=== PATIENT | female | born 1970 | race Caucasian/White ===

== ENCOUNTER → 2017-10-04 17:03 | Outpatient (CLI) | payer OTHER, SELFPAY ==
--- NOTE | 2017-10-04 17:30 | MRI_ITS ---
STUDY: MRI BRAIN WITH AND WITHOUT CONTRAST REASON FOR EXAM: Female, 47 years old. Papilledema with headaches TECHNIQUE: Standardized multiplanar fat and water weighted pulse sequences were obtained. 10 ml of Gadavist contrast material was administered intravenously for the contrast portion of the examination. COMPARISON: None. FINDINGS: There is a very large heterogeneously enhancing mass lesion in the right frontal lobe demonstrating foci of subacute and acute hemorrhage producing extrinsic compression upon the frontal horn of the right lateral ventricle which is displaced posteriorly and across the midline.. There is also mass effect upon the frontal horn of the left lateral ventricle. Normal white matter tracts of the supratentorial brain. Normal bilateral basal ganglia. Normal thalami. There is no extra-axial fluid accumulation. Normal flow voids within the major intracranial circulation suggesting patency by spin echo criteria. Normal venous enhancement. There is no enhancing intra-axial or extra-axial abnormality. Partial empty sella deformity. Normal, infundibular stalk, optic chiasm and hypothalamus. Normal tectal plate and pineal gland. Normal midbrain, moise and medulla. Normal cerebellum. Normal basal cisterns. Normal bilateral temporal bones. Normal bilateral internal auditory canals. There is fluid distended optic nerve root sheaths which may be consistent with clinical history of palpable edema There is minor mucosal thickening of the maxillary and ethmoid sinuses. Normal calvarium and skull base. Normal visualized soft tissue structures. Normal visualized upper cervical spine. MRI/Brain W/WO Contrast IMPRESSION: Large heterogeneously enhancing mass in the right frontal lobe with foci of acute and subacute hemorrhage displacing the lateral ventricles and producing midline shift. This may represent a primary glioblastoma although large metastatic lesion is not excluded and clinical correlation is recommended Electronically Signed: Sudhir Corea MD at 19:03 EDT , Service support ,
== END ==
LOC: MRI 17:04
DX: H47.10 Unspecified papilledema (principal)
CPT/HCPCS: 70553; A9585

== ENCOUNTER 2017-10-04 19:32 | Emergency (ER) | payer BC, SELFPAY ==
[2017-10-04 19:34] VITALS: BP 163/105; PULSE 76; RESP 13; TEMP 37.2; O2SAT 100; BMI 34.7
--- NOTE | 2017-10-04 20:02 | EKG12_ITS ---
Test Reason : HEADACHE Blood Pressure : / mmHG Vent. Rate : 078 BPM Atrial Rate : 078 BPM P-R Int : 144 ms QRS Dur : 086 ms QT Int : 378 ms P-R-T Axes : 023 009 013 degrees QTc Int : 430 ms Normal sinus rhythm Normal ECG Confirmed by MELANY DUGGAN, ECTOR ([id number]), senior editor HELEN CANO ([id number]) on 10/06/2017 3:10:13 PM Referred By: MARTÍN CHAVEZ Confirmed By:ECTOR MOSLEY MD
[2017-10-04] MEDS: Ondansetron 4 MG/2 ML Vial IV (20:20)
[2017-10-04 20:31] LABS: Absolute Lymphocyte Count 2.78 X10^3/ul (0.83-4.51); Absolute Neutrophil Count 6.1 X10^3/uL (2.0-7.7); Basophil# 0.03 X10^3/uL; Basophil% 0.3 % (0-1); Eosinophil# 0.38 X10^3/uL; Eosinophils% 3.8 % (0-5); Hematocrit 40.4 % (37-47); Lymphocyte # 2.78 X10^3/ul (4.0); Lymphocyte % 27.8 % (19-41); Mean Corp Hgb Conc 32.2 g/gl (32-36); Mean Corpuscular Hgb 29.6 pg (27.0-32.0); Mean Platelet Vol. 9.7 fl (6.2-12.0); Monocyte# 0.68 X10^3/uL; Monocyte% 6.8 % (0-10); Neutrophil # 6.12 X10^3/uL (2.7-7.7); Neutrophil % 61.2 % (47-70); Platelet Count 276 K/mm3 (150-450); RBC Distribution Width CV 13.2 % (11.6-14.6); RBC Distribution Width SD 44.2 fl (35.1-43.9); Red Blood Count 4.39 M/mm3 (4.2-5.4)
[2017-10-04 20:36] LABS: POSITIVE COUNT NO; POSITIVE DIFFERENTIAL NO; POSITIVE MORPHOLOGY NO
[2017-10-04 20:44] VITALS: BP 126/91; PULSE 81; RESP 17; O2SAT 98
[2017-10-04] MEDS: levETIRAcetam IV 1,000 MG/100 ML BAG 400 MG IV (20:49)
[2017-10-04 20:51] LABS: ALB/GLOB Ratio 0.8 RATIO (0.9-2.4); AST(SGOT) 11 U/L (15-37); Alanine Aminotransfer ALT/SGPT 18 U/L (13-56); Albumin, Serum 3.7 g/dL (3.2-5.0); Alkaline Phosphatase 77 U/L (45-117); Anion Gap 7 (5-15); BUN 15 mg/dL (7-18); BUN/Creat Ratio 20.2 RATIO (10-20); Calcium,Total 9.3 mg/dL (8.5-10.1); Chloride 108 mmol/L (98-107); Creatinine, Serum 0.74 mg/dL (0.55-1.02); EST Glomerular Filtration Rate 90 mL/min (>60); Est Glom Filt Rate - Afr Amer 108 mL/min (>60); Estimated Creatinine Clearance 88.93 ml/min; Globulin 4.4 g/dL (2.2-4.2); Glucose 105 mg/dL (74-106); Potassium 3.5 mmol/L (3.5-5.1); Protein, Total 8.1 g/dL (6.4-8.2); Sodium Level 141 mmol/L (136-145)
--- NOTE | 2017-10-04 20:55 | NURSING ---
ACCEPTED AT [facility] G70 ROOM 14 REPORT
[2017-10-04 20:58] LABS: Prothrombin Time (Protime)PT. 13.4 SECONDS (11.7-14.9)
[2017-10-04 20:59] LABS: Partial Thromboplast Time 28.1 Seconds (24.1-36.2)
--- NOTE | 2017-10-04 21:00 | ED.VISSUMM ---
- ER Visit Summary Date of Service: 10/04/17 Chief Complaint: Headache, abnormal MRI History of Present Illness: The patient is a 47 F to the emergency department with an abnormal MRI. The patient has had a gradual progressive headache for the past 3 months. She states that it has begun to wake him from sleep. She has had nausea and vomiting. Over the past month, she said double vision and trouble focusing especially with the right eye. Over the past 2 weeks, she has begun to have clumsiness of her left hand. She went to her logistic specialist. She had a dilated exam which demonstrated papilledema. With this, she was ordered an outpatient MRI. MRI was done today. It did show a large mass with hemorrhagic transformation and midline shift. 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 She had negative lymph nodes. She has no other history of cancer. She does not take anticoagulants. Physical Examination: Vital signs reviewed General: Well-nourished, well-developed Head: Normocephalic, atraumatic Eyes: Pupils equal and reactive, extraocular muscles intact Neck, supple, no lymphadenopathy Heart: Regular rate and rhythm Respiratory: No distress, clear bilaterally Abdomen: Soft, nontender, nondistended, no peritoneal signs Back: Nontender Extremities: Nontender, no edema, no cords Skin: Normal color no rash Neuro: Alert and oriented, positive papilledema, mild clumsiness of the left arm, GCS of 15 Test Results: [] Emergency Department Course and Treatment: The patient has a GCS of 15. However, in reviewing her MRI this is a very large mass. There is both acute and subacute hemorrhage. She has about a centimeter midline shift. Although the patient looks well, I do feel that she is going to require emergent neurosurgery evaluation. The patient was given IV Decadron. She was started on IV Keppra. Patient was discussed with Dr. Malloy, neurosurgeon at [facility]. He did accept the patient in transfer. She will be transferred to [facility] for further evaluation and treatment of her brain mass. Treatment Plan: [] Disposition: Transfer Impression: 1. Brain mass with midline shift This note was generated with [employer] dictation software. It may contain incorrect words, spelling, and punctuation that were not noted in review of the chart prior to signing ED Disposition - Plan for ED Patient: Chief Complaint: Abn Labs Referrals: Shane Matthew [Primary Care Provider] -
--- NOTE | 2017-10-04 21:03 | ED.DCSUM_ITS ---
- ER Visit Summary Date of Service: 10/04/17 Chief Complaint: Headache, abnormal MRI History of Present Illness: The patient is a 47 F to the emergency department with an abnormal MRI. The patient has had a gradual progressive headache for the past 3 months. She states that it has begun to wake him from sleep. She has had nausea and vomiting. Over the past month, she said double vision and trouble focusing especially with the right eye. Over the past 2 weeks, she has begun to have clumsiness of her left hand. She went to her botany laboratory assistant. She had a dilated exam which demonstrated papilledema. With this, she was ordered an outpatient MRI. MRI was done today. It did show a large mass with hemorrhagic transformation and midline shift. 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 She had negative lymph nodes. She has no other history of cancer. She does not take anticoagulants. Physical Examination: Vital signs reviewed General: Well-nourished, well-developed Head: Normocephalic, atraumatic Eyes: Pupils equal and reactive, extraocular muscles intact Neck, supple, no lymphadenopathy Heart: Regular rate and rhythm Respiratory: No distress, clear bilaterally Abdomen: Soft, nontender, nondistended, no peritoneal signs Back: Nontender Extremities: Nontender, no edema, no cords Skin: Normal color no rash Neuro: Alert and oriented, positive papilledema, mild clumsiness of the left arm , GCS of 15 Test Results: [] Emergency Department Course and Treatment: The patient has a GCS of 15. However , in reviewing her MRI this is a very large mass. There is both acute and subacute hemorrhage. She has about a centimeter midline shift. Although the patient looks well, I do feel that she is going to require emergent neurosurgery evaluation. The patient was given IV Decadron. She was started on IV Keppra. Patient was discussed with Dr. Malloy, neurosurgeon at [facility]. He did accept the patient in transfer. She will be transferred to [facility] for further evaluation and treatment of her brain mass. Treatment Plan: [] Disposition: Transfer Impression: 1. Brain mass with midline shift This note was generated with [employer] dictation software. It may contain incorrect words, spelling, and punctuation that were not noted in review of the chart prior to signing ED Disposition - Plan for ED Patient: Chief Complaint: Abn Labs Referrals: Shane Matthew [Primary Care Provider] -
[2017-10-04 21:39] VITALS: BP 133/90; PULSE 76; RESP 16; O2SAT 98
--- NOTE | 2017-10-04 21:41 | NURSING ---
MULTIPLE CALL ATTEMPTS WERE MADE TO THE [facility]. CHARGE NURSE MADE 2 ATTEMPTS WELL. WAS ON HOLD WITH THE CLINIC FOR OVER 20 MINUTES. TOLD THE TRANSFER LINE TO CALL ME WHEN THEY ARE READY TO GET REPORT.
== END 2017-10-04 21:43 | disposition short-term general hospital (02) ==
LOC: ED 20:05
PROVIDERS: Emergency Provider Emergency Medicine
DX: G93.89 Other specified disorders of brain (principal); E11.9 Type 2 diabetes mellitus without complications; I10 Essential (primary) hypertension; J45.909 Unspecified asthma, uncomplicated; Z85.820 Personal history of malignant melanoma of skin
CPT/HCPCS: 80053; 85025; 85610; 85730; 93005; 99285; J7030; J7040; A4216; J2405

== ENCOUNTER → 2018-06-23 10:51 | Outpatient (CLI) | payer BC, SELFPAY ==
[2018-06-08 16:10] VITALS: BMI 34.7
[2018-06-23 12:45] LABS: Absolute Lymphocyte Count 1.93 X10^3/ul (0.83-4.51); Absolute Neutrophil Count 5.5 X10^3/uL (2.0-7.7); Basophil# 0.03 X10^3/uL; Basophil% 0.4 % (0-1); Eosinophil# 0.54 X10^3/uL; Eosinophils% 6.3 % (0-5); Hematocrit 41.5 % (37-47); Lymphocyte # 1.93 X10^3/ul (4.0); Lymphocyte % 22.5 % (19-41); Mean Corp Hgb Conc 31.3 g/gl (32-36); Mean Corpuscular Hgb 28.8 pg (27.0-32.0); Mean Platelet Vol. 10.4 fl (6.2-12.0); Monocyte# 0.55 X10^3/uL; Monocyte% 6.4 % (0-10); Neutrophil # 5.51 X10^3/uL (2.7-7.7); Neutrophil % 64.3 % (47-70); Platelet Count 301 K/mm3 (150-450); RBC Distribution Width CV 13.3 % (11.6-14.6); Red Blood Count 4.51 M/mm3 (4.2-5.4); White Blood Count 8.6 K/mm3 (4.4-11.0)
[2018-06-23 12:57] LABS: POSITIVE COUNT NO; POSITIVE DIFFERENTIAL NO; POSITIVE MORPHOLOGY NO
[2018-06-23 14:08] LABS: Hemoglobin A1c 6.5 % (4.2-6.3)
[2018-06-23 14:17] LABS: ALB/GLOB Ratio 0.8 RATIO (0.9-2.4); AST(SGOT) 17 U/L (15-37); Alanine Aminotransfer ALT/SGPT 20 U/L (13-56); Albumin, Serum 3.5 g/dL (3.2-5.0); Alkaline Phosphatase 107 U/L (45-117); Anion Gap 9 (5-15); BUN 14 mg/dL (7-18); BUN/Creat Ratio 17.9 RATIO (10-20); Calcium,Total 9.1 mg/dL (8.5-10.1); Chloride 109 mmol/L (98-107); Cholesterol 165 mg/dL (200); Creatinine, Serum 0.78 mg/dL (0.55-1.02); EST Glomerular Filtration Rate 84 mL/min (>60); Est Glom Filt Rate - Afr Amer 101 mL/min (>60); Globulin 4.2 g/dL (2.2-4.2); Glucose 102 mg/dL (74-106); High Density Lipoprotein 41 mg/dL; Potassium 3.9 mmol/L (3.5-5.1); Protein, Total 7.7 g/dL (6.4-8.2); Sodium Level 142 mmol/L (136-145); Triglycerides 88 mg/dL; Very Low Density Lipoprotein 18 mg/dL (5-40)
--- OUTSIDE RECORDS SUMMARY | 2018-08-09 01:57 | XMS RPT_ITS ---
:1970 Author Organization OHIP Care Team Providers Name Role Phone SARY XIONG (WOOD REPATCHER) Attending Unavailable NATASHA MILLER Admitting Unavailable KSHETTRY, ELIAZAR R Attending Unavailable DEN DELGADO (PA-C) Referring Unavailable KSHETTRY, ELIAZAR R Admitting Unavailable KSHETTRY, ELIAZAR R Attending Unavailable KSHETTRY, ELIAZAR R Attending Unavailable GERARD CAMP Attending Unavailable KSHETTRY, ELIAZAR R Referring Unavailable KSHETTRY, ELIAZAR R Attending Unavailable KSHETTRY, ELIAZAR R Referring Unavailable KSHETTRY, ELIAZAR R Referring Unavailable SARY XIONG (WOOD REPATCHER) Referring Unavailable KSHETTRY, ELIAZAR R Attending Unavailable JUSTIN MATTHEW Referring Unavailable KSHETTRY, ELIAZAR R Referring Unavailable KSHETTRY, ELIAZAR R Referring Unavailable KSHETTRY, ELIAZAR R Attending Unavailable KSHETTRY, ELIAZAR R Referring Unavailable YON WONG Attending Unavailable JUSTIN MATTHEW Primary Care Unavailable WALT RICHTER Attending Unavailable JUSTIN MATTHEW Primary Care Unavailable YON WONG Attending Unavailable JUSTIN MATTHEW Primary Care Unavailable Justin Matthew Attending Unavailable Justin Matthew Primary Care Unavailable Justin Matthew Referring Unavailable SARY KENNEDY Attending Unavailable SARY KENNEDY Referring Unavailable Justin Matthew Primary Care Unavailable SARY KENNEDY Consulting Unavailable Justin Matthew Primary Care Unavailable Raven Mari Attending Unavailable Ron Bell Attending Unavailable Justin Matthew Referring Unavailable PROBLEMS PROBLEMS DATE TYPE CONDITION / CODE ATTENDING STATUS SOURCE 06/08/2018 Unknown Z02.1 - Encounter Ron Bell Active [place] for pre-employment Community examination / Hospital Z02.1(ICD-10) Repository 02/17/2018 Active Encounter for Active [place] screening for other Clinic Main disorder / [place] Z13.89(ICD-10) Repository 02/17/2018 Active Other fatigue / NA Active [place] R53.83(ICD-10) Clinic Main [place] Repository 01/20/2018 Active Encounter for Active [place] screening mammogram Clinic Main for malignant [place] neoplasm of breast / Repository Z12.31(ICD-10) 10/31/2017 Active Other injury of [facility] unspecified body ELIAZAR [facility] Main region, initial [place] encounter / Repository T14.8XXA(ICD-10) 10/31/2017 Active Local infection of [facility] the skin and ELIAZAR [facility] Main subcutaneous tissue, [place] unspecified / Repository L08.9(ICD-10) 10/25/2017 Active Infection following KSHETTRY, Active [place] a procedure, initial ELIAZAR R Clinic Main encounter / [place] T81.4XXA(ICD-10) Repository 10/25/2017 Active Cutaneous abscess, KSHETTRY, Active [place] unspecified / ELIAZAR R Clinic Main L02.91(ICD-10) [place] Repository 10/06/2017 Active Benign neoplasm of KSHETTRY, Active [place] meninges, ELIAZAR R Clinic Main unspecified / [place] D32.9(ICD-10) Repository 10/04/2017 Active Disorder of brain, KSHETTRY, Active [place] unspecified / ELIAZAR R Clinic Main G93.9(ICD-10) [place] Repository 10/04/2017 Active Other acute KSHETTRY, Active [place] postprocedural pain ELIAZAR R Clinic Main / G89.18(ICD-10) [place] Repository 10/04/2017 Active Unspecified KSHETTRY, Active [place] papilledema / ELIAZAR R Clinic Main H47.10(ICD-10) [place] Repository 09/14/2017 Admitting Contusion of left YON WONG Active [facility] diagnosis middle finger HARIS Three without damage to Repository nail, initial encounter / S60.032A(ICD-10) 09/14/2017 Admitting Contusion of left YON WONG [facility] diagnosis ring finger without HARIS Three damage to nail, Repository initial encounter / S60.042A(ICD-10) PROCEDURES PROCEDURES No Procedure Records FoundRESULTS RESULTS CBC W/DIFF, AUTOMATED Collected: 06/23/2018 Status: F Source: [place] 10:54 AM [facility] REPOSITORY TYPE CODE TESTS RESULT OUT OF RANGE REFERENCE UNITS LAB L100.1000 4.4-11.0 K/mm3 Normal WBC 8.6 LAB L100.1200 4.2-5.4 M/mm3 Normal RBC 4.51 LAB L100.1300 12.0-15.0 g/dl Normal HGB 13.0 LAB L100.1400 37-47 % Normal HCT 41.5 LAB L100.1500 81-99 fL Normal MCV 92.0 LAB L100.1600 27.0-32.0 pg Normal MCH 28.8 LAB L100.1700 32-36 g/gl Low MCHC 31.3 LAB L100.1810 11.6-14.6 % Normal RDW CV 13.3 LAB L100.1820 35.1-43.9 fl High RDW SD 44.0 LAB L100.1900 150-450 K/mm3 Normal PLT 301 LAB L100.2000 6.2-12.0 fl Normal MPV 10.4 LAB L100.2100 47-70 % Normal NEUT% 64.3 LAB L100.2200 19-41 % Normal LY% 22.5 LAB L100.2300 0-10 % Normal MONO% 6.4 LAB L100.2400 0-5 % High EO% 6.3 LAB L100.2500 0-1 % Normal BASO% 0.4 LAB L100.2550 0.0-0.9 % Normal IM GRAN % 0.100 Result Comment: IG% - Immature Granulocytes (promyelocytes, myelocytes and metamyelocytes) > 1% indicates that a LEFT SHIFT is Present. LAB L100.2620 2.0-7.7 X10 3/uL Normal Absolute Neut 5.5 LAB L100.2720 0.83-4.51 X10 3/ul Normal Absolute Lymph 1.93 Performed By: #### L100.0100 #### [facility] [address] [place], [address] HEMOGLOBIN A1C Collected: 06/23/2018 Status: F Source: [place] 10:54 AM [facility] REPOSITORY TYPE CODE TESTS RESULT OUT OF RANGE REFERENCE UNITS LAB L501.9985 4.2-6.3 % High HGB A1C 6.5 Performed By: #### L501.9985 #### [facility] [address] [place], [address] COMPREHENSIVE METABOLIC Collected: 06/23/2018 Status: F Source: [facility] 10:54 AM [facility] REPOSITORY TYPE CODE TESTS RESULT OUT OF RANGE REFERENCE UNITS LAB L501.0100 74-106 mg/dL Normal GLU 102 Result Comment: Fasting Glucose result from 100 to 125 mg/dL suggests IMPAIRED HOMEOSTASIS per A.D.A. criteria. Please note revised GLUCOSE reference range effective 2017. LAB L501.1000 7-18 mg/dL Normal BUN 14 LAB L501.1100 0.55-1.02 mg/dL Normal CREAT,SERUM 0.78 Result Comment: The validity of the calculated GFR AND GFRAA in patients over 70 years has not been determined. Clinical correlation is essential. LAB L501.1110 >60 mL/min Normal EST GFR 84 Result Comment: Non- GFR Calc LAB L501.1115 >60 mL/min Normal EST GFR - AA 101 Result Comment: GFR Calc LAB L501.1300 10-20 RATIO Normal BUN/CRE 17.9 LAB L501.1500 6.4-8.2 g/dL T Normal PROT 7.7 LAB L501.1800 3.2-5.0 g/dL Normal ALB 3.5 LAB L501.1950 2.2-4.2 g/dL Normal GLOB 4.2 LAB L501.2000 0.9-2.4 RATIO Low A/G 0.8 LAB L501.2200 8.5-10.1 mg/dL CA Normal 9.1 LAB L501.4100 15-37 U/L Normal AST 17 LAB L501.4305 45-117 U/L Normal ALK P 107 LAB L501.4405 13-56 U/L Normal ALT 20 LAB L501.4600 0.20-1.00 mg/dL T Normal BILI 0.40 LAB L501.5300 136-145 mmol/L NA Normal 142 LAB L501.5600 3.5-5.1 mmol/L K Normal 3.9 LAB L501.5900 98-107 mmol/L High CL 109 LAB L501.6100 21.0-32.0 mmol/L Normal CO2 24.0 LAB L501.6200 5-15 Normal GAP 9 Performed By: #### L500.4050, L500.4100 #### [facility] [address] [place], [address] LIPID PROFILE Collected: 06/23/2018 Status: F Source: [place] 10:54 AM [facility] REPOSITORY TYPE CODE TESTS RESULT OUT OF RANGE REFERENCE UNITS LAB L501.4900 200 mg/dL Normal CHOL 165 Result Comment: <200 mg/dL Desirable 200-240 mg/dL Borderline >240 mg/dL High Risk LAB L501.5000 mg/dL Normal TRIG 88 Result Comment: The drugs N-Acetylcysteine and Metamizole may falsely depress this assay. Serum Triglycerides Reference Interval Normal <150 mg/dL Borderline high 150 - 199 mg/dL High 200 - 499 mg/dL Very High > or = 500 mg/dL LAB L501.6400 mg/dL Normal HDL 41 Result Comment: The drugs N-Acetylcysteine and Metamizole may falsely depress this assay. Reference Range HDL <40 mg/dL Low HDL Cholesterol HDL >or= 60 mg/dL High HDL Cholesterol LAB L501.6500 0-130 mg/dL Normal LDL 106 LAB L501.6600 5-40 mg/dL Normal VLDL 18 Performed By: #### L500.4050, L500.4100 #### [facility] [address] 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 [Ecotrin] 81 mg PO DAILY@0800 #30 tab 05/12/15 [Rx Confirmed 10/04/17] Metformin HCl [Glucophage] 1,000 mg PO DAILY 05/12/15 [History Confirmed 10/04/17] Albuterol Inhaler [Ventolin Hfa (SP)] 1 - 2 puff INHALATION Q4H PRN PRN 10/04/17 [History Confirmed 10/04/17] Atorvastatin Calcium 10 mg PO DAILY 10/04/17 [History Confirmed 10/04/17] Cyclobenzaprine HCl 10 mg PO TID 10/04/17 [History Confirmed 10/04/17] DiphenhydrAMINE [Benadryl] 25 mg PO DAILY 10/04/17 [History Confirmed 10/04/17] Ipratropium/Albuterol Sulfate [Duoneb] 3 ml INHALATION Q6H.RT 10/04/17 [History Confirmed 10/04/17] Lorazepam [Ativan] 0.5 mg PO PRN PRN 10/04/17 [History Confirmed 10/04/17] MedroxyPROGESTERone [Depo-Provera] 150 mg IM .[id number] 10/04/17 [History Confirmed 10/04/17] Metoprolol Tartrate [Lopressor (Beta Cyndi)] 25 mg PO BID 10/04/17 [History Confirmed 10/04/17] Sertraline HCl [Zoloft] 50 mg PO DAILY 10/04/17 [History Confirmed 10/04/17] Trazodone HCl 50 mg PO PRN PRN 10/04/17 [History Confirmed 10/04/17] PFSH Social History Smoking Status: Never smoker HPI HPI Details: ROSE ROLAND, is a 47 F who presents to the office today for Office Procedures Physical Exam Coding PE Coding Sports/School Physical: No DOT PE: No Pre-employment PE: Yes Assessment AND Plan Problems 1. Physical exam, pre-employment Z02.1 Plan See attached scanned preemployment physical examination forms Coding Level of Care Code No Charge Diagnoses Physical exam, pre-employment Z02.1 Additional Codes PE Coding - Pre-employment PE: Yes (PREPE) 06/08/18 1610 <Electronically signed by Ron CARRASQUILLO> Date Ron CARRASQUILLO Cosigner Signature: Date (if applicable) CC: MELISSAO Observed: 04/10/2018 Status: COMPLETED Source: [place] 12:00 AM [facility] REPOSITORY Letter Text Eliazar March M.D. Skull Base AND Cerebrovascular Surgery Director, Endoscopic AND Microsurgical Tower Cleaner Professor of Neurosurgery [facility] [place] [address] [place] [address] Office: [phone] Appointments: [phone] 04/10/2018 RE. Rose Roland : 1970 Date of : 1970 To whom it may concern, Ms Roland was seen at the outpatient clinic on 04/07/2018. She may return to work without limitations as of 04/10/2018. Please feel free to contact my office for any questions. Kindest regards, Eliazar March MD Letter Text Eliazar March M.D. Skull Base AND Cerebrovascular Surgery Director, Endoscopic AND Microsurgical Tower Cleaner Professor of Neurosurgery [facility] [place] [address] [place] [address] Office: [phone] Appointments: [phone] 04/10/2018 ? RE. Rose Roland : 1970 Date of : 1970 ? ? ? To whom it may concern, ? Ms Roland was seen at the outpatient clinic on 04/07/2018. She may return to work without limitations as of 04/10/2018. ? Please feel free to contact my office for any questions. ? Kindest regards, ? ? electronic signature Eliazar March MD ? ? 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 Infection has resolved. MRI today 6 months postop looks good. She does have a small left frontal convexity meningioma that is stable and that we will continue to monitor as well. I would like to see her back 1 year postoperatively (October 2018) with repeat MRI brain wwo contrast and telehealth visit. Hopefully she'll have durable benefit from resection of very large meningioma. ? ? Eliazar March MD Staff, Skull Base AND Cerebrovascular Surgery Department of Neurological Surgery [facility] ? Subjective: Patient is unaccompanied . Overall doing well. No PURCELL, vision problems. Still has some fatigue. Transitioning jobs. Neurologic Review of Systems: No TIA/stroke, headache, vision difficulty, weakness, numbness or tingling, speech difficulty. Current Outpatient Prescriptions: losartan (COZAAR) 50 mg tablet Take 50 mg by mouth once daily. albuterol sulfate (PROAIR HFA INHALATION) Inhale as instructed. LORazepam (ATIVAN) 1 mg tablet Take 1 mg by mouth every 6 hours as needed for Anxiety. Takes one half tablet as needed. cranberry fruit extract (CRANBERRY ORAL) Take 15,000 mcg by mouth once daily. ferrous sulfate (IRON) 325 mg (65 mg iron) tablet Take 325 mg by mouth daily with breakfast. cyanocobalamin (VITAMIN B-12) 1,000 mcg tab Take 1,000 mcg by mouth once daily. meloxicam (MOBIC) 15 mg tablet Take 15 mg by mouth once daily. docusate sodium (COLACE) 100 mg capsule Take 1 capsule by mouth twice daily as needed for Constipation. oxacillin (BACTOCILL) 2 gram/50 mL Inject 50 mL intravenously every 4 hours. (Patient not taking: Reported on 02/15/2018 ) topiramate (TOPAMAX) 25 mg tablet Take 1 tablet by mouth twice daily. (Patient not taking: Reported on 02/15/2018 ) ibuprofen (MOTRIN) 400 mg tablet Take 1-2 tablets by mouth every 4 hours as needed for Pain. acetaminophen (TYLENOL) 325 mg tablet Take 1 tablet by mouth every 4 hours as needed for Pain or Fever. ATORVASTATIN CALCIUM (LIPITOR ORAL) Take by mouth once daily. gabapentin (NEURONTIN) 100 mg capsule Take 100 mg by mouth three times daily. aspirin, enteric coated (ASPIRIN, ENTERIC COATED) 81 mg EC tablet Take 81 mg by mouth once daily. medroxyPROGESTERone (DEPO-PROVERA) 150 mg/mL syrg Inject 1 mL intramuscularly every 12 weeks. cyclobenzaprine (FLEXERIL) 10 mg tablet Take 10 mg by mouth as needed. sertraline 50 mg tablet Take 50 mg by mouth once daily. IPRATROPRIUM-ALBUTEROL 0.5 mg-3 mg(2.5 mg base)/3 mL INHALATION Nebu metFORMIN 1,000 mg ORAL 24 hr tablet Take one(1) tablet daily. No current facility-administered medications for this visit. Physical Examination: BP 133/88 Pulse 86 Temp (Src) 98.2 (Oral) Resp 16 Wt 213 lb (96.6kg) SpO2 100% Oriented to person, place, and time Speech: Normal fluency and comprehension 2nd cranial nerve: Full visual zuniga 3rd, 4th and 6th cranial nerves: Pupils equally round and reactive to light, extraocular movements intact without nystagmus or subjective diplopia 5th cranial nerve: V1-3 intact to light touch bilaterally 7th cranial nerve: Facial muscles full and symmetric bilaterally 8th cranial nerve: hearing intact to finger rub bilaterally 9th cranial nerve: gag reflex test deferred 10th cranial nerve: Palate elevates symmetrically and uvula in the midline 11th nerve: shoulder shrug 5/5 bilaterally 12th cranial nerve: tongue protrudes in the midline Motors: 5/5 strength throughout without pronator drift Sensation: intact to light touch in all extremities Coordination: no dysmetria on finger-nose testing bilaterally Gait: able to stand and ambulate independently with normal gait Inc c/d/i; small very soft pseudomeningocele Data Review: MRI Brain April 07, 2018 personally reviewed - no recurrent tumor in operative site; small left frontal convexity meningioma stable CNOV Observed: 04/07/2018 Status: COMPLETED Source: [place] 9:40 AM [facility] REPOSITORY Office Visit (NSCAMN) ROSE ROLAND ([id number]) 1970 F Date Time Provider Department 04/07/18 9:40 AM ELIAZAR MARCH NSCAMN During your visit today, we recorded the following information about you: Temperature Pulse Respiration Blood pressure 98.2 degrees 86/minute 16/minute 133/88 Weight 96.6 kg Eliazar March MD 04/11/2018 9:42 AM Signed SECTION OF SKULL BASE SURGERY MINIMALLY INVASIVE CRANIAL BASE AND PITUITARY SURGERY PROGRAM [facility] AND [facility] [place] CC: MD Gerard Law MD Assessment/Plan: Rose Roland is 47 year old female with hx of 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 Infection has resolved. MRI today 6 months postop looks good. She does have a small left frontal convexity meningioma that is stable and that we will continue to monitor as well. I would like to see her back 1 year postoperatively (October 2018) with repeat MRI brain wwo contrast and telehealth visit. Hopefully she'll have durable benefit from resection of very large meningioma. ? ? Eliazar March MD Staff, Skull Base AND Cerebrovascular Surgery Department of Neurological Surgery [facility] ? Subjective: Patient is unaccompanied . Overall doing well. No PURCELL, vision problems. Still has some fatigue. Transitioning jobs. Neurologic Review of Systems: No TIA/stroke, headache, vision difficulty, weakness, numbness or tingling, speech difficulty. Current Outpatient Prescriptions: losartan (COZAAR) 50 mg tablet Take 50 mg by mouth once daily. albuterol sulfate (PROAIR HFA INHALATION) Inhale as instructed. LORazepam (ATIVAN) 1 mg tablet Take 1 mg by mouth every 6 hours as needed for Anxiety. Takes one half tablet as needed. cranberry fruit extract (CRANBERRY ORAL) Take 15,000 mcg by mouth once daily. ferrous sulfate (IRON) 325 mg (65 mg iron) tablet Take 325 mg by mouth daily with breakfast. cyanocobalamin (VITAMIN B-12) 1,000 mcg tab Take 1,000 mcg by mouth once daily. meloxicam (MOBIC) 15 mg tablet Take 15 mg by mouth once daily. docusate sodium (COLACE) 100 mg capsule Take 1 capsule by mouth twice daily as needed for Constipation. oxacillin (BACTOCILL) 2 gram/50 mL Inject 50 mL intravenously every 4 hours. (Patient not taking: Reported on 02/15/2018 ) topiramate (TOPAMAX) 25 mg tablet Take 1 tablet by mouth twice daily. (Patient not taking: Reported on 02/15/2018 ) ibuprofen (MOTRIN) 400 mg tablet Take 1-2 tablets by mouth every 4 hours as needed for Pain. acetaminophen (TYLENOL) 325 mg tablet Take 1 tablet by mouth every 4 hours as needed for Pain or Fever. ATORVASTATIN CALCIUM (LIPITOR ORAL) Take by mouth once daily. gabapentin (NEURONTIN) 100 mg capsule Take 100 mg by mouth three times daily. aspirin, enteric coated (ASPIRIN, ENTERIC COATED) 81 mg EC tablet Take 81 mg by mouth once daily. medroxyPROGESTERone (DEPO-PROVERA) 150 mg/mL syrg Inject 1 mL intramuscularly every 12 weeks. cyclobenzaprine (FLEXERIL) 10 mg tablet Take 10 mg by mouth as needed. sertraline 50 mg tablet Take 50 mg by mouth once daily. IPRATROPRIUM-ALBUTEROL 0.5 mg-3 mg(2.5 mg base)/3 mL INHALATION Nebu metFORMIN 1,000 mg ORAL 24 hr tablet Take one(1) tablet daily. No current facility-administered medications for this visit. Physical Examination: BP 133/88 Pulse 86 Temp (Src) 98.2 (Oral) Resp 16 Wt 213 lb (96.6kg) SpO2 100% Oriented to person, place, and time Speech: Normal fluency and comprehension 2nd cranial nerve: Full visual zuniag 3rd, 4th and 6th cranial nerves: Pupils equally round and reactive to light, extraocular movements intact without nystagmus or subjective diplopia 5th cranial nerve: V1-3 intact to light touch bilaterally 7th cranial nerve: Facial muscles full and symmetric bilaterally 8th cranial nerve: hearing intact to finger rub bilaterally 9th cranial nerve: gag reflex test deferred 10th cranial nerve: Palate elevates symmetrically and uvula in the midline 11th nerve: shoulder shrug 5/5 bilaterally 12th cranial nerve: tongue protrudes in the midline Motors: 5/5 strength throughout without pronator drift Sensation: intact to light touch in all extremities Coordination: no dysmetria on finger-nose testing bilaterally Gait: able to stand and ambulate independently with normal gait Inc c/d/i; small very soft pseudomeningocele Data Review: MRI Brain April 07, 2018 personally reviewed - no recurrent tumor in operative site; small left frontal convexity meningioma stable Harriet Faye Ma 04/07/2018 10:46 AM Signed Additional intake questions: Has the patient had nausea, vomiting, diarrhea, constipation, fatigue for > 1 week? Fatigue, Yes, MD Notified Does the patient have a decreased appetite? No Does patient want to see a Math Instructor? No (yes to any of above refer patient to schedulers for dietitian appointment) ) Does patient have any new or increased numbness or tingling of extremities? No Is patient interested in fertility information? No Does patient need any prescription refills? No Electronically Signed By: Harriet March MD 04/07/2018 11:35 AM Signed I'm pleased to see you are doing well overall. MRI looks good. No recurrence at surgical area. Small left sided meningioma has not grown. I recommend f/u MRI brain wwo contrast in 6 months (October 2018) and telehealth visit. Thank you for allowing me to participate in your care. Please do not hesitate to call with questions. Eliazar March MD Staff, Skull Base AND Cerebrovascular Surgery Department of Neurological Surgery [facility] Referring Provider: ELIAZAR MARCH [[id number]] Allergies As of Date: 04/07/2018 (No Known Allergies) Date Reviewed: 04/07/2018 Reviewed by: Harriet Faye Ma - Fully Assessed Reason for Visit: Reason For Visit History Recorded Primary Visit Diagnosis:Meningioma (HCC) [D32.9] Prescriptions as of 04/07/2018 Sig: LOSARTAN 50 MG TABLET Take 50 mg by mouth once jen* PROAIR HFA INHALATION Inhale as instructed. LORAZEPAM 1 MG TABLET Take 1 mg by mouth every 6 ho* CRANBERRY ORAL Take 15,000 mcg by mouth once* FERROUS SULFATE 325 MG (65 MG* Take 325 mg by mouth daily wi* CYANOCOBALAMIN (VIT B-12) 1,0* Take 1,000 mcg by mouth once * MELOXICAM 15 MG TABLET Take 15 mg by mouth once jen* TOPIRAMATE 25 MG TABLET Take 1 tablet by mouth twice * IBUPROFEN 400 MG TABLET Take 1-2 tablets by mouth leesa* ACETAMINOPHEN 325 MG TABLET Take 1 tablet by mouth every * LIPITOR ORAL Take by mouth once daily. GABAPENTIN 100 MG CAPSULE Take 100 mg by mouth three ti* ASPIRIN 81 MG TABLET,DELAYED * Take 81 mg by mouth once jen* MEDROXYPROGESTERONE 150 MG/ML* Inject 1 mL intramuscularly e* CYCLOBENZAPRINE 10 MG TABLET Take 10 mg by mouth as needed. SERTRALINE 50 MG TABLET Take 50 mg by mouth once jen* * IPRATROPIUM-ALBUTEROL 0.5 MG-* * METFORMIN ER 1,000 MG TABLET,* Take one(1) tablet daily. Problem List As Of Date 04/07/2018 Noted Resolved ACUTE PANCREATITIS [K85.90] INVALID FOR* CHOLELITHIASIS NOS [K80.20] INVALID FOR* ABDOMINAL PAIN UNSPEC SITE [R10.9] INVALID FOR* ABDOMINAL PAIN GENERALIZED [R10.84] INVALID FOR* ASA CLASS II [1001] INVALID FOR* PORTAL VEIN THROMBOSIS [I81] INVALID FOR* Abdominal Pain, Epigastric [R10.13] INVALID FOR* Unspecified Esophagitis [K20.9] INVALID FOR* Acute Gastritis without Mention of Hemorrhage [*INVALID FOR* Incisional hernia [K43.2] INVALID FOR* Incisional hernia with obstruction [K43.0] INVALID FOR* Meningioma (HCC) [D32.9] INVALID FOR* More... Vasogenic cerebral edema (HCC) [G93.6] INVALID FOR*11/26/2017 More... At risk of seizures [Z91.89] INVALID FOR*11/26/2017 More... Wound infection [T14.8XXA, L08.9] INVALID FOR* More... Obesity, Class II, BMI 35-39.9 E66.9 [E66.9] INVALID FOR* Other instructions from your clinician: I'm pleased to see you are doing well overall. MRI looks good. No recurrence at surgical area. Small left sided meningioma has not grown. I recommend f/u MRI brain wwo contrast in 6 months (October 2018) and telehealth visit. Thank you for allowing me to participate in your care. Please do not hesitate to call with questions. Eliazar March MD Staff, Skull Base AND Cerebrovascular Surgery Department of Neurological Surgery [facility] Visit Notes: >> Harriet Faye Ma TueApr 07, 2018 10:44 AM Status: Signed Additional intake questions: Has the patient had nausea, vomiting, diarrhea, constipation, fatigue for > 1 week? Fatigue, Yes, MD Notified Does the patient have a decreased appetite? No Does patient want to see a Math Instructor? No (yes to any of above refer patient to schedulers for dietitian appointment) ) Does patient have any new or increased numbness or tingling of extremities? No Is patient interested in fertility information? No Does patient need any prescription refills? No Electronically Signed By: Harriet Faye Ma Medications Discontinued During This Encounter docusate sodium (COLACE) 100 mg caps* 60 c* 0 10/31/2017 04/07/2018 Class: Print RX Route: ORAL Sig: Take 1 capsule by mouth twice daily as needed for Constipation. Disc: Reason for discontinue is not on file. oxacillin (BACTOCILL) 2 gram/50 mL 10/31/2017 04/07/2018 Class: Med Update Route: INTRAVENOUS Sig: Inject 50 mL intravenously every 4 hours. Disc: Reason for discontinue is not on file. Follow-up and Disposition History Recorded Letter Text Encounter Status:Closed by ELIAZAR MARCH MD on 04/11/18 MRI BRAIN WO/W Observed: 04/07/2018 Status: F Source: [facility] 8:34 AM [facility] REPOS[facility] * * *Final Report* * * DATE OF EXAM: Apr 07 2018 8:34AM QBM [id number] - MRI BRAIN WO/W IVCON / PROCEDURE REASON: Benign neoplasm of meninges, unspecified * * * * Physician Interpretation * * * * EXAMINATION: MRI BRAIN WO/W IVCON CLINICAL HISTORY: History of right frontal craniotomy for meningioma resection on 10/07/2017 complicated by wound infection on 10/26/2017. Clinically wound has healed and CRP within normal limits. TECHNIQUE: Routine brain MRI protocol without and with contrast including diffusion images. MQ: [id number] Contrast: 20 mL Dotarem IV COMPARISON: MRI brain dated 12/28/2017 and 10/25/2017 RESULT: Postsurgical changes, Mass lesion/Mass effect: Post surgical changes related to right frontal craniotomy, mesh cranioplasty and right frontal will hole. Minimal increased prominence of a small extra- axial fluid underlying the craniotomy flap currently measuring approximately 5 mm in greatest thickness with stable mild mass effect upon the right frontal lobe. The fluid collection again largely follows the signal intensity characteristics of CSF on all pulse sequences but demonstrates mild residual susceptibility artifact along the pial surface suggesting the chronic subdural hematoma. No residual enhancing extra-axial mass underlying the craniotomy to suggest residual meningioma. No abnormal leptomeningeal enhancement to suggest cerebritis. Stable appearance of the 1 cm extra-axial enhancing mass compatible with a meningioma overlying the cephalad margin of the left central sulcus on image series 13 image 20. No associated mass effect or vasogenic edema seen within the underlying adjacent brain parenchyma. No abnormal parenchymal or leptomeningeal enhancement is appreciated elsewhere. Acute Change: There is no evidence of an acute intracranial process. Hemorrhage: Chronic blood products again noted along the pial surface of the right frontal pole Chronic Change: The white matter is within normal limits of signal intensity for age. Parenchyma: There is mild generalized parenchymal volume loss. Ventricles: Ventriculomegaly corresponds to the degree of parenchymal volume loss. Skull Base: Hypothalamic and pituitary region are grossly normal. Craniocervical junction is normal. No significant marrow replacement process. Vasculature: Major intracranial arterial structures, and dural venous sinuses show typical flow void, suggesting patency by spin echo criteria. Other: The visualized paranasal sinuses and mastoid air cells are clear. The orbits are unremarkable. There is minimal interval decrease in size of the multiloculated subgaleal fluid collection, predominantly posteriorly, overlying the craniotomy site with the greatest thickness measuring 13 mm previously measuring 18 mm as measured on series 13 image 34. IMPRESSION: Minimal increase prominence of the extra-axial fluid collection underlying the right frontoparietal craniotomy and slight interval decrease in size of the overlying multiloculated subgaleal fluid collection. Otherwise stable appearance of the brain since 12/28/2017. Marketing Research Coordinator: MACY Transcribe Date/Time: Apr 07 2018 8:56A Dictated by : RAVEN YOUNGBLOOD DO This examination was interpreted and the report reviewed and electronically signed by: DAVE MOLINA MD on Apr 07 2018 11:55AM EST [id number] PROGRESS Observed: 04/07/2018 Status: COMPLETED Source: [facility] 8:14 AM [facility] REPOSIT[facility] HNO ID: [id number] Author: Je Albert Service: (none) Author Type: (none) Type: Progress Notes Filed: 04/07/2018 8:15 AM Note Text: Radiology Service Progress Note PATIENT NAME: Rose Roland DATE OF SERVICE: April 07, 2018 TIME: 8:14 AM PATIENT IDENTITY VERIFICATION COMPLETED USING TWO (2) METHODS: Patient confirmed name verbally and ID band matches.. PATIENT GENDER DATA: Female. status: : No status: NO. PATIENT RELEVANT IMPLANT DATA REVIEWED: Yes RADIOLOGY DEPARTMENT: MR; Exam(s) Completed: Head: Routine Brain PERIPHERAL IV DATA: Site assessment: Clean,Dry and Intact, Site disposition Discontinued SIGNED BY: Je Albert April 07, 2018 8:14 AM PROGRESS Observed: 04/07/2018 Status: COMPLETED Source: [facility] 7:41 AM [facility] REPOSITORY HNO ID: [id number] Author: Crystal (Rn) ALMA Farr Service: Radiology Author Type: Registered Nurse Type: Progress Notes Filed: 04/07/2018 7:57 AM Note Text: Radiology Service Progress Note PATIENT NAME: Rose Roland DATE OF SERVICE: April 07, 2018 TIME: 7:42 AM PATIENT WEIGHT: 212 LBS PATIENT IDENTITY VERIFICATION COMPLETED USING TWO (2) METHODS: Patient confirmed name verbally and ID band matches.. PATIENT GENDER DATA: Female. status: : No status: NO. CONTRAST INDUCED NEPHROPATHY RISK FACTORS: Diabetic: Yes. Current medication(s): Metformin. Patient currently has insulin pump?: No. CREATININE: Creatinine Date Value Ref Range Status 02/17/2018 0.72 0.58 - 0.96 mg/dL Final 11/21/2017 0.67 0.57 - 1 MG/DL Final 11/14/2017 0.71 0.57 - 1 MG/DL Final eGFR-All Other Races Date Value Ref Range Status 02/17/2018 >60 . Final Comment: eGFR (Estimated GFR) Units of measure: mL/min/1.73 meters squared eGFR is derived from the reexpressed MDRD Study equation using the following parameters: serum creatinine, age, gender and race. The creatinine assay has been calibrated to be traceable to IDMS. An eGFR <60 mL/min/1.73m2 for >3 months is consistent with chronic kidney disease. Refer to KDOQI guidelines for clinical interpretation. In patients with unstable renal function, e.g. those with acute kidney injury, the eGFR may not accurately reflect actual GFR. eGFR- Date Value Ref Range Status 02/17/2018 >60 Final P.O.C.T. RESULTS: N/A April 07, 2018 TREATMENT: No Hydration needed. ALLERGIES: Reviewed and unchanged CONTRAST ALLERGY: NO. IV SITE: Ambulatory: A peripheral IV was started in the Right hand with a Angio cath: 24 gauge. and A Saline lock was inserted per protocol IV SITE APPEARANCE: Clean,Dry and Intact SIGNED BY: Crystal Farr RN April 07, 2018 7:42 AM CBC AND DIFFERENTIAL Collected: 02/17/2018 Status: F Source: [facility] 9:35 AM [facility] REPOSITORY TYPE CODE TESTS RESULT OUT OF REFERENCE UNITS RANGE LAB WBC 3.70-11.00 k/uL WBC 9.81 LAB RBC 3.90-5.20 m/uL RBC 4.46 LAB HGB 11.5-15.5 g/dL Hemoglobin 12.7 LAB HCT 36.0-46.0 % Hematocrit 41.5 LAB MCV 80.0-100.0 fL MCV 93.0 LAB MCH 26.0-34.0 pG MCH 28.5 LAB MCHC 30.5-36.0 g/dL MCHC 30.6 LAB RDWCV 11.5-15.0 % RDW-CV 13.4 LAB PLTCT 150-400 k/uL Platelet Count 308 LAB MPV 9.0-12.7 fL MPV 10.2 LAB ANEUT % Neut% 68.5 LAB AANEUT 1.45-7.50 k/uL Abs Neut 6.72 LAB ALYMP % Lymph% 19.3 LAB AALYMP 1.00-4.00 k/uL Abs Lymph 1.89 LAB AMONO % [place]% 6.4 LAB AAMONO <0.87 k/uL Abs [place] 0.63 LAB AEOS % Eosin% 5.3 LAB AAEOS <0.46 k/uL Abs High Eosin 0.52 LAB ABASO % Baso% 0.5 LAB AABASO <0.11 k/uL Abs Baso 0.05 LAB AUNRBC 0 /100 WBC NRBCs 0.0 LAB ABNRBC <0.01 k/uL Absolute nRBC <0.01 LAB DTYP DTYPE Auto Diff Performed By: #### CBCDIF, BMP, CRP, TSH, T4FTI #### [facility] [address] [place] [id number] BASIC METABOLIC PANL Collected: 02/17/2018 Status: F Source: [facility] 9:35 AM [facility] REPOSITORY TYPE CODE TESTS RESULT OUT OF REFERENCE UNITS RANGE LAB GLU 74-99 mg/dL High Glucose 129 Result Comment: The [place] Diabetes Association (ADA) provides guidance for cutoff values for fasting glucose and random glucose. The ADA defines fasting as no caloric intake for at least 8 hours. Fas ting plasma glucose results between 100 to 125 mg/dL indicate increased risk for diabetes (prediabetes). Fasting plasma glucose results greater than or equal to 126 mg/dL meet the criteria for diagnosis of diabetes. In the absence of unequivocal hyperglycemia, results should be confirmed by repeat testing. In a patient with classic symptoms of hyperglycemia or hyperglycemic crisis, random plasma glucose results greater than or equal to 200 mg/dL meet the criteria for diagnosis of diabetes. Reference: Standards of Medical Care in Diabetes 2016, [place] Diabetes Association. Diabetes Care. 2016.39(Suppl 1). LAB BUN 7-21 mg/dL BUN 14 LAB CRET 0.58-0.96 mg/dL Creatinine 0.72 LAB NA 136-144 mmol/L Sodium 139 LAB K 3.7-5.1 mmol/L Potassium 4.0 LAB CL 97-105 mmol/L Chloride 103 LAB CO2 22-30 mmol/L CO2 22 LAB AGAP 9-18 mmol/L Anion Gap 14 LAB CA 8.5-10.2 mg/dL Calcium, Total 10.1 LAB GFRAA eGFR- Amer. >60 LAB GFRNAA . eGFR-All Other Races >60 Result Comment: eGFR (Estimated GFR) Units of measure: mL/min/1.73 meters squared eGFR is derived from the reexpressed MDRD Study equation using the following parameters: serum creatinine, age, gender and race. The creatinine assay has been calibrated to be traceable to IDMS. An eGFR <60 mL/min/1.73m2 for >3 months is consistent with chronic kidney disease. Refer to KDOQI guidelines for clinical interpretation. In patients with unstable renal function, e.g. those with acute kidney injury, the eGFR may not accurately reflect actual GFR. Performed By: #### CBCDIF, BMP, CRP, TSH, T4FTI #### [facility] [employer] [address] [place], [place] [address] C-REACTIVE PROTEIN Collected: 02/17/2018 Status: F Source: [facility] 9:35 AM [facility] REPOSITORY TYPE CODE TESTS RESULT OUT OF REFERENCE UNITS RANGE LAB CRP <0.9 mg/dL C-Reactive 0.5 Protein Performed By: #### CBCDIF, BMP, CRP, TSH, T4FTI #### [facility] [address] [facility] [employer] [facility] [place], [place] [address] TSH Collected: 02/17/2018 Status: F Source: [facility] 9:35 AM [facility] REPOSITORY TYPE CODE TESTS RESULT OUT OF RANGE REFERENCE UNITS LAB TSH 0.400-5.500 uU/mL TSH 2.540 Result Comment: If the patient is , TSH reference range varies by gestational period: First Trimester 0.100-2.500 uU/mL Second Trimester 0.200-3.000 uU/mL Third Trimester 0.300-3.000 uU/mL References: 1. Joseph L, Analy M, Simon EK, et al. Management of Thyroid Dysfunction during and : An Endocrine Society Clinical Practice Guideline. J Clin Endocrinol Metab, 2012:97:6976-2115. 2. Eduin SUNSHINE. Overview of thyroid disease in . UpToDate. 2016. Accessed on December 26, 2015. Performed By: #### CBCDIF, BMP, CRP, TSH, T4FTI #### [facility] [employer] [address] [place] [address] T4/FTI Collected: 02/17/2018 Status: F Source: [facility] 9:35 AM [facility] REPOSITORY TYPE CODE TESTS RESULT OUT OF REFERENCE UNITS RANGE LAB T4 5.5-10.2 ug/dL T4 6.3 LAB T4U 0.91-1.19 T4 Uptake 1.16 LAB FTI 5.3-10.8 ug/dL FTI 5.4 Performed By: #### CBCDIF, BMP, CRP, TSH, T4FTI #### [facility] [employer] [facility] [address] [place], [place] [address] PROGRESS Observed: 02/15/2018 Status: COMPLETED Source: [facility] 11:50 AM [facility] REPOSITORY HNO ID: [id number] Author: Eliazar March Service: (none) Author Type: Physician Type: Progress Notes Filed: 02/15/2018 5:43 PM Note Text: SECTION OF SKULL BASE SURGERY MINIMALLY INVASIVE CRANIAL BASE AND PITUITARY SURGERY PROGRAM [facility] [place] CC: MD Gerard Law MD Assessment/Plan: Rose Roland is 47 year old female with hx of 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 Seen in follow up on 12/28/17 after completing abx and had a repeat Brain MRI at that time showing significant improvements. She is doing well, wound is well healed and recent CRP was normal. I would like to see her back 6 months (March 2018) with repeat MRI brain with and without contrast. She has tentative plans to return to work beginning of April. Hopefully she'll have durable benefit from resection of very large meningioma. Eliazar March MD Staff, Skull Base AND Cerebrovascular Surgery Department of Neurological Surgery [facility] Subjective: Patient is unaccompanied . Doing well, no significant headaches. Recently got vision checked and was told papilledema has resolved. Was fitted for glasses. No other neurological symptoms. No seizures. No fevers Neurologic Review of Systems: No TIA/stroke, headache, vision difficulty, weakness, numbness or tingling, speech difficulty. She is doing well. No neurological issues/complaints. Wound incision is well healed and approximated with no signs/symptoms of infection. Current Outpatient Prescriptions: losartan (COZAAR) 50 mg tablet Take 50 mg by mouth once daily. albuterol sulfate (PROAIR HFA INHALATION) Inhale as instructed. LORazepam (ATIVAN) 1 mg tablet Take 1 mg by mouth every 6 hours as needed for Anxiety. Takes one half tablet as needed. cranberry fruit extract (CRANBERRY ORAL) Take 15,000 mcg by mouth once daily. ferrous sulfate (IRON) 325 mg (65 mg iron) tablet Take 325 mg by mouth daily with breakfast. cyanocobalamin (VITAMIN B-12) 1,000 mcg tab Take 1,000 mcg by mouth once daily. meloxicam (MOBIC) 15 mg tablet Take 15 mg by mouth once daily. docusate sodium (COLACE) 100 mg capsule Take 1 capsule by mouth twice daily as needed for Constipation. ibuprofen (MOTRIN) 400 mg tablet Take 1-2 tablets by mouth every 4 hours as needed for Pain. acetaminophen (TYLENOL) 325 mg tablet Take 1 tablet by mouth every 4 hours as needed for Pain or Fever. ATORVASTATIN CALCIUM (LIPITOR ORAL) Take by mouth once daily. gabapentin (NEURONTIN) 100 mg capsule Take 100 mg by mouth three times daily. aspirin, enteric coated (ASPIRIN, ENTERIC COATED) 81 mg EC tablet Take 81 mg by mouth once daily. medroxyPROGESTERone (DEPO-PROVERA) 150 mg/mL syrg Inject 1 mL intramuscularly every 12 weeks. cyclobenzaprine (FLEXERIL) 10 mg tablet Take 10 mg by mouth as needed. sertraline 50 mg tablet Take 50 mg by mouth once daily. IPRATROPRIUM-ALBUTEROL 0.5 mg-3 mg(2.5 mg base)/3 mL INHALATION Nebu metFORMIN 1,000 mg ORAL 24 hr tablet Take one(1) tablet daily. oxacillin (BACTOCILL) 2 gram/50 mL Inject 50 mL intravenously every 4 hours. (Patient not taking: Reported on 02/15/2018 ) topiramate (TOPAMAX) 25 mg tablet Take 1 tablet by mouth twice daily. (Patient not taking: Reported on 02/15/2018 ) No current facility-administered medications for this visit. Physical Examination: BP 141/81 Pulse 86 Temp (Src) 98.3 (Oral) Resp 12 Wt 212 lb (96.2kg) SpO2 100[room air]% Oriented to person, place, and time Speech: Normal fluency and comprehension 2nd cranial nerve: Full visual zuniag 3rd, 4th and 6th cranial nerves: Pupils equally round and reactive to light, extraocular movements intact without nystagmus or subjective diplopia 5th cranial nerve: V1-3 intact to light touch bilaterally 7th cranial nerve: Facial muscles full and symmetric bilaterally 8th cranial nerve: hearing intact to finger rub bilaterally 9th cranial nerve: gag reflex test deferred 10th cranial nerve: Palate elevates symmetrically and uvula in the midline 11th nerve: shoulder shrug 5/5 bilaterally 12th cranial nerve: tongue protrudes in the midline Motors: 5/5 strength throughout without pronator drift Sensation: intact to light touch in all extremities Coordination: no dysmetria on finger-nose testing bilaterally Gait: able to stand and ambulate independently with normal gait Incision clean, dry, intact, small pseudomeningocele, soft CNOV Observed: 02/15/2018 Status: COMPLETED Source: [facility] 11:40 AM [facility] REPOSITORY Office Visit ([facility]) ROSE ROLAND ([id number]) 1970 F Date Time Provider Department 02/15/18 11:40 AM ELIAZAR MARCH [facility]SC[facility] During your visit today, we recorded the following information about you: Temperature Pulse Respiration Blood pressure 98.3 degrees 86/minute 12/minute 141/81 Weight 96.2 kg Eliazar March MD 02/15/2018 5:43 PM Signed SECTION OF SKULL BASE SURGERY MINIMALLY INVASIVE CRANIAL BASE AND PITUITARY SURGERY PROGRAM [facility] [place] CC: MD Gerard Law MD Assessment/Plan: Rose Roland is 47 year old female with hx of 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 Seen in follow up on 12/28/17 after completing abx and had a repeat Brain MRI at that time showing significant improvements. She is doing well, wound is well healed and recent CRP was normal. I would like to see her back 6 months (March 2018) with repeat MRI brain with and without contrast. She has tentative plans to return to work beginning of April. Hopefully she'll have durable benefit from resection of very large meningioma. Eliazar March MD Staff, Skull Base AND Cerebrovascular Surgery Department of Neurological Surgery [facility] Subjective: Patient is unaccompanied . Doing well, no significant headaches. Recently got vision checked and was told papilledema has resolved. Was fitted for glasses. No other neurological symptoms. No seizures. No fevers Neurologic Review of Systems: No TIA/stroke, headache, vision difficulty, weakness, numbness or tingling, speech difficulty. She is doing well. No neurological issues/complaints. Wound incision is well healed and approximated with no signs/symptoms of infection. Current Outpatient Prescriptions: losartan (COZAAR) 50 mg tablet Take 50 mg by mouth once daily. albuterol sulfate (PROAIR HFA INHALATION) Inhale as instructed. LORazepam (ATIVAN) 1 mg tablet Take 1 mg by mouth every 6 hours as needed for Anxiety. Takes one half tablet as needed. cranberry fruit extract (CRANBERRY ORAL) Take 15,000 mcg by mouth once daily. ferrous sulfate (IRON) 325 mg (65 mg iron) tablet Take 325 mg by mouth daily with breakfast. cyanocobalamin (VITAMIN B-12) 1,000 mcg tab Take 1,000 mcg by mouth once daily. meloxicam (MOBIC) 15 mg tablet Take 15 mg by mouth once daily. docusate sodium (COLACE) 100 mg capsule Take 1 capsule by mouth twice daily as needed for Constipation. ibuprofen (MOTRIN) 400 mg tablet Take 1-2 tablets by mouth every 4 hours as needed for Pain. acetaminophen (TYLENOL) 325 mg tablet Take 1 tablet by mouth every 4 hours as needed for Pain or Fever. ATORVASTATIN CALCIUM (LIPITOR ORAL) Take by mouth once daily. gabapentin (NEURONTIN) 100 mg capsule Take 100 mg by mouth three times daily. aspirin, enteric coated (ASPIRIN, ENTERIC COATED) 81 mg EC tablet Take 81 mg by mouth once daily. medroxyPROGESTERone (DEPO-PROVERA) 150 mg/mL syrg Inject 1 mL intramuscularly every 12 weeks. cyclobenzaprine (FLEXERIL) 10 mg tablet Take 10 mg by mouth as needed. sertraline 50 mg tablet Take 50 mg by mouth once daily. IPRATROPRIUM-ALBUTEROL 0.5 mg-3 mg(2.5 mg base)/3 mL INHALATION Nebu metFORMIN 1,000 mg ORAL 24 hr tablet Take one(1) tablet daily. oxacillin (BACTOCILL) 2 gram/50 mL Inject 50 mL intravenously every 4 hours. (Patient not taking: Reported on 02/15/2018 ) topiramate (TOPAMAX) 25 mg tablet Take 1 tablet by mouth twice daily. (Patient not taking: Reported on 02/15/2018 ) No current facility-administered medications for this visit. Physical Examination: BP 141/81 Pulse 86 Temp (Src) 98.3 (Oral) Resp 12 Wt 212 lb (96.2kg) SpO2 100[room air]% Oriented to person, place, and time Speech: Normal fluency and comprehension 2nd cranial nerve: Full visual zuniga 3rd, 4th and 6th cranial nerves: Pupils equally round and reactive to light, extraocular movements intact without nystagmus or subjective diplopia 5th cranial nerve: V1-3 intact to light touch bilaterally 7th cranial nerve: Facial muscles full and symmetric bilaterally 8th cranial nerve: hearing intact to finger rub bilaterally 9th cranial nerve: gag reflex test deferred 10th cranial nerve: Palate elevates symmetrically and uvula in the midline 11th nerve: shoulder shrug 5/5 bilaterally 12th cranial nerve: tongue protrudes in the midline Motors: 5/5 strength throughout without pronator drift Sensation: intact to light touch in all extremities Coordination: no dysmetria on finger-nose testing bilaterally Gait: able to stand and ambulate independently with normal gait Incision clean, dry, intact, small pseudomeningocele, soft Allie Valencia LPN, LPN 02/15/2018 12:10 PM Signed Additional intake questions: Has the patient had nausea, vomiting, diarrhea, constipation, fatigue for > 1 week? None of the above Does the patient have a decreased appetite? No Does patient want to see a Math Instructor? No (yes to any of above refer patient to schedulers for dietitian appointment) ) Does patient have any new or increased numbness or tingling of extremities? Yes, hands and feet. Is patient interested in fertility information? No Does patient need any prescription refills? No Electronically Signed By: PAIGE Pugh MD 02/15/2018 12:51 PM Signed I'm pleased to see you are doing better. Incision looks well- healed. We'll plan to see you back in mid to late March with new MRI brain to monitor the area of prior meningioma. If you develop any new neurological symptoms in the meantime, please do not hesitate to contact me. Thank you for allowing me to participate in your care. Please do not hesitate to call with questions. Eliazar March MD Staff, Skull Base AND Cerebrovascular Surgery Department of Neurological Surgery [facility] Referring Provider: JUSTIN MATTHEW [[id number]] Allergies As of Date: 02/15/2018 (No Known Allergies) Date Reviewed: 02/15/2018 Reviewed by: Eliazar March - Fully Assessed Reason for Visit: Established Patient [175] Primary Visit Diagnosis:Meningioma (HCC) [D32.9] Prescriptions as of 02/15/2018 Sig: LOSARTAN 50 MG TABLET Take 50 mg by mouth once jen* PROAIR HFA INHALATION Inhale as instructed. LORAZEPAM 1 MG TABLET Take 1 mg by mouth every 6 ho* CRANBERRY ORAL Take 15,000 mcg by mouth once* FERROUS SULFATE 325 MG (65 MG* Take 325 mg by mouth daily wi* CYANOCOBALAMIN (VIT B-12) 1,0* Take 1,000 mcg by mouth once * MELOXICAM 15 MG TABLET Take 15 mg by mouth once jen* DOCUSATE SODIUM 100 MG CAPSULE Take 1 capsule by mouth twice* IBUPROFEN 400 MG TABLET Take 1-2 tablets by mouth leesa* ACETAMINOPHEN 325 MG TABLET Take 1 tablet by mouth every * LIPITOR ORAL Take by mouth once daily. GABAPENTIN 100 MG CAPSULE Take 100 mg by mouth three ti* ASPIRIN 81 MG TABLET,DELAYED * Take 81 mg by mouth once jen* MEDROXYPROGESTERONE 150 MG/ML* Inject 1 mL intramuscularly e* CYCLOBENZAPRINE 10 MG TABLET Take 10 mg by mouth as needed. SERTRALINE 50 MG TABLET Take 50 mg by mouth once jen* * IPRATROPIUM-ALBUTEROL 0.5 MG-* * METFORMIN ER 1,000 MG TABLET,* Take one(1) tablet daily. OXACILLIN 2 GRAM/50 ML IN DEX* Inject 50 mL intravenously ev* Patient not taking: Reported on 02/15/2018 TOPIRAMATE 25 MG TABLET Take 1 tablet by mouth twice * Patient not taking: Reported on 02/15/2018 Problem List As Of Date 02/15/2018 Noted Resolved ACUTE PANCREATITIS [K85.90] INVALID FOR* CHOLELITHIASIS NOS [K80.20] INVALID FOR* ABDOMINAL PAIN UNSPEC SITE [R10.9] INVALID FOR* ABDOMINAL PAIN GENERALIZED [R10.84] INVALID FOR* ASA CLASS II [1001] INVALID FOR* PORTAL VEIN THROMBOSIS [I81] INVALID FOR* Abdominal Pain, Epigastric [R10.13] INVALID FOR* Unspecified Esophagitis [K20.9] INVALID FOR* Acute Gastritis without Mention of Hemorrhage [*INVALID FOR* Incisional hernia [K43.2] INVALID FOR* Incisional hernia with obstruction [K43.0] INVALID FOR* Meningioma (HCC) [D32.9] INVALID FOR* More... Vasogenic cerebral edema (HCC) [G93.6] INVALID FOR*11/26/2017 More... At risk of seizures [Z91.89] INVALID FOR*11/26/2017 More... Wound infection [T14.8XXA, L08.9] INVALID FOR* More... Obesity, Class II, BMI 35-39.9 E66.9 [E66.9] INVALID FOR* Other instructions from your clinician: I'm pleased to see you are doing better. Incision looks well-healed. We'll plan to see you back in mid to late March with new MRI brain to monitor the area of prior meningioma. If you develop any new neurological symptoms in the meantime, please do not hesitate to contact me. Thank you for allowing me to participate in your care. Please do not hesitate to call with questions. Eliazar March MD Staff, Skull Base AND Cerebrovascular Surgery Department of Neurological Surgery [facility] Visit Notes: >> Allie Valencia LPN TueFeb 15, 2018 12:09 PM Status: Signed Additional intake questions: Has the patient had nausea, vomiting, diarrhea, constipation, fatigue for > 1 week? None of the above Does the patient have a decreased appetite? No Does patient want to see a Math Instructor? No (yes to any of above refer patient to schedulers for dietitian appointment) ) Does patient have any new or increased numbness or tingling of extremities? Yes, hands and feet. Is patient interested in fertility information? No Does patient need any prescription refills? No Electronically Signed By: Allie Valencia LPN Medications Discontinued During This Encounter metoprolol tartrate, short acting, (* 02/15/2018 Class: Historical Med Route: ORAL Sig: Take 25 mg by mouth twice daily. Disc: Changing Therapy/Dosage Form ALBUTEROL 90 MCG/ACTUATION AEROSOL I* 0 03/18/2009 02/15/2018 Class: Med Update Route: INHALATION Sig: Use as directed four(4) times daily. as needed Disc: Changing Therapy/Dosage Form oxyCODONE-acetaminophen (PERCOCET) 5* 20 t* 0 10/31/2017 02/15/2018 Class: Print RX Route: ORAL Sig: Take 1 tablet by mouth every 6 hours as needed for up to 5 days. Disc: Discontinued by Patient Follow-up and Disposition History Recorded Letter Text Encounter Status:Closed by ELIAZAR MARCH MD on 02/15/18 CNCO Observed: 01/20/2018 Status: COMPLETED Source: [place] 4:11 PM [facility] RE[facility] HNO ID: [id number] Author: Mammography Coordinator Service: (none) Author Type: Physician Type: Letter Filed: 01/23/2018 11:33 PM Note Text: January 20, 2018 PID: [id number] Rose Roland [address] [place] [address] Dear Ms. Roland, We are pleased to inform you that the results of your recent breast imaging exam on 01/20/2018 are normal. Early detection of cancer is very important. We also understand recommendations regarding breast cancer screening are controversial. Please discuss with your primary care provider which strategy is best for you and whether a mammogram is right for you. Your imaging studies and report will be kept on file at [facility] as part of your permanent medical record and are available for your continuing care. Thank you for allowing us to help in meeting your health care needs. Sincerely, Dr. Booth Interpreting Radiologist [facility] (Normal over 40) [facility] SCREENING Observed: 01/20/2018 Status: F Source: [place] 1:14 PM [facility] [place] REPOSITORY * * *Final Report* * * DATE OF EXAM: Jan 20 2018 1:14PM [facility] 0581 - [facility] SCREENING / PROCEDURE REASON: Encounter for screening mammogram for malignant neoplasm of breast * * * * Physician Interpretation * * * * RESULT: #[id number] - [facility] SCREENING BILATERAL DIGITAL SCREENING MAMMOGRAM WITH CAD: 01/20/2018 HISTORY: Encounter For Screening Mammogram For Malignant Neoplasm Of Breast /priors available for comparison. RESULT: TECHNIQUE: The study was acquired using full field digital technology and interpreted from soft copy. Current study was also evaluated with a Computer Aided Detection (CAD). Comparison is made to exams dated: 01/19/2017 mammogram, 07/15/2016 mammogram, 01/13/2016 mammogram - [facility], 01/07/2016 mammogram, 10/03/2014 mammogram, and 10/02/2013 mammogram - [facility]. There are scattered fibroglandular elements in both breasts. There are benign calcifications in both breasts. No significant masses, calcifications, or other findings are seen in either breast. There has been no significant interval change. IMPRESSION: BENIGN FINDING There is no mammographic evidence of malignancy.A 1 year screening mammogram is recommended. Jennifer Booth M.D., ch/shon:01/20/2018 16:11:00 Gyroscopic Instrument Mechanic: Rosario RAWLS(Dereck)(Jeannette), [facility] letter sent: Normal over 40 Mammogram BI-RADS: 2 Benign finding Marketing Research Coordinator: Shon Transcribe Date/Time: Jan 20 2018 1:00P Dictated by: JENNIFER BOOTH MD This examination was interpreted and the report reviewed and electronically signed by: JENNIFER BOOTH MD on Jan 20 2018 4:11PM EST [id number] PROCEDURE Observed: 01/20/2018 Status: COMPLETED Source: [place] 1:00 PM [facility] REPOSIT[facility] O ID: [id number] Author: Nadia Mi (Rt) Service: (none) Author Type: Improvement Leader Type: Procedures Filed: 01/20/2018 1:14 PM Note Text: Radiology Service Progress Note PATIENT NAME: Rose Roland DATE OF SERVICE: January 20, 2018 TIME: 1:00 PM PATIENT IDENTITY VERIFICATION COMPLETED USING TWO (2) METHODS: Patient confirmed name verbally and Date of . PATIENT GENDER DATA: Female. status: : No status: NO. PATIENT RELEVANT IMPLANT DATA REVIEWED: Not Applicable RADIOLOGY DEPARTMENT: [facility] IV DATA: Not applicable SIGNED BY: RT Hiwot January 20, 2018 1:00 PM C-REACTIVE PROTEIN Collected: 01/17/2018 Status: F Source: [place] 10:32 AM [facility] REPOSIT[facility] TYPE CODE TESTS RESULT OUT OF REFERENCE UNITS RANGE LAB CRP <0.9 mg/dL C-Reactive 0.4 Protein Performed By: #### CRP #### [facility] [address] [place], [place] [address] JEB Observed: 01/06/2018 Status: COMPLETED Source: [place] 12:00 AM [facility] REPOSITORY Telephone (NSCAMN) ROSE ROLAND ([id number]) 1970 F Date Time Provider Department 01/06/18 CHARISSE MARC) NSCAMN During your visit today, we recorded the following information about you: Charisse Marc 01/06/2018 1:46 PM Signed Patient phoned our office and requested Zaidi Visual Field test order to be faxed to [facility] at [phone]. Order faxed with confirmation of fax transmission. Charisse Marc RN, BSN pgr [phone] Charisse Marc 01/06/2018 4:54 PM Signed Faxed order revised for dilated eye exam to r/o papilledema only (no Zaidi visual field) needed for patient. Fax sent with confirmation of fax transmission. Charisse Marc RN, BSN pgr [phone] Allergies As of Date: 01/06/2018 (No Known Allergies) Date Reviewed: 01/02/2018 Reviewed by: Eliazar March - Fully Assessed Reason for Visit: Clinical Update [1735] Cmt: Follow up Prescriptions as of 01/06/2018 Sig: DOCUSATE SODIUM 100 MG CAPSULE Take 1 capsule by mouth twice* OXYCODONE-ACETAMINOPHEN 5 MG-* Take 1 tablet by mouth every * OXACILLIN 2 GRAM/50 ML IN DEX* Inject 50 mL intravenously ev* TOPIRAMATE 25 MG TABLET Take 1 tablet by mouth twice * IBUPROFEN 400 MG TABLET Take 1-2 tablets by mouth leesa* ACETAMINOPHEN 325 MG TABLET Take 1 tablet by mouth every * LIPITOR ORAL Take by mouth once daily. GABAPENTIN 100 MG CAPSULE Take 100 mg by mouth three ti* ASPIRIN 81 MG TABLET,DELAYED * Take 81 mg by mouth once jen* MEDROXYPROGESTERONE 150 MG/ML* Inject 1 mL intramuscularly e* CYCLOBENZAPRINE 10 MG TABLET Take 10 mg by mouth as needed. METOPROLOL TARTRATE 25 MG TAB* Take 25 mg by mouth twice libby* SERTRALINE 50 MG TABLET Take 50 mg by mouth once jen* * IPRATROPIUM-ALBUTEROL 0.5 MG-* * METFORMIN ER 1,000 MG TABLET,* Take one(1) tablet daily. * ALBUTEROL 90 MCG/ACTUATION AE* Use as directed four(4) times* Problem List As Of Date 01/06/2018 Noted Resolved ACUTE PANCREATITIS [K85.90] INVALID FOR* CHOLELITHIASIS NOS [K80.20] INVALID FOR* ABDOMINAL PAIN UNSPEC SITE [R10.9] INVALID FOR* ABDOMINAL PAIN GENERALIZED [R10.84] INVALID FOR* ASA CLASS II [1001] INVALID FOR* PORTAL VEIN THROMBOSIS [I81] INVALID FOR* Abdominal Pain, Epigastric [R10.13] INVALID FOR* Unspecified Esophagitis [K20.9] INVALID FOR* Acute Gastritis without Mention of Hemorrhage [*INVALID FOR* Incisional hernia [K43.2] INVALID FOR* Incisional hernia with obstruction [K43.0] INVALID FOR* Meningioma (HCC) [D32.9] INVALID FOR* More... Vasogenic cerebral edema (HCC) [G93.6] INVALID FOR*11/26/2017 More... At risk of seizures [Z91.89] INVALID FOR*11/26/2017 More... Wound infection [T14.8XXA, L08.9] INVALID FOR* More... Obesity, Class II, BMI 35-39.9 E66.9 [E66.9] INVALID FOR* Encounter Status:Closed by CHARISSE MARC on 01/06/18 PROGRESS Observed: 12/28/2017 Status: COMPLETED Source: [place] 2:35 PM [facility] RE[facility] HNO ID: [id number] Author: Eliazar March Service: (none) Author Type: Physician Type: Progress Notes Filed: 01/02/2018 9:39 AM Note Text: SECTION OF SKULL BASE SURGERY MINIMALLY INVASIVE CRANIAL BASE AND PITUITARY SURGERY PROGRAM [facility] [place] CC: MD Gerard Law MD ASSESSMENT/PLAN: Rose Roland is s/p right frontal craniotomy for Powell Grade I resection of 7cm right frontal convexity meningioma (WHO I, microcystic, Ki67 index 13%) on 10/07/17 complicated by wound infection s/p washout 10/26/17. She completed abx 2 weeks ago and presents for wound check and MRI. Wound healing well. MRI shows significant improvements, no signs of infection. I recommend she get CRP in next 1-2 weeks and then I'll see her back in 6 weeks for clinical wound check. In regards to meningioma, plan will be MRI brain wwo 6 months postop. Hopefully she'll have a durable benefit from resection of convexity meningioma. ? I reviewed the history obtained and documented by the student who scribed on my behalf. I examined the patient and evaluated all available films and pertinent documents. This note accurately reflects work and decisions made by me. ? Eliazar March MD Staff, Skull Base AND Cerebrovascular Surgery Department of Neurological Surgery [facility] Subjective: Patient is unaccompanied. Finished abx 2 weeks ago. Having mild headaches. Still having fatigue. Has tremors bilaterally since diagnosis, stable. Neurologic Review of Systems: No TIA/stroke Intermittent sharp to dull headaches Intermittent blurred vision Intermittent fatigue Right leg numbness/tingling, sharp pains that shoot from ankle to thigh, resolves with walking Bilateral tremors of hands with L>R No difficulty with speech Short term memory loss Imbalance/dizziness Right eye tearing Current Outpatient Prescriptions: docusate sodium (COLACE) 100 mg capsule Take 1 capsule by mouth twice daily as needed for Constipation. oxyCODONE-acetaminophen (PERCOCET) 5-325 mg tablet Take 1 tablet by mouth every 6 hours as needed for up to 5 days. oxacillin (BACTOCILL) 2 gram/50 mL Inject 50 mL intravenously every 4 hours. topiramate (TOPAMAX) 25 mg tablet Take 1 tablet by mouth twice daily. ibuprofen (MOTRIN) 400 mg tablet Take 1-2 tablets by mouth every 4 hours as needed for Pain. acetaminophen (TYLENOL) 325 mg tablet Take 1 tablet by mouth every 4 hours as needed for Pain or Fever. ATORVASTATIN CALCIUM (LIPITOR ORAL) Take by mouth once daily. gabapentin (NEURONTIN) 100 mg capsule Take 100 mg by mouth three times daily. aspirin, enteric coated (ASPIRIN, ENTERIC COATED) 81 mg EC tablet Take 81 mg by mouth once daily. medroxyPROGESTERone (DEPO-PROVERA) 150 mg/mL syrg Inject 1 mL intramuscularly every 12 weeks. cyclobenzaprine (FLEXERIL) 10 mg tablet Take 10 mg by mouth as needed. metoprolol tartrate, short acting, (LOPRESSOR) 25 mg tablet Take 25 mg by mouth twice daily. sertraline 50 mg tablet Take 50 mg by mouth once daily. IPRATROPRIUM-ALBUTEROL 0.5 mg-3 mg(2.5 mg base)/3 mL INHALATION Nebu metFORMIN 1,000 mg ORAL 24 hr tablet Take one(1) tablet daily. ALBUTEROL 90 MCG/ACTUATION AEROSOL INHALER Use as directed four(4) times daily. as needed No current facility-administered medications for this visit. Physical Examination: BP 187/95 Pulse 87 Temp 36.9 ?C (98.5 ?F) (Oral) Resp 16 Wt 94 kg (207 lb 4.8 oz) SpO2 100% BMI 35.58 kg/m? Oriented to person, place, and time Speech: Normal fluency and comprehension 2nd cranial nerve: Full visual zuniga 3rd, 4th and 6th cranial nerves: Pupils equally round and reactive to light, extraocular movements intact without nystagmus or subjective diplopia 5th cranial nerve: V1-3 intact to light touch bilaterally 7th cranial nerve: Facial muscles full and symmetric bilaterally 8th cranial nerve: hearing intact to finger rub bilaterally 9th cranial nerve: gag reflex test deferred 10th cranial nerve: Palate elevates symmetrically and uvula in the midline 11th nerve: shoulder shrug 5/5 bilaterally 12th cranial nerve: tongue protrudes in the midline Motors: 5/5 strength throughout without pronator drift Sensation: intact to light touch in all extremities Coordination: no dysmetria on finger-nose testing bilaterally Gait: able to stand and ambulate independently with normal gait Inc c/d/I, small soft, ballotable pseudomeningocele Data Review: Imaging: MRI 12/28/2017 personally reviewed, no residual signs of infection MRI BRAIN WO/W Observed: 12/28/2017 Status: F Source: [place] IVCON 2:18 PM [facility] [place] REPOSITORY * * *Final Report* * * DATE OF EXAM: Dec 28 2017 2:18PM [facility]BM 0295 - MRI BRAIN WO/W IVCON / PROCEDURE REASON: Benign neoplasm of meninges, unspecified * * * * Physician Interpretation * * * * EXAMINATION: MRI BRAIN WO/W IVCON CLINICAL HISTORY: History of right frontal craniotomy for meningioma resection on 10/07/2017. Patient returned on 10/26 with a wound infection demonstrated on MR 10/25/2017 for which she underwent washout on 10/26. She was found to be have an MSSA Infection and was started on oxacillin. Follow-up evaluation. TECHNIQUE: Routine brain MRI protocol without and with contrast including diffusion images. MQ: [id number] Contrast: 19 mL Dotarem IV COMPARISON: MR brain 10/25/2017. RESULT: Acute Change: There is no evidence of restricted diffusion to suggest an acute infarct. Hemorrhage: Chronic blood byproducts are again noted along the pial surface of the right frontal pole on T2 and SWI. Postoperative changes/Mass Lesion/ Mass Effect: Postoperative changes right frontal craniotomy and mesh cranioplasty in the right frontotemporal region are again noted. Moderate interval decrease in extra-axial fluid collection underlying the craniotomy site which now measures 5 mm in greatest transverse dimension, previously measuring 1.2 mm. There is near complete resolution of the previously seen mass effect on the right frontal horn with only minimal residual compression of the underlying parenchyma. There is no evidence of confluent extra-axial mass in this region to suggest recurrent/residual meningioma. Small amount of residual parenchymal edema in the inferior right frontal pole has resolved in the interim. Mild leptomeningeal enhancement overlying the right frontal convexity has also resolved in the interim. No distinct abnormal parenchymal or leptomeningeal enhancement is appreciated otherwise. Stable small extra-axial mass is again noted overlying the cephalad margin of the left central sulcus which is isointense to parenchyma on all pulse sequences and prominently enhances with gadolinium suggesting small meningioma, measuring 1 cm maximum AP diameter. No significant mass effect on the underlying parenchyma. No significant interval change. No additional foci of abnormal intracranial enhancement. Chronic Change: Scattered patchy areas of increased T2 and FLAIR signal are present in the supratentorial white matter which is a nonspecific finding but likely represents mild chronic microvascular ischemia. Parenchyma: There is mild generalized parenchymal volume loss. The brain parenchyma is otherwise within normal limits of signal intensity and morphology. Ventricles: Ventriculomegaly corresponds to the degree of parenchymal volume loss. Skull Base: Hypothalamic and pituitary region are grossly normal. Craniocervical junction is normal. No significant marrow replacement process. Vasculature: Major intracranial arterial structures, and dural venous sinuses show typical flow void, suggesting patency by spin echo criteria. Other: Moderate interval decrease in size of subgaleal multiloculated fluid collection (now measures 1.2 cm in greatest transverse dimension, previously measuring 2.0 cm) which surrounds the right frontal will hole. The overlying subcutaneous edema has also markedly improved with decreased but still some residual enhancement within the right temporalis muscle. Mild bilateral mucosal thickening of the posterior ethmoid cells. The remaining visualized paranasal sinuses and mastoid air cells are clear. The orbits are unremarkable. IMPRESSION: Further interval improvement of subdural and subgaleal fluid collections and subcutaneous edema since 10/25/2017. Interval improvement of parenchymal edema and mild leptomeningeal enhancement in the right frontal region suggesting resolving cerebritis and meningitis. Marketing Research Coordinator: MACY Transcribe Date/Time: Dec 28 2017 2:27P Dictated by : ANABELLA AVILA, This examination was interpreted and the report reviewed and electronically signed by: DAVE MOLINA MD on Dec 28 2017 4:05PM EST [id number] CNOV Observed: 12/28/2017 Status: COMPLETED Source: [place] 2:10 PM [facility] REPOSITORY Office Visit (NSCAMN) ROSE ROLAND ([id number]) 1970 F Date Time Provider Department 12/28/17 2:10 PM ELIAZAR MARCH NSCAMN During your visit today, we recorded the following information about you: Temperature Pulse Respiration Blood pressure 98.5 degrees 87/minute 16/minute 187/95 Weight 94 kg Eliazar March MD 01/02/2018 9:39 AM Signed SECTION OF SKULL BASE SURGERY MINIMALLY INVASIVE CRANIAL BASE AND PITUITARY SURGERY PROGRAM [facility] [place] CC: MD Gerard Law MD ASSESSMENT/PLAN: Rose Roland is s/p right frontal craniotomy for Powell Grade I resection of 7cm right frontal convexity meningioma (WHO I, microcystic, Ki67 index 13%) on 10/07/17 complicated by wound infection s/p washout 10/26/17. She completed abx 2 weeks ago and presents for wound check and MRI. Wound healing well. MRI shows significant improvements, no signs of infection. I recommend she get CRP in next 1-2 weeks and then I'll see her back in 6 weeks for clinical wound check. In regards to meningioma, plan will be MRI brain wwo 6 months postop. Hopefully she'll have a durable benefit from resection of convexity meningioma. ? I reviewed the history obtained and documented by the student who scribed on my behalf. I examined the patient and evaluated all available films and pertinent documents. This note accurately reflects work and decisions made by me. ? Eliazar March MD Staff, Skull Base AND Cerebrovascular Surgery Department of Neurological Surgery [facility] Subjective: Patient is unaccompanied. Finished abx 2 weeks ago. Having mild headaches. Still having fatigue. Has tremors bilaterally since diagnosis, stable. Neurologic Review of Systems: No TIA/stroke Intermittent sharp to dull headaches Intermittent blurred vision Intermittent fatigue Right leg numbness/tingling, sharp pains that shoot from ankle to thigh, resolves with walking Bilateral tremors of hands with L>R No difficulty with speech Short term memory loss Imbalance/dizziness Right eye tearing Current Outpatient Prescriptions: docusate sodium (COLACE) 100 mg capsule Take 1 capsule by mouth twice daily as needed for Constipation. oxyCODONE-acetaminophen (PERCOCET) 5-325 mg tablet Take 1 tablet by mouth every 6 hours as needed for up to 5 days. oxacillin (BACTOCILL) 2 gram/50 mL Inject 50 mL intravenously every 4 hours. topiramate (TOPAMAX) 25 mg tablet Take 1 tablet by mouth twice daily. ibuprofen (MOTRIN) 400 mg tablet Take 1-2 tablets by mouth every 4 hours as needed for Pain. acetaminophen (TYLENOL) 325 mg tablet Take 1 tablet by mouth every 4 hours as needed for Pain or Fever. ATORVASTATIN CALCIUM (LIPITOR ORAL) Take by mouth once daily. gabapentin (NEURONTIN) 100 mg capsule Take 100 mg by mouth three times daily. aspirin, enteric coated (ASPIRIN, ENTERIC COATED) 81 mg EC tablet Take 81 mg by mouth once daily. medroxyPROGESTERone (DEPO-PROVERA) 150 mg/mL syrg Inject 1 mL intramuscularly every 12 weeks. cyclobenzaprine (FLEXERIL) 10 mg tablet Take 10 mg by mouth as needed. metoprolol tartrate, short acting, (LOPRESSOR) 25 mg tablet Take 25 mg by mouth twice daily. sertraline 50 mg tablet Take 50 mg by mouth once daily. IPRATROPRIUM-ALBUTEROL 0.5 mg-3 mg(2.5 mg base)/3 mL INHALATION Nebu metFORMIN 1,000 mg ORAL 24 hr tablet Take one(1) tablet daily. ALBUTEROL 90 MCG/ACTUATION AEROSOL INHALER Use as directed four(4) times daily. as needed No current facility-administered medications for this visit. Physical Examination: BP 187/95 Pulse 87 Temp 36.9 ?C (98.5 ?F) (Oral) Resp 16 Wt 94 kg (207 lb 4.8 oz) SpO2 100% BMI 35.58 kg/m? Oriented to person, place, and time Speech: Normal fluency and comprehension 2nd cranial nerve: Full visual zuniga 3rd, 4th and 6th cranial nerves: Pupils equally round and reactive to light, extraocular movements intact without nystagmus or subjective diplopia 5th cranial nerve: V1-3 intact to light touch bilaterally 7th cranial nerve: Facial muscles full and symmetric bilaterally 8th cranial nerve: hearing intact to finger rub bilaterally 9th cranial nerve: gag reflex test deferred 10th cranial nerve: Palate elevates symmetrically and uvula in the midline 11th nerve: shoulder shrug 5/5 bilaterally 12th cranial nerve: tongue protrudes in the midline Motors: 5/5 strength throughout without pronator drift Sensation: intact to light touch in all extremities Coordination: no dysmetria on finger-nose testing bilaterally Gait: able to stand and ambulate independently with normal gait Inc c/d/I, small soft, ballotable pseudomeningocele Data Review: Imaging: MRI 12/28/2017 personally reviewed, no residual signs of infection Justin Lara LPN, LPN 12/28/2017 3:20 PM Signed Additional intake questions: Has the patient had nausea, vomiting, diarrhea, constipation, fatigue for > 1 week? None of the above Does the patient have a decreased appetite? No Does patient want to see a Math Instructor? No (yes to any of above refer patient to schedulers for dietitian appointment) ) Does patient have any new or increased numbness or tingling of extremities? No Is patient interested in fertility information? No Does patient need any prescription refills? No Electronically Signed By: PAIGE Nieves MD 12/28/2017 5:19 PM Signed I'm pleased to see you are doing well. MRI does not show any signs of infection. I recommend f/u ophthalmology examination to see if eye swelling (papilledema) resolved. I also would like you to get blood work sample for CRP in next 1-2 weeks. I will see you back in 6 weeks for clinic follow-up. Thank you for allowing me to participate in your care. Please do not hesitate to call with questions. Eliazar March MD Staff, Skull Base AND Cerebrovascular Surgery Department of Neurological Surgery [facility] Referring Provider: ELIAZAR MARCH [[id number]] Allergies As of Date: 12/28/2017 (No Known Allergies) Date Reviewed: 12/28/2017 Reviewed by: Justin (Paige) PAIGE Lara - Fully Assessed Reason for Visit: Established Patient [175] Primary Visit Diagnosis:Wound infection [T14.8XXA, L08.9] Other Visit Diagnosis:Meningioma (HCC) [D32.9] Prescriptions as of 12/28/2017 Sig: DOCUSATE SODIUM 100 MG CAPSULE Take 1 capsule by mouth twice* OXYCODONE-ACETAMINOPHEN 5 MG-* Take 1 tablet by mouth every * OXACILLIN 2 GRAM/50 ML IN DEX* Inject 50 mL intravenously ev* TOPIRAMATE 25 MG TABLET Take 1 tablet by mouth twice * IBUPROFEN 400 MG TABLET Take 1-2 tablets by mouth leesa* ACETAMINOPHEN 325 MG TABLET Take 1 tablet by mouth every * LIPITOR ORAL Take by mouth once daily. GABAPENTIN 100 MG CAPSULE Take 100 mg by mouth three ti* ASPIRIN 81 MG TABLET,DELAYED * Take 81 mg by mouth once jen* MEDROXYPROGESTERONE 150 MG/ML* Inject 1 mL intramuscularly e* CYCLOBENZAPRINE 10 MG TABLET Take 10 mg by mouth as needed. METOPROLOL TARTRATE 25 MG TAB* Take 25 mg by mouth twice libby* SERTRALINE 50 MG TABLET Take 50 mg by mouth once jen* * IPRATROPIUM-ALBUTEROL 0.5 MG-* * METFORMIN ER 1,000 MG TABLET,* Take one(1) tablet daily. * ALBUTEROL 90 MCG/ACTUATION AE* Use as directed four(4) times* Problem List As Of Date 12/28/2017 Noted Resolved ACUTE PANCREATITIS [K85.90] INVALID FOR* CHOLELITHIASIS NOS [K80.20] INVALID FOR* ABDOMINAL PAIN UNSPEC SITE [R10.9] INVALID FOR* ABDOMINAL PAIN GENERALIZED [R10.84] INVALID FOR* ASA CLASS II [1001] INVALID FOR* PORTAL VEIN THROMBOSIS [I81] INVALID FOR* Abdominal Pain, Epigastric [R10.13] INVALID FOR* Unspecified Esophagitis [K20.9] INVALID FOR* Acute Gastritis without Mention of Hemorrhage [*INVALID FOR* Incisional hernia [K43.2] INVALID FOR* Incisional hernia with obstruction [K43.0] INVALID FOR* Meningioma (HCC) [D32.9] INVALID FOR* More... Vasogenic cerebral edema (HCC) [G93.6] INVALID FOR*11/26/2017 More... At risk of seizures [Z91.89] INVALID FOR*11/26/2017 More... Wound infection [T14.8XXA, L08.9] INVALID FOR* More... Obesity, Class II, BMI 35-39.9 E66.9 [E66.9] INVALID FOR* Other instructions from your clinician: I'm pleased to see you are doing well. MRI does not show any signs of infection. I recommend f/u ophthalmology examination to see if eye swelling (papilledema) resolved. I also would like you to get blood work sample for CRP in next 1-2 weeks. I will see you back in 6 weeks for clinic follow-up. Thank you for allowing me to participate in your care. Please do not hesitate to call with questions. Eliazar March MD Staff, Skull Base AND Cerebrovascular Surgery Department of Neurological Surgery [facility] Visit Notes: >> Justin Lara LPN TueDec 28, 2017 3:20 PM Status: Signed Additional intake questions: Has the patient had nausea, vomiting, diarrhea, constipation, fatigue for > 1 week? None of the above Does the patient have a decreased appetite? No Does patient want to see a Math Instructor? No (yes to any of above refer patient to schedulers for dietitian appointment) ) Does patient have any new or increased numbness or tingling of extremities? No Is patient interested in fertility information? No Does patient need any prescription refills? No Electronically Signed By: Justin Lara LPN Follow-up and Disposition History Recorded Letter Text Encounter Status:Closed by ELIAZAR MARCH MD on 01/02/18 PROGRESS Observed: 12/28/2017 Status: COMPLETED Source: [place] 1:36 PM [facility] REPOSITORY HNO ID: [id number] Author: Mary GongoraRn) ALMA Jordan Service: Nursing Author Type: Registered Nurse Type: Progress Notes Filed: 12/28/2017 1:48 PM Note Text: Radiology Service Progress Note PATIENT NAME: Rose Roland DATE OF SERVICE: December 28, 2017 TIME: 1:36 PM PATIENT WEIGHT: 209 LBS PATIENT IDENTITY VERIFICATION COMPLETED USING TWO (2) METHODS: Patient confirmed name verbally and ID band matches.. PATIENT GENDER DATA: Female. status: : No status: NO. CONTRAST INDUCED NEPHROPATHY RISK FACTORS: Diabetic: Yes. Current medication(s): Metformin. Patient currently has insulin pump?: No. CREATININE: Creatinine Date Value Ref Range Status 11/21/2017 0.67 0.57 - 1 MG/DL Final 11/14/2017 0.71 0.57 - 1 MG/DL Final 10/25/2017 0.82 0.58 - 0.96 mg/dL Final eGFR-All Other Races Date Value Ref Range Status 10/25/2017 >60 . Final Comment: eGFR (Estimated GFR) Units of measure: mL/min/1.73 meters squared eGFR is derived from the reexpressed MDRD Study equation using the following parameters: serum creatinine, age, gender and race. The creatinine assay has been calibrated to be traceable to IDMS. An eGFR <60 mL/min/1.73m2 for >3 months is consistent with chronic kidney disease. Refer to KDOQI guidelines for clinical interpretation. In patients with unstable renal function, e.g. those with acute kidney injury, the eGFR may not accurately reflect actual GFR. eGFR- Date Value Ref Range Status 10/25/2017 >60 Final P.O.C.T. RESULTS: N/A December 28, 2017 TREATMENT: No Hydration needed. ALLERGIES: Reviewed and unchanged CONTRAST ALLERGY: NO. IV SITE: Ambulatory: A peripheral IV was started in the Right hand with a Angio cath: 22 gauge. IV SITE APPEARANCE: Clean,Dry and Intact SIGNED BY: Mary Jordan RN December 28, 2017 1:36 PM HOSP Observed: 11/30/2017 Status: COMPLETED Source: [place] 12:00 AM [facility] REPOSITORY Patient Update (INFDMN) ROSE ROLAND ([id number]) 1970 F Date Time Provider Department 11/30/[address] [facility] During your visit today, we recorded the following information about you: Edwige Watt 11/30/2017 3:52 PM Signed Per orders of continue IV oxacillin through 12/06 as planned. Then stop. Will have home care remove PICC 12/07. Notified [facility]. at [phone]. Spoke with Marium. Edwige Watt Allergies As of Date: 11/30/2017 (No Known Allergies) Date Reviewed: 11/26/2017 Reviewed by: Eliazar March - Fully Assessed Reason for Visit: CoPat Stop [3314] Cmt: 12/06 Prescriptions as of 11/30/2017 Sig: DOCUSATE SODIUM 100 MG CAPSULE Take 1 capsule by mouth twice* OXYCODONE-ACETAMINOPHEN 5 MG-* Take 1 tablet by mouth every * OXACILLIN 2 GRAM/50 ML IN DEX* Inject 50 mL intravenously ev* TOPIRAMATE 25 MG TABLET Take 1 tablet by mouth twice * IBUPROFEN 400 MG TABLET Take 1-2 tablets by mouth leesa* ACETAMINOPHEN 325 MG TABLET Take 1 tablet by mouth every * LIPITOR ORAL Take by mouth once daily. GABAPENTIN 100 MG CAPSULE Take 100 mg by mouth three ti* ASPIRIN 81 MG TABLET,DELAYED * Take 81 mg by mouth once jen* MEDROXYPROGESTERONE 150 MG/ML* Inject 1 mL intramuscularly e* CYCLOBENZAPRINE 10 MG TABLET Take 10 mg by mouth as needed. METOPROLOL TARTRATE 25 MG TAB* Take 25 mg by mouth twice libby* SERTRALINE 50 MG TABLET Take 50 mg by mouth once jen* * IPRATROPIUM-ALBUTEROL 0.5 MG-* * METFORMIN ER 1,000 MG TABLET,* Take one(1) tablet daily. * ALBUTEROL 90 MCG/ACTUATION AE* Use as directed four(4) times* Problem List As Of Date 11/30/2017 Noted Resolved ACUTE PANCREATITIS [K85.90] INVALID FOR* CHOLELITHIASIS NOS [K80.20] INVALID FOR* ABDOMINAL PAIN UNSPEC SITE [R10.9] INVALID FOR* ABDOMINAL PAIN GENERALIZED [R10.84] INVALID FOR* ASA CLASS II [1001] INVALID FOR* PORTAL VEIN THROMBOSIS [I81] INVALID FOR* Abdominal Pain, Epigastric [R10.13] INVALID FOR* Unspecified Esophagitis [K20.9] INVALID FOR* Acute Gastritis without Mention of Hemorrhage [*INVALID FOR* Incisional hernia [K43.2] INVALID FOR* Incisional hernia with obstruction [K43.0] INVALID FOR* Meningioma (HCC) [D32.9] INVALID FOR* More... Vasogenic cerebral edema (HCC) [G93.6] INVALID FOR*11/26/2017 More... At risk of seizures [Z91.89] INVALID FOR*11/26/2017 More... Wound infection [T14.8XXA, L08.9] INVALID FOR* More... Obesity, Class II, BMI 35-39.9 E66.9 [E66.9] INVALID FOR* Visit Notes: >> Edwige Palencia Sec TueNovember 30, 2017 3:49 PM Status: Signed Per orders of continue IV oxacillin through 12/06 as planned. Then stop. Will have home care remove PICC 12/07. Notified [employer]. at [phone]. Spoke with Marium. Edwige Watt Encounter Status:Closed by TULIO EDWIGE WATT on 11/30/17 PROGRESS Observed: 11/25/2017 Status: COMPLETED Source: [place] 1:31 PM [facility] [place] REPOSITORY HNO ID: [id number] Author: Gerard Camp Service: (none) Author Type: Physician Type: Progress Notes Filed: 11/26/2017 8:07 AM Note Text: INFECTIOUS DISEASE OUTPATIENT VISIT Date: November 25, 2017 Patient Name: Rose Roland [facility] F/U visit Diagnosis: craniotomy wound infection, pseudomeningocele. with subgaleal, subq, and epidural abscesses Organism: MSSA Antibiotic: oxacillin Anticipated stop date: 12/06/17 Access: PICC line Interval Events: Patient has been doing fairly well at home overall since her hospital D/C 10/31. She continues on the IV oxacillin through the home infusion and we have been monitoring her labs and nursing reports. Sutures were removed in neurosurgery clinic 11/11/17. Her PURCELL has improved over the past few weeks. Has some occasional sharp pain on the right side over her incision but lasts only a few seconds and then resolves. Denies any drainage.but periodically gets some subcutaneous soft tissue swelling over the R side of the incision, not painful, which goes up and down on its own. She has had nausea intermittently at home, which she attributes to the antibiotics. No vomiting and has been able to eat some although her appetite is below baseline. Has not lost weight though. No diarrhea problems Developed problems with some local rash and small blisters around the PICC line dressing and it sounds like some around the exit site also. The home nurse thought it could be related to a delayed allergy to the Biopatch, which was removed and not replaced, and had a change in the occlusive dressing. She had improvement in the skin after this (no Biopatch being used currently) Her energy level is poor. After her first craniotomy surgery she says she bounced right back but after this last surgery for the abscesses she has felt worn out and fatigued all the time. She is trying to push through things, but just does not feel like she has bounced back like the last time We discussed issues regarding return to work. 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 She took short term disability which says is 3 months, with the end of the term approaching soon. She is not sure if her short term disability is 3 or 6 months and will be checking into this. Her original return to work was 12/19 but she is not sure she feels well enough to return that soon, and Dr March recommended today that she take off another 4 weeks from work. 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 She saw Dr March earlier today. There were a few remaining prolene sutures in place which were removed. PAST HISTORY PAST MEDICAL HISTORY Diagnosis Date - Abdominal pain - Abdominal pain, epigastric - Acute gastritis without mention of hemorrhage - Asthma - DM (diabetes mellitus) (HCC) - Esophagitis, unspecified - Hypertension - Melanoma (HCC) NO BP LEFT ARM - Menorrhagia - Neuropathy (HCC) PAST SURGICAL HISTORY Procedure Laterality Date - DANDC, DIAG AND/OR THERAPEUTIC Dilation AND curettage - EGD W/O BRSH SPECIMEN W/BX 05/15/09 - L'SCOPE DX W/WO BRUSHINGS/WASHINGS Laparoscopy - LIGATE FALLOPIAN TUBE 09/24/14 - PAST SURGICAL HISTORY OF 02/02/2011 excision of melanoma Lt arm with nodes - PICC LINE INSERT/CONSULT 10/28/2017 - REMOVAL GALLBLADDER Cholecystectomy - complex A. our procedure with biliary enteric anastomosis. Prolonged postoperative course - REPAIR INCISIONAL HERNIA,DARI 02/26/11 RUQ IMMUNIZATION HISTORY Immunization History Administered Date(s) Administered Influenza Vaccine, Split-Non Spec 06/06/2006 MEDICATIONS Current Outpatient Prescriptions: docusate sodium (COLACE) 100 mg capsule Take 1 capsule by mouth twice daily as needed for Constipation. oxyCODONE-acetaminophen (PERCOCET) 5-325 mg tablet Take 1 tablet by mouth every 6 hours as needed for up to 5 days. oxacillin (BACTOCILL) 2 gram/50 mL Inject 50 mL intravenously every 4 hours. topiramate (TOPAMAX) 25 mg tablet Take 1 tablet by mouth twice daily. ibuprofen (MOTRIN) 400 mg tablet Take 1-2 tablets by mouth every 4 hours as needed for Pain. acetaminophen (TYLENOL) 325 mg tablet Take 1 tablet by mouth every 4 hours as needed for Pain or Fever. ATORVASTATIN CALCIUM (LIPITOR ORAL) Take by mouth once daily. gabapentin (NEURONTIN) 100 mg capsule Take 100 mg by mouth three times daily. aspirin, enteric coated (ASPIRIN, ENTERIC COATED) 81 mg EC tablet Take 81 mg by mouth once daily. medroxyPROGESTERone (DEPO-PROVERA) 150 mg/mL syrg Inject 1 mL intramuscularly every 12 weeks. cyclobenzaprine (FLEXERIL) 10 mg tablet Take 10 mg by mouth as needed. metoprolol tartrate, short acting, (LOPRESSOR) 25 mg tablet Take 25 mg by mouth twice daily. sertraline 50 mg tablet Take 50 mg by mouth once daily. IPRATROPRIUM-ALBUTEROL 0.5 mg-3 mg(2.5 mg base)/3 mL INHALATION Nebu metFORMIN 1,000 mg ORAL 24 hr tablet Take one(1) tablet daily. ALBUTEROL 90 MCG/ACTUATION AEROSOL INHALER Use as directed four(4) times daily. as needed ALLERGIES No Known Allergies REVIEW OF SYSTEMS: Gen: no fevers, chills Skin: + some rash and itching associated with the PICC dressing and Biopatch. Improved with D/C of Biopatch and change in the dressing H: mild PURCELL, not severe E: has some trouble reading and concentrating on fine print ENT: no mouth sores, thrush neck: no pain or stiffness pulm: no cough, SOB CV: no CP GI + nausea, no vomiting. No diarrhea : no dysuria rheum: no arm pain or swelling neuro: as per HPI. In addition, no LOC, siezures Psychiatry: stable mood ROS otherwise as outlined in HPI. All other relevant systems reviewed and negative. EXAMINATION: Vital signs: BP 169/90 Pulse 86 Temp 36.7 ?C (98 ?F) (Temporal Artery) Resp 20 Wt 96.2 kg (212 lb) SpO2 100% BMI 36.39 kg/m? Constitutional: Looks well. Oriented to time, place and person. Wearing a bandana around her head Skin: small area of rash at the edge of her PICC line dressing. Minimal Vague erythema by the PICC line exit site safety manager: craniotomy incision clean and healed over (a few prolene sutures just removed today, with tiny scabs still present). One larger skin ulcer R spiritism region, site of prior scab over drain site (scab has come off). No drainage expressible. Slightly area of subq fluid bulging R side of craniotomy, nontender ane reproducbile Craniotomy defect palpable R spiritism area Eyes: No pallor. No icterus. PERRL EOMI Ear, Nose, Mouth and Throat: External ears and nose appear normal. No gross hearing impairment. No oral thrush. Neck: No meningismus Respiratory: Breath sounds normal. Cardiac: RRR, S1 S2, no murmurs, gallops, or rubs Abdomen: No distension. Soft. No tenderness. No palpable hepatosplenomegaly or other masses. Normal bowel sounds. Back: no point vertebral tenderness Extremities: No edema. No joint swelling, warmth, or tenderness. Neurologic: Alert and oriented x 3 Speech: normal, apprpriate CN 3-12 intact Motor: 5/5 in UE and LE, No drift Sensory: some localized areas of decreased LT along the craniotomy incision Psychiatric: Normal affect. Others: PICC site nontender and no purulence. Mild erythema at exit site LABORATORY DATA: Component Latest Ref Rng AND Units 11/14/2017 11/21/2017 WBC 3.4 - 10.8 K/uL 5.9 5.3 Hemoglobin 11.1 - 15.9 g/dL 10.0 (A) 11.5 Hematocrit 34 - 46.6 % 30.2 (A) 34.8 Platelet Count 150 - 379 K/uL 480 (A) 338 Neut% 60.0 56.0 Eosin% 7.0 10.0 Abs Neut (ANC) 1.4 - 7 K/uL 3.6 2.9 Creatinine 0.57 - 1 MG/DL 0.71 0.67 ? Component Latest Ref Rng AND Units 10/25/2017 Color, CSF Colorless Slightly bloody (A) Clarity, CSF Clear Turbid (A) Supernatant Color, CSF Colorless Xanthochromic (A) Supernatant Clarity, CSF Clear Clear RBC, CSF 0 - 1 /uL 22082 (H) Total Nucleated Cells, CSF 0 - 5 /uL 82516 (H) Comment, CSF ? Test Not Indicated Review, CSF ? Test Not Indicated Slide Number CSF ? [id number] Neut%, CSF 0 - 3 % 83 (H) [place]%, CSF 10 - 50 % 11 Macro%, CSF % 6 Protein, CSF 15 - 45 mg/dL 618 (H) Glucose, CSF 40 - 70 mg/dL <2 (L) ? MICROBIOLOGY DATA: OR cultures 10/26/17: Tissue dura matrix: MSSA Miscellaneous epidural: MSSA Tissue Rt cranial subgaleal: MSSA ? Blood cx 10/25: no growth to date ? CSF (tap of left forehead collection) 10/25: MSSA ? Urine 10/25: > 100K Klebsiella pneumoniae, susceptibility pending ? Imaging data: Films personally reviewed. -- see my note 10/26/17 for selected images ? ? ASSESSMENT: ? 47 yo WF from [employer] ? - ?Type II DM with diabetic neuropathy - ?asthma, not steroid-dependent - ?melanoma?L arm s/p local excision and lymph node removal in 2010 - ?R frontal convexity meningioma s/p gross total resection 10/07/[address] March - ?post op low grade fever, swelling and tenderness over the incision line, left side,x 1 week - ?erythema and swelling mainly on the right side of forehead and face, with tenderness, periorbital edema x 1-2 days - ?MRI 10/25 with extra-axial fluid underlying the right frontal parietal ?craniotomy. ?Interval progression and enlargement of extracranial ?subcutaneous fluid collections with soft tissue swelling ??concerning for infection - ?S/P bedside aspiration of fluctuant soft tissue area left frontal, with purulence, c/w CSF with 20629 RBCs, 96073 WBCs (83% neut); pro 618, glu <?2. ?GPCs on smear, culture with MSSA - ?CRP 22 - urine 10/25 with Klebsiella pneumoniae, UA with 0-5 WBCs, asymptomatic. Received meropenem x 3 days as treatment for meningitis - S/P surgery 10/26/17 with right cranial wound washout, irrigation and debridement, placement of lumbar drain, Findings:?two pockets of pus in subgaleal space. Minimal epidural purulence vs. tisseal. Bone flap removed and appeared healthy; Brain appeared healthy. Area covered with a duragen onlay (graft duragen plus bovine collagen tissue patch); . Multiple OR cultures positive for MSSA including epidural and dura She had infection with MSSA involving mainly the subgaleal space, with several large pockets of purulence. This extended down to the epidural space with OR cultures from the epidural space also positive for MSSA (although there was no significant epidural collection visualized). The bone flap appeared intact and healthy, and has been preserved. THere is a duragen onlay in the defect, with what appears to be a small titanium plate in the area (per OR note and postop CT). We have been treating her with a full 6 week course of IV antibiotics given depth of infection and virulence of the organism (Staph aureus) The wound is healed over, with one small area of skin ulceration at the site of a prior drain. She is neurologically intact with no deficits. She is having fatigue and some nausea which could be related to oxacillin. Her labs have been stable. Discussed with her the various management options including changing IV antibiotics. She prefers to complete the COPAT course with the same oxacillin. She also has had some local cutaneous reaction to the PICC dressing and Biopatch. This is likely an allergic contact dermatitis. This has improved with D/C of the Biopatch. There is no evidence of PICC exit site infection. RECOMMENDATIONS: - continue IV oxacillin through 12/06 as planned - will have home care remove PICC 12/07 - continue home care nurse monitoring and weekly laboratory monitoring - pt advised to watch the PICC site daily Discussed signs and symptoms of infection, and she will contact me directly if problems. Otherwise F/U with me in ID clinic as needed Signature: Gerard Camp MD Date of Service: November 25, 2017 CNOV Observed: 11/25/2017 Status: COMPLETED Source: [place] 12:45 PM [facility] REPOSITORY Office Visit (INFDMN) ROSE ROLAND ([id number]) 1970 F Date Time Provider Department 11/25/17 12:45 PM GERARD CAMP During your visit today, we recorded the following information about you: Temperature Pulse Respiration Blood pressure 98 degrees 86/minute 20/minute 169/90 Weight 96.2 kg Gerard Camp MD 11/26/2017 8:07 AM Signed INFECTIOUS DISEASE OUTPATIENT VISIT Date: November 25, 2017 Patient Name: Rose Roland [facility] F/U visit Diagnosis: craniotomy wound infection, pseudomeningocele. with subgaleal, subq, and epidural abscesses Organism: MSSA Antibiotic: oxacillin Anticipated stop date: 12/06/17 Access: PICC line Interval Events: Patient has been doing fairly well at home overall since her hospital D/C 10/31. She continues on the IV oxacillin through the home infusion and we have been monitoring her labs and nursing reports. Sutures were removed in neurosurgery clinic 11/11/17. Her PURCELL has improved over the past few weeks. Has some occasional sharp pain on the right side over her incision but lasts only a few seconds and then resolves. Denies any drainage.but periodically gets some subcutaneous soft tissue swelling over the R side of the incision, not painful, which goes up and down on its own. She has had nausea intermittently at home, which she attributes to the antibiotics. No vomiting and has been able to eat some although her appetite is below baseline. Has not lost weight though. No diarrhea problems Developed problems with some local rash and small blisters around the PICC line dressing and it sounds like some around the exit site also. The home nurse thought it could be related to a delayed allergy to the Biopatch, which was removed and not replaced, and had a change in the occlusive dressing. She had improvement in the skin after this (no Biopatch being used currently) Her energy level is poor. After her first craniotomy surgery she says she bounced right back but after this last surgery for the abscesses she has felt worn out and fatigued all the time. She is trying to push through things, but just does not feel like she has bounced back like the last time We discussed issues regarding return to work. 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 She took short term disability which says is 3 months, with the end of the term approaching soon. She is not sure if her short term disability is 3 or 6 months and will be checking into this. Her original return to work was 12/19 but she is not sure she feels well enough to return that soon, and Dr March recommended today that she take off another 4 weeks from work. 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 She saw Dr March earlier today. There were a few remaining prolene sutures in place which were removed. PAST HISTORY PAST MEDICAL HISTORY Diagnosis Date - Abdominal pain - Abdominal pain, epigastric - Acute gastritis without mention of hemorrhage - Asthma - DM (diabetes mellitus) (HCC) - Esophagitis, unspecified - Hypertension - Melanoma (HCC) NO BP LEFT ARM - Menorrhagia - Neuropathy (HCC) PAST SURGICAL HISTORY Procedure Laterality Date - DANDC, DIAG AND/OR THERAPEUTIC Dilation AND curettage - EGD W/O BRSH SPECIMEN W/BX 05/15/09 - L'SCOPE DX W/WO BRUSHINGS/WASHINGS Laparoscopy - LIGATE FALLOPIAN TUBE 09/24/14 - PAST SURGICAL HISTORY OF 02/02/2011 excision of melanoma Lt arm with nodes - PICC LINE INSERT/CONSULT 10/28/2017 - REMOVAL GALLBLADDER Cholecystectomy - complex A. our procedure with biliary enteric anastomosis. Prolonged postoperative course - REPAIR INCISIONAL HERNIA,DARI 02/26/11 RUQ IMMUNIZATION HISTORY Immunization History Administered Date(s) Administered Influenza Vaccine, Split-Non Spec 06/06/2006 MEDICATIONS Current Outpatient Prescriptions: docusate sodium (COLACE) 100 mg capsule Take 1 capsule by mouth twice daily as needed for Constipation. oxyCODONE-acetaminophen (PERCOCET) 5-325 mg tablet Take 1 tablet by mouth every 6 hours as needed for up to 5 days. oxacillin (BACTOCILL) 2 gram/50 mL Inject 50 mL intravenously every 4 hours. topiramate (TOPAMAX) 25 mg tablet Take 1 tablet by mouth twice daily. ibuprofen (MOTRIN) 400 mg tablet Take 1-2 tablets by mouth every 4 hours as needed for Pain. acetaminophen (TYLENOL) 325 mg tablet Take 1 tablet by mouth every 4 hours as needed for Pain or Fever. ATORVASTATIN CALCIUM (LIPITOR ORAL) Take by mouth once daily. gabapentin (NEURONTIN) 100 mg capsule Take 100 mg by mouth three times daily. aspirin, enteric coated (ASPIRIN, ENTERIC COATED) 81 mg EC tablet Take 81 mg by mouth once daily. medroxyPROGESTERone (DEPO-PROVERA) 150 mg/mL syrg Inject 1 mL intramuscularly every 12 weeks. cyclobenzaprine (FLEXERIL) 10 mg tablet Take 10 mg by mouth as needed. metoprolol tartrate, short acting, (LOPRESSOR) 25 mg tablet Take 25 mg by mouth twice daily. sertraline 50 mg tablet Take 50 mg by mouth once daily. IPRATROPRIUM-ALBUTEROL 0.5 mg-3 mg(2.5 mg base)/3 mL INHALATION Nebu metFORMIN 1,000 mg ORAL 24 hr tablet Take one(1) tablet daily. ALBUTEROL 90 MCG/ACTUATION AEROSOL INHALER Use as directed four(4) times daily. as needed ALLERGIES No Known Allergies REVIEW OF SYSTEMS: Gen: no fevers, chills Skin: + some rash and itching associated with the PICC dressing and Biopatch. Improved with D/C of Biopatch and change in the dressing H: mild PURCELL, not severe E: has some trouble reading and concentrating on fine print ENT: no mouth sores, thrush neck: no pain or stiffness pulm: no cough, SOB CV: no CP GI + nausea, no vomiting. No diarrhea : no dysuria rheum: no arm pain or swelling neuro: as per HPI. In addition, no LOC, siezures Psychiatry: stable mood ROS otherwise as outlined in HPI. All other relevant systems reviewed and negative. EXAMINATION: Vital signs: BP 169/90 Pulse 86 Temp 36.7 ?C (98 ?F) (Temporal Artery) Resp 20 Wt 96.2 kg (212 lb) SpO2 100% BMI 36.39 kg/m? Constitutional: Looks well. Oriented to time, place and person. Wearing a bandana around her head Skin: small area of rash at the edge of her PICC line dressing. Minimal Vague erythema by the PICC line exit site safety manager: craniotomy incision clean and healed over (a few prolene sutures just removed today, with tiny scabs still present). One larger skin ulcer R spiritism region, site of prior scab over drain site (scab has come off). No drainage expressible. Slightly area of subq fluid bulging R side of craniotomy, nontender ane reproducbile Craniotomy defect palpable R spiritism area Eyes: No pallor. No icterus. PERRL EOMI Ear, Nose, Mouth and Throat: External ears and nose appear normal. No gross hearing impairment. No oral thrush. Neck: No meningismus Respiratory: Breath sounds normal. Cardiac: RRR, S1 S2, no murmurs, gallops, or rubs Abdomen: No distension. Soft. No tenderness. No palpable hepatosplenomegaly or other masses. Normal bowel sounds. Back: no point vertebral tenderness Extremities: No edema. No joint swelling, warmth, or tenderness. Neurologic: Alert and oriented x 3 Speech: normal, apprpriate CN 3-12 intact Motor: 5/5 in UE and LE, No drift Sensory: some localized areas of decreased LT along the craniotomy incision Psychiatric: Normal affect. Others: PICC site nontender and no purulence. Mild erythema at exit site LABORATORY DATA: Component Latest Ref Rng AND Units 11/14/2017 11/21/2017 WBC 3.4 - 10.8 K/uL 5.9 5.3 Hemoglobin 11.1 - 15.9 g/dL 10.0 (A) 11.5 Hematocrit 34 - 46.6 % 30.2 (A) 34.8 Platelet Count 150 - 379 K/uL 480 (A) 338 Neut% 60.0 56.0 Eosin% 7.0 10.0 Abs Neut (ANC) 1.4 - 7 K/uL 3.6 2.9 Creatinine 0.57 - 1 MG/DL 0.71 0.67 ? Component Latest Ref Rng AND Units 10/25/2017 Color, CSF Colorless Slightly bloody (A) Clarity, CSF Clear Turbid (A) Supernatant Color, CSF Colorless Xanthochromic (A) Supernatant Clarity, CSF Clear Clear RBC, CSF 0 - 1 /uL 01066 (H) Total Nucleated Cells, CSF 0 - 5 /uL 87379 (H) Comment, CSF ? Test Not Indicated Review, CSF ? Test Not Indicated Slide Number CSF ? [id number] Neut%, CSF 0 - 3 % 83 (H) [place]%, CSF 10 - 50 % 11 Macro%, CSF % 6 Protein, CSF 15 - 45 mg/dL 618 (H) Glucose, CSF 40 - 70 mg/dL <2 (L) ? MICROBIOLOGY DATA: OR cultures 10/26/17: Tissue dura matrix: MSSA Miscellaneous epidural: MSSA Tissue Rt cranial subgaleal: MSSA ? Blood cx 10/25: no growth to date ? CSF (tap of left forehead collection) 4/17: MSSA ? Urine 10/25: > 100K Klebsiella pneumoniae, susceptibility pending ? Imaging data: Films personally reviewed. -- see my note 10/26/17 for selected images ? ? ASSESSMENT: ? 47 yo WF from [employer] ? - ?Type II DM with diabetic neuropathy - ?asthma, not steroid-dependent - ?melanoma?L arm s/p local excision and lymph node removal in 2010 - ?R frontal convexity meningioma s/p gross total resection 10/07/[address] March - ?post op low grade fever, swelling and tenderness over the incision line, left side,x 1 week - ?erythema and swelling mainly on the right side of forehead and face, with tenderness, periorbital edema x 1-2 days - ?MRI 10/25 with extra-axial fluid underlying the right frontal parietal ?craniotomy. ?Interval progression and enlargement of extracranial ?subcutaneous fluid collections with soft tissue swelling ??concerning for infection - ?S/P bedside aspiration of fluctuant soft tissue area left frontal, with purulence, c/w CSF with 41630 RBCs, 76742 WBCs (83% neut); pro 618, glu <?2. ?GPCs on smear, culture with MSSA - ?CRP 22 - urine 10/25 with Klebsiella pneumoniae, UA with 0-5 WBCs, asymptomatic. Received meropenem x 3 days as treatment for meningitis - S/P surgery 10/26/17 with right cranial wound washout, irrigation and debridement, placement of lumbar drain, Findings:?two pockets of pus in subgaleal space. Minimal epidural purulence vs. tisseal. Bone flap removed and appeared healthy; Brain appeared healthy. Area covered with a duragen onlay (graft duragen plus bovine collagen tissue patch); . Multiple OR cultures positive for MSSA including epidural and dura She had infection with MSSA involving mainly the subgaleal space, with several large pockets of purulence. This extended down to the epidural space with OR cultures from the epidural space also positive for MSSA (although there was no significant epidural collection visualized). The bone flap appeared intact and healthy, and has been preserved. THere is a duragen onlay in the defect, with what appears to be a small titanium plate in the area (per OR note and postop CT). We have been treating her with a full 6 week course of IV antibiotics given depth of infection and virulence of the organism (Staph aureus) The wound is healed over, with one small area of skin ulceration at the site of a prior drain. She is neurologically intact with no deficits. She is having fatigue and some nausea which could be related to oxacillin. Her labs have been stable. Discussed with her the various management options including changing IV antibiotics. She prefers to complete the COPAT course with the same oxacillin. She also has had some local cutaneous reaction to the PICC dressing and Biopatch. This is likely an allergic contact dermatitis. This has improved with D/C of the Biopatch. There is no evidence of PICC exit site infection. RECOMMENDATIONS: - continue IV oxacillin through 12/06 as planned - will have home care remove PICC 12/07 - continue home care nurse monitoring and weekly laboratory monitoring - pt advised to watch the PICC site daily Discussed signs and symptoms of infection, and she will contact me directly if problems. 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 GABAPENTIN 100 MG CAPSULE Take 100 mg by mouth three ti* ASPIRIN 81 MG TABLET,DELAYED * Take 81 mg by mouth once jen* MEDROXYPROGESTERONE 150 MG/ML* Inject 1 mL intramuscularly e* CYCLOBENZAPRINE 10 MG TABLET Take 10 mg by mouth as needed. METOPROLOL TARTRATE 25 MG TAB* Take 25 mg by mouth twice libby* SERTRALINE 50 MG TABLET Take 50 mg by mouth once jen* * IPRATROPIUM-ALBUTEROL 0.5 MG-* * METFORMIN ER 1,000 MG TABLET,* Take one(1) tablet daily. * ALBUTEROL 90 MCG/ACTUATION AE* Use as directed four(4) times* Problem List As Of Date 11/25/2017 Noted Resolved ACUTE PANCREATITIS [K85.90] INVALID FOR* CHOLELITHIASIS NOS [K80.20] INVALID FOR* ABDOMINAL PAIN UNSPEC SITE [R10.9] INVALID FOR* ABDOMINAL PAIN GENERALIZED [R10.84] INVALID FOR* ASA CLASS II [1001] INVALID FOR* PORTAL VEIN THROMBOSIS [I81] INVALID FOR* Abdominal Pain, Epigastric [R10.13] INVALID FOR* Unspecified Esophagitis [K20.9] INVALID FOR* Acute Gastritis without Mention of Hemorrhage [*INVALID FOR* Incisional hernia [K43.2] INVALID FOR* Incisional hernia with obstruction [K43.0] INVALID FOR* Melanoma (HCC) [C43.9] INVALID FOR* Brain mass [G93.9] INVALID FOR* Meningioma (HCC) [D32.9] INVALID FOR* More... Vasogenic cerebral edema (HCC) [G93.6] INVALID FOR* More... At risk of seizures [Z91.89] INVALID FOR* More... Wound infection [T14.8XXA, L08.9] INVALID FOR* More... Obesity, Class II, BMI 35-39.9 E66.9 [E66.9] INVALID FOR* Follow-up and Disposition History Recorded Encounter Status:Closed by GERARD CAMP MD on 11/26/17 PROGRESS Observed: 11/25/2017 Status: COMPLETED Source: [place] 11:45 AM [facility] REPOSITORY HNO ID: [id number] Author: Eliazar March Service: (none) Author Type: Physician Type: Progress Notes Filed: 11/26/2017 8:19 AM Note Text: SECTION OF SKULL BASE SURGERY MINIMALLY INVASIVE CRANIAL BASE AND PITUITARY SURGERY PROGRAM [facility] AND [facility] [place], [facility]: MD Gerard Law MD SUBJECTIVE: Patient is unaccompanied. She is a 47 year old female s/p right frontal craniotomy for meningioma resection on 10/07/2017. She returned on 10/26 with a wound infection for which she underwent washout on 10/26. She was found to be have an MSSA Infection and was started on oxacillin. She denies any fever or chills but reports she has been feeling run down. She feels worse overall than she did after her first surgery. They have been drawing her blood weekly at her home with antibiotics. She also feels slightly nauseated since being on antibiotics and therefore is not as hungry as usual. Review of Symptoms: Infectious symptoms: none Neurological Changes : none Current Outpatient Prescriptions: docusate sodium (COLACE) 100 mg capsule Take 1 capsule by mouth twice daily as needed for Constipation. oxyCODONE-acetaminophen (PERCOCET) 5-325 mg tablet Take 1 tablet by mouth every 6 hours as needed for up to 5 days. oxacillin (BACTOCILL) 2 gram/50 mL Inject 50 mL intravenously every 4 hours. topiramate (TOPAMAX) 25 mg tablet Take 1 tablet by mouth twice daily. ibuprofen (MOTRIN) 400 mg tablet Take 1-2 tablets by mouth every 4 hours as needed for Pain. acetaminophen (TYLENOL) 325 mg tablet Take 1 tablet by mouth every 4 hours as needed for Pain or Fever. ATORVASTATIN CALCIUM (LIPITOR ORAL) Take by mouth once daily. gabapentin (NEURONTIN) 100 mg capsule Take 100 mg by mouth three times daily. aspirin, enteric coated (ASPIRIN, ENTERIC COATED) 81 mg EC tablet Take 81 mg by mouth once daily. medroxyPROGESTERone (DEPO-PROVERA) 150 mg/mL syrg Inject 1 mL intramuscularly every 12 weeks. cyclobenzaprine (FLEXERIL) 10 mg tablet Take 10 mg by mouth as needed. metoprolol tartrate, short acting, (LOPRESSOR) 25 mg tablet Take 25 mg by mouth twice daily. sertraline 50 mg tablet Take 50 mg by mouth once daily. IPRATROPRIUM-ALBUTEROL 0.5 mg-3 mg(2.5 mg base)/3 mL INHALATION Nebu metFORMIN 1,000 mg ORAL 24 hr tablet Take one(1) tablet daily. ALBUTEROL 90 MCG/ACTUATION AEROSOL INHALER Use as directed four(4) times daily. as needed No current facility-administered medications for this visit. PHYSICAL EXAMINATION: BP 183/76 Pulse 92 Temp 36.9 ?C (98.5 ?F) (Temporal Artery) Resp 16 Wt 96.3 kg (212 lb 6.4 oz) SpO2 100% BMI 36.46 kg/m? Incision healing well, some prolenes still in place, these were removed, drain site with some scabbing. Non erythematous Oriented to person, place, and time Speech: Normal fluency and comprehension 2nd cranial nerve: Full visual zuniga 3rd, 4th and 6th cranial nerves: Pupils equally round and reactive to light, extraocular movements intact without nystagmus or subjective diplopia 5th cranial nerve: V1-3 intact to light touch bilaterally 7th cranial nerve: Facial muscles full and symmetric bilaterally 8th cranial nerve: hearing intact to finger rub bilaterally 9th cranial nerve: gag reflex test deferred 10th cranial nerve: Palate elevates symmetrically and uvula in the midline 11th nerve: shoulder shrug 5/5 bilaterally 12th cranial nerve: tongue protrudes in the midline Motors: 5/5 strength throughout without pronator drift Sensation: intact to light touch in all extremities Coordination: no dysmetria on finger-nose testing bilaterally Gait: able to stand and ambulate independently with normal gait Inc c/d/I, incision well healed; has small amount of fluctuance DATA REVIEW: None ASSESSMENT/PLAN: Rose Roland is s/p right frontal craniotomy for Powell Grade I resection of 7cm right frontal convexity meningioma (WHO I, microcystic, Ki67 index 13%) on 10/07/17 complicated by wound infection s/p washout 10/26/17. Overall she is doing well. Will need to follow closely since we preserved bone flap. I would like to see her back couple weeks after completion of antibiotics. Will likely get `repeat MRI brain wwo at that time. Will check CRP with next CBC. In regards to meningioma, plan will be MRI brain wwo 6 months postop. Hopefully she'll have a durable benefit from resection of convexity meningioma. I reviewed the history obtained and documented by the fellow who scribed on my behalf. I examined the patient and evaluated all available films and pertinent documents. This note accurately reflects work and decisions made by me. Eliazar March MD Staff, Skull Base AND Cerebrovascular Surgery Department of Neurological Surgery [facility] CNOV Observed: 11/25/2017 Status: COMPLETED Source: [place] 11:40 AM [facility] RE[facility] Office Visit ([facility]) KALYANIROSE TIDWELL ([id number]) 1970 F Date Time Provider Department 11/25/17 11:40 AM ELIAZAR MARCH [facility] During your visit today, we recorded the following information about you: Temperature Pulse Respiration Blood pressure 98.5 degrees 92/minute 16/minute 183/76 Weight 96.3 kg Eliazar March MD 11/26/2017 8:19 AM Signed SECTION OF SKULL BASE SURGERY MINIMALLY INVASIVE CRANIAL BASE AND PITUITARY SURGERY PROGRAM [facility] AND Head [facility] Ne[facility] [place], [facility] CC: MD Gerard Law MD SUBJECTIVE: Patient is unaccompanied. She is a 47 year old female s/p right frontal craniotomy for meningioma resection on 10/07/2017. She returned on 10/26 with a wound infection for which she underwent washout on 10/26. She was found to be have an MSSA Infection and was started on oxacillin. She denies any fever or chills but reports she has been feeling run down. She feels worse overall than she did after her first surgery. They have been drawing her blood weekly at her home with antibiotics. She also feels slightly nauseated since being on antibiotics and therefore is not as hungry as usual. Review of Symptoms: Infectious symptoms: none Neurological Changes : none Current Outpatient Prescriptions: docusate sodium (COLACE) 100 mg capsule Take 1 capsule by mouth twice daily as needed for Constipation. oxyCODONE-acetaminophen (PERCOCET) 5-325 mg tablet Take 1 tablet by mouth every 6 hours as needed for up to 5 days. oxacillin (BACTOCILL) 2 gram/50 mL Inject 50 mL intravenously every 4 hours. topiramate (TOPAMAX) 25 mg tablet Take 1 tablet by mouth twice daily. ibuprofen (MOTRIN) 400 mg tablet Take 1-2 tablets by mouth every 4 hours as needed for Pain. acetaminophen (TYLENOL) 325 mg tablet Take 1 tablet by mouth every 4 hours as needed for Pain or Fever. ATORVASTATIN CALCIUM (LIPITOR ORAL) Take by mouth once daily. gabapentin (NEURONTIN) 100 mg capsule Take 100 mg by mouth three times daily. aspirin, enteric coated (ASPIRIN, ENTERIC COATED) 81 mg EC tablet Take 81 mg by mouth once daily. medroxyPROGESTERone (DEPO-PROVERA) 150 mg/mL syrg Inject 1 mL intramuscularly every 12 weeks. cyclobenzaprine (FLEXERIL) 10 mg tablet Take 10 mg by mouth as needed. metoprolol tartrate, short acting, (LOPRESSOR) 25 mg tablet Take 25 mg by mouth twice daily. sertraline 50 mg tablet Take 50 mg by mouth once daily. IPRATROPRIUM-ALBUTEROL 0.5 mg-3 mg(2.5 mg base)/3 mL INHALATION Nebu metFORMIN 1,000 mg ORAL 24 hr tablet Take one(1) tablet daily. ALBUTEROL 90 MCG/ACTUATION AEROSOL INHALER Use as directed four(4) times daily. as needed No current facility-administered medications for this visit. PHYSICAL EXAMINATION: BP 183/76 Pulse 92 Temp 36.9 ?C (98.5 ?F) (Temporal Artery) Resp 16 Wt 96.3 kg (212 lb 6.4 oz) SpO2 100% BMI 36.46 kg/m? Incision healing well, some prolenes still in place, these were removed, drain site with some scabbing. Non erythematous Oriented to person, place, and time Speech: Normal fluency and comprehension 2nd cranial nerve: Full visual zuniga 3rd, 4th and 6th cranial nerves: Pupils equally round and reactive to light, extraocular movements intact without nystagmus or subjective diplopia 5th cranial nerve: V1-3 intact to light touch bilaterally 7th cranial nerve: Facial muscles full and symmetric bilaterally 8th cranial nerve: hearing intact to finger rub bilaterally 9th cranial nerve: gag reflex test deferred 10th cranial nerve: Palate elevates symmetrically and uvula in the midline 11th nerve: shoulder shrug 5/5 bilaterally 12th cranial nerve: tongue protrudes in the midline Motors: 5/5 strength throughout without pronator drift Sensation: intact to light touch in all extremities Coordination: no dysmetria on finger-nose testing bilaterally Gait: able to stand and ambulate independently with normal gait Inc c/d/I, incision well healed; has small amount of fluctuance DATA REVIEW: None ASSESSMENT/PLAN: Rose Roland is s/p right frontal craniotomy for Powell Grade I resection of 7cm right frontal convexity meningioma (WHO I, microcystic, Ki67 index 13%) on 10/07/17 complicated by wound infection s/p washout 10/26/17. Overall she is doing well. Will need to follow closely since we preserved bone flap. I would like to see her back couple weeks after completion of antibiotics. Will likely get `repeat MRI brain wwo at that time. Will check CRP with next CBC. In regards to meningioma, plan will be MRI brain wwo 6 months postop. Hopefully she'll have a durable benefit from resection of convexity meningioma. I reviewed the history obtained and documented by the fellow who scribed on my behalf. I examined the patient and evaluated all available films and pertinent documents. This note accurately reflects work and decisions made by me. Eliazar March MD Staff, Skull Base AND Cerebrovascular Surgery Department of Neurological Surgery [facility] Justin Lara LPN, PAIGE 11/25/2017 12:11 PM Signed Additional intake questions: Has the patient had nausea, vomiting, diarrhea, constipation, fatigue for > 1 week? None of the above Does the patient have a decreased appetite? No Does patient want to see a Math Instructor? No (yes to any of above refer patient to schedulers for dietitian appointment) ) Does patient have any new or increased numbness or tingling of extremities? No Is patient interested in fertility information? No Does patient need any prescription refills? No Electronically Signed By: Justin Lara LPN Referring Provider: SELF [200] Allergies As of Date: 11/25/2017 (No Known Allergies) Date Reviewed: 11/25/2017 Reviewed by: Tiffany Lorenz Ma - Fully Assessed Reason for Visit: Established Patient [175] Primary Visit Diagnosis:Meningioma (HCC) [D32.9] Other Visit Diagnosis:Wound infection [T14.8XXA, L08.9] Prescriptions as of 11/25/2017 Sig: DOCUSATE SODIUM 100 MG CAPSULE Take 1 capsule by mouth twice* OXYCODONE-ACETAMINOPHEN 5 MG-* Take 1 tablet by mouth every * OXACILLIN 2 GRAM/50 ML IN DEX* Inject 50 mL intravenously ev* TOPIRAMATE 25 MG TABLET Take 1 tablet by mouth twice * IBUPROFEN 400 MG TABLET Take 1-2 tablets by mouth leesa* ACETAMINOPHEN 325 MG TABLET Take 1 tablet by mouth every * LIPITOR ORAL Take by mouth once daily. GABAPENTIN 100 MG CAPSULE Take 100 mg by mouth three ti* ASPIRIN 81 MG TABLET,DELAYED * Take 81 mg by mouth once jen* MEDROXYPROGESTERONE 150 MG/ML* Inject 1 mL intramuscularly e* CYCLOBENZAPRINE 10 MG TABLET Take 10 mg by mouth as needed. METOPROLOL TARTRATE 25 MG TAB* Take 25 mg by mouth twice libby* SERTRALINE 50 MG TABLET Take 50 mg by mouth once jen* * IPRATROPIUM-ALBUTEROL 0.5 MG-* * METFORMIN ER 1,000 MG TABLET,* Take one(1) tablet daily. * ALBUTEROL 90 MCG/ACTUATION AE* Use as directed four(4) times* Problem List As Of Date 11/25/2017 Noted Resolved ACUTE PANCREATITIS [K85.90] INVALID FOR* CHOLELITHIASIS NOS [K80.20] INVALID FOR* ABDOMINAL PAIN UNSPEC SITE [R10.9] INVALID FOR* ABDOMINAL PAIN GENERALIZED [R10.84] INVALID FOR* ASA CLASS II [1001] INVALID FOR* PORTAL VEIN THROMBOSIS [I81] INVALID FOR* Abdominal Pain, Epigastric [R10.13] INVALID FOR* Unspecified Esophagitis [K20.9] INVALID FOR* Acute Gastritis without Mention of Hemorrhage [*INVALID FOR* Incisional hernia [K43.2] INVALID FOR* Incisional hernia with obstruction [K43.0] INVALID FOR* Melanoma (HCC) [C43.9] INVALID FOR* Brain mass [G93.9] INVALID FOR* Meningioma (HCC) [D32.9] INVALID FOR* More... Vasogenic cerebral edema (HCC) [G93.6] INVALID FOR* More... At risk of seizures [Z91.89] INVALID FOR* More... Wound infection [T14.8XXA, L08.9] INVALID FOR* More... Obesity, Class II, BMI 35-39.9 E66.9 [E66.9] INVALID FOR* Visit Notes: >> Justin (Tablet Machine Operator) PAIGE Lara TueNovember 25, 2017 12:11 PM Status: Signed Additional intake questions: Has the patient had nausea, vomiting, diarrhea, constipation, fatigue for > 1 week? None of the above Does the patient have a decreased appetite? No Does patient want to see a Math Instructor? No (yes to any of above refer patient to schedulers for dietitian appointment) ) Does patient have any new or increased numbness or tingling of extremities? No Is patient interested in fertility information? No Does patient need any prescription refills? No Electronically Signed By: Justin Lara LPN Follow-up and Disposition History Recorded Letter Text Encounter Status:Closed by ELIAZAR MARCH MD on 11/26/17 HOSP Observed: 11/21/2017 Status: COMPLETED Source: [place] 12:00 AM [facility] ROSE ROLAND ([id number]) 1970 F Date Time Provider Department [facility]21[facility] your visit today, we recorded the following information about you: Allergies As of Date: 11/21/2017 (No Known Allergies) Date Reviewed: 11/11/2017 Reviewed by: Ron Lynn LPN - Fully Assessed Reason for Visit: Outside Labs Results [437] Cmt: copat Order(s):CBC + DIFF [SQCBCDIF] Order #: [id number] COMP METABOLIC PANEL [SQCMP] Order #: [id number] Prescriptions as of 11/21/2017 Sig: DOCUSATE SODIUM 100 MG CAPSULE Take 1 capsule by mouth twice* OXACILLIN 2 GRAM/50 ML IN DEX* Inject 50 mL intravenously ev* TOPIRAMATE 25 MG TABLET Take 1 tablet by mouth twice * IBUPROFEN 400 MG TABLET Take 1-2 tablets by mouth leesa* ACETAMINOPHEN 325 MG TABLET Take 1 tablet by mouth every * LIPITOR ORAL Take by mouth once daily. GABAPENTIN 100 MG CAPSULE Take 100 mg by mouth three ti* ASPIRIN 81 MG TABLET,DELAYED * Take 81 mg by mouth once jen* MEDROXYPROGESTERONE 150 MG/ML* Inject 1 mL intramuscularly e* CYCLOBENZAPRINE 10 MG TABLET Take 10 mg by mouth as needed. METOPROLOL TARTRATE 25 MG TAB* Take 25 mg by mouth twice libby* SERTRALINE 50 MG TABLET Take 50 mg by mouth once ejn* * IPRATROPIUM-ALBUTEROL 0.5 MG-* * METFORMIN ER 1,000 MG TABLET,* Take one(1) tablet daily. * ALBUTEROL 90 MCG/ACTUATION AE* Use as directed four(4) times* Problem List As Of Date 11/21/2017 Noted Resolved ACUTE PANCREATITIS [K85.90] INVALID FOR* CHOLELITHIASIS NOS [K80.20] INVALID FOR* ABDOMINAL PAIN UNSPEC SITE [R10.9] INVALID FOR* ABDOMINAL PAIN GENERALIZED [R10.84] INVALID FOR* ASA CLASS II [1001] INVALID FOR* PORTAL VEIN THROMBOSIS [I81] INVALID FOR* Abdominal Pain, Epigastric [R10.13] INVALID FOR* Unspecified Esophagitis [K20.9] INVALID FOR* Acute Gastritis without Mention of Hemorrhage [*INVALID FOR* Incisional hernia [K43.2] INVALID FOR* Incisional hernia with obstruction [K43.0] INVALID FOR* Melanoma (HCC) [C43.9] INVALID FOR* Brain mass [G93.9] INVALID FOR* Meningioma (HCC) [D32.9] INVALID FOR* More... Vasogenic cerebral edema (HCC) [G93.6] INVALID FOR* More... At risk of seizures [Z91.89] INVALID FOR* More... Wound infection [T14.8XXA, L08.9] INVALID FOR* More... Obesity, Class II, BMI 35-39.9 E66.9 [E66.9] INVALID FOR* Follow-up and Disposition History Recorded Encounter Status:Closed by EDWIGE MUNGUIA on 11/22/17 HOSP Observed: 11/14/2017 Status: COMPLETED Source: [facility] 12[facility] AM [facility] REPOS[facility] Patient Update ([facility]) KALYANIROSE TIDWELL ([id number]) 1970 F Date Time Provider Department 11/14/17 GERARD CAMP During your visit today, we recorded the following information about you: Allergies As of Date: 11/14/2017 (No Known Allergies) Date Reviewed: 11/11/2017 Reviewed by: Ron Lynn LPN - Fully Assessed Reason for Visit: Outside Labs Results [437] Cmt: copat Order(s):CBC + DIFF [SQCBCDIF] Order #: [id number] COMP METABOLIC PANEL [SQCMP] Order #: [id number] Prescriptions as of 11/14/2017 Sig: DOCUSATE SODIUM 100 MG CAPSULE Take 1 capsule by mouth twice* OXACILLIN 2 GRAM/50 ML IN DEX* Inject 50 mL intravenously ev* TOPIRAMATE 25 MG TABLET Take 1 tablet by mouth twice * IBUPROFEN 400 MG TABLET Take 1-2 tablets by mouth leesa* ACETAMINOPHEN 325 MG TABLET Take 1 tablet by mouth every * LIPITOR ORAL Take by mouth once daily. GABAPENTIN 100 MG CAPSULE Take 100 mg by mouth three ti* ASPIRIN 81 MG TABLET,DELAYED * Take 81 mg by mouth once jen* MEDROXYPROGESTERONE 150 MG/ML* Inject 1 mL intramuscularly e* CYCLOBENZAPRINE 10 MG TABLET Take 10 mg by mouth as needed. METOPROLOL TARTRATE 25 MG TAB* Take 25 mg by mouth twice libby* SERTRALINE 50 MG TABLET Take 50 mg by mouth once jen* * IPRATROPIUM-ALBUTEROL 0.5 MG-* * METFORMIN ER 1,000 MG TABLET,* Take one(1) tablet daily. * ALBUTEROL 90 MCG/ACTUATION AE* Use as directed four(4) times* Problem List As Of Date 11/14/2017 Noted Resolved ACUTE PANCREATITIS [K85.90] INVALID FOR* CHOLELITHIASIS NOS [K80.20] INVALID FOR* ABDOMINAL PAIN UNSPEC SITE [R10.9] INVALID FOR* ABDOMINAL PAIN GENERALIZED [R10.84] INVALID FOR* ASA CLASS II [1001] INVALID FOR* PORTAL VEIN THROMBOSIS [I81] INVALID FOR* Abdominal Pain, Epigastric [R10.13] INVALID FOR* Unspecified Esophagitis [K20.9] INVALID FOR* Acute Gastritis without Mention of Hemorrhage [*INVALID FOR* Incisional hernia [K43.2] INVALID FOR* Incisional hernia with obstruction [K43.0] INVALID FOR* Melanoma (HCC) [C43.9] INVALID FOR* Brain mass [G93.9] INVALID FOR* Meningioma (HCC) [D32.9] INVALID FOR* More... Vasogenic cerebral edema (HCC) [G93.6] INVALID FOR* More... At risk of seizures [Z91.89] INVALID FOR* More... Wound infection [T14.8XXA, L08.9] INVALID FOR* More... Obesity, Class II, BMI 35-39.9 E66.9 [E66.9] INVALID FOR* Follow-up and Disposition History Recorded Encounter Status:Closed by EDWIGE MUNGUIA on 11/15/17 PROGRESS Observed: 11/11/2017 Status: COMPLETED Source: [facility] 2:33 PM [facility] REPOSIT[facility] HNO ID: [id number] Author: Charisse Marc Service: (none) Author Type: (none) Type: Progress Notes Filed: 11/11/2017 3:11 PM Note Text: Patient is here today unaccompanied for 2 week nursing post- op visit. Surgery on 10/07/2017 Right frontotemporal craniotomy for resection of brain tumor, possible blood product transfusion 10/26/2017 Right sided wound washout and drainage Patient is recovering well postoperatively. No neurological symptoms or complaints compared to preoperative baseline. Re-discussed postoperative activity and associated restrictions. Craniotomy incision is well-approximated and healed with very minimal scabbing. There are no signs or symptoms of infection. Removal of sutures: patient allergies reviewed and no allergy to iodine. Sutures were removed with no difficulty and patient tolerated well. After suture removal, patient was noted to have scant clear drainage from a few of the suture entry and exit sites. Area was patted dried with gauze and patient was observed for 10 minutes while sitting with no drainage and 10 minutes with head lowered with no drainage. Dr. Davis notified and recommended the following instructions for patient: 1. Patient should remain elevated for remainder of day and elevated while sleeping, maintain strict post-operative restrictions, no bending, straining, etc. 2. If patient notices any drainage, fever or any other s/sx of infection, patient should go to ED 3. Will touch base with patient on Tuesday Reviewed wound care and instructions with patient with good understanding and confirmed postoperative follow up appointment with Dr. March. Patient is aware to call our office with any questions or concerns. Charisse Marc RN, BSN pgr [phone] CNNURSE Observed: 11/11/2017 Status: COMPLETED Source: [facility] 1:[facility] PM [facility] RE[facility] Nurse Visit ([facility]) ROSE ROLAND ([id number]) 1970 F Date Time Provider Department 11/11/17 1:00 PM CHARISSE MARC (ALMA) NSCAMN During your visit today, we recorded the following information about you: Pulse Respiration Blood pressure Weight 86/minute 18/minute 153/89 96.6 kg Ron Lynn LPN 11/11/2017 12:57 PM Signed Additional intake questions: Has the patient had nausea, vomiting, diarrhea, constipation, fatigue for > 1 week? Nausea, Yes, MD Notified Fatigue, Yes, MD Notified Diarrhea, Yes, MD Notified Does the patient have a decreased appetite? No Does patient want to see a Math Instructor? No (yes to any of above refer patient to schedulers for dietitian appointment) ) Does patient have any new or increased numbness or tingling of extremities? No Is patient interested in fertility information? No Does patient need any prescription refills? No Electronically Signed By: Charisse Williamson LPN 11/11/2017 3:11 PM Signed Patient is here today unaccompanied for 2 week nursing post- op visit. Surgery on 10/07/2017 Right frontotemporal craniotomy for resection of brain tumor, possible blood product transfusion 10/26/2017 Right sided wound washout and drainage Patient is recovering well postoperatively. No neurological symptoms or complaints compared to preoperative baseline. Re-discussed postoperative activity and associated restrictions. Craniotomy incision is well-approximated and healed with very minimal scabbing. There are no signs or symptoms of infection. Removal of sutures: patient allergies reviewed and no allergy to iodine. Sutures were removed with no difficulty and patient tolerated well. After suture removal, patient was noted to have scant clear drainage from a few of the suture entry and exit sites. Area was patted dried with gauze and patient was observed for 10 minutes while sitting with no drainage and 10 minutes with head lowered with no drainage. Dr. Davis notified and recommended the following instructions for patient: 1. Patient should remain elevated for remainder of day and elevated while sleeping, maintain strict post-operative restrictions, no bending, straining, etc. 2. If patient notices any drainage, fever or any other s/sx of infection, patient should go to ED 3. Will touch base with patient on Tuesday Reviewed wound care and instructions with patient with good understanding and confirmed postoperative follow up appointment with Dr. March. Patient is aware to call our office with any questions or concerns. Charisse Marc, RN, BSN pgr [phone] Referring Provider: SELF [200] Allergies As of Date: 11/11/2017 (No Known Allergies) Date Reviewed: 11/11/2017 Reviewed by: Ron Lynn LPN - Fully Assessed Reason for Visit: Allied Health Visit [5] Cmt: Nursing 2 week post op visit Reason For Visit History Recorded Primary Visit Diagnosis:Meningioma (HCC) [D32.9] Prescriptions as of 11/11/2017 Sig: DOCUSATE SODIUM 100 MG CAPSULE Take 1 capsule by mouth twice* OXACILLIN 2 GRAM/50 ML IN DEX* Inject 50 mL intravenously ev* TOPIRAMATE 25 MG TABLET Take 1 tablet by mouth twice * IBUPROFEN 400 MG TABLET Take 1-2 tablets by mouth leesa* ACETAMINOPHEN 325 MG TABLET Take 1 tablet by mouth every * LIPITOR ORAL Take by mouth once daily. GABAPENTIN 100 MG CAPSULE Take 100 mg by mouth three ti* ASPIRIN 81 MG TABLET,DELAYED * Take 81 mg by mouth once jen* MEDROXYPROGESTERONE 150 MG/ML* Inject 1 mL intramuscularly e* CYCLOBENZAPRINE 10 MG TABLET Take 10 mg by mouth as needed. METOPROLOL TARTRATE 25 MG TAB* Take 25 mg by mouth twice libby* SERTRALINE 50 MG TABLET Take 50 mg by mouth once jen* * IPRATROPIUM-ALBUTEROL 0.5 MG-* * METFORMIN ER 1,000 MG TABLET,* Take one(1) tablet daily. * ALBUTEROL 90 MCG/ACTUATION AE* Use as directed four(4) times* OXYCODONE-ACETAMINOPHEN 5 MG-* Take 1 tablet by mouth every * Problem List As Of Date 11/11/2017 Noted Resolved ACUTE PANCREATITIS [K85.90] INVALID FOR* CHOLELITHIASIS NOS [K80.20] INVALID FOR* ABDOMINAL PAIN UNSPEC SITE [R10.9] INVALID FOR* ABDOMINAL PAIN GENERALIZED [R10.84] INVALID FOR* ASA CLASS II [1001] INVALID FOR* PORTAL VEIN THROMBOSIS [I81] INVALID FOR* Abdominal Pain, Epigastric [R10.13] INVALID FOR* Unspecified Esophagitis [K20.9] INVALID FOR* Acute Gastritis without Mention of Hemorrhage [*INVALID FOR* Incisional hernia [K43.2] INVALID FOR* Incisional hernia with obstruction [K43.0] INVALID FOR* Melanoma (HCC) [C43.9] INVALID FOR* Brain mass [G93.9] INVALID FOR* Meningioma (HCC) [D32.9] INVALID FOR* More... Vasogenic cerebral edema (HCC) [G93.6] INVALID FOR* More... At risk of seizures [Z91.89] INVALID FOR* More... Wound infection [T14.8XXA, L08.9] INVALID FOR* More... Obesity, Class II, BMI 35-39.9 E66.9 [E66.9] INVALID FOR* Visit Notes: >> Ron Lynn LPN Fri November 11, 2017 12:54 PM Status: Signed Additional intake questions: Has the patient had nausea, vomiting, diarrhea, constipation, fatigue for > 1 week? Nausea, Yes, MD Notified Fatigue, Yes, MD Notified Diarrhea, Yes, MD Notified Does the patient have a decreased appetite? No Does patient want to see a Math Instructor? No (yes to any of above refer patient to schedulers for dietitian appointment) ) Does patient have any new or increased numbness or tingling of extremities? No Is patient interested in fertility information? No Does patient need any prescription refills? No Electronically Signed By: Ron Lynn LPN Encounter Status:Closed by CHARISSE MARC on 11/11/17 HOSP Observed: 11/01/2017 Status: COMPLETED Source: [place] 12:00 AM [facility] REPOS[facility] Patient Update ([facility]) ROSE ROLAND ([id number]) 1970 F Date Time Provider Department 11/01/17 GER[facility] CAMP [facility] During your visit today, we recorded the following information about you: Allergies As of Date: 11/01/2017 (No Known Allergies) Date Reviewed: 10/31/2017 Reviewed by: Sher (Alma) ALMA Wright - Fully Assessed Reason for Visit: CoPat Agency [1680] Prescriptions as of 11/01/2017 Sig: DOCUSATE SODIUM 100 MG CAPSULE Take 1 capsule by mouth twice* OXYCODONE-ACETAMINOPHEN 5 MG-* Take 1 tablet by mouth every * OXACILLIN 2 GRAM/50 ML IN DEX* Inject 50 mL intravenously ev* TOPIRAMATE 25 MG TABLET Take 1 tablet by mouth twice * IBUPROFEN 400 MG TABLET Take 1-2 tablets by mouth leesa* ACETAMINOPHEN 325 MG TABLET Take 1 tablet by mouth every * LIPITOR ORAL Take by mouth once daily. GABAPENTIN 100 MG CAPSULE Take 100 mg by mouth three ti* ASPIRIN 81 MG TABLET,DELAYED * Take 81 mg by mouth once jen* MEDROXYPROGESTERONE 150 MG/ML* Inject 1 mL intramuscularly e* CYCLOBENZAPRINE 10 MG TABLET Take 10 mg by mouth as needed. METOPROLOL TARTRATE 25 MG TAB* Take 25 mg by mouth twice libby* SERTRALINE 50 MG TABLET Take 50 mg by mouth once jen* * IPRATROPIUM-ALBUTEROL 0.5 MG-* * METFORMIN ER 1,000 MG TABLET,* Take one(1) tablet daily. * ALBUTEROL 90 MCG/ACTUATION AE* Use as directed four(4) times* Problem List As Of Date 11/01/2017 Noted Resolved ACUTE PANCREATITIS [K85.90] INVALID FOR* CHOLELITHIASIS NOS [K80.20] INVALID FOR* ABDOMINAL PAIN UNSPEC SITE [R10.9] INVALID FOR* ABDOMINAL PAIN GENERALIZED [R10.84] INVALID FOR* ASA CLASS II [1001] INVALID FOR* PORTAL VEIN THROMBOSIS [I81] INVALID FOR* Abdominal Pain, Epigastric [R10.13] INVALID FOR* Unspecified Esophagitis [K20.9] INVALID FOR* Acute Gastritis without Mention of Hemorrhage [*INVALID FOR* Incisional hernia [K43.2] INVALID FOR* Incisional hernia with obstruction [K43.0] INVALID FOR* Melanoma (HCC) [C43.9] INVALID FOR* Brain mass [G93.9] INVALID FOR* Meningioma (HCC) [D32.9] INVALID FOR* More... Vasogenic cerebral edema (HCC) [G93.6] INVALID FOR* More... At risk of seizures [Z91.89] INVALID FOR* More... Wound infection [T14.8XXA, L08.9] INVALID FOR* More... Obesity, Class II, BMI 35-39.9 E66.9 [E66.9] INVALID FOR* Questionnaire: COPAT [facility] Agen name -> [employer]. - [facility] Age Ph # -> [phone] Vascular Access: -> picc Encounter Status:Closed by EDWIGE MUNGUIA on 11/01/17 CASE MANAGEM Observed: 10/31/2017 Status: COMPLETED Source: [facility] 2:53 PM [facility] REPOSITORY [facility] ID: [id number] Author: Liliana (Rn) ALMA Madrid Service: Care Management Author Type: Registered Nurse Type: Care Mgt Progress Note Filed: 10/31/2017 3:04 PM Note Text: CARE MANAGEMENT DISCHARGE NOTE SERVICE DATE: 10/31/2017 SERVICE TIME: 1457 LOS: 6 days Admission Date: 10/25/2017 DISCHARGE ARRANGEMENT (list agency and phone number) Home care and Home care pharmacy Provider: [facility] CAREGIVER ASSESSMENT: Caregiver is ready, willing and able to meet the patient's needs as recommended by the inter-professional team? No Caregiver Needed Patient's transition needs and plan for meeting these needs: Plan for HHC/HIP Does the patient have an acute stroke diagnosis, or has the patient had a stroke during this admission? No HANDOFF COMMUNICATION: Summary of care sent to [facility] ( [facility]) and PCP. D/C instructions reviewed with pt. by bedside Nurse. TRANSPORTATION ARRANGEMENTS: Car - parents ADDITIONAL CONTACT RESOURCES: N/A D/C to home today. [facility] ( [facility]) has accepted for Infusion with a SOC for today at 5 PM. [facility] has also accepted for Nursing as multiple [facility] agencies were contacted via ECIN or phone and none able to accept. . Plan for a SOC for Nursing tonight no later than 8 PM. [facility] aware that 5 PM dose of Nafcillin may be administered late. D/C instructions and snapshot sent to [facility] via ECIN. COPAT and PICC line note were sent with referral. Pt. and parents aware and agreeable to D/C plan and freedom of choice. SIGNATURE: Liliana Madrid RN PATIENT NAME: Rose Roland DATE: October 31, 2017 TIME: 2:57 PM PAGER/CONTACT #: [phone] CASE MANAGEM Observed: 10/31/2017 Status: COMPLETED Source: [place] 10:25 AM [facility] REPOSITORY [facility] ID: [id number] Author: Liliana (Rn) ALMA Madrid Service: Care Management Author Type: Registered Nurse Type: Care Mgt Progress Note Filed: 10/31/2017 10:28 AM Note Text: CARE MANAGEMENT PROGRESS NOTE SERVICE DATE: 10/31/2017 SERVICE TIME: 1025 LOS: 6 days FREEDOM OF CHOICE GIVEN: Yes Pt. Financial Disclosure Provided The patient and/or family has been given the Provider List: Yes Provider List: Home Care Preference: No preference- multiple referrals sent as requested Needs Prior to Discharge: Other: See Comment (COPAT; Accepting HHC/HIP agency) Procedure Needed: OR Plan for D/C today after 1 PM dose of Oxacillin. COPAT pending. PICC line placed. SA drain has been removed. CM met with pt to follow up on [facility]/HIP agency selections. List was provided on Tuesday. Referrals sent to multiple [facility] agencies as requested with no particular HHC agency preference. Await responses. Referral sent to [facility] as requested. Await response. Will follow for D/C planning needs. SIGNATURE: Liliana Madrid RN PATIENT NAME: Rose Roland DATE: October 31, 2017 TIME: 10:25 AM PAGER/CONTACT #: [phone] PROGRESS Observed: 10/31/2017 Status: COMPLETED Source: [facility] 10:11 AM [facility] REPOSITORY O ID: [id number] Author: Eliazar March Service: Neurosurgery Author Type: Physician Type: Progress Notes Filed: 10/31/2017 10:11 AM Note Text: Neurosurgery DC SA drain. DC with topamax 25 bid x 4 weeks. Encourage HOB elevated for 1 week. Suture removal in clinic. DC today with oxacillin/PICC. Eliazar March MD Staff, Skull Base AND Cerebrovascular Surgery Department of Neurological Surgery [facility] Observed: 10/31/2017 Status: COMPLETED Source: [place] 12:00 AM [facility] REPOS[facility] Patient Update ([facility]) ROSE ROLAND ([id number]) 1970 F Date Time Provider Department 10/31/17 GERARD CAMP [facility] During your visit today, we recorded the following information about you: Allergies As of Date: 10/31/2017 (No Known Allergies) Date Reviewed: 10/31/2017 Reviewed by: Sher Javier) ALMA Wright - Fully Assessed Reason for Visit: CoPat Start [1679] Prescriptions as of 10/31/2017 Sig: DOCUSATE SODIUM 100 MG CAPSULE Take 1 capsule by mouth twice* OXYCODONE-ACETAMINOPHEN 5 MG-* Take 1 tablet by mouth every * OXACILLIN 2 GRAM/50 ML IN DEX* Inject 50 mL intravenously ev* TOPIRAMATE 25 MG TABLET Take 1 tablet by mouth twice * IBUPROFEN 400 MG TABLET Take 1-2 tablets by mouth leesa* ACETAMINOPHEN 325 MG TABLET Take 1 tablet by mouth every * LIPITOR ORAL Take by mouth once daily. GABAPENTIN 100 MG CAPSULE Take 100 mg by mouth three ti* ASPIRIN 81 MG TABLET,DELAYED * Take 81 mg by mouth once jen* MEDROXYPROGESTERONE 150 MG/ML* Inject 1 mL intramuscularly e* CYCLOBENZAPRINE 10 MG TABLET Take 10 mg by mouth as needed. METOPROLOL TARTRATE 25 MG TAB* Take 25 mg by mouth twice libby* SERTRALINE 50 MG TABLET Take 50 mg by mouth once jen* * IPRATROPIUM-ALBUTEROL 0.5 MG-* * METFORMIN ER 1,000 MG TABLET,* Take one(1) tablet daily. * ALBUTEROL 90 MCG/ACTUATION AE* Use as directed four(4) times* Problem List As Of Date 10/31/2017 Noted Resolved ACUTE PANCREATITIS [K85.90] INVALID FOR* CHOLELITHIASIS NOS [K80.20] INVALID FOR* ABDOMINAL PAIN UNSPEC SITE [R10.9] INVALID FOR* ABDOMINAL PAIN GENERALIZED [R10.84] INVALID FOR* ASA CLASS II [1001] INVALID FOR* PORTAL VEIN THROMBOSIS [I81] INVALID FOR* Abdominal Pain, Epigastric [R10.13] INVALID FOR* Unspecified Esophagitis [K20.9] INVALID FOR* Acute Gastritis without Mention of Hemorrhage [*INVALID FOR* Incisional hernia [K43.2] INVALID FOR* Incisional hernia with obstruction [K43.0] INVALID FOR* Melanoma (HCC) [C43.9] INVALID FOR* Brain mass [G93.9] INVALID FOR* Meningioma (HCC) [D32.9] INVALID FOR* More... Vasogenic cerebral edema (HCC) [G93.6] INVALID FOR* More... At risk of seizures [Z91.89] INVALID FOR* More... Wound infection [T14.8XXA, L08.9] INVALID FOR* More... Obesity, Class II, BMI 35-39.9 E66.9 [E66.9] INVALID FOR* Classic SmartForms filed during this visit: CoPAT Start Encounter Status:Closed by GERARD CAMP MD on 10/31/17 PROGRESS Observed: 10/30/2017 Status: COMPLETED Source: [place] 9:32 AM [facility] REPOSITORY HNO ID: [id number] Author: Dre Cunningham) Mikhail Service: Neurosurgery Author Type: Physician Type: Progress Notes Filed: 10/30/2017 11:12 AM Note Text: Neurosurgery Progress Note Interval HPI: No acute events overnight Objective: 10/29/17 1717 10/29/177 10/30/17 0148 10/30/17 0541 BP: 116/75 112/76 111/59 144/71 Pulse: 83 99 71 87 Resp: 16 17 16 16 Temp: 37.6 ?C (99.7 ?F) 36.9 ?C (98.5 ?F) 36.7 ?C (98 ?F) 36.9 ?C (98.5 ?F) TempSrc: Oral Oral Oral Oral SpO2: 98% 97% 97% 97% Weight: Height: EXAM: AOx3, NAD PERRL, EOMI FS, TM No drift BUE 5/5 BLE 5/5 Incision c/d/i SA drain in place A/P: 47 year old y/o female s/p 10/27: lumbar drain, right cranial wound washout, irrigation and debridement - neuro stable - SA drain to be clamped today - pain control - ID recs: oxacillin, COPAT pending, OR cx MSSA - IPC; [facility] Jese Irwin MD PGY-3, Neurological Surgery Pager # [phone] October 30, 2017 Please page [phone] after 6 PM and on weekends Attending Note: Villalba findings confirmed. Patient examined. Discussed with the resident. Plan as outlined. Clamping drain Incision is flat Still having mild PURCELL Dre Elizondo MD CBC AND DIFFERENTIAL Collected: 10/30/2017 Status: F Source: [place] 4:46 AM [facility] REPOSITORY TYPE CODE TESTS RESULT OUT OF REFERENCE UNITS RANGE LAB WBC 3.70-11.00 k/uL WBC 6.88 LAB RBC 3.90-5.20 m/uL Low RBC 3.01 LAB HGB 11.5-15.5 g/dL Low Hemoglobin 8.8 LAB HCT 36.0-46.0 % Low Hematocrit 28.0 LAB MCV 80.0-100.0 fL MCV 93.0 LAB MCH 26.0-34.0 pG MCH 29.2 LAB MCHC 30.5-36.0 g/dL MCHC 31.4 LAB RDWCV 11.5-15.0 % RDW-CV 13.2 LAB PLTCT 150-400 k/uL Platelet Count 265 LAB MPV 9.0-12.7 fL MPV 9.4 LAB ANEUT % Neut% 45.9 LAB AANEUT 1.45-7.50 k/uL Abs Neut 3.16 LAB ALYMP % Lymph% 38.8 LAB AALYMP 1.00-4.00 k/uL Abs Lymph 2.67 LAB AMONO % [place]% 6.3 LAB AAMONO <0.87 k/uL Abs [place] 0.43 LAB AEOS % Eosin% 8.4 LAB AAEOS <0.46 k/uL Abs High Eosin 0.58 LAB ABASO % Baso% 0.6 LAB AABASO <0.11 k/uL Abs Baso 0.04 LAB AUNRBC 0 /100 WBC NRBCs 0.0 LAB ABNRBC <0.01 k/uL Absolute nRBC <0.01 LAB DTYP DTYPE Auto Diff Performed By: #### CBCDIF #### [facility] [address] [id number] NURSING PROG Observed: 10/29/2017 Status: COMPLETED Source: [place] 4:44 PM [facility] REPOSITORY HNO ID: [id number] Author: Александр (Rn) ALMA Hahn Service: Nursing Author Type: Registered Nurse Type: Nursing Progress Note Filed: 10/29/2017 4:46 PM Note Text: Nursing Progress Note Patient Name: Rose Roland Patient Location: [id number]/[id number] PA Cam notified that patient has been refusing IPCs today, saying that she needs a break. I educated the patient and she continues to want a break from them. Will continue to encourage patient to wear IPC stockings. This note was completed by: Александр Hahn RN PROGRESS Observed: 10/29/2017 Status: COMPLETED Source: [place] 9:05 AM [facility] REPOSITORY HNO ID: [id number] Author: Dre Elizondo Service: Neurosurgery Author Type: Physician Type: Progress Notes Filed: 10/29/2017 12:02 PM Note Text: Neurosurgery Progress Note Interval HPI: No acute events overnight Objective: 10/28/17 0121 10/28/17 0556 10/28/17 1000 10/28/17 1500 BP: 102/62 119/67 111/59 105/53 Pulse: 78 79 76 74 Resp: 16 Temp: 37.2 ?C (99 ?F) 36.9 ?C (98.4 ?F) 37 ?C (98.6 ?F) 36.6 ?C (97.9 ?F) TempSrc: Oral Oral Oral Oral SpO2: 97% 98% 99% 98% Weight: Height: EXAM: AOx3, NAD PERRL, EOMI FS, TM No drift BUE / BLE 5/ Incision c/d/i SA drain in place A/P: 47 year old y/o female s/p 10/27: lumbar drain, right cranial wound washout, irrigation and debridement - neuro stable - VINCENZO drain removed - SA drain 5 cc/hr, clamp 10/30 - pain control - CBC every other day - ID recs: oxacillin, COPAT pending, OR cx MSSA - IPC; [facility] Jese Irwin MD PGY-3, Neurological Surgery Pager # [phone] October 29, 2017 Please page [phone] after 6 PM and on weekends Attending Note: Villalba findings confirmed. Patient examined. Discussed with the resident and the patient. Plan as outlined. Dre Elizondo MD CONSULT PROG Observed: 10/29/2017 Status: COMPLETED Source: [place] 5:20 AM [facility] REPOSITORY HNO ID: [id number] Author: Lashanda Houston (Pharmacist) Service: Pharmacy Author Type: Pharmacist Type: Consult Progress Note Filed: 10/29/2017 5:21 AM Note Text: PHARMACY VANCOMYCIN DOSING NOTE Patient Name: Rose Roland Admission Date: 10/25/2017 Date of Consult: 10/29/2017 Time of Consult: 5:20 AM Indication: CONCRETE MASON infection Goal Range: 10-20 mcg/mL RECOMMENDATIONS/PLAN: Pharmacy consulted for Vancomycin dosing for Rose Roland, a 47 year old, female who is being treated with Vancomycin for CONCRETE MASON infection. 1. The primary service has discontinued Vancomycin therapy. Pharmacy Vancomycin dosing service will sign off. Thank you for allowing us to participate in this patient's care. Please contact pharmacy if questions. Lashanda Houston, Pharmacist CBC AND DIFFERENTIAL Collected: 10/29/2017 Status: F Source: [place] 3:30 AM [facility] REPOSITORY TYPE CODE TESTS RESULT OUT OF REFERENCE UNITS RANGE LAB WBC 3.70-11.00 k/uL WBC 8.22 LAB RBC 3.90-5.20 m/uL Low RBC 2.79 LAB HGB 11.5-15.5 g/dL Low Hemoglobin 7.9 LAB HCT 36.0-46.0 % Low Hematocrit 25.6 LAB MCV 80.0-100.0 fL MCV 91.8 LAB MCH 26.0-34.0 pG MCH 28.3 LAB MCHC 30.5-36.0 g/dL MCHC 30.9 LAB RDWCV 11.5-15.0 % RDW-CV 13.3 LAB PLTCT 150-400 k/uL Platelet Count 306 LAB MPV 9.0-12.7 fL MPV 9.6 LAB ANEUT % Neut% 52.6 LAB AANEUT 1.45-7.50 k/uL Abs Neut 4.32 LAB ALYMP % Lymph% 34.4 LAB AALYMP 1.00-4.00 k/uL Abs Lymph 2.83 LAB AMONO % Clear[place]% 6.9 LAB AAMONO <0.87 k/uL Abs Clear[place] 0.57 LAB AEOS % Eosin% 5.7 LAB AAEOS <0.46 k/uL Abs High Eosin 0.47 LAB ABASO % Baso% 0.4 LAB AABASO <0.11 k/uL Abs Baso 0.03 LAB AUNRBC 0 /100 WBC NRBCs 0.0 LAB ABNRBC <0.01 k/uL Absolute nRBC <0.01 LAB DTYP DTYPE Auto Diff Performed By: #### CBCDIF #### [facility] [address] [place] [id number] CASE MANAGEM Observed: 10/28/2017 Status: COMPLETED Source: [place] 5:08 PM [facility] REPOSITORY HNO ID: [id number] Author: Liliana (Rn) ALMA Madrid Service: Care Management Author Type: Registered Nurse Type: Care Mgt Progress Note Filed: 10/28/2017 5:12 PM Note Text: CARE MANAGEMENT PROGRESS NOTE SERVICE DATE: 10/28/2017 SERVICE TIME: 1707 LOS: 3 days FREEDOM OF CHOICE GIVEN: Yes Pt. Financial Disclosure Provided The patient and/or family has been given the Provider List: Yes Provider List: Home Care and Home Care Pharmacy Preference: Await choices Needs Prior to Discharge: To Be Determined Procedure Needed: OR D/C likely Tuesday pending medical clearance and arrangement of HHC/HIP. PICC line placed. Final ID recommendations pending. CM spoke with pt. about D/C plan and recommendation for HHC ( Nursing) and HIP. Pt. in agreement. List of HHC agencies provided. Pt. aware that CM to follow up on Tuesday for choices. Pt. lives alone and will be administering her own antibiotics. Pt.'s Mother does live next door, but will not be willing/able to participate in the administering of the antibiotics. Will follow for D/C planning needs. SIGNATURE: Liliana Madrid RN PATIENT NAME: Rose Roland DATE: October 28, 2017 TIME: 5:08 PM PAGER/CONTACT #: [phone] CONSULT PROG Observed: 10/28/2017 Status: COMPLETED Source: [place] 5:00 PM [facility] REPOSITORY HNO ID: [id number] Author: Gerard Camp Service: Infectious Disease Author Type: Physician Type: Consult Progress Note Filed: 10/29/2017 12:20 AM Note Text: INFECTIOUS DISEASE CONSULT SERVICE PROGRESS NOTE Date: October 28, 2017 Patient Name: Rose Roland Interval Events: Continues to improve. On RNF today. PURCELL continues to improve. SA drain not painful-- hardly knows it is there Culture from the pseudomeningocele tap 10/25 (labeled CSF) is growing Staph aureus (MSSA) OR cultures 10/26/17 with MSSA She is tolerating Vanco; off the meropenem MEDICATIONS Medications reviewed. Current hospital medications: heparin 5,000 Units injection 5,000 Units SUBCUTANEOUS q 12 H vancomycin 1.75 g in D5W 500 mL (VANCOCIN) 1.75 g INTRAVENOUS q 12 HR 0.9% NaCl 10 mL 10 mL INTRAVENOUS q 12 H 0.9% NaCl 20 mL 20 mL INTRAVENOUS PRN ketorolac 10 mg tab(s) (TORADOL) 10 mg ORAL q 6 H PRN 0.9% NaCl 2-10 mL 2-10 mL INTRAVENOUS q 12 H gabapentin 100 mg cap(s) (NEURONTIN) 100 mg ORAL TID atorvastatin 20 mg tab(s) (LIPITOR) 20 mg ORAL AT BEDTIME ipratropium-albuterol 3 mL nebulizer solution (DUONEB) 3 mL INHALATION q 4 H PRN metoprolol tartrate (short acting) 25 mg tab(s) (LOPRESSOR) 25 mg ORAL BID docusate sodium 100 mg cap(s) (COLACE) 100 mg ORAL BID sertraline 50 mg tab(s) (ZOLOFT) 50 mg ORAL DAILY cyclobenzaprine 10 mg tab(s) (FLEXERIL) 10 mg ORAL BID PRN acetaminophen 650 mg tab(s) (TYLENOL) 650 mg ORAL q 4 H PRN hydrALAZINE 5 mg in NaCl 0.9% 5 mL (APRESOLINE) 5 mg INTRAVENOUS q 10 MIN PRN hydrALAZINE 10 mg in NaCl 0.9% 10 mL (APRESOLINE) 10 mg INTRAVENOUS q 10 MIN PRN ondansetron (PF) 4 mg injection (ZOFRAN) 4 mg INTRAVENOUS q 6 H PRN trimethobenzamide 200 mg injection (TIGAN) 200 mg INTRAMUSCULAR q 6 H PRN oxyCODONE-acetaminophen 5-325 mg 1-2 tablet (PERCOCET) 1-2 tablet ORAL q 4 H PRN vancomycin dosing and monitoring per pharmacy OTHER As Directed Current Antibiotics: vanco 10/26/17--> current meropenem 10/26/17--> 10/28 Current immunosuppressive medications: none Examination: Vital signs: BP 118/74 Pulse 75 Temp 37.1 ?C (98.8 ?F) (Oral) Resp 17 Ht 162.6 cm (5' 4) Wt 98.9 kg (218 lb 0.6 oz) SpO2 97% BMI 37.43 kg/m2 Constitutional: Looks well. Oriented to time, place and person. Obese build. H: cranial incision clean, no drainage or cellulitis. Eyes: No pallor. No icterus. PERRL EOMI Ear, Nose, Mouth and Throat: No oral thrush. Respiratory: Breath sounds normal. Cardiovascular: Heart sounds normal. Abdomen: No distension. Soft. No tenderness. Back: SA drain site clean Genitourinary: No renal angle tenderness. No suprapubic tenderness. Musculoskeletal No inflamed joints. Extremities: No edema. Skin: No rashes. Others: PICC site clean Lab data: Component Latest Ref Rng AND Units 10/25/2017 10/26/2017 WBC 3.70 - 11.00 k/uL 18.60 (H) 16.72 (H) RBC 3.90 - 5.20 m/uL 3.53 (L) 3.03 (L) Hemoglobin 11.5 - 15.5 g/dL 10.2 (L) 8.9 (L) Hematocrit 36.0 - 46.0 % 32.1 (L) 27.9 (L) MCV 80.0 - 100.0 fL 90.9 92.1 MCH 26.0 - 34.0 pG 28.9 29.4 MCHC 30.5 - 36.0 g/dL 31.8 31.9 RDW-CV 11.5 - 15.0 % 13.2 13.3 Platelet Count 150 - 400 k/uL 325 282 MPV 9.0 - 12.7 fL 9.5 9.9 Neut% % 88.9 Abs Neut (ANC) 1.45 - 7.50 k/uL 16.52 (H) Lymph% % 4.8 Abs Lymph 1.00 - 4.00 k/uL 0.90 (L) Clearwater% % 5.6 Abs [place] <0.87 k/uL 1.04 (H) Eosin% % 0.5 Abs Eosin <0.46 k/uL 0.10 Baso% % 0.2 Abs Baso <0.11 k/uL 0.04 Nucleated Reds 0 /100 WBC 0.0 Absolute nRBC <0.01 k/uL <0.01 <0.01 Diff Type Auto Diff CRP <0.9 mg/dL 22.0 (H) Component Latest Ref Rng AND Units 10/25/2017 Color, CSF Colorless Slightly bloody (A) Clarity, CSF Clear Turbid (A) Supernatant Color, CSF Colorless Xanthochromic (A) Supernatant Clarity, CSF Clear Clear RBC, CSF 0 - 1 /uL 06621 (H) Total Nucleated Cells, CSF 0 - 5 /uL 96700 (H) Comment, CSF Test Not Indicated Review, CSF Test Not Indicated Slide Number CSF [id number] Neut%, CSF 0 - 3 % 83 (H) Clearwater%, CSF 10 - 50 % 11 Macro%, CSF % 6 Protein, CSF 15 - 45 mg/dL 618 (H) Glucose, CSF 40 - 70 mg/dL <2 (L) Microbiology data: OR cultures 10/26/17: Tissue dura matrix: MSSA Miscellaneous epidural: MSSA Tissue Rt cranial subgaleal: MSSA Blood cx 10/25: no growth to date CSF (tap of left forehead collection) 10/25: MSSA Urine 10/25: > 100K Klebsiella pneumoniae, susceptibility pending Imaging data: Films personally reviewed. -- see my note 10/26/17 for selected images ASSESSMENT: 47 yo WF from [employer] ? - Type II DM with diabetic neuropathy - asthma, not steroid-dependent - melanoma L arm s/p local excision and lymph node removal in 2010 - R frontal convexity meningioma s/p gross total resection 10/07/[address] March - post op low grade fever, swelling and tenderness over the incision line, left side,x 1 week - erythema and swelling mainly on the right side of forehead and face, with tenderness, periorbital edema x 1-2 days - MRI 10/25 with extra-axial fluid underlying the right frontal parietal craniotomy. ?Interval progression and enlargement of extracranial subcutaneous fluid collections with soft tissue swelling concerning for infection - S/P bedside aspiration of fluctuant soft tissue area left frontal, with purulence, c/[place] 43780 RBCs, 57266 WBCs (83% neut); pro 618, glu < 2. GPCs on smear, culture with MSSA - CRP 22 - urine 10/25 with Klebsiella pneumoniae, UA with 0-5 WBCs, asymptomatic. Received meropenem x 3 days as treatment for meningitis - S/P surgery 10/26/17 with umbar drain, right cranial wound washout, irrigation and debridement Findings: purulence below and above craniotomy. OR cultures with MSSA Continues to improve. OR cultures with MSSA. Would change vanco to oxacillin. She has no PCN allergy. Discussed R/B of COPAT and she is willing to proceed. Armored Car Messenger at bedside and we reviewed some of the COPAT process with pt. She will need an infusion pump for the oxacillin. ? RECOMMENDATIONS: - D/C vancomycin - oxacillin 2 grams IV q 4 hours - COPAT x 6 weeks - noted plans to wean off EVD in the next 1-2 days Signature: Gerard Camp MD Date and time: October 28, 2017 / pt seen 5PM PROGRESS Observed: 10/28/2017 Status: COMPLETED Source: [place] 1:47 PM [facility] REPOSITORY HNO ID: [id number] Author: Eliazar March Service: Neurosurgery Author Type: Physician Type: Progress Notes Filed: 10/28/2017 5:06 PM Note Text: After 4 PM (1600) please page Tatiana Mcwilliams. After 1900, and weekends please page [phone]. Cerebrovascular Team A Inpatient Progress Note Attending: Dr. Eliazar March Location: H[facility] [place]/H[facility]-08 INTERVAL HPI (Subjective): is a 47 year old female who reports improved head pain. MEDICATIONS: Current hospital medications: heparin 5,000 Units injection 5,000 Units SUBCUTANEOUS q 12 H vancomycin 1.75 g in D5W 500 mL (VANCOCIN) 1.75 g INTRAVENOUS q 12 HR 0.9% NaCl 10 mL 10 mL INTRAVENOUS q 12 H 0.9% NaCl 20 mL 20 mL INTRAVENOUS PRN ketorolac 10 mg tab(s) (TORADOL) 10 mg ORAL q 6 H PRN 0.9% NaCl 2-10 mL 2-10 mL INTRAVENOUS q 12 H fentaNYL 50 mcg/mL 25 mcg injection (SUBLIMAZE) 25 mcg INTRAVENOUS q 2 H PRN gabapentin 100 mg cap(s) (NEURONTIN) 100 mg ORAL TID atorvastatin 20 mg tab(s) (LIPITOR) 20 mg ORAL AT BEDTIME ipratropium-albuterol 3 mL nebulizer solution (DUONEB) 3 mL INHALATION q 4 H PRN metoprolol tartrate (short acting) 25 mg tab(s) (LOPRESSOR) 25 mg ORAL BID docusate sodium 100 mg cap(s) (COLACE) 100 mg ORAL BID sertraline 50 mg tab(s) (ZOLOFT) 50 mg ORAL DAILY cyclobenzaprine 10 mg tab(s) (FLEXERIL) 10 mg ORAL BID PRN acetaminophen 650 mg tab(s) (TYLENOL) 650 mg ORAL q 4 H PRN hydrALAZINE 5 mg in NaCl 0.9% 5 mL (APRESOLINE) 5 mg INTRAVENOUS q 10 MIN PRN hydrALAZINE 10 mg in NaCl 0.9% 10 mL (APRESOLINE) 10 mg INTRAVENOUS q 10 MIN PRN ondansetron (PF) 4 mg injection (ZOFRAN) 4 mg INTRAVENOUS q 6 H PRN trimethobenzamide 200 mg injection (TIGAN) 200 mg INTRAMUSCULAR q 6 H PRN oxyCODONE-acetaminophen 5-325 mg 1-2 tablet (PERCOCET) 1-2 tablet ORAL q 4 H PRN vancomycin dosing and monitoring per pharmacy OTHER As Directed OBJECTIVE: LABS: CBC: Recent Labs 10/26/17 0610 10/25/17 1625 WBC 16.72* 18.60* HB 8.9* 10.2* HCT 27.9* 32.1* PLT 282 325 MCV 92.1 90.9 RDWCV 13.3 13.2 NEUTP -- 88.9 ABSNEUT -- 16.52* LYMPHP -- 4.8 MONOP -- 5.6 EODINP -- 0.5 COAG: Recent Labs 10/25/17 1625 APTT 30.2 INR 1.2 BMP: Recent Labs 10/25/17 1625 GLUC 131* NA 137 K 3.5* CHLOR 100 CO2 21* ANION 16 BUN 7 CREAT 0.82 CHEM: Recent Labs 10/25/17 1625 CA 9.2 MG 1.7 HEPATIC: No results for input(s): ALKPHOS, ALT, AST, TBILI, LIPASE in the last 168 hours. URINALYSIS: Recent Labs 10/25/17 1609 SPGR 1.018 UGLUC Negative UBILI Negative UKET Negative UHB 2+* UPROT 100* UWBC 0-5 LEUKEST Trace* CARDIAC: No results for input(s): CKTEST, CKMB, CKMBP, TROPT, PBNP in the last 168 hours. Estimated Creatinine Clearance: 98 mL/min (based on Cr of 0.82). VITAL SIGNS 24 HOUR REVIEW: 10/27/17 2204 10/28/17 0121 10/28/17 0556 10/28/17 1000 BP: 120/68 102/62 119/67 111/59 Pulse: 82 78 79 76 Resp: 16 16 16 16 Temp: 37 ?C (98.6 ?F) 37.2 ?C (99 ?F) 36.9 ?C (98.4 ?F) 37 ?C (98.6 ?F) TempSrc: Oral Oral Oral Oral SpO2: 97% 97% 98% 99% Weight: Height: Intake/Output Summary (Last 24 hours) at 10/28/17 1347 Last data filed at 10/28/17 1300 Gross per 24 hour Intake 1100 ml Output 169 ml Net 931 ml ALLERGIES: ALLERGIES No Known Allergies PATIENT CHECK LIST: 1. Out of bed and ambulating: Yes Needs PT or OT Evaluation: No 2. Vascular access necessary: PIV No Central line present? PICC for difficult IV access 10/28 3. Sotomayor/drains: No Continued need for urinary catheter? Not Applicable 4. Nutrition: PO- Yes. 5. Pain - Is the patient currently reporting any pain? Yes. What is the patient's current pain level on a 0 to 10 rating scale? Pain Score: 4/10 - What is the plan for pain management today 10/28/2017? Tylenol, Toradol, and Percocet PRN 6. Current DVT prophylaxis: Continous sequential compression devices and SQH. 7. Seizure prophylaxis:NA 8. Restraints No. 9. Gait difficulty: No 10. Bowel / Bladder dysfunction: No 11. Urinating:yes 12. 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 DEEP VEIN THROMBOSIS RISK FACTOR ASSESSMENT ? VTE RISK CATEGORY: MODERATE RISK SURGERY CONT (I), Older patients (age 40-60) expected LOS Greater than 48 hours, and/or patients with known risk factors for VTE such as heart failure, active infection, severe respiratory disease, obesity, central venous access. ? ? General: A AND O x 3. Appears stated age, well built, in no apparent distress Psychiatric: Mood and affect: Appropriate. Skin: Incision: clean/dry/intact SA drain: C/D/I CV: Normal heart sounds, rate, rhythm Respiratory: lungs CTA bilat ? Musculoskeletal: Sensory: Normal sensory exam Gait: Normal Muscle strength: UE BICEPS TRICEPS DELTS Program Manager Environmental Planning R 5/5 5/5 5/5 5/5 L 5/5 5/5 5/5 5/5 ? LE Hip Flex Knee Flex Knee Extend Plantarflex Dorsiflex EHL R 5/5 5/5 5/5 5/5 5/5 5/5 L 5/5 5/5 5/5 5/5 5/5 5/5 ? ? CRANIAL NERVES: Pupils: OD Right: 2 mm Reactive OS Left: 2 mm Reactive ? II Visual zuniga: are full to confrontation III, IV, EOM full V Facial sensation normal VII Normal strength VIII Normal bilaterally IX, X Normal, midline palatal rise XI Symmetric shrug XII Tongue midline, mobile Drift: negative Speech: fluent Hemineglect: negative ? Hospital Day: 4 10/26/2017 2 Days Post-Op lumbar drain, right cranial wound washout, irrigation and debridement ? ASSESSMENT: The patient reports tolerable head pain. She reports that she is feeling better today. She reports that she did not sleep well last night. ? SA drain 5cc/hr ? CT brain: IMPRESSION: INTERVAL EVOLUTION OF THE POSTOPERATIVE CHANGES OF RIGHT FRONTAL CRANIOTOMY. NO ACUTE INTRACRANIAL ABNORMALITIES. ? wound culture: staph CSF culture: staph ? PLAN: Patient seen, examined, and plan discussed with staff during rounds. ID recs appreciated (vanco) Continue SA drain at 5cc, clamp drain Tuesday, and remove Tuesday (steri strips) Monitor CBC every other day. Planned Date of Discharge: Approximately 3 - 5 days Discharge Disposition: Home Active Hospital Problems Diagnosis - Obesity, Class II, BMI 35-39.9 E66.9 - Wound infection POA lumbar drain, right cranial wound washout, irrigation and debridement Assessment: Wound culture: GPC CSF culture: sWtaph Plan:ID recs appreciated (vanco and Meropenem) SIGNATURE: America Malloy PA-C PATIENT NAME: Rose Roland DATE: 10/28/2017 TIME: 1:47 PM PAGER: [phone] After 4 PM (1600) please page Tatiana Mcwilliams. After 1900, and weekends please page [phone]. [facility] STAFF: TEACHING PHYSICIAN NOTE OF PERSONAL INVOLVEMENT IN CARE I have reviewed the progress note obtained and documented by the Resident and I personally participated in the villalba components. I have discussed the case and management of the patient's care with the DEVON. The following comments revise or confirm relevant villalba components of the DEVON's note. Looks and feels well. Inc c/d/i, flat. VINCENZO removed. SA@5cc/hr, clamp Tuesday, DC drain and patient home Tuesday. Received PICC line. Told by CM that will be until Tuesday to arrange home abx. COPAT per ID. SC hep. Eliazar March MD Staff, Skull Base AND Cerebrovascular Surgery Department of Neurological Surgery [facility] PROCEDURE Observed: 10/28/2017 Status: COMPLETED Source: [place] 12:52 PM [facility] REPOSITORY HNO ID: [id number] Author: Deb Trejo LPN Service: PICC Team Author Type: LICENSED NURSE Type: Procedures Filed: 10/28/2017 12:55 PM Note Text: PICC NURSE INSERTION NOTE DATE OF PROCEDURE: October 28, 2017 TIME OF PROCEDURE: 1250 ORDERING PHYSICIAN: Devon Bynum INFORMED CONSENT: Obtained per hospital policy. INDICATION FOR LINE PLACEMENT: IV therapy over six days CONDITION OF LINE PLACEMENT: Sterile PRIMARY PROCEDURALIST: ALMA Waldron WEDGER: PAIGE foley PRE-PROCEDURE REVIEW ALLERGIES No Known Allergies Known History of Venous Thrombosis: No Known History of Permanent Pacemaker or Automated Implanted Cardiac Device: No Previous Breast Surgery of Lymph Node Dissection: Left lymph node removal d/t melanoma History of Renal Disease with Arterio-Venous Fistula in Place or Planned: No Ultrasound Assessment Complete: Yes PROCEDURE NARRATIVE SAFE PRACTICE Hand Hygiene per Hospital Policy: Yes Skin Preparation Unit Dose Applicator Used: Chloraprep (CHG + alcohol), allowed to dry. Procedure Surface Cleansed with Antimicrobial Wipes: Yes Barriers Used by Proceduralist and all Assisting Personnel: Yes UNIVERSAL PROTOCOL / SAFETY CHECKLIST Procedure to be performed: SL PICC Sign in Communication: Completed Time Out: Team Confirms the Correct Patient, Correct Procedure, Correct Site and Site Marking, Correct Position (if applicable), Prep and Dry Time (if applicable). Time: 1245 Affirmation of Time Out: YES Sign Out Discussion: Completed Deb Trejo LPN CATHETER PLACEMENT Brand: Conjure Lot: [id number] Number of Lumens: 1 Type of PICC: Power Injectable PICC Lumen Size: 4 Setswana PLACEMENT TECHNIQUE Lidocaine: Yes. Strength: 1% Volume 1 ml Modified Seldinger Technique Used to Place Line via the Right Basilic Ultrasound Guidance: Yes Number of Attempts at Insertion: 1 Internal Length: 44 cm External Length: 0 cm Trim Length: 44 cm Mid-Arm Circumference Above Insertion Site: 39 centimeters Post Insertion Pain Level Related to Procedure: 0 Action Taken to Address Pain: None needed Verified Placement: Blood return and Tip location system or device indicates the tip is located in the SVC/CAJ. Line was Flushed with 20 cc normal saline Line Secured with: Securement device Sterile Dressing Applied and Dated: Yes Sterile Caps on all Ports Prior to Leaving Procedure Area: Yes SPECIMENS: None COMPLICATIONS: None Patient Education Materials: Given to patient The [facility] Central Line Insertion checklist, attached to the Central Line-Associated Bloodstream Infection Prevention Policy, was utilized during this procedure. QUESTIONS or PROBLEMS: Page [phone] SIGNATURE: Deb Trejo LPN PATIENT NAME: Rose Roland DATE: October 28, 2017 TIME: 12:53 PM PAGER/CONTACT PHONE: PT ED Observed: 10/28/2017 Status: COMPLETED Source: [place] 12:33 PM [facility] [place] REPOSITORY HNO ID: [id number] Author: Celi (Alma) ALMA Diaz Service: PICC Team Author Type: Registered Nurse Type: Patient Education Filed: 10/28/2017 12:33 PM Note Text: PATIENT EDUCATION TOPIC: PROCEDURE / SURGERY: Procedure/Surgery: PICC PATIENT NAME: Rose Roland PATIENT LOCATION: [place] [address] READINESS TO LEARN COGNITIVE ABILITY: Alert and oriented MOTIVATION TO LEARN: Interested FAMILY SUPPORT: Unable to assess - Family not present INSTRUCTION PROVIDED TO: Patient PATIENT LEARNS BEST BY: Verbal Instruction FACTORS AFFECTING LEARNING: None PHYSICAL LIMITATIONS AFFECTING LEARNING: None LEARNING RESPONSE DIAGNOSIS: ADULT: PICC PATIENT/FAMILY RESPONSE: Verbalizes understanding of: POST-PROCEDURE INSTRUCTIONS-Correct actions to take to reduce post procedure complications METHOD OF INSTRUCTION: Verbal instruction FOLLOW-UP PLAN: Complete - No need for follow-up INSTRUCTIONAL AIDS USED: Picc Line Book SUPPLEMENTAL MATERIAL PROVIDED TO PATIENT: None REFERRAL (RECOMMENDATION): None Electronically Signed By: Celi Diaz RN CT BRAIN WO IVCON Observed: 10/28/2017 Status: F Source: [place] 8:34 AM [facility] REPOSITORY * * *Final Report* * * DATE OF EXAM: Oct 28 2017 8:34AM [facility] [place], [place] 0504 - CT BRAIN WO IVCON / PROCEDURE REASON: Postop check * * * * Physician Interpretation * * * * EXAMINATION: CT BRAIN WO IVCON HISTORY: Postop. TECHNIQUE: Serial axial images without IV contrast were obtained from the vertex to the foramen magnum. MQ: [id number] CT Dose-Length Product (DLP): 706 mGy*cm CT Dose Reduction Employed: No COMPARISON: MRI brain from 10/25/2017 RESULT: Post-operative change: Again noted are postoperative changes of right frontal craniotomy. There is a right-sided subdural drain. There is mild interval decrease in size of the right-sided subdural collection. There is a small amount of gas and deep to the craniotomy. Acute change: No evidence of an acute infarct or other acute parenchymal process. Hemorrhage: No evidence of acute intracranial hemorrhage. Mass Lesion / Mass Effect: No significant mass effect. No midline shift or herniation. Chronic change: None apparent. Parenchyma: There is no significant volume loss. The brain parenchyma is otherwise within normal limits for age. Ventricles: The ventricles are within normal limits of size and configuration for age. Paranasal sinuses and skull base: The visualized paranasal sinuses are grossly clear. The skull base and imaged soft tissues are unremarkable. IMPRESSION: INTERVAL EVOLUTION OF THE POSTOPERATIVE CHANGES OF RIGHT FRONTAL CRANIOTOMY. NO ACUTE INTRACRANIAL ABNORMALITIES. Marketing Research Coordinator: PSCB Transcribe Date/Time: Oct 28 2017 7:41A Dictated by : BENSON HORTON MD This examination was interpreted and the report reviewed and electronically signed by: BENSON HORTON MD on Oct 28 2017 9:05AM EST [id number] Observed: 10/28/2017 Status: COMPLETED Source: [place] 7:38 AM [facility] REPOSITORY HNO ID: [id number] Author: Nadia Nash (Ct) Service: Radiology Author Type: Clinical Improvement Leader Type: Progress Notes Filed: 10/28/2017 7:39 AM Note Text: Radiology Service Progress Note PATIENT NAME: Rose Roland DATE OF SERVICE: October 28, 2017 TIME: 7:38 AM PATIENT IDENTITY VERIFICATION COMPLETED USING TWO (2) METHODS: Patient confirmed name verbally and ID band matches.. PATIENT GENDER DATA: Female. status: : No status: NO. PATIENT RELEVANT IMPLANT DATA REVIEWED: Yes RADIOLOGY DEPARTMENT: CT; Exam(s) Completed: Brain PERIPHERAL IV DATA: Not applicable SIGNED BY: TEJ Nash October 28, 2017 7:38 AM CONSULT PROG Observed: 10/28/2017 Status: COMPLETED Source: [place] 7:14 AM [facility] REPOSITORY [facility] ID: [id number] Author: Justin Grimes (Pharmacist) Service: Pharmacy Author Type: Pharmacist Type: Consult Progress Note Filed: 10/28/2017 8:17 AM Note Text: PHARMACY VANCOMYCIN DOSING NOTE Patient Name: Rose Roland Admission Date: 10/25/2017 Date of Consult: 10/28/2017 Time of Consult: 7:15 AM Indication: CONCRETE MASON infection Goal Range: 10-20 mcg/mL RECOMMENDATIONS/PLAN: Pharmacy consulted for vancomycin dosing for Rose Roland, a 47 year old, female who is being treated with vancomycin for CONCRETE MASON infection following meningioma resection (10/07). 1. Patient is currently ordered Vancomycin 1.5 g IV q12h. Today is day 4 of therapy. 2. The most recent vancomycin level was 11.8 mcg/mL drawn at 2112 on 10/27. This is a 12 hour level on the 3 day of therapy. 3. Will increase vancomycin to 1.75 g with a dosing interval of q12h due to CONCRETE MASON infection, ideally goal trough around 15 or higher, SCr stable. 4. The next vancomycin level will be ordered for 10/30 (prior the 5th dose following dose increase) unless clinically indicated sooner. (Pharmacy will order) We will follow patient renal function, vancomycin levels and doses with you during the course of therapy. Additional recommendations will appear in follow up notes. If you have any questions, please contact Justin Grimes (Pharmacist) at [phone]. Age: [age] year old Allergies: ALLERGIES No Known Allergies Last 3 Encounter Wt Readings: Date: Wt: 10/25/2017 98.9 kg (218 lb 0.6 oz) 10/25/2017 96.7 kg (213 lb 3.2 oz) 10/04/2017 104.7 kg (230 lb 13.2 oz) Last 1 Encounter Ht Readings: Date: Ht: 10/25/2017 162.6 cm (5' 4) CrCl: 98 mL/min Temp (24hrs), Av.9 ?C (98.5 ?F), Min:36.7 ?C (98.1 ?F), Max:37.2 ?C (99 ?F) - Current Temp: 36.9 ?C (98.4 ?F) Labs BUN (mg/dL) Date Value 10/25/2017 7 10/08/2017 10 10/07/2017 8 Creatinine (mg/dL) Date Value 10/25/2017 0.82 10/08/2017 0.71 10/07/2017 0.69 WBC (k/uL) Date Value 10/26/2017 16.72 (H) 10/25/2017 18.60 (H) 10/07/2017 15.23 (H) Vancomycin Levels: Vancomycin, result (ug/mL) Date/Time Value 10/27/2017 2112 11.8 Connie Cueva, PharmD Candidate 2018 Pager [phone] CONSULT PROG Observed: 10/27/2017 Status: COMPLETED Source: [place] 11:13 PM [facility] REPOSITORY [facility] ID: [id number] Author: Gerard Camp Service: Infectious Disease Author Type: Physician Type: Consult Progress Note Filed: 10/27/2017 11:34 PM Note Text: INFECTIOUS DISEASE CONSULT SERVICE PROGRESS NOTE Date: October 27, 2017 Patient Name: Rose Roland Interval Events: POD 1 lumbar drain, right cranial wound washout, irrigation and debridement Findings: purulence below and above craniotomy She feels much better today. Some fluctuating PURCELL but tolerable. Face feels much less swollen and forehead feels less painful. Swelling in cheeks and around eyes is essentially gone. Culture from the pseudomeningocele tap 10/25 (labeled CSF) is growing Staph aureus (MSSA) OR cultures 10/26/17 no growth so far She is tolerating antibiotics Urine cx 10/25 with > 100K Klebsiella pneumoniae, susceptibility pending No Sotomayor, no lower UTI symptoms MEDICATIONS Medications reviewed. Current hospital medications: 0.9% NaCl 2-10 mL 2-10 mL INTRAVENOUS q 12 H fentaNYL 50 mcg/mL 25 mcg injection (SUBLIMAZE) 25 mcg INTRAVENOUS q 2 H PRN gabapentin 100 mg cap(s) (NEURONTIN) 100 mg ORAL TID atorvastatin 20 mg tab(s) (LIPITOR) 20 mg ORAL AT BEDTIME ipratropium-albuterol 3 mL nebulizer solution (DUONEB) 3 mL INHALATION q 4 H PRN metoprolol tartrate (short acting) 25 mg tab(s) (LOPRESSOR) 25 mg ORAL BID docusate sodium 100 mg cap(s) (COLACE) 100 mg ORAL BID sertraline 50 mg tab(s) (ZOLOFT) 50 mg ORAL DAILY cyclobenzaprine 10 mg tab(s) (FLEXERIL) 10 mg ORAL BID PRN acetaminophen 650 mg tab(s) (TYLENOL) 650 mg ORAL q 4 H PRN hydrALAZINE 5 mg in NaCl 0.9% 5 mL (APRESOLINE) 5 mg INTRAVENOUS q 10 MIN PRN hydrALAZINE 10 mg in NaCl 0.9% 10 mL (APRESOLINE) 10 mg INTRAVENOUS q 10 MIN PRN ondansetron (PF) 4 mg injection (ZOFRAN) 4 mg INTRAVENOUS q 6 H PRN trimethobenzamide 200 mg injection (TIGAN) 200 mg INTRAMUSCULAR q 6 H PRN oxyCODONE-acetaminophen 5-325 mg 1-2 tablet (PERCOCET) 1-2 tablet ORAL q 4 H PRN vancomycin dosing and monitoring per pharmacy OTHER As Directed vancomycin 1.5 g in D5W 250 mL (VANCOCIN) 1.5 g INTRAVENOUS q 12 HR meropenem 2 g in NaCl 0.9% 100 mL (MERREM) 2 g INTRAVENOUS q 8 H Current Antibiotics: vanco 10/26/17--> current meropenem 10/26/17--> current Current immunosuppressive medications: none Examination: Vital signs: BP 120/68 Pulse 82 Temp 37 ?C (98.6 ?F) (Oral) Resp 16 Ht 162.6 cm (5' 4) Wt 98.9 kg (218 lb 0.6 oz) SpO2 97% BMI 37.43 kg/m2 Constitutional: Looks well. Oriented to time, place and person. Obese build. Good spirits, family at bedisde H: Gauze wrap over skull. One VINCENZO drain in place Eyes: No pallor. No icterus. PERRL EOMI Ear, Nose, Mouth and Throat: No oral thrush. Respiratory: Breath sounds normal. Cardiovascular: Heart sounds normal. Abdomen: No distension. Soft. No tenderness. Back: SA drain site clean Genitourinary: No renal angle tenderness. No suprapubic tenderness. Musculoskeletal No inflamed joints. Extremities: No edema. Skin: No rashes. Others: Vascular access sites appear fine. Lab data: Component Latest Ref Rng AND Units 10/25/2017 10/26/2017 WBC 3.70 - 11.00 k/uL 18.60 (H) 16.72 (H) RBC 3.90 - 5.20 m/uL 3.53 (L) 3.03 (L) Hemoglobin 11.5 - 15.5 g/dL 10.2 (L) 8.9 (L) Hematocrit 36.0 - 46.0 % 32.1 (L) 27.9 (L) MCV 80.0 - 100.0 fL 90.9 92.1 MCH 26.0 - 34.0 pG 28.9 29.4 MCHC 30.5 - 36.0 g/dL 31.8 31.9 RDW-CV 11.5 - 15.0 % 13.2 13.3 Platelet Count 150 - 400 k/uL 325 282 MPV 9.0 - 12.7 fL 9.5 9.9 Neut% % 88.9 Abs Neut (ANC) 1.45 - 7.50 k/uL 16.52 (H) Lymph% % 4.8 Abs Lymph 1.00 - 4.00 k/uL 0.90 (L) [place]% % 5.6 Abs [place] <0.87 k/uL 1.04 (H) Eosin% % 0.5 Abs Eosin <0.46 k/uL 0.10 Baso% % 0.2 Abs Baso <0.11 k/uL 0.04 Nucleated Reds 0 /100 WBC 0.0 Absolute nRBC <0.01 k/uL <0.01 <0.01 Diff Type Auto Diff CRP <0.9 mg/dL 22.0 (H) Component Latest Ref Rng AND Units 10/25/2017 Color, CSF Colorless Slightly bloody (A) Clarity, CSF Clear Turbid (A) Supernatant Color, CSF Colorless Xanthochromic (A) Supernatant Clarity, CSF Clear Clear RBC, CSF 0 - 1 /uL 59742 (H) Total Nucleated Cells, CSF 0 - 5 /uL 88076 (H) Comment, CSF Test Not Indicated Review, CSF Test Not Indicated Slide Number CSF [id number] Neut%, CSF 0 - 3 % 83 (H) [place]%, CSF 10 - 50 % 11 Macro%, CSF % 6 Protein, CSF 15 - 45 mg/dL 618 (H) Glucose, CSF 40 - 70 mg/dL <2 (L) Microbiology data: OR cultures 10/26/17: Tissue dura matrix: in process Miscellaneous epidural: in process Tissue Rt cranial subgaleal: in process Blood cx 10/25: no growth to date CSF (tap of left forehead collection) 10/25: MSSA Urine 10/25: > 100K Klebsiella pneumoniae, susceptibility pending Imaging data: Films personally reviewed. -- see my note 10/26/17 for selected images ASSESSMENT: 47 yo WF from [employer] ? - Type II DM with diabetic neuropathy - asthma, not steroid-dependent - melanoma L arm s/p local excision and lymph node removal in 2010 - R frontal convexity meningioma s/p gross total resection 10/07/[address] March - post op low grade fever, swelling and tenderness over the incision line, left side,x 1 week - erythema and swelling mainly on the right side of forehead and face, with tenderness, periorbital edema x 1-2 days - MRI 10/25 with extra-axial fluid underlying the right frontal parietal craniotomy. ?Interval progression and enlargement of extracranial subcutaneous fluid collections with soft tissue swelling concerning for infection - S/P bedside aspiration of fluctuant soft tissue area left frontal, with purulence, c/[place] with 73512 RBCs, 93934 WBCs (83% neut); pro 618, glu < 2. GPCs on smear, culture with MSSA - CRP 22 - S/P surgery 10/26/17 with umbar drain, right cranial wound washout, irrigation and debridement Findings: purulence below and above craniotomy She is doing much better today with resolution of the cellulitis on the forehead and face. Treating for multiple subgaleal abscesses as well as epidural abscess on the right (? subdural also). This is likely to be Staph aureus. The aspiration from the left sided subq abscess grew MSSA and suspect the same will grow from the OR specimens. Continue vanco for now. ? RECOMMENDATIONS: - continue vancomycin for now, pending more Micro data - anticipate COPAT, length of therapy to be determined Signature: Gerard Camp MD Date and time: October 27, 2017 / pt seen 5PM VANCOMYCIN Collected: 10/27/2017 Status: F Source: [facility] 9:12 PM [facility] REPOSITORY TYPE CODE TESTS RESULT OUT OF REFERENCE UNITS RANGE LAB VANCRA 5.0-20.0 ug/mL Vancomycin 11.8 Result Comment: Reference ranges and high/low indicator flags are provided as general guidelines only. The treating physician must determine appropriate target levels/dosing based on the specific clinical situation. Performed By: #### VANCRA #### [facility] [address] [place], [place] [address] NURSING PROG Observed: 10/27/2017 Status: COMPLETED Source: [facility] 7:41 PM [facility] REPOSITORY [facility] ID: [id number] Author: Ramya Javier) ALMA Baugh Service: (none) Author Type: Registered Nurse Type: Nursing Progress Note Filed: 10/28/2017 4:09 AM Note Text: Nursing Progress Note Patient Name: Rose Roland Patient Location: [place] [address] Transfer Note: Patient Transferred by amublation into room/unit H60-08 in stable condition. Actions taken: Patient orientated to call light system and quiet at night. Patient denies any other needs at this time. No futher actions taken at this time. Will continue to monitor and check with patient. This note was completed by: Ramya Baugh RN CNDS Observed: 10/27/2017 Status: COMPLETED Source: [facility] 4:43 PM [facility] REPOSITORY [facility] ID: [id number] Author: America Malloy Service: Neurosurgery Author Type: Physician Review Analyst Type: Discharge Summaries Filed: 10/31/2017 2:39 PM Note Text: The [address] [address] or ([phone] CC-CARE C O N F I D E N T I A L I N F O R M A T I O N [facility] DISCHARGE SUMMARY Patient Name: Rose Roland Account #: Data Unavailable Admission Date: 10/25/2017 Date of Evaluation: 10/31/2017 Time of Evaluation: 2:04 PM Location: [place] [address] Admission Date: 10/25/2017 Discharge Date: 10/31/2017 Discharged Against Medical Advice? No Attending Physician: PCP: Justin Matthew, Reason for Hospitalization: wound infection Final Diagnoses: Patient Active Hospital Problem List: Wound infection (10/25/2017) Obesity, Class II, BMI 35-39.9 E66.9 (10/26/2017) Operations During Hospitalization: lumbar drain, right cranial wound washout, irrigation and debridement?10/26 Procedures During Hospitalization: No procedures performed Hospital Course: The patient was electively admitted to the [facility]. The patient underwent a lumbar drain, right cranial wound washout, irrigation and debridement? on lumbar drain, right cranial wound washout, irrigation and debridement on 10/26. The patient tolerated the procedure and was taken to PACU, and then to the hospital surgical floor when PACU criteria was made. The patient was then transferred up to [place] [id number]- hospital room for postoperative management. Patient was fitted with sequential compression devices for DVT prophylaxis. The patient was discharged on 10/31 in stable condition. Complete and comprehensive discharge instructions were provided to the patient as well as necessary prescriptions. The patient had no further questions and was advised to call with any questions, concerns, or problems. Patient's pain was well controlled with Oral Pain Medications. Patient progressed satisfactorily through physical therapy until discharge. Based upon the appropriate milestones the patient met during the hospital course, Physical Therapy recommended patient be discharged to [facility]- discharged home. Patient was hemodynamically stable postoperatively. Relevant labs included: CBC: Recent Labs 10/30/17 0446 10/29/17 0330 10/26/17 0610 10/25/17 1625 WBC 6.88 8.22 16.72* 18.60* HB 8.8* 7.9* 8.9* 10.2* HCT 28.0* 25.6* 27.9* 32.1* PLT 265 306 282 325 MCV 93.0 91.8 92.1 90.9 RDWCV 13.2 13.3 13.3 13.2 NEUTP 45.9 52.6 -- 88.9 ABSNEUT 3.16 4.32 -- 16.52* LYMPHP 38.8 34.4 -- 4.8 MONOP 6.3 6.9 -- 5.6 EODINP 8.4 5.7 -- 0.5 COAG: Recent Labs 10/25/17 1625 APTT 30.2 INR 1.2 BMP: Recent Labs 10/25/17 1625 GLUC 131* NA 137 K 3.5* CHLOR 100 CO2 21* ANION 16 BUN 7 CREAT 0.82 CHEM: Recent Labs 10/25/17 1625 CA 9.2 MG 1.7 HEPATIC: No results for input(s): ALKPHOS, ALT, AST, TBILI, LIPASE in the last 168 hours. URINALYSIS: Recent Labs 10/25/17 1609 SPGR 1.018 UGLUC Negative UBILI Negative UKET Negative UHB 2+* UPROT 100* UWBC 0-5 CARDIAC: No results for input(s): CKTEST, CKMB, CKMBP, TROPT, PBNP in the last 168 hours. Estimated Creatinine Clearance: 98.7 mL/min (based on Cr of 0.82). Pending results: No pending results. Patient had no signs/symptoms of DVT, so no ultrasound was done during hospital course. Advanced Directive Status While in the Hospital: <no information> Emergency Contact While in the Hospital: Extended Emergency Contact Information Primary Emergency Contact: Caryn Alvarez Address: [address] [place] [address] Relation: Mother Secondary Emergency Contact: Marta Roland Mobile Relation: Daughter ALLERGIES: ALLERGIES No Known Allergies PAST MEDICAL HISTORY: PAST MEDICAL HISTORY Diagnosis Date - Abdominal pain - Abdominal pain, epigastric - Acute gastritis without mention of hemorrhage - Asthma - DM (diabetes mellitus) (HCC) - Esophagitis, unspecified - Hypertension - Melanoma (HCC) NO BP LEFT ARM - Menorrhagia - Neuropathy (HCC) PAST SURGICAL HISTORY: PAST SURGICAL HISTORY Procedure Laterality Date - DANDC, DIAG AND/OR THERAPEUTIC Dilation AND curettage - EGD W/O BRSH SPECIMEN W/BX 05/15/09 - L'SCOPE DX W/WO BRUSHINGS/WASHINGS Laparoscopy - LIGATE FALLOPIAN TUBE 09/24/14 - PAST SURGICAL HISTORY OF 02/02/2011 excision of melanoma Lt arm with nodes - PICC LINE INSERT/CONSULT 10/28/2017 - REMOVAL GALLBLADDER Cholecystectomy - complex A. our procedure with biliary enteric anastomosis. 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 oxyCODONE-acetaminophen (PERCOCET) 5-325 mg tablet Take 1 tablet by mouth every 6 hours as needed for up to 5 days. oxacillin (BACTOCILL) 2 gram/50 mL Inject 50 mL intravenously every 4 hours. topiramate (TOPAMAX) 25 mg tablet Take 1 tablet by mouth twice daily. ibuprofen (MOTRIN) 400 mg tablet Take 1-2 tablets by mouth every 4 hours as needed for Pain. acetaminophen (TYLENOL) 325 mg tablet Take 1 tablet by mouth every 4 hours as needed for Pain or Fever. ATORVASTATIN CALCIUM (LIPITOR ORAL) Take by mouth once daily. gabapentin (NEURONTIN) 100 mg capsule Take 100 mg by mouth three times daily. aspirin, enteric coated (ASPIRIN, ENTERIC COATED) 81 mg EC tablet Take 81 mg by mouth once daily. medroxyPROGESTERone (DEPO-PROVERA) 150 mg/mL syrg Inject 1 mL intramuscularly every 12 weeks. cyclobenzaprine (FLEXERIL) 10 mg tablet Take 10 mg by mouth as needed. metoprolol tartrate, short acting, (LOPRESSOR) 25 mg tablet Take 25 mg by mouth twice daily. sertraline 50 mg tablet Take 50 mg by mouth once daily. IPRATROPRIUM-ALBUTEROL 0.5 mg-3 mg(2.5 mg base)/3 mL INHALATION Nebu metFORMIN 1,000 mg ORAL 24 hr tablet Take one(1) tablet daily. ALBUTEROL 90 MCG/ACTUATION AEROSOL INHALER Use as directed four(4) times daily. as needed Discharge Medications: Your medical reconciliation is as noted below. Take tylenol or physician ordered pain medications for pain. GENERAL INFORMATION ABOUT TAKING MEDICATIONS: Take all medications as directed. Do not skip a dose of medication. If you forget to take your medication, do so as soon as you remember, but do not take a double dose. Do not take any [id number] medications or herbal therapies without consulting your health care provider, or pharmacist. Have a routine for taking your medication: take at the same time each day. Use a pill box to help you remember to take your medication. Keep an updated copy of your medication list with you at all times. Current Discharge Medication List START taking these medications oxacillin (BACTOCILL) 2 g Inject 2 g intravenously every 4 hours. topiramate (TOPAMAX) 25 mg Take 25 mg by mouth twice daily. Qty: 60 tablet Refills: 0 ibuprofen (MOTRIN) 400-800 mg Take 400-800 mg by mouth every 4 hours as needed for Pain. Qty: 60 tablet Refills: 0 CONTINUE these medications which have CHANGED docusate sodium (COLACE) 100 mg Take 100 mg by mouth twice daily as needed for Constipation. Qty: 60 capsule Refills: 0 oxyCODONE-acetaminophen (PERCOCET) 1 tablet Take 1 tablet by mouth every 6 hours as needed. Earliest Fill Date: 10/31/17 Qty: 20 tablet Refills: 0 Associated Diagnoses:Wound infection; Post-op pain CONTINUE these medications which have NOT CHANGED acetaminophen (TYLENOL) 325 mg Take 325 mg by mouth every 4 hours as needed for Pain or Fever. ATORVASTATIN CALCIUM (LIPITOR ORAL) Take by mouth once daily. gabapentin (NEURONTIN) 100 mg Take 100 mg by mouth three times daily. aspirin, enteric coated (ASPIRIN, ENTERIC COATED) 81 mg Take 81 mg by mouth once daily. medroxyPROGESTERone (DEPO-PROVERA) 150 mg Inject 150 mg intramuscularly every 12 weeks. Qty: 1 Syringe Refills: 4 cyclobenzaprine (FLEXERIL) 10 mg Take 10 mg by mouth as needed. metoprolol tartrate (short acting) (LOPRESSOR) 25 mg Take 25 mg by mouth twice daily. sertraline (ZOLOFT) 50 mg Take 50 mg by mouth once daily. IPRATROPRIUM-ALBUTEROL 0.5 mg-3 mg(2.5 mg base)/3 mL INHALATION Nebu metFORMIN 1,000 mg ORAL 24 hr tablet Take one(1) tablet daily. Refills: 0 ALBUTEROL 90 MCG/ACTUATION AEROSOL INHALER Use as directed four(4) times daily. as needed Refills: 0 STOP taking these medications pantoprazole DR (PROTONIX) 40 mg Comments: Reason for Stopping: sulindac (CLINORIL) 200 mg Comments: Reason for Stopping: Please remember to discard old medication lists and to update your records with all of your healthcare providers and retail pharmacies. Pain medications are helpful around the time of surgery, but they can cause problems if taken for too long. Your are encouraged to increase the time between taking the pain medication and to take them only when necessary. The long-term use of such substances as opioids (narcotic analgesics), benzodiazepine tranquilizers, and barbiturate sedatives is controversial. There is also the risk of an addictive disorder developing or of relapse occurring in a person with a prior addiction. Drowsiness and impaired concentration may be associated with these medications and may put you in danger. Constipation is the most common side effect, thus stool softeners are necessary while taking narcotic medications. If these drugs are taken during the latter months of , the child will probably be born physically dependent on them. Selling or giving away this medication is against the law and may cause harm or to the person who receives it. Thus you must never give controlled substances to anyone else, even if he or she has the same symptoms as you. Because diverted / stolen opioids are causing an epidemic of deaths in the , lost or stolen medications will not be replaced. It is your responsibility to safeguard them. Discharge Objective Exam: 10/31/17 0135 10/31/17 0605 10/31/17 0915 10/31/17 1312 BP: 146/80 117/58 153/70 136/61 Pulse: 71 75 78 82 Resp: Temp: 37.3 ?C (99.2 ?F) 37 ?C (98.6 ?F) 37.4 ?C (99.4 ?F) 37.4 ?C (99.3 ?F) TempSrc: Oral Oral Oral Oral SpO2: 98% 97% 98% 97% Weight: 100.3 kg (221 lb 1.9 oz) Height: Physical Exam: General:?A AND?O x 3. Appears stated age, well built, in no apparent distress Psychiatric:?Mood and affect: Appropriate. Skin:? Incision: clean/dry/intact SA drain: C/D/I CV:?Normal heart sounds, rate, rhythm Respiratory:?lungs CTA bilat ?? Musculoskeletal: Sensory: ?Normal sensory exam? Gait:??Normal Muscle strength: UE BICEPS TRICEPS DELTS Program Manager Environmental Planning R / 5/5 5/5 5/5 L 5/5 5/5 5/5 5/5 ?? LE Hip Flex Knee Flex Knee Extend Plantarflex Dorsiflex EHL R / 5/5 5/5 5/5 5/5 5/5 L /5 5/5 5/5 5/ 5/ 5/5 ? CRANIAL NERVES: Pupils:???OD Right: 2?mm Reactive?OS Left: 2?mm Reactive ?? II ?Visual zuniga:?are full to confrontation III, IV, ??EOM full V Facial sensation normal VII?Normal strength VIII?Normal bilaterally IX, X?Normal, midline palatal rise XI?Symmetric shrug XII?Tongue midline, mobile Drift: negative Speech: fluent Hemineglect: negative Patient Condition at Discharge: Improved Discharge Disposition: Home/Self Care Information Provided to the Patient: Patient given copy of Discharge Instructions DIET: No restrictions Activity: -Do not lift more than 10 pounds for 5 weeks after leaving the hospital. Lifting restrictions include: lifting with your legs or your own body weight -No bending forward. No straining. -No vigorous activity. Complete activities to tolerance. -Do not try to do too much too early. Use your common sense. Walking is the best activity, and we encourage you to walk every hour while awake. -No driving or operating heavy machinery while taking narcotic (pain) medications. This is for your own safety, and the safety of others. If you drive while taking pain medicine, you can be charged with driving under the influence or DUI. If you are charged with DUI while taking pain medicine, the [facility], and its providers are not to blame. -You may climb steps. Be careful when you are coming down the stairs because you may be off-balance. You may need to rest part of the way if you become tired. Try to arrange your activities so that you do not have to climb up and down stairs several times during the day, especially when you first arrive home. Wound Care: Keep the incision clean and dry. It is okay to shower starting 11/01. You must wash your hair at least every other day. Do not scrub wound(s) let the soap run down the incision, then pat dry. Do not submerge the wound(s) in standing water (no tub bathing, swimming, or hot tubs). Please use baby shampoo to wash your hair, if the wound(s) is/are on your head or in your hair. Do not use a executive chairman of the board until the sutures are removed. Keep the incision open to air. When you are out in public you may cover the incision with a clean hat or scarf. Please minimize the time it is covered to less than 3 hours per day. When you are at home or in the car, do not cover the incision as it increases the risk of infection. Please visually inspect your wound(s) at least once daily. If the wound(s) are in a difficult to see location, please use a mirror or have someone else assist with visual inspection. Your sutures may be removed at your follow up visit. Do not remove the diane/sutures on your own. Do NOT apply ointment or lotion to the incision, such as Neosporin, Bacitracin, or any other healing ointments. Symptoms or health problems to watch for after I leave the hospital: Please call your surgeon's office for: - Any drainage and / or odor from your wound. - Increased redness/swelling at the incision site - Fever greater than 101 degrees Fahrenheit, or 38 degrees Centigrade. - New or increased swelling of the legs and feet. Please go to your nearest emergency department for: - Shortness of breath or dizziness at rest - Signs of activity intolerance that last longer than 20 minutes or that return on a regular basis, including chest discomfort, excessive shortness of breath, dizziness or irregular heartbeats. -If you have any of the above symptoms please call the office immediately. Returning to Work Most people are able to return to work within 4 to 6 weeks after an interventional procedure. Additional Instructions: - Continue to use the incentive spirometer 10 breaths an hours during the day/evening for the next 7 days. -Walk every hour while awake. When can I resume driving? Your doctor will tell you when you can resume driving, when your wound has healed and you are no longer taking narcotic pain medications. Please start with short distances first. You may be a passenger in a car, but we recommend that you keep it to a minimum until you are healed. If you take long drives (more than 1 hour) during the first 4 weeks, stop every hour and walk around for 5 to 10 minutes. Follow up with Dr. Eliazar March as scheduled below: Future Appointments Date Time Provider Department [place] 11/25/2017 11:40 AM [id number] MELGAR [place] 11/25/2017 11:40 AM [id number] MICHAELS [place] 11/25/2017 12:45 PM [id number]-SBSXAGERARD CAMP INFD (MAIN - 11/25/2017 12:45 PM [id number], GERARD INFDMN INFD (MAIN - Electronically SIGNED/ DICTATED by Licensed Practitioner: America Malloy PA-C October 31, 2017 2:04 PM America Malloy PA-C, (pager) in the service of Dr. Eliazar March. This note is not finalized until authenticated by the staff physician. CC: Justin Matthew, DO [address] [place] [address] Whether you are referring from near or far, our new e-[facility] service, , can streamline your communication with our specialists. This new online tool offers you secure access to your patient?s [facility] medical record. You can track your patient?s care in real time, without additional software or hardware other than an internet connection. To establish a account, please call [phone] or e-mail [email or web address]. [facility] is ranked one of the top [facility] in [place] by [employer] World Report (2012). Visit us online at [email or web address] for a complete listing of our services, staff and locations. Confidentiality Note: This message is intended for use only by the individual or entity to which it is addressed and may contain information that is privileged, confidential, and exempt from disclosure under applicable law. If the reader of this message is not the intended recipient or the employee or agent responsible for delivering the message to the intended recipient, you are hereby notified that any dissemination, distribution or copying of this communication is strictly prohibited. If you have received this communication in error, please contact the sender immediately and destroy the material in its entirety, whether electronic or hard copy. CASE MANAGEM Observed: 10/27/2017 Status: COMPLETED Source: [place] 3:53 PM [facility] REPOSITORY HNO ID: [id number] Author: Liliana Javier) ALMA [place] Service: Care Management Author Type: Registered Nurse Type: Care Mgt Progress Note Filed: 10/27/2017 3:54 PM Note Text: CARE MANAGEMENT PROGRESS NOTE SERVICE DATE: 10/27/2017 SERVICE TIME: 1553 LOS: 2 days Needs Prior to Discharge: To Be Determined Procedure Needed: OR D/C date and needs unknown. SA drain in place. ID on consult. Will continue to follow for D/C planning needs. SIGNATURE: Liliana Madrid RN PATIENT NAME: Rose Roland DATE: October 27, 2017 TIME: 3:53 PM PAGER/CONTACT #: [phone] PROGRESS Observed: 10/27/2017 Status: COMPLETED Source: [place] 11:58 AM [facility] HNO ID: [id number] Author: Eliazar March Service: Neurosurgery Author Type: Physician Type: Progress Notes Filed: 10/27/2017 2:54 PM Note Text: After 4 PM (1600) please page Tatiana Mcwilliams. After 1900, and weekends please page [phone]. Cerebrovascular Team A Inpatient Progress Note Attending: Dr. Eliazar March Location: H063 [id number]/[id number] INTERVAL HPI (Subjective): is a 47 year old female who reports tolerable head pain. MEDICATIONS: Current hospital medications: 0.9% NaCl 2-10 mL 2-10 mL INTRAVENOUS q 12 H fentaNYL 50 mcg/mL 25 mcg injection (SUBLIMAZE) 25 mcg INTRAVENOUS q 2 H PRN gabapentin 100 mg cap(s) (NEURONTIN) 100 mg ORAL TID atorvastatin 20 mg tab(s) (LIPITOR) 20 mg ORAL AT BEDTIME ipratropium-albuterol 3 mL nebulizer solution (DUONEB) 3 mL INHALATION q 4 H PRN metoprolol tartrate (short acting) 25 mg tab(s) (LOPRESSOR) 25 mg ORAL BID docusate sodium 100 mg cap(s) (COLACE) 100 mg ORAL BID sertraline 50 mg tab(s) (ZOLOFT) 50 mg ORAL DAILY cyclobenzaprine 10 mg tab(s) (FLEXERIL) 10 mg ORAL BID PRN acetaminophen 650 mg tab(s) (TYLENOL) 650 mg ORAL q 4 H PRN hydrALAZINE 5 mg in NaCl 0.9% 5 mL (APRESOLINE) 5 mg INTRAVENOUS q 10 MIN PRN hydrALAZINE 10 mg in NaCl 0.9% 10 mL (APRESOLINE) 10 mg INTRAVENOUS q 10 MIN PRN ondansetron (PF) 4 mg injection (ZOFRAN) 4 mg INTRAVENOUS q 6 H PRN trimethobenzamide 200 mg injection (TIGAN) 200 mg INTRAMUSCULAR q 6 H PRN oxyCODONE-acetaminophen 5-325 mg 1-2 tablet (PERCOCET) 1-2 tablet ORAL q 4 H PRN vancomycin dosing and monitoring per pharmacy OTHER As Directed vancomycin 1.5 g in D5W 250 mL (VANCOCIN) 1.5 g INTRAVENOUS q 12 HR meropenem 2 g in NaCl 0.9% 100 mL (MERREM) 2 g INTRAVENOUS q 8 H OBJECTIVE: LABS: CBC: Recent Labs 10/26/17 0610 10/25/17 1625 WBC 16.72* 18.60* HB 8.9* 10.2* HCT 27.9* 32.1* PLT 282 325 MCV 92.1 90.9 RDWCV 13.3 13.2 NEUTP -- 88.9 ABSNEUT -- 16.52* LYMPHP -- 4.8 MONOP -- 5.6 EODINP -- 0.5 COAG: Recent Labs 10/25/17 1625 APTT 30.2 INR 1.2 BMP: Recent Labs 10/25/17 1625 GLUC 131* NA 137 K 3.5* CHLOR 100 CO2 21* ANION 16 BUN 7 CREAT 0.82 CHEM: Recent Labs 10/25/17 1625 CA 9.2 MG 1.7 HEPATIC: No results for input(s): ALKPHOS, ALT, AST, TBILI, LIPASE in the last 168 hours. URINALYSIS: Recent Labs 10/25/17 1609 SPGR 1.018 UGLUC Negative UBILI Negative UKET Negative UHB 2+* UPROT 100* UWBC 0-5 LEUKEST Trace* CARDIAC: No results for input(s): CKTEST, CKMB, CKMBP, TROPT, PBNP in the last 168 hours. Estimated Creatinine Clearance: 98 mL/min (based on Cr of 0.82). VITAL SIGNS 24 HOUR REVIEW: 10/27/17 0500 10/27/17 0600 10/27/17 0800 10/27/17 1000 BP: 117/56 124/62 110/64 112/70 Pulse: 77 76 79 94 Resp: 10 14 12 23 Temp: 36.8 ?C (98.2 ?F) TempSrc: SpO2: 97% 99% 95% 96% Weight: 98.9 kg (218 lb 0.6 oz) Height: Intake/Output Summary (Last 24 hours) at 10/27/17 1158 Last data filed at 10/27/17 1000 Gross per 24 hour Intake 2274 ml Output 219 ml Net 2055 ml ALLERGIES: ALLERGIES No Known Allergies PATIENT CHECK LIST: 1. Out of bed and ambulating: Yes Needs PT or OT Evaluation: No 2. Vascular access necessary: PIV Yes Central line present? No 3. Sotomayor/drains: No Continued need for urinary catheter? Not Applicable 4. Nutrition: PO- Yes. 5. Pain - Is the patient currently reporting any pain? Yes. What is the patient's current pain level on a 0 to 10 rating scale? Pain Score: 5/10 - What is the plan for pain management today 10/27/2017? Tylenol and Percocet PRN 6. Current DVT prophylaxis: Continous sequential compression devices . 7. Seizure prophylaxis:NA 8. Restraints No. 9. Gait difficulty: No 10. Bowel / Bladder dysfunction: No 11. Urinating:yes 12. 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 General: A AND O x 3. Appears stated age, well built, in no apparent distress Psychiatric: Mood and affect: Appropriate. Skin: covered with gauze Incision: clean/dry/intact SA drain: C/D/I CV: Normal heart sounds, rate, rhythm Respiratory: lungs CTA bilat Musculoskeletal: Sensory: Normal sensory exam Gait: Normal Muscle strength: UE BICEPS TRICEPS DELTS Program Manager Environmental Planning R 5/5 5/5 5/5 5/5 L 5/5 5/5 5/5 5/5 LE Hip Flex Knee Flex Knee Extend Plantarflex Dorsiflex EHL R 5/5 5/5 5/5 5/5 5/5 5/5 L 5/5 5/5 5/5 5/5 5/5 5/5 CRANIAL NERVES: Pupils: OD Right: 2 mm Reactive OS Left: 2 mm Reactive II Visual zuniga: are full to confrontation III, IV, EOM full V Facial sensation normal VII Normal strength VIII Normal bilaterally IX, X Normal, midline palatal rise XI Symmetric shrug XII Tongue midline, mobile Drift: negative Speech: fluent Hemineglect: negative Hospital Day: 3 10/26/2017 1 Day Post-Op S/P: lumbar drain, right cranial wound washout, irrigation and debridement ASSESSMENT: The patient reports tolerable head pain. SA drain 5cc/hr Davol drain: 50 overnight ound culture: GPC CSF culture: sWtaph PLAN: Patient seen, examined, and plan discussed with staff during rounds. ID recs appreciated (vanco and Meropenem) PICC placement Continue SA drain at 5cc Planned Date of Discharge: Approximately 3 - 5 days Discharge Disposition: Home Active Hospital Problems Diagnosis - Obesity, Class II, BMI 35-39.9 E66.9 - Wound infection POA lumbar drain, right cranial wound washout, irrigation and debridement Assessment: Wound culture: GPC CSF culture: sWtaph Plan:ID recs appreciated (vanco and Meropenem) SIGNATURE: America Malloy PA-C PATIENT NAME: Rose Roland DATE: 10/27/2017 TIME: 11:58 AM PAGER: [phone] After 4 PM (1600) please page Tatiana Mcwilliams. After 1900, and weekends please page [phone]. [facility] STAFF: TEACHING PHYSICIAN NOTE OF PERSONAL INVOLVEMENT IN CARE I have reviewed the progress note obtained and documented by the Resident and I personally participated in the villalba components. I have discussed the case and management of the patient's care with the DEVON. The following comments revise or confirm relevant villalba components of the DEVON's note. Looks well neurologically. Leave VINCENZO drain. SAD@5cc/hr. CT brain wo tomorrow AM. Await cultures. Await BCx. OK for SC hep tonight. OK for toradol if needed tomorrow. TSF H60. Eliazar March MD Staff, Skull Base AND Cerebrovascular Surgery Department of Neurological Surgery [facility] JEB Observed: 10/27/2017 Status: COMPLETED Source: [place] 12:00 AM [facility] RE[facility] Telephone ([facility] [place] KALYANIROSE Robert ([id number]) 1970 F Date Time Provider Department 10/27/17 CHARISSE MARC (RN) NSCAMN During your visit today, we recorded the following information about you: Charisse Marc 10/27/2017 4:33 PM Signed Received fax request from patient and patient's employer for FMLA forms to be completed, signed and faxed to Liliana Cano at [phone]. PH: [phone]. Forms faxed with confirmation of fax transmission. Charisse Marc RN, BSN pgr [phone] Charisse Marc 11/03/2017 12:12 PM Signed Per patient request faxed [employer] forms to with confirmation of fax transmission. Charisse Marc RN, BSN pgr [phone] Allergies As of Date: 10/27/2017 (No Known Allergies) Date Reviewed: 10/27/2017 Reviewed by: Ron (Paige) PAIGE Cabrera - Fully Assessed Reason for Visit: Clinical Update [1735] Cmt: Follow up/forms Prescriptions as of 10/27/2017 Sig: ACETAMINOPHEN 325 MG TABLET Take 1 tablet by mouth every * X DOCUSATE SODIUM 100 MG CAPSULE Take 1 capsule by mouth twice* X OXYCODONE-ACETAMINOPHEN 5 MG-* Take 1-2 tablets by mouth leesa* X PANTOPRAZOLE 40 MG TABLET,DEL* Take 1 tablet by mouth DAILY * LIPITOR ORAL Take by mouth once daily. GABAPENTIN 100 MG CAPSULE Take 100 mg by mouth three ti* ASPIRIN 81 MG TABLET,DELAYED * Take 81 mg by mouth once jen* MEDROXYPROGESTERONE 150 MG/ML* Inject 1 mL intramuscularly e* CYCLOBENZAPRINE 10 MG TABLET Take 10 mg by mouth as needed. X SULINDAC 200 MG TABLET Take 200 mg by mouth as neede* METOPROLOL TARTRATE 25 MG TAB* Take 25 mg by mouth twice libby* SERTRALINE 50 MG TABLET Take 50 mg by mouth once jen* * IPRATROPIUM-ALBUTEROL 0.5 MG-* * METFORMIN ER 1,000 MG TABLET,* Take one(1) tablet daily. * ALBUTEROL 90 MCG/ACTUATION AE* Use as directed four(4) times* Problem List As Of Date 10/27/2017 Noted Resolved ACUTE PANCREATITIS [K85.90] INVALID FOR* CHOLELITHIASIS NOS [K80.20] INVALID FOR* ABDOMINAL PAIN UNSPEC SITE [R10.9] INVALID FOR* ABDOMINAL PAIN GENERALIZED [R10.84] INVALID FOR* ASA CLASS II [1001] INVALID FOR* PORTAL VEIN THROMBOSIS [I81] INVALID FOR* Abdominal Pain, Epigastric [R10.13] INVALID FOR* Unspecified Esophagitis [K20.9] INVALID FOR* Acute Gastritis without Mention of Hemorrhage [*INVALID FOR* Incisional hernia [K43.2] INVALID FOR* Incisional hernia with obstruction [K43.0] INVALID FOR* Melanoma (HCC) [C43.9] INVALID FOR* Brain mass [G93.9] INVALID FOR* Meningioma (HCC) [D32.9] INVALID FOR* More... Vasogenic cerebral edema (HCC) [G93.6] INVALID FOR* More... At risk of seizures [Z91.89] INVALID FOR* More... Wound infection [T14.8XXA, L08.9] INVALID FOR* More... Obesity, Class II, BMI 35-39.9 E66.9 [E66.9] INVALID FOR* Encounter Status:Closed by CHARISSE MARC on 10/27/17 ANES POST Observed: 10/26/2017 Status: COMPLETED Source: [place] 7:38 PM [facility] REPOSITORY O ID: [id number] Author: Marco A Aly Service: (none) Author Type: Anesthesiologist Type: Anesthesia PostOp Filed: 10/26/2017 7:39 PM Note Text: POST ANESTHESIA EVALUATION NOTE SERVICE DATE: 10/26/2017 SERVICE TIME: 19:38 : 1970 Vitals: 10/26/17 0400 10/26/17 0800 10/26/17 1200 10/26/171912 Temp: 37 ?C (98.6 ?F) 37.6 ?C (99.6 ?F) 37.2 ?C (99 ?F) 36.4 ?C (97.5 ?F) 10/26/17 1200 10/26/17 1400 04/191210/26/171929 BP: 128/62 119/57 180/74 133/96 10/26/17 1200 10/26/17 1400 10/26/17191210/26/171929 Pulse: 89 91 92 104 10/26/17 1200 10/26/17 1400 10/26/17191210/26/171929 Resp: 16 15 24 18 10/26/17 1200 10/26/17 1400 10/26/17191210/26/171929 SpO2: 98% 98% 95% 95% Validated Vital Signs: Yes POST ANES STATUS: No apparent anesthetic complications. The patient is appropriately hydrated with stable respiratory and cardiovascular status. Patient has safe and adequate airway control. The patient has appropriate pain relief and no significant post operative nausea or vomiting. The patient has achieved baseline mental status. Further assessment by Anesthesia Service: None Other Remarks: SIGNATURE: Marco A Aly MD PATIENT NAME: Rose Roland DATE: October 26, 2017 TIME: 7:38 PM PAGER/CONTACT #: [phone] PROGRESS Observed: 10/26/2017 Status: COMPLETED Source: [place] 7:18 PM [facility] REPOSIT[facility] HNO ID: [id number] Author: Jese Trinidad) Alida Service: Neurosurgery Author Type: Resident Type: Progress Notes Filed: 10/26/2017 7:19 PM Note Text: Neurosurgery POC Note Interval HPI: S/p lumbar drain, right cranial wound washout, irrigation and debridement Objective: 10/26/17 0800 10/26/17 1000 10/26/17 1200 10/26/17 1400 BP: 112/58 96/52 128/62 119/57 Pulse: 105 93 89 91 Resp: 23 14 16 15 Temp: 37.6 ?C (99.6 ?F) 37.2 ?C (99 ?F) TempSrc: Oral Oral SpO2: 98% 96% 98% 98% Weight: Height: EXAM: AOx3, NAD PERRL, EOMI FS, TM No drift BUE 5/5 BLE 5/5 Dressing c/d/i Drain bloody SA drain in place A/P: 47 year old y/o female POD #0 s/p lumbar drain, right cranial wound washout, irrigation and debridement - neuro stable - drain to thumbprint suction - SA drain 5 cc/hr - continue abx - pain control - ID recs - IPC; [facility] POD #2 Jese Irwin MD PGY-3, Neurological Surgery Pager [phone] October 26, 2017 Please page [phone] after 6 PM and on weekends OPERATIVE NO Observed: 10/26/2017 Status: COMPLETED Source: [place] 7:00 PM [facility] REPOSIT[facility] HNO ID: [id number] Author: Eliazar March Service: Neurosurgery Author Type: Physician Type: Operative Report Filed: 11/02/2017 8:48 AM Note Text: OPERATIVE/PROCEDURE REPORT NEUROSURGERY LOG ID: [id number] Surgery/Procedure Date: 10/26/2017 Incision/Procedure Start Time: 5:04 PM Incision Close/Procedure End Time: 6:44 PM Surgeon(s)/Proceduralist(s) and Review Analyst(s): Surgeon(s) and Role: * Eliazar March - Primary * Jese (Carlie) Alida - Resident - Assisting Procedure(s): 1. Lumbar drain placement 2. Right sided cranial wound washout, irrigation, and debridement Preoperative Diagnosis: wound infection, pseudomeningocele Postoperative Diagnosis: wound infection, pseudomeningocele Operative Indications: Patient is a 47 y/o F s/p R frontal craniotomy for meningioma resection on 10/07/2017. She presented to clinic with fever, facial swelling, and a pseudomeningocele, concerning for wound infection. MRI did not show any deep infection, but was consistent with superficial wound infection. She underwent an aspiration of the subgaleal fluid, which was also concerning for infection. After discussion of the options and potential risks/benefits, the patient elected to proceed with surgical intervention for wound washout and lumbar drain placement. Patient was given options for bone flap removal without replacement, bone flap removal with titanium mesh cranioplasty, and potential for bone flap preservation depending on extent of infection found intraoperatively. Anesthesia: General Procedure Details: The patient was brought to the operating area, and an operative huddle (including the patient and team members from neurosurgery, anesthesiology, and nursing) was performed to confirm the patient's identity and procedure to be performed. The patient was then induced with general anesthesia and intubated. The appropriate lines were placed by the anesthesiology team. The patient was initially positioned lateral with the hips flexed. The lumbar region was prepped and draped in usual sterile fashion. A 14 g touy needle used to access intrathecal space at approx L3-4. Brisk CSF flow noted, clear. The catheter advanced to 30cm at the skin and secured to patient's skin using 3-0 Nylon. This was sterilely dressed, and the patient was returned to the supine position, with the head placed on a horseshoe headholder. The area was shaved, prepped and draped in the usual fashion, an audible timout was performed, and the patient had previously received antibiotics. The previous cranial incision was opened bluntly using metzenbaum scissors to the level of the skull. There were two subgaleal pockets of purulent material. Swabs were sent for culture and gram stain. The retractors were placed and the subgaleal space was irrigated with antibiotic irrigation. The skin appeared to be healthy and not necrotic. The bone flap was exposed and the will hole plates were removed. The bone flap did not appear to be significantly necrotic or infected. It was then placed to soak in betadine solution. The prior dural graft was intact, with minimal epidural purulence vs tisseal. The space was irrigated extensively with antibiotic solution. We then proceeded to remove the dural substitute, using care to dissect the pial surface free. Of note, there were some areas of significant adhesion to more frontal pial artery and draining veins, so small portion of the graft was remoed. A sample of the dural substitute was sent for microbiologic analysis as was an epidural swab. The brain appeared healthy with no evidence of infeciton. We then irrigated copiously, and adequate hemostasis was achieved. A duragen onlay was placed and the bone flap was again re-examined and deemed to be health, and thus covered in vancomycin powder and replaced as well using new titanium will hole covers. A subgaleal drain was then tunneled posteriorly. We again achieved adequate hemostasis and proceeded to close the myocutaneous flap, using vertical mattress suture. The skin was well approximated without tension. The incision was dressed, and a headwrap was placed. The patient was extubated and transferred to PACU in stable condition. Final counts were correct. Findings: 1. Subgaleal purulence 2. No significant epidural collection 3. Healthy appearing bone flap 4. Bone flap preserved and replaced Estimated Blood Loss: 50 mLs Specimens: Specimen ID Type Site Comments Sent To micro1 Fluid subgalial fluid Microbiology micro2 Fluid epidural Microbiology micro3 Tissue dura matrix Microbiology Path1 Explant hardware for accession Accession Only Implantable Devices: Implant Name Type Inv. Item Serial No. Furniture Fabricator Lot No. LRB No. Used GRAFT DURAGEN PLUS BOVINE COLLAGEN MATRIX 5X4IN SOFT TISSUE PATCH - [id number] Framework - Tissue GRAFT DURAGEN PLUS BOVINE COLLAGEN MATRIX 5X4IN SOFT TISSUE PATCH [employer] NEURO [id number] Right 1 PLATE LOW PROFILE TITANIUM 12MM BONE 2 HOLE BAR 1.5MM SCREW NONSTERILE - [id number] Plate PLATE LOW PROFILE TITANIUM 12MM BONE 2 HOLE BAR 1.5MM SCREW NONSTERILE STRY/HOWM CRANIOMAXILLOFACIAL Right 1 COVER 20MM TITANIUM WILL HOLE LOW PROFILE TAB CRANIOMAXILLOFACIAL - [id number] Plate COVER 20MM TITANIUM WILL HOLE LOW PROFILE TAB CRANIOMAXILLOFACIAL STRY/HOWM CRANIOMAXILLOFACIAL Right 1 COVER 14MM LOW PROFILE WILL HOLE 3MM SCREW CRANIUM - [id number] Implant COVER 14MM LOW PROFILE WILL HOLE 3MM SCREW CRANIUM STRY/HOWM CRANIOMAXILLOFACIAL Right 1 COVER 14MM LOW PROFILE WILL HOLE 3MM SCREW CRANIUM - [id number] Implant COVER 14MM LOW PROFILE WILL HOLE 3MM SCREW CRANIUM STRY/HOWM CRANIOMAXILLOFACIAL Right 1 SCREW 1.5MM 4MM BONE SELF DRILL CROSS PIN CRANIOMAXILLOFACIAL - [id number] Screw SCREW 1.5MM 4MM BONE SELF DRILL CROSS PIN CRANIOMAXILLOFACIAL STRY/HOWM CRANIOMAXILLOFACIAL Right 11 Drains: 1. lumbar subarachnoid drain; 2. subgaleal VINCENZO drain Complications: None Dr. March performed the entire procedure with Dr. Irwin's assistance. SIGNATURE: Jese Irwin PATIENT NAME: Rose Roland DATE: November 01, 2017 TIME: 7:31 PM PAGER/CONTACT #: [phone] BRIEF OP NOT Observed: 10/26/2017 Status: COMPLETED Source: [place] 6:49 PM [facility] RE[facility]IT[facility] HNO ID: [id number] Author: Jese Irwin Service: Neurosurgery Author Type: Resident Type: Brief Op Note Filed: 10/26/2017 6:50 PM Note Text: BRIEF OP NOTE LOG ID: [id number] Surgery/Procedure Date: 10/26/2017 Incision/Procedure Start Time: 5:04 PM Incision Close/Procedure End Time: 6:44 PM Surgeon(s)/Proceduralist(s) and Review Analyst(s): Surgeon(s) and Role: * Eliazar March - Primary * Jese Irwin - Resident - Assisting Procedure(s): lumbar drain, right cranial wound washout, irrigation and debridement Anesthesia: General Findings: purulence below and above craniotomy Estimated Blood Loss: 50 mls Specimens: Specimen ID Type Site Comments Sent To micro1 Fluid subgalial fluid Microbiology micro2 Fluid epidural Microbiology micro3 Tissue dura matrix Microbiology Path1 Explant hardware for accession Accession Only Complications: None Pre-Op/Pre-Procedure Diagnosis: wound infection Post-Op/Post-Procedure Diagnosis: wound infection SIGNATURE: Jese Irwin PATIENT NAME: Rose Roland DATE: October 26, 2017 TIME: 6:49 PM PAGER/CONTACT #: [phone] Observed: 10/26/2017 Status: F Source: [place] TISSUE CULT / STAIN 5:40 PM [facility] REPOSITORY Smear Result - No organisms seen No Polymorphonuclear leukocytes Few RBC Culture Result - Few Staphylococcus aureus --> ABNORMAL ALERT Refer to specimen collected on --> ABNORMAL ALERT 10/26/2017 1707 ([id number]) --> ABNORMAL ALERT (NOTE) Positive result called to an d read back by: Radha H63 10/27/17 1625 Nikia Performed By: #### TISCUL #### [facility] [address] [employer] [address], [place] [address] Observed: 10/26/2017 Status: F Source: [place] ANAEROBE CULTURE 5:40 PM [facility] REPOSITORY Culture Result - Negative for anaerobes. Performed By: #### ANACUL #### [facility] [address] [employer] [address] [place], [place] [address] Observed: 10/26/2017 Status: F Source: [place] FUNGAL CULT / SMEAR 5:40 PM [facility] REPOSIT[facility] Smear Result - No fungus seen. Culture Result - No Fungus isolated after 34 days Performed By: #### FCULSM #### [facility] [address] [employer] [address] [place], [place] [address] Observed: 10/26/2017 Status: F Source: [place] [employer] CULT AND STAIN 5:40 PM [facility] REPOSITORY Sp. Request/Comment: - Specimen collected in surgery. Specimen received in sterile container. Smear Result - No acid fast bacilli seen by fluorochrome stain Culture Result - No Acid Fast Bacilli isolated after 48 days Performed By: #### AFC #### [place] [id number] [place] [place] [address] WOUND Observed: 10/26/2017 Status: F Source: [place] CULTURE/STAIN 5:24 PM [facility] REPOSITORY Sp. Request/Comment: - Specimen collected in surgery. Swab Swabs are unacceptable for anaerobe culture. Specimen will be processed for aerobes only. Test rejected. Swabs are not acceptable for AFB Culture. Smear Result - Moderate Gram positive cocci in clusters --> ABNORMAL ALERT Many Polymorphonuclear leukocytes Few Mononuclear cells Many RBC Culture Result - Moderate Staphylococcus aureus --> ABNORMAL ALERT ORGANISM: Staphylococcus aureus METHOD: Minimum inhibitory concentration(Vitek) Antibiotic Interp ALAYNA Status Erythromycin SUSCEPTIBLE <=0.25 F Clindamycin SUSCEPTIBLE 0.25 F Tetracycline SUSCEPTIBLE <=1 F Vancomycin SUSCEPTIBLE <=0.5 F Oxacillin SUSCEPTIBLE <=0.25 F Oxacillin susceptible staphylococci are susceptible to other penicillinase stable penicillins, beta lactam/beta lactamase inhibitor combinations, anti staphyloccal cephems, and carbapenems. Trimeth sulfameth SUSCEPTIBLE <=10 F Gentamicin SUSCEPTIBLE <=0.5 F Rifampin SUSCEPTIBLE <=0.5 F Rifampin should not be used alone for antimicrobial therapy. Doxycycline SUSCEPTIBLE <=0.5 F Performed By: #### WCUL #### [facility] [address] [employer] [address] [place] [address] Observed: 10/26/2017 Status: F Source: [place] FUNGAL CULT / SMEAR 5:24 PM [facility] REPOSITORY Sp. Request/Comment: - Specimen collected in surgery. Swab Swabs are unacceptable for anaerobe culture. Specimen will be processed for aerobes only. Test rejected. Swabs are not acceptable for AFB Culture. Smear Result - No fungus seen. Culture Result - No Fungus isolated after 34 days Performed By: #### FCULSM #### [place] [id number] [place] [address] Observed: 10/26/2017 Status: F Source: [place] ANAEROBE CULTURE 5:07 PM [facility] REPOSITORY Culture Result - Negative for anaerobes. Performed By: #### ANACUL #### [facility] [address] [place] [address] Observed: 10/26/2017 Status: F Source: [place] TISSUE CULT / STAIN 5:07 PM [facility] REPOSITORY Sp. Request/Comment: - Specimen collected in surgery. Specimen received in sterile container. Smear Result - No organisms seen Moderate Polymorphonuclear leukocytes Few Red Blood Cells Culture Result - Few Staphylococcus aureus --> ABNORMAL ALERT (NOTE) Positive result called to and read back by: Radha H63 10/27/17 1625 [place] ORGANISM: Staphylococcus aureus METHOD: Minimum inhibitory concentration(Vitek) Antibiotic Interp ALAYNA Status Erythromycin SUSCEPTIBLE <=0.25 F Clindamycin SUSCEPTIBLE 0.25 F Tetracycline SUSCEPTIBLE <=1 F Vancomycin SUSCEPTIBLE <=0.5 F Oxacillin SUSCEPTIBLE <=0.25 F Oxacillin susceptible staphylococci are susceptible to other penicillinase stable penicillins, beta lactam/beta lactamase inhibitor combinations, anti staphyloccal cephems, and carbapenems. Trimeth sulfameth SUSCEPTIBLE <=10 F Gentamicin SUSCEPTIBLE <=0.5 F Rifampin SUSCEPTIBLE <=0.5 F Rifampin should not be used alone for antimicrobial therapy. Doxycycline SUSCEPTIBLE <=0.5 F Performed By: #### TISCUL #### [facility] [address] [place] [address] Observed: 10/26/2017 Status: F Source: [place] FUNGAL CULT / SMEAR 5:07 PM [facility] REPOSITORY Smear Result - No fungus seen. Culture Result - No Fungus isolated after 34 days Performed By: #### FCULSM #### [facility] [address] [place] [address] Observed: 10/26/2017 Status: F Source: [place] AFB CULT AND STAIN 5:07 PM [facility] REPOSITORY Smear Result - No acid fast bacilli seen by fluorochrome stain Culture Result - No Acid Fast Bacilli isolated after 48 days Performed By: #### AFC #### [facility] [address] [place], [place] [address] CASE MGT INIT Observed: 10/26/2017 Status: COMPLETED Source: [facility] [place] 11:34 AM [facility] REPOSITORY HNO ID: [id number] Author: Rica Arnold (Sw) Service: Case Management Author Type: Physician Compensation Analyst Type: Care Mgt Initial Assessment Filed: 10/26/2017 2:35 PM Note Text: CARE MANAGEMENT: ASSESSMENT AND DISCHARGE PLAN SERVICE DATE: 10/26/2017 SERVICE TIME: 2:34 PM PRIMARY CARE PHYSICIAN: Justin Matthew DO ADMISSION STATUS: Inpatient Needs Prior to Discharge: Procedure;To Be Determined (Medical Clearance) Procedure Needed: OR 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 No Advance Directive: N/A. Health Literacy: 1. How often do you need to have someone help you when you read instructions, pamphlets, or other written material from your doctor or pharmacy? Never - 1 2. How confident are you filling out medical forms by yourself? Not at all - 5 If Patient scores > 3 on either question, the following interventions were put into place: Patient did not score > 3 FUNCTIONAL AND COGNITIVE/BEHAVIORAL PRIOR TO ADMISSION: Baseline Mental Status: Alert AND Oriented, Person, Place , Time and Situation Functional Status: Independent Does Patient Currently Receive Any Community Services or Home Care? None Equipment Prior to Admission: None Has the Patient Been in a Custodial Facility in the Past 30 days? 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 Pt's needs still being determined. Patient's transition needs and plan for meeting these needs: Pt's needs still being determined. No PT/OT ordered to-date. Does the patient have an acute stroke diagnosis, or has the patient had a stroke during this admission? No Medication Adherence: I am convinced of the importance of my prescription medication: Agree mostly - 0 I worry that my prescription medication will do more harm than good to me Disagree completely - 0 I feel financially burdened by my [id number] expenses for my prescription medication: Disagree completely - 0 Patient is categorized as low risk < 2 Are you interested in bedside delivery of your medications? No Food Concerns: In the Last Month, Have You had Trouble Getting Food? No trouble getting food During the Last Month, Have You Worried Whether Your Food Would Run Out Before You Had Enough Money to Buy More? No Is the Patient Psychosocially Complex? No ASSESSMENT AND PLAN: Medical Needs: Obesity Psychosocial Needs: None FREEDOM OF CHOICE EXPLAINED: N/A POTENTIAL TRANSITION PLANS To Be Determined Per HANDP, pt is a 47 year old R-handed female with PMH significant for HTN, HLD, DM with diabetic neuropathy, asthma, melanoma of L arm s/p local excision and lymph node removal in 2010, and R frontal convexity meningioma s/p gross total resection 10/07/[address] March, admitted from clinic where she presented with low grade fever, R facial redness/swelling and tenderness, concerning for infection. Per tamir, pt to go to OR today (10/26/17). No PT/OT ordered to-date. Pt's d/c dispo tbd. RNCC/SW will continue to follow pt for needs. Please page SW should needs arise. SIGNATURE: BELA Shaw PATIENT NAME: Rose Roland DATE: October 26, 2017 TIME: 11:35 AM PAGER/CONTACT #: [phone] CONSULT Observed: 10/26/2017 Status: COMPLETED Source: [place] 9:24 AM [facility] [place] REPOSITORY O ID: [id number] Author: Gerard Camp Service: Infectious Disease Author Type: Physician Type: Consults Filed: 10/26/2017 7:53 PM Note Text: INITIAL CONSULT INFECTIOUS DISEASE SERVICE DATE: October 26, 2017 SERVICE TIME: 9:24 AM We were consulted asked to evaluate Ms. Roland by Dr. march for wound infcetion. Our findings and recommendations will be communicated through the shared medical record. SUBJECTIVE: HPI: This is a 47 y/o F with h/o HTN, DM, asthma, melanoma of L arm s/p local excision and lymph node removal in 2010, and R frontal convexity meningioma s/p gross total resection 10/07/2017, admitted on 10/25 from clinic with low grade fever, R facial redness/swelling and tenderness. Her post-op course was uneventful and she was discharged home on 10/09. She developed swelling on the incision line a week ago. Then noticed redness and tenderness over the incision that extended to her forehead. She was seen in the clinic yesterday and admitted from there. On the floor, 12 cc's of turbid fluid with some blood was removed from previous incision by a needle that sent for cx. Smear: Rare Gram positive cocci Many Polymorphonuclear leukocytes Many Red Blood Cells and started on meropenem and vancomycin. Since aspiration of the surgical site, she has some oozing from it. No fever, chills and wound issues at home. Developed high fever (39.4 C) last night. No N/V, no changes in her vision, no neurologic symptoms. CURRENT ANTIBIOTICS: Vancomycin (SD 10/25) Meropenem (SD 10/25) Current other medications reviewed. Current hospital medications: gabapentin 100 mg cap(s) (NEURONTIN) 100 mg ORAL TID atorvastatin 20 mg tab(s) (LIPITOR) 20 mg ORAL AT BEDTIME ipratropium-albuterol 3 mL nebulizer solution (DUONEB) 3 mL INHALATION q 4 H PRN metoprolol tartrate (short acting) 25 mg tab(s) (LOPRESSOR) 25 mg ORAL BID docusate sodium 100 mg cap(s) (COLACE) 100 mg ORAL BID sertraline 50 mg tab(s) (ZOLOFT) 50 mg ORAL DAILY cyclobenzaprine 10 mg tab(s) (FLEXERIL) 10 mg ORAL BID PRN iv contrast (radiology procedure) INTRAVENOUS DIRECTED PRN NaCl 0.9% iv infusion 75 mL/hr INTRAVENOUS CONTINUOUS acetaminophen 650 mg tab(s) (TYLENOL) 650 mg ORAL q 4 H PRN hydrALAZINE 5 mg in NaCl 0.9% 5 mL (APRESOLINE) 5 mg INTRAVENOUS q 10 MIN PRN hydrALAZINE 10 mg in NaCl 0.9% 10 mL (APRESOLINE) 10 mg INTRAVENOUS q 10 MIN PRN ondansetron (PF) 4 mg injection (ZOFRAN) 4 mg INTRAVENOUS q 6 H PRN trimethobenzamide 200 mg injection (TIGAN) 200 mg INTRAMUSCULAR q 6 H PRN oxyCODONE-acetaminophen 5-325 mg 1-2 tablet (PERCOCET) 1-2 tablet ORAL q 4 H PRN vancomycin dosing and monitoring per pharmacy OTHER As Directed vancomycin 1.5 g in D5W 250 mL (VANCOCIN) 1.5 g INTRAVENOUS q 12 HR meropenem 2 g in NaCl 0.9% 100 mL (MERREM) 2 g INTRAVENOUS q 8 H PAST MEDICAL HISTORY Diagnosis Date - Abdominal pain - Abdominal pain, epigastric - Acute gastritis without mention of hemorrhage - Asthma - DM (diabetes mellitus) (HCC) - Esophagitis, unspecified - Hypertension - Melanoma (HCC) NO BP LEFT ARM - Menorrhagia - Neuropathy (HCC) PAST SURGICAL HISTORY Procedure Laterality Date - DANDC, DIAG AND/OR THERAPEUTIC Dilation AND curettage - EGD W/O BRSH SPECIMEN W/BX 05/15/09 - L'SCOPE DX W/WO BRUSHINGS/WASHINGS Laparoscopy - LIGATE FALLOPIAN TUBE 09/24/14 - PAST SURGICAL HISTORY OF 02/02/2011 excision of melanoma Lt arm with nodes - REMOVAL GALLBLADDER Cholecystectomy - complex A. our procedure with biliary enteric anastomosis. Prolonged postoperative course - REPAIR INCISIONAL HERNIA,DARI 02/26/11 RUQ Social History Marital status: Spouse name: Years of education: 12 Number of children: 1 Occupational History Occupation Employer [employer] Social History Main Topics Smoking status: Never Smoker Smokeless status: Never Used Alcohol use: No Drug use: No Sexual activity: Yes Partners with: Male control/protection: Tubal Ligation Family History Problem Relation Age of Onset - Hypertension Mother breast cancer - Breast Cancer Mother - Cancer Sister - Hypertension Maternal Grandmother - Coronary Artery Disease Maternal Grandfather - Diabetes Maternal Uncle - Diabetes Maternal Uncle - Diabetes Maternal Uncle - Diabetes Maternal Uncle - Cancer Maternal Uncle lung ALLERGIES No Known Allergies OBJECTIVE: REVIEW OF SYSTEMS: GENERAL: No weight loss, malaise, + fevers HEENT: + headaches, No changes in hearing or vision NECK: Negative for lumps and significant neck swelling RESPIRATORY: Negative for cough or SOB CARDIOVASCULAR: Negative for chest pain or leg swelling GI: No nausea, vomiting, diarrhea or abdominal pain : No history of dysuria, frequency or incontinence MUSCULOSKELETAL: Negative for joint pain or swelling, back pain or muscle pain SKIN: + erythema on her head, face with swelling NEURO: No numbness, tingling, weakness All other reviewed and negative other than HPI. PHYSICAL EXAM: BP 113/56 Pulse 115 Temp 37.6 ?C (99.6 ?F) (Oral) Resp 15 Ht 162.6 cm (5' 4) Wt 103.2 kg (227 lb 8.2 oz) SpO2 95% BMI 39.05 kg/m2 General appearance: upright in bed, family present, alert, no distress Skin: erythema over her forehead and R face (R>L) Head:surgigal scar is clean on R side, L side has purulent drainage Eyes: anicteric, PERRLA, EOMI in L eye, slowish in R eye, b/l lid swelling Oropharynx: neg, Oropharynx normal Neck: ij Lungs: Lungs clear to auscultation Heart: Normal S1 and S2; no murmurs Abdomen:Abdomen soft, non-tender Extremities: No edema Musculoskeletal: Negative Neuro: AAOx3, no focal neurologic finding ? LABS: CBC, Coags, BMP, Mg, Phos Recent Labs 10/26/17 0610 10/25/17 1625 WBC 16.72* 18.60* HB 8.9* 10.2* HCT 27.9* 32.1* PLT 282 325 INR -- 1.2 APTT -- 30.2 NA -- 137 K -- 3.5* CHLOR -- 100 CO2 -- 21* BUN -- 7 CREAT -- 0.82 GLUC -- 131* CA -- 9.2 MG -- 1.7 P -- 2.3* Liver Function, Amylase, AND Lipase Ref. Range 10/25/2017 19:40 Color, CSF Latest Ref Range: Colorless Slightly bloody (A) Supernatant Color, CSF Latest Ref Range: Colorless Xanthochromic (A) Clarity, CSF Latest Ref Range: Clear Turbid (A) Supernatant Clarity, CSF Latest Ref Range: Clear Clear RBC, CSF Latest Ref Range: 0 - 1 /uL 08847 (H) Total Nucleated Cells, CSF Latest Ref Range: 0 - 5 /uL 25161 (H) Neut%, CSF Latest Ref Range: 0 - 3 % 83 (H) [place]%, CSF Latest Ref Range: 10 - 50 % 11 Macro%, CSF Latest Units: % 6 Protein, CSF Latest Ref Range: 15 - 45 mg/dL 618 (H) Glucose, CSF Latest Ref Range: 40 - 70 mg/dL <2 (L) Comment, CSF Unknown Test Not Indicated Review, CSF Unknown Test Not Indicated Slide Number CSF Unknown [id number] MICROBIOLOGY: 10/25 blood cx NGTD CSF fluid smear: Rare Gram positive cocci Many Polymorphonuclear leukocytes Many Red Blood Cells DATA: Diagnostic Tests Reviewed for Today's Visit: Most recent labs and imaging results. Most recent labs Most recent imaging ASSESSMENT: This is a 47 y/o F with: -surgical site infection: Presented with low grade fever, R facial redness/swelling and tenderness. MRI: Interval progression/enlargement of extracranial subcutaneous fluid collections with soft tissue swelling 12 cc's of turbid fluid with some blood was removed from previous incision by a needle and smear showing rare GPC and many PMN. - R frontal convexity meningioma s/p gross total resection 10/07/2017, -HTN -DM -Asthma -Melanoma of L arm s/p local excision and lymph node removal in 2010. RECOMMENDATIONS: -c/w vancomcyin and meropenem -F/u OR cx Thank you very much for inviting us to participate in the care of this patient. Case seen and discussed with Dr. Jacob Contreras MD Infectious Disease Fellow Pager #: [phone]++++++++++++++++++++++++++++++++++++++++++++++++++++++++++++++++++++++++++ +++++++++++++++++++++++++++++++++++++++++++++++++++++++++++++++++++++++++++ ++++++++++++ INFECTIOUS DISEASES STAFF October 26, 2017 The patient was seen, chart reviewed and multiple MRI scans and CT scans seen. I concur with the above evaluation and plan per Dr Contreras above. We saw the patient together and her note has been edited to reflect my direct input. 47 yo WF from [employer] - Type II DM with diabetic neuropathy - asthma, not steroid-dependent - melanoma L arm s/p local excision and lymph node removal in 2010 - R frontal convexity meningioma s/p gross total resection 10/07/[address] March - post op low grade fever, swelling and tenderness over the incision line, left side,x 1 week - erythema and swelling mainly on the right side of forehead and face, with tenderness, periorbital edema x 1-2 days - MRI 10/25 with extra-axial fluid underlying the right frontal parietal craniotomy. ?Interval progression and enlargement of extracranial subcutaneous fluid collections with soft tissue swelling concerning for infection - S/P bedside aspiration of fluctuant soft tissue area left frontal, with purulence, c/w CSF with 24818 RBCs, 43080 WBCs (83% neut); pro 618, glu < 2. GPCs on smear. - CRP 22, She has a surgical site infection with infected pockets of CSF in subcutaneous tissue on both the right and left. The largest is multiloculated 8.5 x 2.9 cm, which enhance with contrast. The R temporalis muscle is enlarged and enhances also, and is tender to palpation on exam. There is purulent fluid coming from the left sided collection, which was aspirated last PM, and showed pus and GPCs on smear. There is cellulitis involving the forehead, R > L, with swelling in periorbital area down to the cheeks. She has multiple subgaleal abscesses (extra-cranial). There is some extra-axial fluid that looks epidural. None of the collections are restricting on DWI, but clinically these are infected. Unclear if the epidural fluid on the right is infected or not. AX T2, series 14, 21 series 14, 33 Coronal T1, series 13, 29 Sagittal series 12, 10 Agree fully with planned IANDD, washout, and possible removal of the bone flap. This is probably staphylococcal infection but agree with vancomycin and meropenem for now Would send additional specimens from OR for gram stain, culture, AFB and fungal Mother at bedside and questions answered in detail Gerard Camp MD October 26, 2017/ pt seen 2 PM CBC Collected: 10/26/2017 Status: F Source: [place] 6:10 AM [facility] REPOSITORY TYPE CODE TESTS RESULT OUT OF REFERENCE UNITS RANGE LAB WBC 3.70-11.00 k/uL WBC High 16.72 LAB RBC 3.90-5.20 m/uL Low RBC 3.03 LAB HGB 11.5-15.5 g/dL Low Hemoglobin 8.9 LAB HCT 36.0-46.0 % Low Hematocrit 27.9 LAB MCV 80.0-100.0 fL MCV 92.1 LAB MCH 26.0-34.0 pG MCH 29.4 LAB MCHC 30.5-36.0 g/dL MCHC 31.9 LAB RDWCV 11.5-15.0 % RDW-CV 13.3 LAB PLTCT 150-400 k/uL Platelet Count 282 LAB MPV 9.0-12.7 fL MPV 9.9 LAB ABSNUC <0.01 k/uL Absolute nRBC <0.01 Performed By: #### CBC #### [facility] [address] [place] [address] SURGICAL PATHOLOGY Observed: 10/26/2017 Status: F Source: [place] 12:00 AM [facility] REPOSITORY Specimen originated from [facility] Specimen #: [id number] Submitting Physician: ELIAZAR MARCH MD FINAL DIAGNOSIS Site not specified, hardware, removal - Plates and screws (gross diagnosis only). [place]AWNEE/OKSANA/stacy 10/27/2017 Derick Collazo M.D. (Electronic Signature) SPECIMEN SUBMITTED A: NEURO PLATES + SCREWS CLINICAL DATA WOUND INFECTION GROSS DESCRIPTION A. Received in formalin is a specimen labeled neuro plates and screws. The specimen consists of 15 metal screws each measuring 0.3 cm in length. A single metal bracket measuring 1.1 cm in length and three star-shaped metal brackets measuring 2.6 cm in maximum dimension. No soft tissue is received. Gross diagnosis only. This case is seen by Dr. Collazo. OKSANA/stacy 10/27/2017 Gross examination performed at [facility], [address] [place] [address] Date of Report: 10/28/2017 Date of Procedure: 10/26/2017 Date of Receipt: 10/26/2017 Submitted by: ELIAZAR MARCH MD Location: [facility] Diagnostic interpretation performed at [facility], [address] [place] [address]. MRI BRAIN WO/W Observed: 10/25/2017 Status: F Source: [place] IVCON 10:52 PM [facility] REPOSITORY * * *Final Report* * * DATE OF EXAM: Oct 25 2017 10:52PM QBM [id number] - MRI BRAIN WO/W IVCON / PROCEDURE REASON: Wound infection * * * * Physician Interpretation * * * * EXAMINATION: MRI BRAIN WO/W IVCON HISTORY: Wound infection TECHNIQUE: Routine brain MRI protocol without and with contrast including diffusion images. MQ: [id number] Contrast: 19 mL Dotarem IV COMPARISON: 10/08/2017. RESULT: There is no restricted diffusion to suggest the presence of an acute infarct. Postoperative changes are present consisting of a right frontal parietal craniotomy. There is extra-axial fluid underlying the craniotomy site with minimal peripheral enhancement which is overall decreased in size since the previous MRI. Interval resolution of the previous identified intracranial air. Decreased mass effect on the right frontal horn. Resolution of previous identified midline shift. Minimal peel enhancement of the left frontal lobe is nonspecific and could be postoperative or could reflect infection. There is a single focal area of diffusion restriction underlying the anterior will hole which could reflect the presence of high proteinaceous fluid/pus. Stable small meningioma measuring 1 cm maximum AP diameter left frontal parietal meningioma. No additional foci of abnormal intracranial enhancement. Since prior examination there has been marked interval progression in enhancement of the right temporalis muscle and enlargement of a multiloculated fluid collection overlying the frontal region which measures approximately 8.5 transverse by 2.9 AP centimeters with additional smaller collection measuring in total approximately 6.4 AP by 1.9 transverse appears. These collections demonstrate peripheral enhancement with overlying soft tissue prominence and could reflect infection given clinical history. Collection laterally and inferiorly appears contiguous with a will hole. Axial cranial soft tissues otherwise unremarkable. Cerebellar tonsils are normally positioned. Flow voids of the major intracranial blood vessels are identified and are patent by spin echo criteria. Minimal mucosal thickening present within the imaged paranasal sinuses. IMPRESSION: Resolving intracranial postoperative changes as above. Residual extra-axial fluid underlying the right frontal parietal craniotomy as above. Interval progression/enlargement of extracranial subcutaneous fluid collections with soft tissue swelling as above concerning for infection given the clinical history. Marketing Research Coordinator: PSCB Transcribe Date/Time: Oct 25 2017 10:56P Dictated by : ONEAL FIERRO MD This examination was interpreted and the report reviewed and electronically signed by: ONEAL FIERRO MD on Oct 25 2017 11:13PM EST [id number] ALLIED HEALTH Observed: 10/25/2017 Status: COMPLETED Source: [place] 10:38 PM [facility] REPOSITORY HNO ID: [id number] Author: Nadia Hampton (Tech) Service: Radiology Author Type: Improvement Leader Type: Allied Health Filed: 10/25/2017 10:38 PM Note Text: Radiology Service Progress Note PATIENT NAME: Rose Roland DATE OF SERVICE: October 25, 2017 TIME: 10:38 PM PATIENT IDENTITY VERIFICATION COMPLETED USING TWO (2) METHODS: Patient confirmed name verbally, ID Band and Date of . PATIENT GENDER DATA: Female. status: : No status: NO. PATIENT RELEVANT IMPLANT DATA REVIEWED: Yes RADIOLOGY DEPARTMENT: MR; Exam(s) Completed: Head: Routine Brain PERIPHERAL IV DATA: Inpatient: see LDA documentation SIGNED BY: Nadia Hampton October 25, 2017 10:38 PM NURSING PROG Observed: 10/25/2017 Status: COMPLETED Source: [place] 10:16 PM [facility] REPOSITORY HNO ID: [id number] Author: Socorro Javier) ALMA Adams Service: (none) Author Type: Registered Nurse Type: Nursing Progress Note Filed: 10/25/2017 10:18 PM Note Text: Radiology Service Progress Note PATIENT NAME: Rose Roland DATE OF SERVICE: October 25, 2017 TIME: 10:17 PM PATIENT WEIGHT: 213 LBS PATIENT IDENTITY VERIFICATION COMPLETED USING TWO (2) METHODS: Patient confirmed name verbally and ID band matches.. PATIENT GENDER DATA: Female. status: : No status: NO. CONTRAST INDUCED NEPHROPATHY RISK FACTORS: Not applicable CREATININE: Creatinine Date Value Ref Range Status 10/25/2017 0.82 0.58 - 0.96 mg/dL Final 10/08/2017 0.71 0.58 - 0.96 mg/dL Final 10/07/2017 0.69 0.58 - 0.96 mg/dL Final eGFR-All Other Races Date Value Ref Range Status 10/25/2017 >60 . Final Comment: eGFR (Estimated GFR) Units of measure: mL/min/1.73 meters squared eGFR is derived from the reexpressed MDRD Study equation using the following parameters: serum creatinine, age, gender and race. The creatinine assay has been calibrated to be traceable to IDMS. An eGFR <60 mL/min/1.73m2 for >3 months is consistent with chronic kidney disease. Refer to KDOQI guidelines for clinical interpretation. In patients with unstable renal function, e.g. those with acute kidney injury, the eGFR may not accurately reflect actual GFR. eGFR- Date Value Ref Range Status 10/25/2017 >60 Final P.O.C.T. RESULTS: POC done: Yes, See Lab Tab October 25, 2017 TREATMENT: No Hydration needed. ALLERGIES: Reviewed and unchanged CONTRAST ALLERGY: NO. IV SITE: Inpatient - refer to LDA documentation- Right AC IV flushed well with good blood return pre and post injection of contrast. IV SITE APPEARANCE: Clean,Dry and Intact SIGNED BY: Socorro Adams RN October 25, 2017 10:17 PM Observed: 10/25/2017 Status: F Source: [facility] BLOOD CULTURE 10:14 PM [facility] [place] REPOSITORY Sp. Request/Comment: - The blood culture bottles are underfilled. Adding volume lower or higher than the 8 to 10 mL per bottle, which is the manufacturers recommended volume, may adversely affect the re covery and/or detection of organisms. 11.8 CC Culture Result - No growth 5 days Performed By: #### BLCUL #### [facility] [address] [place], [place] [address] CONSULT PROG Observed: 10/25/2017 Status: COMPLETED Source: [facility] 9:33 PM [facility] REPOSITORY HNO ID: [id number] Author: Lashanda Houston (Pharmacist) Service: Pharmacy Author Type: Pharmacist Type: Consult Progress Note Filed: 10/25/2017 9:36 PM Note Text: PHARMACY VANCOMYCIN DOSING NOTE Patient Name: Rose Roland Admission Date: 10/25/2017 Date of Consult: 10/25/2017 Time of Consult: 9:33 PM Indication: CONCRETE MASON infection Goal Range: 10-20 mcg/mL RECOMMENDATIONS/PLAN: Pharmacy consulted for Vancomycin dosing for Rose Roland, a 47 year old, female who is being treated with Vancomycin for CONCRETE MASON infection. 1. Patient is currently ordered Vancomycin 1 g IV q12h. Today is day 1 of therapy. 2. No Vancomycin level has been drawn for this dosing regimen. 3. Will increase Vancomycin to 1.5 g with a dosing interval of q12h Will administer Vancomycin 2 g IV initial dose. 4. The next Vancomycin level will be ordered for 10/27/2017 prior to the 5th dose unless clinically indicated sooner. (Pharmacy will order) We will follow patient renal function, Vancomycin levels and doses with you during the course of therapy. Additional recommendations will appear in follow up notes. If you have any questions, [place] [phone]. Age: [age] year old Allergies: ALLERGIES No Known Allergies Last 3 Encounter Wt Readings: Date: Wt: 10/25/2017 96.7 kg (213 lb 3.2 oz) 10/04/2017 104.7 kg (230 lb 13.2 oz) 08/24/2017 96.5 kg (212 lb 12.8 oz) Last 1 Encounter Ht Readings: Date: Ht: 10/04/2017 164 cm (5' 4.57) CrCl: 100 mL/min Temp (24hrs), Av.7 ?C (101.6 ?F), Min:37.9 ?C (100.2 ?F), Max:39.4 ?C (102.9 ?F) - Current Temp: 37.9 ?C (100.2 ?F) Labs BUN (mg/dL) Date Value 10/25/2017 7 10/08/2017 10 10/07/2017 8 Creatinine (mg/dL) Date Value 10/25/2017 0.82 10/08/2017 0.71 10/07/2017 0.69 WBC (k/uL) Date Value 10/25/2017 18.60 (H) 10/07/2017 15.23 (H) 10/05/2017 10.52 Vancomycin Levels: No results found for: VANCORA Thank you, Lashanda Houston, Pharmacist Observed: 10/25/2017 Status: F Source: [facility] BLOOD CULTURE 8:30 PM [facility] REPOSITORY Culture Result - No growth 5 days Performed By: #### BLCUL #### [facility] [address] [place] [id number] ROUTINE ANALYSIS Collected: 10/25/2017 Status: F Source: [place] (CSF) 7:40 PM [facility] REPOSITORY TYPE CODE TESTS RESULT OUT OF RANGE REFERENCE UNITS LAB CCOLR Colorless Slightly Abnormal Color bloody Alert LAB CCLAR Clear Turbid Abnormal Clarity Alert LAB SCCOLR Colorless Abnormal Suprntnt Color Xanthochromic Alert LAB SCCLAR Clear Clear Suprntnt Clarity LAB CRBC 0-1 /uL High 49271 RBC LAB CWBC 0-5 /uL High 82911 Nucleated Cells, CSF Result Comment: Some reference ranges and other method performance specifications have not been established for this body fluid. This test was developed and its performance characteristics determined by [facility] [place] ([facility] It has not been cleared or approved by the FDA. [facility] is regulated under CLIA as qualified to perform high-complexity testing. This test is used for clinical purposes. It should not be regarded as investigational or for research. LAB CSFCOM CSF Test Not Comment Indicated LAB CSFREV CSF Test Not Review Indicated LAB CSLDNM Slide [id number] Number CSF LAB CNEUT 0-3 % High Neut% 83 LAB CMONO 10-50 % [place]% 11 LAB CMACRO % 6 Macro% LAB CPROT 15-45 mg/dL High 618 Protein, CSF Result Comment: RBCS present. Total protein of questionable significance LAB CGLUC 40-70 mg/dL Low Glucose, CSF <2 Result Comment: Result rechecked. Performed By: #### RTCSF #### [facility] [employer] [facility] [address] [place], [place] [address] Observed: 10/25/2017 Status: F Source: [facility] CSF CULT AND STAIN 7:40 PM [facility] REPOSITORY Sp. Request/Comment: - Specimen received in sterile container. 6.0 CC Smear Result - Gram stain performed on cytospun specimen. Rare --> ABNORMAL ALERT Gram positive cocci --> ABNORMAL ALERT Many Polymorphonuclear leukocytes Many Red Blood Cells (NOTE) POSITIVE CSF CALLED TO AND READ BACK BY: Thiago FRANK H63 10/25/17 2330 Betty MERINO Culture Result - Few Staphylococcus aureus --> ABNORMAL ALERT ORGANISM: Staphylococcus aureus METHOD: Minimum inhibitory concentration(Vitek) Antibiotic Interp ALAYNA Status Vancomycin SUSCEPTIBLE <=0.5 F Oxacillin SUSCEPTIBLE <=0.25 F Oxacillin susceptible staphylococci are susceptible to other penicillinase stable penicillins, beta lactam/beta lactamase inhibitor combinations, anti staphyloccal cephems, and carbapenems. Trimeth sulfameth SUSCEPTIBLE <=10 F Gentamicin SUSCEPTIBLE <=0.5 F Rifampin SUSCEPTIBLE <=0.5 F Rifampin should not be used alone for antimicrobial therapy. Performed By: #### CSFCUL #### [facility] [employer] [facility] [address] [place], [place] [address] PROCEDURE Observed: 10/25/2017 Status: COMPLETED Source: [facility] 7:36 PM [facility] REPOSITORY HNO ID: [id number] Author: Teofilo Pierce Service: Neurosurgery Author Type: Resident Type: Procedures Filed: 10/26/2017 5:04 AM Note Text: Fluid collection tap Patient consented for procedure. I prepped and draped patient in sterile fashion. I inserted small needle into fluid collection near previous incision. I was able to drain 12 cc's of turbid fluid with some blood. I deposited fluid in sterile cup. Patient did not experience any pain. Sample was taken to lab immediately for analysis. Teofilo Pierce MD Resident Neurosurgery PGY4 #[id number] XR CHEST 2V FRONTAL/LAT Observed: 10/25/2017 Status: F Source: [facility] 5:26 PM [facility] REPOSITORY * * *Final Report* * * DATE OF EXAM: Oct 25 2017 5:26PM LLOYD 5291 - XR CHEST 2V FRONTAL/LAT / PROCEDURE REASON: Wound infection * * * * Physician Interpretation * * * * EXAMINATION: CHEST RADIOGRAPH (2 VIEW FRONTAL and LATERAL) Clinical History: Wound infection MQ: XC2_5 Comparison: 10 07 17 RESULT: Lines, tubes, and devices: None. Lungs and pleura: Atelectatic changes at the bases have mildly improved. Superimposed infiltrates/infection or edema cannot be entirely excluded. No pleural effusion or pneumothorax. Cardiomediastinal silhouette: Heart is within normal. Other: . IMPRESSION: As above Marketing Research Coordinator: PSCOsiel Transcribe Date/Time: Oct 25 2017 6:24P Dictated by : PAOLA MCCLELLAN MD This examination was interpreted and the report reviewed and electronically signed by: PAOLA MCCLELLAN MD on Oct 25 2017 6:25PM EST [id number] TYPE AND SCREEN Collected: 10/25/2017 Status: F Source: [facility] 4:26 PM [facility] REPOSITORY TYPE CODE TESTS RESULT OUT OF REFERENCE UNITS RANGE LAB %ABR O ABO/RH(D) POSITIVE LAB % Antibody NEG Screen Performed By: #### TSCR #### [facility] [address] [place], [place] [address] CBC AND DIFFERENTIAL Collected: 10/25/2017 Status: F Source: [facility] 4:25 PM [facility] REPOSITORY TYPE CODE TESTS RESULT OUT OF REFERENCE UNITS RANGE LAB WBC 3.70-11.00 k/uL WBC High 18.60 LAB RBC 3.90-5.20 m/uL Low RBC 3.53 LAB HGB 11.5-15.5 g/dL Low Hemoglobin 10.2 LAB HCT 36.0-46.0 % Low Hematocrit 32.1 LAB MCV 80.0-100.0 fL MCV 90.9 LAB MCH 26.0-34.0 pG MCH 28.9 LAB MCHC 30.5-36.0 g/dL MCHC 31.8 LAB RDWCV 11.5-15.0 % RDW-CV 13.2 LAB PLTCT 150-400 k/uL Platelet Count 325 LAB MPV 9.0-12.7 fL MPV 9.5 LAB ANEUT % Neut% 88.9 LAB AANEUT 1.45-7.50 k/uL Abs Neut High 16.52 LAB ALYMP % Lymph% 4.8 LAB AALYMP 1.00-4.00 k/uL Low Abs Lymph 0.90 LAB AMONO % [place]% 5.6 LAB AAMONO <0.87 k/uL Abs [place] High 1.04 LAB AEOS % Eosin% 0.5 LAB AAEOS <0.46 k/uL Abs Eosin 0.10 LAB ABASO % Baso% 0.2 LAB AABASO <0.11 k/uL Abs Baso 0.04 LAB AUNRBC 0 /100 WBC NRBCs 0.0 LAB ABNRBC <0.01 k/uL Absolute nRBC <0.01 LAB DTYP DTYPE Auto Diff Performed By: #### CBCDIF, PT, PTT, BMP, CRP, MG1, PHOS #### [facility] [address] [place], [place] [address] PROTIME Collected: 10/25/2017 Status: F Source: [facility] 4:25 PM [facility] REPOSITORY TYPE CODE TESTS RESULT OUT OF RANGE REFERENCE UNITS LAB PSEC 9.7-13.0 sec PT Sec 12.1 LAB INR 0.9-1.3 PT INR 1.2 Result Comment: Vitamin K Antagonist (VKA) Therapeutic Range: INR 2 to 3 (Target INR of 2.5) Note: For patients treated with VKA drugs, such as warfarin, the [place] [employer] 2012 Guideline recommends a therapeutic INR range of 2 to 3 (target INR of 2.5). This recommendation includes high-risk patients with antiphospholipid syndrome with previous arterial or venous thromboembolism, current-generation mechanical or bioprosthetic aortic heart valve replacement. Note: Patients with mechanical aortic valve replacement and additional risk factors for thromboembolic events (atrial fibrillation, previous thromboembolism, LV dysfunction, hypercoagulable conditions) or an older generation mechanical AVR (i.e., ball in-Cage) or any mechanical MVR should have a INR therapeutic range of 2.5 to 3.5 (target INR of 3). Malorie GH, et al. Chest 2012, 141:7S-47S Jocelyn COLEMAN et al. [facility] 2017, 70: 252-289 Performed By: #### CBCDIF, PT, PTT, BMP, CRP, MG1, PHOS #### [facility] [address] [place], [place] [address] APTT Collected: 10/25/2017 Status: F Source: [facility] 4:25 [facility] REPOSITORY TYPE CODE TESTS RESULT OUT OF RANGE REFERENCE UNITS LAB APTT 23.0-32.4 sec APTT 30.2 Result Comment: Unfractionated Heparin Therapeutic Ranges: Standard Heparin Nomogram: 53 to 78 seconds (anti-Xa level of 0.3 to 0.7 U/ml) Low Dose/ACS Nomogram: 49 to 67 seconds (anti-Xa level of 0.2 to 0.5 U/ml) Stroke Treatment Nomogram: 49 to 67 seconds (anti-Xa level of 0.2 to 0.5 U/ml) Note: The APTT therapeutic range has been determined for the current lot of laboratory APTT reagent in use throughout the [facility]. Performed By: #### CBCDIF, PT, PTT, BMP, CRP, MG1, PHOS #### [facility] [address] [place], [place] [address] BASIC METABOLIC PANL Collected: 10/25/2017 Status: F Source: [place] 4:[address] [place] [address] REPOSITORY TYPE CODE TESTS RESULT OUT OF REFERENCE UNITS RANGE LAB GLU 74-99 mg/dL High Glucose 131 Result Comment: The [place] Diabetes Association (ADA) provides guidance for cutoff values for fasting glucose and random glucose. The ADA defines fasting as no caloric intake for at least 8 hours. Fas ting plasma glucose results between 100 to 125 mg/dL indicate increased risk for diabetes (prediabetes). Fasting plasma glucose results greater than or equal to 126 mg/dL meet the criteria for diagnosis of diabetes. In the absence of unequivocal hyperglycemia, results should be confirmed by repeat testing. In a patient with classic symptoms of hyperglycemia or hyperglycemic crisis, random plasma glucose results greater than or equal to 200 mg/dL meet the criteria for diagnosis of diabetes. Reference: Standards of Medical Care in Diabetes 2016, [place] [employer] Association. Diabetes Care. 2016.39(Suppl 1). LAB BUN 7-21 mg/dL BUN 7 LAB CRET 0.58-0.96 mg/dL Creatinine 0.82 LAB NA 136-144 mmol/L Sodium 137 LAB K 3.7-5.1 mmol/L Potassium Low 3.5 LAB CL 97-105 mmol/L Chloride 100 LAB CO2 22-30 mmol/L CO2 Low 21 LAB AGAP 9-18 mmol/L Anion Gap 16 LAB CA 8.5-10.2 mg/dL Calcium, Total 9.2 LAB GFRAA eGFR- Amer. >60 LAB GFRNAA . eGFR-All Other Races >60 Result Comment: eGFR (Estimated GFR) Units of measure: mL/min/1.73 meters squared eGFR is derived from the reexpressed MDRD Study equation using the following parameters: serum creatinine, age, gender and race. The creatinine assay has been calibrated to be traceable to IDMS. An eGFR <60 mL/min/1.73m2 for >3 months is consistent with chronic kidney disease. Refer to KDOQI guidelines for clinical interpretation. In patients with unstable renal function, e.g. those with acute kidney injury, the eGFR may not accurately reflect actual GFR. Performed By: #### CBCDIF, PT, PTT, BMP, CRP, MG1, PHOS #### [facility] [address] [place] [address] C-REACTIVE PROTEIN Collected: 10/25/2017 Status: F Source: [place] 4:25 PM [facility] REPOSITORY TYPE CODE TESTS RESULT OUT OF REFERENCE UNITS RANGE LAB CRP <0.9 mg/dL High C-Reactive 22.0 Protein Performed By: #### CBCDIF, PT, PTT, BMP, CRP, MG1, PHOS #### [facility] [address] [place], [place] [address] MAGNESIUM Collected: 10/25/2017 Status: F Source: [place] 4:25 PM [facility] REPOSITORY TYPE CODE TESTS RESULT OUT OF REFERENCE UNITS RANGE LAB MG 1.7-2.3 mg/dL Magnesium 1.7 Performed By: #### CBCDIF, PT, PTT, BMP, CRP, MG1, PHOS #### [facility] [address] [place], [place] [address] PHOSPHORUS Collected: 10/25/2017 Status: F Source: [place] 4:25 PM [facility] REPOSITORY TYPE CODE TESTS RESULT OUT OF REFERENCE UNITS RANGE LAB PHOS 2.7-4.8 mg/dL Low Phosphorus 2.3 Performed By: #### CBCDIF, PT, PTT, BMP, CRP, MG1, PHOS #### [facility] [address] [place], [place] [address] UA W/CULT IF INDICATED Collected: 10/25/2017 Status: F Source: [place] 4:09 PM [facility] REPOSITORY TYPE CODE TESTS RESULT OUT OF RANGE REFERENCE UNITS LAB UCOL Yellow Color Yellow LAB [facility] Clear Clarity Abnormal Cloudy Alert LAB UGLUC Negative mg/dL Glucose, Urine Negative LAB UBIL Negative Bilirubin, Urine Negative LAB UKET Negative Ketones, Urine Negative LAB USPG 1.005-1.030 Specific Drew, Ur 1.018 LAB UHGB Negative Abnormal Hemoglobin/Blood, 2+ Alert Ur LAB UPH 4.5-8.0 pH 5.0 LAB UPROT Negative mg/dL Protein, Abnormal Urine 100 Alert LAB UUROB Normal Urobilinogen Normal LAB UNITR Negative Nitrites Negative LAB ULKEST Negative Leukest Abnormal Trace Alert Result Comment: Culture to follow. Indicated and ordered. LAB UCOM Comments SEE COMMENT Result Comment: Microscopic Examination Performed LAB UMCOM Urine SEE Alayna Comment COMMENT Result Comment: Result rechecked. LAB UWBC 0-5 /HPF WBC 0-5 LAB URBC 0-3 /HPF RBC 0-3 LAB UEPI /HPF Epithelial SEE Cells COMMENT Result Comment: Few Squamous Epithelial Cells Few Non-Squamous Epithelial Cells Performed By: #### UACII, UMCII #### [facility] [address] [place], [place] [address] REFLEX CULT IF Collected: 10/25/2017 Status: F Source: [place] INDIC 4:09 PM [facility] REPOSITORY TYPE CODE TESTS RESULT OUT OF REFERENCE UNITS RANGE LAB UMCII Reflex Culture to Cult if follow. Indic Indicated and ordered. Performed By: #### UACII, UMCII #### [facility] [address] [place], [place] [address] HCG QUAL, URINE Collected: 10/25/2017 Status: F Source: [place] 4:09 PM [facility] REPOSITORY TYPE CODE TESTS RESULT OUT OF REFERENCE UNITS RANGE LAB [facility] Negative HCG Qual, Negative Urine Result Comment: This test is intended to aid in the early detection of . Very dilute urine samples, as indicated by a low specific gravity, may not contain pest control service representative levels of hCG. This te st detects intact hCG only. This test does not reliably detect hCG degradation products, including free-beta subunit and beta-core fragment. Therefore, this test may show reduced reactivity in urine after 8 weeks gestation. A number of conditions other than , including trophoblastic disease and certain non-trophoblastic neoplasms ca use elevated levels of hCG. As with any assay employing mouse antibodies, the possibility exists for interference by human anti-mouse antibodies (HAMA) in the specimen. The test provides a presumptive diagnosis for . Performed By: #### UHCG #### [facility] [address] [place] [id number] STAPH AUREUS PCR Collected: 10/25/2017 Status: F Source: [place] 4:09 PM [facility] REPOSITORY TYPE CODE TESTS RESULT OUT OF REFERENCE UNITS RANGE LAB [facility] Nasal S aureus Spec Source LAB MRSRES Negative for MRSA MRSA by PCR. PCR LAB SARES Negative for Staph Staphylococcus aureus PCR aureus by PCR. Performed By: #### SAPCR #### [place] [address] [place] [address] Observed: 10/25/2017 Status: F Source: [place] URINE CULTURE 4:09 PM [facility] REPOSITORY Sp. Request/Comment: - Specimen received in preservative Culture Result - >=100,000 CFU/ml Klebsiella pneumoniae --> ABNORMAL ALERT ORGANISM: Klebsiella pneumoniae METHOD: Minimum inhibitory concentration(Vitek) Antibiotic Interp ALAYNA Status Ampicillin RESISTANT >=32 F Gentamicin SUSCEPTIBLE <=1 F Trimeth sulfameth SUSCEPTIBLE <=20 F Cefazolin SUSCEPTIBLE <=4 F CLSI breakpoints for therapy of uncomplicated UTI's due to E.coli, K.pneumoniae, and P.mirabilis were applied and may be used to predict the activity of oral agents(cefaclor, cefdinir, cefpodoxime, cefp rozil, cefuroxime, cephalexin, loracarbef). Ciprofloxacin SUSCEPTIBLE <=0.25 F Nitrofurantoin SUSCEPTIBLE <=16 F Cefepime SUSCEPTIBLE <=1 F Piperacillin/Tazobac SUSCEPTIBLE <=4 F Ampicillin Sulbact SUSCEPTIBLE 4 F Ceftriaxone SUSCEPTIBLE <=1 F Meropenem SUSCEPTIBLE <=0.25 F Ertapenem SUSCEPTIBLE <=0.5 F Performed By: #### URDELMAL #### [facility] [address] [place], [place] [address] HISTORY PHYSICAL Observed: 10/25/2017 Status: COMPLETED Source: [place] 3:53 PM [facility] REPOSITORY HNO ID: [id number] Author: Eliazar March Service: Neurosurgery Author Type: Physician Type: HANDP Filed: 10/26/2017 9:18 AM Note Text: NEUROSURGERY ADMISSION HISTORY AND PHYSICAL EXAMINATION PLEASE DO NOT REMOVE FROM THE CHART OR MODIFY PRINTED COPY Patient Name: Rose Roland CHIEF COMPLAINT: HPI: 47 year old R-handed female with PMH significant for HTN, HLD, DM with diabetic neuropathy, asthma, melanoma of L arm s/p local excision and lymph node removal in 2010, and R frontal convexity meningioma s/p gross total resection 10/07/[address] March, admitted from clinic where she presented with low grade fever, R facial redness/swelling and tenderness, concerning for infection. In clinic, patient had area of swelling on incision line on left approximately 2 inches in diameter. Patient reports that this swelling began about a week ago. Patient has been applying ice and keeping it elevated with sleep. CRP 22.0 WBC 18.60. Negative UTI PAST MEDICAL HISTORY: PAST MEDICAL HISTORY Diagnosis Date - Abdominal pain - Abdominal pain, epigastric - Acute gastritis without mention of hemorrhage - Asthma - DM (diabetes mellitus) (HCC) - Esophagitis, unspecified - Hypertension - Melanoma (HCC) NO BP LEFT ARM - Menorrhagia - Neuropathy (HCC) PAST SURGICAL HISTORY: PAST SURGICAL HISTORY Procedure Laterality Date - DANDC, DIAG AND/OR THERAPEUTIC Dilation AND curettage - EGD W/O BRSH SPECIMEN W/BX 05/15/09 - L'SCOPE DX W/WO BRUSHINGS/WASHINGS Laparoscopy - LIGATE FALLOPIAN TUBE 09/24/14 - PAST SURGICAL HISTORY OF 02/02/2011 excision of melanoma Lt arm with nodes - REMOVAL GALLBLADDER Cholecystectomy - complex A. our procedure with biliary enteric anastomosis. Prolonged postoperative course - REPAIR INCISIONAL HERNIA,DARI 02/26/11 RUQ FAMILY HISTORY: FAMILY HISTORY Problem Relation Age of Onset - Hypertension Mother breast cancer - Breast Cancer Mother - Cancer Sister - Hypertension Maternal Grandmother - Coronary Artery Disease Maternal Grandfather - Diabetes Maternal Uncle - Diabetes Maternal Uncle - Diabetes Maternal Uncle - Diabetes Maternal Uncle - Cancer Maternal Uncle lung SOCIAL HISTORY: Social History Marital status: Spouse name: Years of education: 12 Number of children: 1 Occupational History Occupation Employer [employer] Social History Main Topics Smoking status: Never Smoker Smokeless status: Never Used Alcohol use: No Drug use: No Sexual activity: Yes Partners with: Male control/protection: Tubal Ligation MEDICATIONS: acetaminophen (TYLENOL) 325 mg tablet Take 1 tablet by mouth every 4 hours as needed for Pain or Fever. docusate sodium (COLACE) 100 mg capsule Take 1 capsule by mouth twice daily as needed for Constipation. oxyCODONE-acetaminophen (PERCOCET) 5-325 mg tablet Take 1- 2 tablets by mouth every 4 hours as needed for Pain for up to 14 days.Earliest Fill Date: 10/09/[address] (PROTONIX) 40 mg tablet Take 1 tablet by mouth DAILY (6 AM) for 14 days. ATORVASTATIN CALCIUM (LIPITOR ORAL) Take by mouth once daily. gabapentin (NEURONTIN) 100 mg capsule Take 100 mg by mouth three times daily. aspirin, enteric coated (ASPIRIN, ENTERIC COATED) 81 mg EC tablet Take 81 mg by mouth once daily. medroxyPROGESTERone (DEPO-PROVERA) 150 mg/mL syrg Inject 1 mL intramuscularly every 12 weeks. cyclobenzaprine (FLEXERIL) 10 mg tablet Take 10 mg by mouth as needed. sulindac (CLINORIL) 200 mg tablet Take 200 mg by mouth as needed. metoprolol tartrate, short acting, (LOPRESSOR) 25 mg tablet Take 25 mg by mouth twice daily. sertraline 50 mg tablet Take 50 mg by mouth once daily. IPRATROPRIUM-ALBUTEROL 0.5 mg-3 mg(2.5 mg base)/3 mL INHALATION Nebu metFORMIN 1,000 mg ORAL 24 hr tablet Take one(1) tablet daily. ALBUTEROL 90 MCG/ACTUATION AEROSOL INHALER Use as directed four(4) times daily. as needed Current hospital medications: gabapentin 100 mg cap(s) (NEURONTIN) 100 mg ORAL TID [START ON 10/26/2017] atorvastatin 20 mg tab(s) (LIPITOR) 20 mg ORAL AT BEDTIME ipratropium-albuterol 3 mL nebulizer solution (DUONEB) 3 mL INHALATION q 4 H PRN metoprolol tartrate (short acting) 25 mg tab(s) (LOPRESSOR) 25 mg ORAL BID docusate sodium 100 mg cap(s) (COLACE) 100 mg ORAL BID [START ON 10/26/2017] sertraline 50 mg tab(s) (ZOLOFT) 50 mg ORAL DAILY cyclobenzaprine 10 mg tab(s) (FLEXERIL) 10 mg ORAL BID PRN iv contrast (radiology procedure) INTRAVENOUS DIRECTED PRN NaCl 0.9% iv infusion 75 mL/hr INTRAVENOUS CONTINUOUS acetaminophen 650 mg tab(s) (TYLENOL) 650 mg ORAL q 4 H PRN hydrALAZINE 5 mg in NaCl 0.9% 5 mL (APRESOLINE) 5 mg INTRAVENOUS q 10 MIN PRN hydrALAZINE 10 mg in NaCl 0.9% 10 mL (APRESOLINE) 10 mg INTRAVENOUS q 10 MIN PRN ondansetron (PF) 4 mg injection (ZOFRAN) 4 mg INTRAVENOUS q 6 H PRN trimethobenzamide 200 mg injection (TIGAN) 200 mg INTRAMUSCULAR q 6 H PRN ALLERGIES: ALLERGIES No Known Allergies COMPLETE REVIEW OF SYSTEMS: See HPI PHYSICAL EXAM: AAOx3, NAD Naming 3/3, repetition intact PERRL, EOMI VF intact FS, TM Facial sensation intact No drift Motor strength 5/5 x 4 SILT Facial swelling evident, predominantly on right side Incision shows area of fluctuance on left side , some redness as well CV: RRR, no r/m/g Chest: CTAB Abdomen: Soft, NT/ND DATA: Radiology: See HPI Laboratory: CRP 22.0 WBC 18.60. Negative UTI ASSESSMENT AND PLAN: 47 year old R-handed female with PMH significant for HTN, HLD, DM with diabetic neuropathy, asthma, melanoma of L arm s/p local excision and lymph node removal in 2010, and R frontal convexity meningioma s/p gross total resection 10/07/[address] Mrach, admitted from clinic where she presented with low grade fever, R facial redness/swelling and tenderness, concerning for infection. - transfer to SDU for monitoring - 1 L Normal Saline Bolus now - admission labs, including TANDS, nasal swab - will tap fluid collection, will send cultures - blood cultures x 2 - once cultures sent, will start IV vancomycin, meropenem - MRI Brain WWO - will bluecard for the OR for wound washout, possible removal of bone, possible mesh cranioplasty - admission DVT scan - q2h neuro checks Please page NSGY with any exam change Above plan discussed with chief and (Staff) Dr. March SIGNATURE: Teofilo Pierce MD Resident Neurosurgery PGY4 #[id number] [facility] STAFF: TEACHING PHYSICIAN NOTE OF PERSONAL INVOLVEMENT IN CARE I have reviewed the progress note obtained and documented by the Resident and I personally participated in the villalba components. I have discussed the case and management of the patient's care with the Resident. The following comments revise or confirm relevant villalba components of the Resident's note. History and exam as above. Wound red, tender, swollen. MRI done, no deep infection. Superficial fluid tapped, consistent with CSF and infection. Recommend OR today for exploration, washout, possible bone flap removal and titanium mesh cranioplasty, lumbar drain. Vanc/meropenem. BC pending. ID consult. Eliazar March MD Staff, Skull Base AND Cerebrovascular Surgery Department of Neurological Surgery [facility] NURSING PROG Observed: 10/25/2017 Status: COMPLETED Source: [place] 3:36 PM [facility] REPOSITORY HNO ID: [id number] Author: Shaunna (Rn) ALMA Fraser Service: (none) Author Type: Registered Nurse Type: Nursing Progress Note Filed: 10/25/2017 3:37 PM Note Text: Nursing Progress Note Patient Name: Rose Roland Patient Location: H060 001/H060-01 Daily Note: Direct admit to H60-1. Family at bedside. Oriented to the room and call light, bed in lowest position, wheels locked, side rails up x3. Awaiting orders. 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 Surgery on 10/07/2017 Right frontotemporal craniotomy for resection of brain tumor, possible blood product transfusion Patient is recovering fair postoperatively. Upon assessment, craniotomy incision is well-approximated and healing with some mild scabbing. Patient presents with low grade fever, right sided facial redness, swelling and tenderness to touch around the eye, cheek and forehead. There is an area of swelling on the incision line on the left that is approx 2 inches in diameter. Patient states that she had swelling (golf ball sized in same area) at d/c that resolved and this is a new swelling that began about a week ago. She has been applying ice and trying to stay elevated with sleep. Patient states that her appetite is decreased and she is not sleeping well. Dr. March and Dr. Davis notified. Dr. Davis evaluated patient. Patient was advised by Dr. Davis to report to J-1 admitting for direct admission and further evaluation. BP 157/95 Pulse 112 Temp 37.3 ?C (99.1 ?F) (Oral) Resp 16 Wt 96.7 kg (213 lb 3.2 oz) SpO2 99% BMI 35.96 kg/m2 Patient is agreeable to this plan and verbalized understanding. Charisse Marc RN, BSN pgr [phone] CNOV Observed: 10/25/2017 Status: COMPLETED Source: [place] 11:10 AM [facility] REPOSITORY Office Visit ([facility]) ROSE ROLAND ([id number]) 1970 F Date Time Provider Department 10/25/17 11:10 AM ASSESSMENT [id number] During your visit today, we recorded the following information about you: Temperature Pulse Respiration Blood pressure 99.1 degrees 112/minute 16/minute 157/95 Weight 96.7 kg Charisse Marc 10/25/2017 12:33 PM Signed Patient is here today unaccompanied (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 Surgery on 10/07/2017 Right frontotemporal craniotomy for resection of brain tumor, possible blood product transfusion Patient is recovering fair postoperatively. Upon assessment, craniotomy incision is well-approximated and healing with some mild scabbing. Patient presents with low grade fever, right sided facial redness, swelling and tenderness to touch around the eye, cheek and forehead. There is an area of swelling on the incision line on the left that is approx 2 inches in diameter. Patient states that she had swelling (golf ball sized in same area) at d/c that resolved and this is a new swelling that began about a week ago. She has been applying ice and trying to stay elevated with sleep. Patient states that her appetite is decreased and she is not sleeping well. Dr. March and Dr. Davis notified. Dr. Davis evaluated patient. Patient was advised by Dr. Davis to report to J-[facility] admitting for direct admission and further evaluation. BP 157/95 Pulse 112 Temp 37.3 ?C (99.1 ?F) (Oral) Resp 16 Wt 96.7 kg (213 lb 3.2 oz) SpO2 99% BMI 35.96 kg/m2 Patient is agreeable to this plan and verbalized understanding. Charisse Marc RN, BSN pgr [phone] Justin Lara LPN, PAIGE 10/25/2017 11:43 AM Signed Additional intake questions: Has the patient had nausea, vomiting, diarrhea, constipation, fatigue for ANDgt; 1 week? None of the above Does the patient have a decreased appetite? No Does patient want to see a Math Instructor? No (yes to any of above refer patient to schedulers for dietitian appointment) ) Does patient have any new or increased numbness or tingling of extremities? No Is patient interested in fertility information? No Does patient need any prescription refills? No Electronically Signed By: Justin Lara LPN Referring Provider: SELF [200] Allergies As of Date: 10/25/2017 (No Known Allergies) Date Reviewed: 10/25/2017 Reviewed by: Justin (Paige) PAIGE Lara - Fully Assessed Reason for Visit: Allied Health Visit [5] Cmt: Nursing 2 week post-op visit Established Patient [175] Reason For Visit History Recorded Primary Visit Diagnosis:Meningioma (HCC) [D32.9] Prescriptions as of 10/25/2017 Sig: ACETAMINOPHEN 325 MG TABLET Take 1 tablet by mouth every * DOCUSATE SODIUM 100 MG CAPSULE Take 1 capsule by mouth twice* OXYCODONE-ACETAMINOPHEN 5 MG-* Take 1-2 tablets by mouth leesa* PANTOPRAZOLE 40 MG TABLET,DEL* Take 1 tablet by mouth DAILY * DEXAMETHASONE 2 MG TABLET Take 1 tablet by mouth twice * LEVETIRACETAM 500 MG TABLET Take 1 tablet by mouth twice * LIPITOR ORAL Take by mouth once daily. GABAPENTIN 100 MG CAPSULE Take 100 mg by mouth three ti* ASPIRIN 81 MG TABLET,DELAYED * Take 81 mg by mouth once jen* MEDROXYPROGESTERONE 150 MG/ML* Inject 1 mL intramuscularly e* CYCLOBENZAPRINE 10 MG TABLET Take 10 mg by mouth as needed. SULINDAC 200 MG TABLET Take 200 mg by mouth as neede* METOPROLOL TARTRATE 25 MG TAB* Take 25 mg by mouth twice libby* SERTRALINE 50 MG TABLET Take 50 mg by mouth once jen* * IPRATROPIUM-ALBUTEROL 0.5 MG-* * METFORMIN ER 1,000 MG TABLET,* Take one(1) tablet daily. * ALBUTEROL 90 MCG/ACTUATION AE* Use as directed four(4) times* Problem List As Of Date 10/25/2017 Noted Resolved ACUTE PANCREATITIS [K85.90] INVALID FOR* CHOLELITHIASIS NOS [K80.20] INVALID FOR* ABDOMINAL PAIN UNSPEC SITE [R10.9] INVALID FOR* ABDOMINAL PAIN GENERALIZED [R10.84] INVALID FOR* ASA CLASS II [1001] INVALID FOR* PORTAL VEIN THROMBOSIS [I81] INVALID FOR* Abdominal Pain, Epigastric [R10.13] INVALID FOR* Unspecified Esophagitis [K20.9] INVALID FOR* Acute Gastritis without Mention of Hemorrhage [*INVALID FOR* Incisional hernia [K43.2] INVALID FOR* Incisional hernia with obstruction [K43.0] INVALID FOR* Melanoma (HCC) [C43.9] INVALID FOR* Brain mass [G93.9] INVALID FOR* Meningioma (HCC) [D32.9] INVALID FOR* More... Vasogenic cerebral edema (HCC) [G93.6] INVALID FOR* More... At risk of seizures [Z91.89] INVALID FOR* More... Visit Notes: >> PAIGE Nieves Lpn Oct 25, 2017 11:41 AM Status: Signed Additional intake questions: Has the patient had nausea, vomiting, diarrhea, constipation, fatigue for > 1 week? None of the above Does the patient have a decreased appetite? No Does patient want to see a Math Instructor? No (yes to any of above refer patient to schedulers for dietitian appointment) ) Does patient have any new or increased numbness or tingling of extremities? No Is patient interested in fertility information? No Does patient need any prescription refills? No Electronically Signed By: Justin Lara LPN Encounter Status:Closed by CHARISSE MARC on 10/25/17 HOSP Observed: 10/25/2017 Status: COMPLETED Source: [place] 12:00 AM [facility] [place] REPOSITORY Patient:Rose Roland MRN: <[id number]> Height:5' 4(1.626 m) Weight:227 lb 8.2 oz (103.2 kg) Outpatient Medications as of 10/26/17: acetaminophen (TYLENOL) 325 mg tablet docusate sodium (COLACE) 100 mg capsule oxyCODONE-acetaminophen (PERCOCET) 5-[address] (PROTONIX) 40 mg tablet ATORVASTATIN CALCIUM (LIPITOR ORAL) gabapentin (NEURONTIN) 100 mg capsule aspirin, enteric coated (ASPIRIN, ENTERIC COATED) 81 mg EC tablet medroxyPROGESTERone (DEPO-PROVERA) 150 mg/mL syrg cyclobenzaprine (FLEXERIL) 10 mg tablet sulindac (CLINORIL) 200 mg tablet metoprolol tartrate, short acting, (LOPRESSOR) 25 mg tablet sertraline 50 mg tablet IPRATROPRIUM-ALBUTEROL 0.5 mg-3 mg(2.5 mg base)/3 mL INHALATION Nebu metFORMIN 1,000 mg ORAL 24 hr tablet ALBUTEROL 90 MCG/ACTUATION AEROSOL INHALER Admission/Clinic Administered Medications as of 10/26/17: gabapentin 100 mg cap(s) (NEURONTIN) atorvastatin 20 mg tab(s) (LIPITOR) ipratropium-albuterol 3 mL nebulizer solution (DUONEB) metoprolol tartrate (short acting) 25 mg tab(s) (LOPRESSOR) docusate sodium 100 mg cap(s) (COLACE) sertraline 50 mg tab(s) (ZOLOFT) cyclobenzaprine 10 mg tab(s) (FLEXERIL) NaCl 0.9% iv infusion acetaminophen 650 mg tab(s) (TYLENOL) hydrALAZINE 5 mg in NaCl 0.9% 5 mL (APRESOLINE) hydrALAZINE 10 mg in NaCl 0.9% 10 mL (APRESOLINE) ondansetron (PF) 4 mg injection (ZOFRAN) trimethobenzamide 200 mg injection (TIGAN) oxyCODONE-acetaminophen 5-325 mg 1-2 tablet (PERCOCET) vancomycin dosing and monitoring per pharmacy vancomycin 1.5 g in D5W 250 mL (VANCOCIN) meropenem 2 g in NaCl 0.9% 100 mL (MERREM) Problem List: Acute pancreatitis [K85.90] Calculus of gallbladder without mention of cholecystitis or obstruction [K80.20] Abdominal pain, unspecified site [R10.9] Abdominal pain, generalized [R10.84] ASA CLASS II [1001] Portal vein thrombosis [I81] Abdominal pain, epigastric [R10.13] Esophagitis, unspecified [K20.9] Acute gastritis without mention of hemorrhage [K29.00] Incisional hernia [K43.2] Incisional hernia with obstruction [K43.0] Melanoma (HCC) [C43.9] Brain mass [G93.9] Meningioma (HCC) [D32.9] Vasogenic cerebral edema (HCC) [G93.6] At risk of seizures [Z91.89] Wound infection [T14.8XXA, L08.9] Obesity, Class II, BMI 35-39.9 E66.9 [E66.9] Allergies: No Known Allergies Date Verified:10/26/17 Lab Values Lab Value Units Date High Low POTA* 3.5 mmol/L 10/25/2017 5.1 3.7 CHAGO* 27.9 % 10/26/2017 46.0 36.0 Progress Notes ([facility] [place] [facility]): Charisse Monico 10/25/2017 12:33 PM Signed Patient is here today unaccompanied (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 Surgery on 10/07/2017 Right frontotemporal craniotomy for resection of brain tumor, possible blood product transfusion Patient is recovering fair postoperatively. Upon assessment, craniotomy incision is well-approximated and healing with some mild scabbing. Patient presents with low grade fever, right sided facial redness, swelling and tenderness to touch around the eye, cheek and forehead. There is an area of swelling on the incision line on the left that is approx 2 inches in diameter. Patient states that she had swelling (golf ball sized in same area) at d/c that resolved and this is a new swelling that began about a week ago. She has been applying ice and trying to stay elevated with sleep. Patient states that her appetite is decreased and she is not sleeping well. Dr. March and Dr. Davis notified. Dr. Davis evaluated patient. Patient was advised by Dr. Davis to report to J-[facility] admitting for direct admission and further evaluation. BP 157/95 Pulse 112 Temp 37.3 ?C (99.1 ?F) (Oral) Resp 16 Wt 96.7 kg (213 lb 3.2 oz) SpO2 99% BMI 35.96 kg/m2 Patient is agreeable to this plan and verbalized understanding. Charisse Marc RN, BSN pgr [phone] Justin Lara LPN, PAIGE 10/25/2017 11:43 AM Signed Additional intake questions: Has the patient had nausea, vomiting, diarrhea, constipation, fatigue for > 1 week? None of the above Does the patient have a decreased appetite? No Does patient want to see a Math Instructor? No (yes to any of above refer patient to schedulers for dietitian appointment) ) Does patient have any new or increased numbness or tingling of extremities? No Is patient interested in fertility information? No Does patient need any prescription refills? No Electronically Signed By: Justin Lara LPN Progress Notes ([facility] BRAIN [facility]IN [place] 3): Charisse Marc 10/14/2017 11:43 AM Signed Phoned and spoke to patient per Dr. March's request to advise that surgical pathology is Meningioma Who Grade 1, benign type. Reviewed patients upcoming post-op follow up appts. Patient is agreeable to this plan and verbalized understanding. Patient is aware to call with any change in condtion, questions or concerns. Charisse Marc RN, BSN pgr [phone] CNDS Observed: 10/09/2017 Status: COMPLETED Source: [place] 3:34 PM [facility] REPOSITORY HNO ID: [id number] Author: Sheryl Dimas Service: Neurosurgery Author Type: Resident Type: Discharge Summaries Filed: 10/16/2017 6:55 PM Note Text: [facility] [place] [phone] or [phone] [facility] C O N F I D E N T I A L I N F O R M A T I O N Neurological [place] Discharge Summary Patient Name: Rose Roland Account #: Data Unavailable Admission Date: 10/04/2017 Date of Evaluation: 10/09/2017 Time of Evaluation: 6:51 PM Admission Date: 10/04/2017 Discharge Date: October 09, 2017 Attending Physician: Dr. Miller/Dr. March PCP: Justin Matthew DO Reason for Hospitalization: Meningioma Final Diagnoses: Patient Active Hospital Problem List: Meningioma (HCC) (10/04/2017) Brain mass (10/04/2017) Vasogenic cerebral edema (HCC) (10/06/2017) At risk of seizures (10/06/2017) Operations During Hospitalization: Right sided craniotomy for resection of meningioma on 10/07 Procedures During Hospitalization: No procedures performed Hospital Course: 47 year old R handed female with history of HTN, HLD, DM c/b neuropathy (on gabapentin), asthma, melanoma of L arm s/p local excision and lymph node removal in 2010, with 4 months of headache and intermittent nausea and 1 month of blurry vision (R worse than L) and L hand paresthesias (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 She reported increased irritability and decreased appetite in past few months as well. She was evaluated by Neurosurgery here and underwent a right craniotomy for resection of meningioma on 10/07. Patient tolerated surgery well and was transferred to SDU postoperatively. She progressed appropriately, had good PO pain control, and was ambulating and voiding as per her baseline. She was discharged to home on 10/09. Discharge Medications: Discharge Medication List as of 10/09/2017 2:48 PM START taking these medications acetaminophen (TYLENOL) 325 mg tablet Take 1 tablet by mouth every 4 hours as needed for Pain or Fever.OTC docusate sodium (COLACE) 100 mg capsule Take 1 capsule by mouth twice daily as needed for Constipation.Print RX, Disp-60 capsule, R-0, Long-term oxyCODONE-acetaminophen (PERCOCET) 5-325 mg tablet Take 1-2 tablets by mouth every 4 hours as needed for Pain for up to 14 days. Earliest Fill Date: 10/09/17Print RX, Disp-35 tablet, R-0, Long- termDx: 1. Brain mass 2. Acute post-operative pain pantoprazole DR (PROTONIX) 40 mg tablet Take 1 tablet by mouth DAILY (6 AM) for 14 days.Print RX, Disp-14 tablet, R-0, Long-term dexamethasone (DECADRON) 2 mg tablet Take 1 tablet by mouth twice daily with meals.Print RX, Disp- 10 tablet, R-0, Long-termTake one tab each every 12 hrs x 2 days and then one tab ( 2mg) each once a day for 2 days then half a tab each once a day for two days then stop CONTINUE these medications which have CHANGED levETIRAcetam (KEPPRA) 500 mg tablet Take 1 tablet by mouth twice daily for 14 days.Print RX, Disp- 28 tablet, R-0, Long-term CONTINUE these medications which have NOT CHANGED ATORVASTATIN CALCIUM (LIPITOR ORAL) Take by mouth once daily.Historical Med, Long-term gabapentin (NEURONTIN) 100 mg capsule Take 100 mg by mouth three times daily.Historical Med, Long-term aspirin, enteric coated (ASPIRIN, ENTERIC COATED) 81 mg EC tablet Take 81 mg by mouth once daily.Historical Med, Long-term medroxyPROGESTERone (DEPO-PROVERA) 150 mg/mL syrg Inject 1 mL intramuscularly every 12 weeks.Normal, Disp-1 Syringe, R-4 cyclobenzaprine (FLEXERIL) 10 mg tablet Take 10 mg by mouth as needed.Historical Med sulindac (CLINORIL) 200 mg tablet Take 200 mg by mouth as needed.Historical Med metoprolol tartrate, short acting, (LOPRESSOR) 25 mg tablet Take 25 mg by mouth twice daily.Historical Med sertraline 50 mg tablet Take 50 mg by mouth once daily.Historical Med IPRATROPRIUM-ALBUTEROL 0.5 mg-3 mg(2.5 mg base)/3 mL INHALATION Nebu Med UpdateStarting 01/03/2011, Until Discontinued metFORMIN 1,000 mg ORAL 24 hr tablet Take one(1) tablet daily., R-0, ORAL, Historical Med Other Provider ALBUTEROL 90 MCG/ACTUATION AEROSOL INHALER Use as directed four(4) times daily. as needed, R-0, INHALATION, Historical Med Other Provider STOP taking these medications TRAMADOL HCL (TRAMADOL ORAL) Comments: Reason for Stopping: LORAZEPAM 1 mg ORAL tablet Comments: Reason for Stopping: Discharge Objective Exam: 10/08/17 2130 10/09/17 0142 10/09/17 0550 10/09/17 1000 BP: 119/63 119/69 121/60 114/58 Pulse: 78 60 70 64 Resp: 18 18 17 16 Temp: 37.2 ?C (99 ?F) 36.8 ?C (98.2 ?F) 36.9 ?C (98.5 ?F) 36.6 ?C (97.9 ?F) TempSrc: Oral Oral Oral Oral SpO2: 97% 97% 96% 96% Weight: 104.7 kg (230 lb 13.2 oz) Height: Awake, alert, NAD Oriented x 3 Speech fluent PERRL, EOMI FS, TM RUE 5/5, no drift LUE 4/5 power lineworker, otherwise 5/5, no drift BLE 5/5 SILT Patient Condition at Discharge: Stable Discharge Disposition: Home/Self Care Information Provided to the Patient: Patient given copy of Discharge Instructions DIET: No restrictions Activity: No heavy lifting greater than 8-10 pounds. No vigorous activity. No driving or operating heavy machinery while taking narcotic (pain) medications. Wound Care: Keep area(s) clean and dry. Do not submerge wound(s) in standing water for 14 days after surgery (no tub bathing, swimming, or hot tubs). Please use gentle soap to wash hair, for example baby shampoo, if the wound(s) is/are on your head or in your hair. Please visually inspect your wound(s) at least once daily. If the wound(s) are in a difficult to see location, please use a mirror or have someone else assist with visual inspection. If you have sutures that you can see outside of the skin or diane: - Call Surgeon's office to schedule wound check AND suture/staple removal appointment or schedule the removal with your primary care physician 10-14 days after the date of surgery. Do not remove the diane/sutures on your own. Return sooner or notify Surgeon's office if wound(s) or surrounding areas have increased swelling, pain, warmth, redness, or drainage that is thick, yellow and/or green. Follow-Up: Future Appointments Date Time Provider Department Center 10/25/2017 11:10 AM [id number] [facility] [place] 10/25/2017 11:10 AM [id number] [facility] [place] [place] 11/25/2017 11:40 AM [id number] MARCH [place] 11/25/2017 11:40 AM [id number] MARCH [place] [place] Call or during normal business hours for your follow up appointments. Follow up as scheduled. Electronically SIGNED/ DICTATED by: Sheryl Dimas MD October 16, 20176:51 PM in the service of Attending Physician, Dr. Eliazar March This note is not finalized until authenticated by the staff physician. PROGRESS Observed: 10/09/2017 Status: COMPLETED Source: [place] 9:11 AM [facility] REPOSITORY HNO ID: [id number] Author: Kenji Harris Service: Neurosurgery Author Type: Physician Type: Progress Notes Filed: 10/09/2017 10:35 AM Note Text: Neurosurgery Inpatient Progress Note ? Interval HPI: NAEO ? Objective: 10/08/17 1710 10/08/17 2130 10/09/17 0142 10/09/17 0550 BP: 114/64 119/63 119/69 121/60 Pulse: 74 78 60 70 Resp: 16 17 Temp: 37.1 ?C (98.8 ?F) 37.2 ?C (99 ?F) 36.8 ?C (98.2 ?F) 36.9 ?C (98.5 ?F) TempSrc: Oral Oral Oral Oral SpO2: 98% 97% 97% 96% Weight: 104.7 kg (230 lb 13.2 oz) Height: ? ? Intake/Output Summary (Last 24 hours) at 10/07/17 1402 Intake/Output Summary (Last 24 hours) at 10/09/17 0916 Last data filed at 10/09/17 0600 Gross per 24 hour Intake 570 ml Output 1280 ml Net -710 ml . ? ? EXAM: Awake, alert, NAD Oriented x 3 Speech fluent PERRL, EOMI FS, TM RUE 5/5, no drift LUE 4/5 power lineworker, otherwise 5/5, no drift BLE 5/5 SILT ? A/P: Rose Roland is a 47 year old female hx significant for LUE melanoma s/p local excision and lymph node removal in 2010, with 4 months headaches and nausea, 1 month blurry vision (R>L) and L hand paresthesias, increased irritability, and decreased appetite, with MRI demonstrating 7.7x5.2cm R frontal extra-axial enhancing mass causing 2cm midline shift, displacement of ACAs, and subfalcine herniation, suspicious for meningioma.s/p R frontal craniotomy for tumor resection on 10/07. The MRI was done yesterday that showed gross total resection of large right frontal convexity meningioma. The MRI finding was discussed with the patient. The wound is healing well. ? - Neuro stable - Dex 4BID - taper to off over 5 days. To 2 BID today - Keppra 500 bid for 2 wks - SQH POD 2 - D/C today ?Hunter Lopez MD Pager: [phone] ? [facility] STAFF PHYSICIAN NOTE OF PERSONAL INVOLVEMENT IN CARE I have reviewed the progress note obtained and documented by the fellow and I personally participated in the villalba components. I have discussed the case and management of the patient's care. The following comments revise or confirm relevant villalba components of their note. IMPRESSION: as above. MRI reviewed-gross total resection with no diffusion restriction. Clinically looks excellent with expected minimal periorbital ecchymosis although is able to open I easily and extraocular movements grossly intact. PLAN: agree with above. discharge home today. Progress discussed with patient at bedside. Seen with Dr. Sanjuanita Lopez SIGNATURE: Kenji Harris MD (covering for Dr. March) PAGER: [phone] DATE of SERVICE: 10/09/2017 TIME of SERVICE: 10:35 AM NURSING PROG Observed: 10/08/2017 Status: COMPLETED Source: [place] 4:50 PM [facility] REPOSITORY HNO ID: [id number] Author: Connie (Rn) ALMA Mello Service: Nursing Author Type: Registered Nurse Type: Nursing Progress Note Filed: 10/08/2017 4:51 PM Note Text: Admission/Transfer Note PATIENT NAME: Roes Roland Patient admitted from [facility] via ambulation in stable condition. Actions taken: Patient oriented to room, call light function and prescribed activities. This note was completed by: Connie Mello RN MRI BRAIN WO/W Observed: 10/08/2017 Status: F Source: [place] IVC 12:10 PM [facility] REPOSITORY * * *Final Report* * * DATE OF EXAM: Oct 08 2017 12:10PM QBM [id number] - MRI BRAIN WO/W IVCON / PROCEDURE REASON: Brain tumor (HCC) * * * * Physician Interpretation * * * * EXAMINATION: MRI BRAIN WO/W IVCON HISTORY: Recent craniotomy. Postop follow-up. TECHNIQUE: Routine brain MRI protocol without and with contrast including diffusion images. MQ: [id number]_2 Contrast: 20.0 mL [facility] IV COMPARISON: 10/06/2017 and 10/04/2017 RESULT: Acute Change: Right frontal craniotomy with overlying extra-axial collections of fluid and air and mild parenchymal edema along the cortex and subcortical white matter of the right middle and inferior frontal gyri related to the recent manipulation. Hemorrhage: Small amount of blood byproducts in the operative bed compatible with recent manipulation. No evidence of prior parenchymal hemorrhage. Mass Lesion/ Mass Effect: There is a new right frontal craniotomy defect with underlying epidural and subdural collections of fluid and air. The large extra-axial soft tissue mass in this region has likely been resected in entirety. There is mild heterogeneous enhancement along the pial surface of the underlying right middle and inferior frontal gyri which may simply relate to the recent manipulation as the surgery was performed on 10/04/2017. The extra-axial collections of fluid and air measure approximately 2.6 cm in greatest transverse dimensions and a smaller extra-axial fluid collection extends dorsally along the right temporal pole and right temporal convexity measuring approximately 2 mm in thickness. Mass effect is clearly improved but there continues to be moderate to severe compression of the right frontal pole, moderate compression of the right lateral ventricle, and moderate subfalcine shift to the left without entrapment of the left lateral ventricle. A very small additional extra-axial soft tissue mass again overlies the cephalad margin of the left central sulcus suggesting a small meningioma. No significant associated mass effect. No evidence of an intracranial mass elsewhere. Chronic Change: None clearly apparent. Parenchyma: No significant volume loss for age. The brain parenchyma is otherwise within normal limits of signal intensity and morphology. Ventricles: Moderate to severe compression of the right lateral ventricle which is improved since the prior study. Skull Base: Hypothalamic and pituitary region are grossly normal. Craniocervical junction is normal. No significant marrow replacement process. Vasculature: A normal flow void is noted in the major dural venous sinuses suggesting patency by spin echo criteria. Other: The visualized paranasal sinuses and mastoid air cells are clear. The orbits and extracranial soft tissues are unremarkable. IMPRESSION: Postop changes following gross total resection of large right frontal convexity meningioma. Mild pial enhancement along the margins which is likely postoperative. Stable very small left frontoparietal convexity meningioma without significant mass effect. Marketing Research Coordinator: PSCB Transcribe Date/Time: Oct 08 2017 12:41P Dictated by : DAVE MOLINA MD This examination was interpreted and the report reviewed and electronically signed by: DAVE MOLINA MD on Oct 08 2017 1:05PM EST [id number] ALLIED HEALTH Observed: 10/08/2017 Status: COMPLETED Source: [place] 11:42 AM [facility] REPOSITORY HNO ID: [id number] Author: Nadia Vazquez (Tech) Service: Radiology Author Type: Improvement Leader Type: Allied Health Filed: 10/08/2017 11:43 AM Note Text: Radiology Service Progress Note PATIENT NAME: Rose Roland DATE OF SERVICE: October 08, 2017 TIME: 11:43 AM PATIENT IDENTITY VERIFICATION COMPLETED USING TWO (2) METHODS: Patient confirmed name verbally and ID Band . PATIENT GENDER DATA: Female. status: : No status: NO. PATIENT RELEVANT IMPLANT DATA REVIEWED: Yes RADIOLOGY DEPARTMENT: MR; Exam(s) Completed: Head: Routine Brain PERIPHERAL IV DATA: Inpatient: see LDA documentation SIGNED BY: NADIA Vazquez October 08, 2017 11:43 AM PROGRESS Observed: 10/08/2017 Status: COMPLETED Source: [place] 11:17 AM [facility] REPOSITORY HNO ID: [id number] Author: Kenji Harris Service: Neurosurgery Author Type: Physician Type: Progress Notes Filed: 10/08/2017 11:25 AM Note Text: Neurosurgery Inpatient Progress Note Interval HPI: NAEO Objective: 10/06/17 2252 10/07/17 0145 10/07/17 0550 10/07/17 0818 BP: 118/65 113/58 112/64 Pulse: 60 64 (!) 53 64 Resp: 18 18 Temp: 37.1 ?C (98.7 ?F) 36.8 ?C (98.3 ?F) 36.6 ?C (97.8 ?F) TempSrc: Oral Oral Oral SpO2: 97% 97% 98% Weight: 97.6 kg (215 lb 2.7 oz) Height: Intake/Output Summary (Last 24 hours) at 10/07/17 1402 Last data filed at 10/07/17 0915 Gross per 24 hour Intake 350 ml Output 2 ml Net 348 ml EXAM: Awake, alert, NAD Oriented x 3 Speech fluent PERRL, EOMI FS, TM RUE 5/5, no drift LUE 4/5 power lineworker, otherwise 5/5, no drift BLE 5/5 SILT A/P: Rose Roland is a 47 year old female hx significant for LUE melanoma s/p local excision and lymph node removal in 2010, with 4 months headaches and nausea, 1 month blurry vision (R>L) and L hand paresthesias, increased irritability, and decreased appetite, with MRI demonstrating 7.7x5.2cm R frontal extra-axial enhancing mass causing 2cm midline shift, displacement of ACAs, and subfalcine herniation, suspicious for meningioma. Now s/p R frontal craniotomy for tumor resection on 10/07 - Neuro stable - Post op MRI today - Dex 4BID - taper to off over 5 days. To 2 BID today - Keppra 500 bid for 2 wks - SQH POD 2 - Need to ensure working PIV, then dc central line - RNF today - Dispo: pending PT/OT eval Signature: Sheryl Dimas M.D. Neurosurgery, PGY-2 Pager #[phone] 10/08/2017 11:19 AM [facility] STAFF PHYSICIAN NOTE OF PERSONAL INVOLVEMENT IN CARE I have reviewed the progress note obtained and documented by the resident and I personally participated in the villalba components. I have discussed the case and management of the patient's care. The following comments revise or confirm relevant villalba components of their note. IMPRESSION: as above. Doing well overall with some expected headache. PLAN: agree with above. Mobilize today. Steroids as above for cerebral edema. Seen with Dr. Dimas SIGNATURE: Kenji Harris MD (covering for Dr. March) PAGER: [phone] DATE of SERVICE: 10/08/2017 TIME of SERVICE: 11:25 AM BASIC METABOLIC PANL Collected: 10/08/2017 Status: F Source: [place] 12:33 AM [facility] REPOSITORY TYPE CODE TESTS RESULT OUT OF REFERENCE UNITS RANGE LAB GLU 74-99 mg/dL High Glucose 105 Result Comment: The [place] Diabetes Association (ADA) provides guidance for cutoff values for fasting glucose and random glucose. The ADA defines fasting as no caloric intake for at least 8 hours. Fas ting plasma glucose results between 100 to 125 mg/dL indicate increased risk for diabetes (prediabetes). Fasting plasma glucose results greater than or equal to 126 mg/dL meet the criteria for diagnosis of diabetes. In the absence of unequivocal hyperglycemia, results should be confirmed by repeat testing. In a patient with classic symptoms of hyperglycemia or hyperglycemic crisis, random plasma glucose results greater than or equal to 200 mg/dL meet the criteria for diagnosis of diabetes. Reference: Standards of Medical Care in Diabetes 2016, [place] Diabetes Association. Diabetes Care. 2016.39(Suppl 1). LAB BUN 7-21 mg/dL BUN 10 LAB CRET 0.58-0.96 mg/dL Creatinine 0.71 LAB NA 136-144 mmol/L Sodium High 145 LAB K 3.7-5.1 mmol/L Potassium 3.7 LAB CL 97-105 mmol/L Chloride High 106 LAB CO2 22-30 mmol/L CO2 26 LAB AGAP 9-18 mmol/L Anion Gap 13 LAB CA 8.5-10.2 mg/dL Low Calcium, Total 8.3 LAB GFRAA eGFR- Amer. >60 LAB GFRNAA . eGFR-All Other Races >60 Result Comment: eGFR (Estimated GFR) Units of measure: mL/min/1.73 meters squared eGFR is derived from the reexpressed MDRD Study equation using the following parameters: serum creatinine, age, gender and race. The creatinine assay has been calibrated to be traceable to IDMS. An eGFR <60 mL/min/1.73m2 for >3 months is consistent with chronic kidney disease. Refer to KDOQI guidelines for clinical interpretation. In patients with unstable renal function, e.g. those with acute kidney injury, the eGFR may not accurately reflect actual GFR. Performed By: #### BMP #### [facility] [address] [place], [place] [address] ANES POST Observed: 10/07/2017 Status: COMPLETED Source: [place] 7:42 PM [facility] [place] REPOSITORY HNO ID: [id number] Author: Megan Matthew Service: Anesthesiology Author Type: Physician Type: Anesthesia PostOp Filed: 10/07/2017 7:43 PM Note Text: POST ANESTHESIA EVALUATION NOTE SERVICE DATE: 10/07/2017 SERVICE TIME: 7:42 P< : 1970 Vitals: 10/06/17 2252 10/07/17 0145 10/07/17 0550 10/07/17 174 Temp: 37.1 ?C (98.7 ?F) 36.8 ?C (98.3 ?F) 36.6 ?C (97.8 ?F) 36.3 ?C (97.3 ?F) 10/07/17181410/07/17182910/07/17184410/07/17 190 Arterial BP 1: 144/68 133/82 BP: 140/67 140/71 139/73 139/73 10/07/17181410/07/17182910/07/17184410/07/171899 Pulse: 69 67 60 62 10/07/17181410/07/17182910/07/17184410/07/17 190 Resp: 17 16 13 14 10/07/17181410/07/17182910/07/17184410/07/171899 SpO2: 98% 98% 99% 99% Validated Vital Signs: Yes POST ANES STATUS: No apparent anesthetic complications. The patient is appropriately hydrated with stable respiratory and cardiovascular status. Patient has safe and adequate airway control. The patient has appropriate pain relief and no significant post operative nausea or vomiting. The patient has achieved baseline mental status. Further assessment by Anesthesia Service: None Other Remarks: SIGNATURE: Megan Matthew MD PATIENT NAME: Rose Roland DATE: October 07, 2017 TIME: 7:42 PM PAGER/CONTACT #: [phone] OPERATIVE NO Observed: 10/07/2017 Status: COMPLETED Source: [place] 6:19 PM [facility] REPOSITORY O ID: [id number] Author: Eliazar March Service: Neurosurgery Author Type: Physician Type: Operative Report Filed: 10/10/2017 2:13 PM Note Text: OPERATIVE/PROCEDURE REPORT LOG ID: [id number] Surgery/Procedure Date: 10/07/2017 Incision/Procedure Start Time: 11:34 AM Incision Close/Procedure End Time: 5:25 PM Surgeon(s)/Proceduralist(s) and Review Analyst(s): Surgeon(s) and Role: * Eliazar March - Primary * Jamil (Carlie) Brian - Resident - Assisting No Additional Staff Procedure(s): 1. Right sided craniotomy for resection of meningioma 2. Use of Intraoperative Navigation 3. Intraoperative use of microscope 4. 22 modifier - increased complexity due to large size (>7cm), high vascularity from pial supply, and extensive adhesions in the form of pial parasitization Anesthesia: General Operative Findings:? 1) Tumor soft, friable, purple in color; very vascular with >90% of blood supply from pial parasitization 2) Powell Grade 1 resection; origin from frontal convexity dura ? 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 Procedure Details: The patient was identified in the preoperative holding area and a preoperative huddle was performed to confirm the patient identity, proposed procedure, and site of surgery. The patient was then transported to the operating room and placed under general endotracheal anesthesia by anesthesia team. Lines were then placed by the anesthesia team and a sotomayor was placed. All the dependent portions of the patient were padded and double checked to minimize injury. The patient was positioned supine with her head turned to the left in a 3-point Peterson head still operator. The neuronavigation was registered to the preop MRI with facial recognition and accuracy was confirmed. Based on the MRI the borders of the tumor were marked. A curvilinear 3/4 coronal incision was prepped and draped on the right side. Incision was made using #10 blade scalpel on the RIGHT side. The dissection was carried down to the pericranium, which was preserved for possible autograft. The temporalis fascia was opened and subfascial dissection was performed along the length of the incision. The muscle was detached from STL and from zygomatic process anteriorly. The superior half of the muscle was incised posteriorly to reflect the muscle inferiorly. Hemostasis was achieved. The intended craniotomy site was then marked. [place] holes were then placed in strategic places: Pterional, posterior temporal and midline frontal. Bony fragments were freed. The underlying dura was then stripped using a #3 [place]. Using a high speed air drill with guard and footplate, the craniotomy flap was then turned. The flap was carefully stripped of the dura and then held on the back table for temporary storage. Hemostasis was achieved. Using bipolar cautery, the dura was cauterized liberally to devascularize the tumor including coagulation of middle meningeal. Dura was opened using #15 blade scalpel and metzenbaum scissors in a cruciate fashion. We started with limited central dural opening to debulk centrally. Upon opening dura, soft, purpleish tumor herniated out of defect. Tumor was soft and easily suckable, but quite vascular. We performed aggressive surgical debulking centrally. At this point it became apparent that most of blood supply would be pial. We applied tisseal to raw tumor margins as needed to help with hemostasis. After identifying normal brain margins, the tumor was dissected from the underlying cortical surface. A specimen was sent to pathology for frozen and permanent section. Intraoperative microscope was used for dissecting tumor capsule. The tumor capsule was dissected off the brain surface. Pial feeders were coagulated and divided. The surrounding dura was resected to achieve Powell Grade I resection. Because of possible higher grade intraop features, bipolar was used to edge subdurally and extensively coagulate dura in all directions to help destroy and remote non-attachment cells in the dura. 22 modifier - increased complexity due to large size (>7cm), high vascularity from pial supply, and extensive adhesions in the form of pial parasitization Hemostasis was achieved with Surgicel and irrigation. A DuraMatrix inlay graft was sutured in place at multiple points in an interrupted fashion with 4-0 Nurolon stitches. The bone flap was reattached in position using MRI-compatible titanium micro plates and screws and tack up sutures were placed centrally and along craniotomy edges. The temporalis muscle, fascia and pericranium were reapproximated and closed. The wound was copiously irrigated and closed in layered fashion. A dry dressing was placed overtop with a headwrap in place. The patient was then extubated and transported to PACU in stable condition. Pre-Op/Pre-Procedure Diagnosis: Brain Tumor Post-Op/Post-Procedure Diagnosis: Brain Tumor Estimated Blood Loss: 500 mls Specimens: Specimen ID Type Site Comments Sent To path #1 Tissue Brain Bx right frontal tumor Pathology Frozen path #2 Tissue Brain Resection right frontal tumor Pathology Routine path #3 Tissue subdural tissue Pathology Routine Implantable Devices: Implant Name Type Inv. Item Serial No. Furniture Fabricator Lot No. LRB No. Used SCREW 1.5MM 4MM BONE SELF DRILL CROSS PIN CRANIOMAXILLOFACIAL - [id number] Screw SCREW 1.5MM 4MM BONE SELF DRILL CROSS PIN CRANIOMAXILLOFACIAL STRY/HOWM CRANIOMAXILLOFACIAL Right 8 PLATE LOW PROFILE TITANIUM 12MM BONE 2 HOLE BAR 1.5MM SCREW NONSTERILE - [id number] Plate PLATE LOW PROFILE TITANIUM 12MM BONE 2 HOLE BAR 1.5MM SCREW NONSTERILE STRY/HOWM CRANIOMAXILLOFACIAL Right 1 COVER 20MM TITANIUM WILL HOLE LOW PROFILE TAB CRANIOMAXILLOFACIAL - [id number] Plate COVER 20MM TITANIUM WILL HOLE LOW PROFILE TAB CRANIOMAXILLOFACIAL STRY/HOWM CRANIOMAXILLOFACIAL Right 2 COVER 14MM LOW PROFILE WILL HOLE 3MM SCREW CRANIUM - [id number] Implant COVER 14MM LOW PROFILE WILL HOLE 3MM SCREW CRANIUM STRY/HOWM CRANIOMAXILLOFACIAL Right 1 PATCH DURAMATRIX-ONLAY COLLAGEN MATRIX 5X4IN DURAL CONFORMABLE RESORBABLE - [id number] Implant PATCH DURAMATRIX-ONLAY COLLAGEN MATRIX 5X4IN DURAL CONFORMABLE RESORBABLE STRY/HOWM CRANIOMAXILLOFACIAL [id number] Right 1 SCREW 1.5MM 4MM BONE SELF DRILL CROSS PIN CRANIOMAXILLOFACIAL - [id number] Screw SCREW 1.5MM 4MM BONE SELF DRILL CROSS PIN CRANIOMAXILLOFACIAL STRY/HOWM CRANIOMAXILLOFACIAL Right 15 Drains: None Complications: None The primary surgeon/proceduralist performed the procedure with assistance. SIGNATURE: Jamil Torres MD PATIENT NAME: Rose Roland DATE: October 07, 2017 TIME: 10:18 AM PAGER/CONTACT #: [phone] CHEST [phone] FRONTAL Observed: 10/07/2017 Status: F Source: [facility] 6:18 PM [facility] REPOSITORY * * *Final Report* * * DATE OF EXAM: Oct 07 2017 6:18PM ESX [id number] - XR CHEST 1V FRONTAL PORT / PROCEDURE REASON: Encounter for central line placement * * * * Physician Interpretation * * * * EXAMINATION: XR CHEST 1V FRONTAL PORT PATIENT/TECHNOLOGIST PROVIDED HISTORY: CLINICAL INFORMATION: Encounter for central line placement TECHNIQUE: Single AP portable image of the chest MQ: XCP_4 Comparison: 10/05/2017 RESULT: Lines, tubes, and devices: Interval placement of right IJ central venous catheter with tip terminating in the lower SVC. Lungs and pleura: Shallow inspiration. No focal consolidation. No pleural effusion or pneumothorax. Cardiomediastinal silhouette: The heart is upper normal in size, without specific chamber predominance. Mediastinum appears unremarkable. Pulmonary vasculature is unremarkable. Other: Surgical clips left axilla. IMPRESSION: SATISFACTORY CENTRAL VENOUS CATHETER PLACEMENT. Marketing Research Coordinator: PSCB Transcribe Date/Time: Oct 07 2017 6:33P Dictated by : NANCY HUNTLEY MD This examination was interpreted and the report reviewed and electronically signed by: DONY WATKINS MD on Oct 07 2017 6:39PM EST [id number] Observed: 10/07/2017 Status: COMPLETED Source: [place] 6:05 PM [facility] REPOSITORY HNO ID: [id number] Author: Eliazar March Service: Neurosurgery Author Type: Physician Type: Progress Notes Filed: 10/07/2017 6:23 PM Note Text: Neurosurgery POC Note Interval HPI: S/p Right sided craniotomy for resection of tumor Objective: 10/06/17 2252 10/07/17 0145 10/07/17 0550 10/07/17 0818 BP: 118/65 113/58 112/64 Pulse: 60 64 (!) 53 64 Resp: 18 17 18 Temp: 37.1 ?C (98.7 ?F) 36.8 ?C (98.3 ?F) 36.6 ?C (97.8 ?F) TempSrc: Oral Oral Oral SpO2: 97% 97% 98% Weight: 97.6 kg (215 lb 2.7 oz) Height: EXAM: Awake, alert, NAD Oriented x 3 Speech fluent Repetition intact, naming 3/3 PERRL, EOMI OU 20/30 acuity VF intact FS, TM, FSILT Palate rise symmetric RUE 5/5, no drift LUE 4/5 power lineworker, otherwise 5/5, no drift BLE 5/5 SILT A/P: 47 year old y/o female POD #0 s/p Right sided craniotomy for resection of tumor - Admit to SDU - ad eris - regular diet - MRI Brain w/wo POD1 - decadron 4 BID, pepcid, christopherra - pain control - postop CBC (1u transfused in OR) Staff: MD Jamil Desai MD PGY-4, Neurological Surgery Pager #[phone] October 07, 2017 Please page [phone] after 6pm and on weekends [facility] STAFF: TEACHING PHYSICIAN NOTE OF PERSONAL INVOLVEMENT IN CARE I have reviewed the progress note obtained and documented by the Resident and I personally participated in the villalba components. I have discussed the case and management of the patient's care with the Resident. The following comments revise or confirm relevant villalba components of the Resident's note. Eliazar March MD Staff, Skull Base AND Cerebrovascular Surgery Department of Neurological Surgery [facility] ANES POST Observed: 10/07/2017 Status: COMPLETED Source: [place] 5:54 PM [facility] REPOSITORY HNO ID: [id number] Author: Penny Christianson Service: (none) Author Type: Anesthesiologist Type: Anesthesia PostOp Filed: 10/07/2017 5:54 PM Note Text: POST ANESTHESIA EVALUATION NOTE SERVICE DATE: 10/07/2017 SERVICE TIME: 17:54 : 1970 Vitals: 10/06/17189910/06/17225110/07/17 0145 10/07/17 0550 Temp: 36.7 ?C (98.1 ?F) 37.1 ?C (98.7 ?F) 36.8 ?C (98.3 ?F) 36.6 ?C (97.8 ?F) 10/06/17 19010/06/17 22510/07/17 0145 10/07/17 0550 BP: 114/66 118/65 113/58 112/64 10/06/17 2252 10/07/17 0145 10/07/17 0550 10/07/17 0818 Pulse: 60 64 (!) 53 64 10/06/17 19010/06/17 2252 10/07/17 0145 10/07/17 0550 Resp: 16 18 17 18 10/06/17 1900 10/06/17 2252 10/07/17 0145 10/07/17 0550 SpO2: 97% 97% 97% 98% Validated Vital Signs: Yes POST ANES STATUS: No apparent anesthetic complications. The patient is appropriately hydrated with stable respiratory and cardiovascular status. Patient has safe and adequate airway control. The patient has appropriate pain relief and no significant post operative nausea or vomiting. The patient has achieved baseline mental status. Further assessment by Anesthesia Service: None Other Remarks: SIGNATURE: Penny Christianson MD PATIENT NAME: Rose Roland DATE: October 07, 2017 TIME: 5:54 PM PAGER/CONTACT #: [phone] CBC AND DIFFERENTIAL Collected: 10/07/2017 Status: F Source: [place] 5:52 PM [facility] REPOSITORY TYPE CODE TESTS RESULT OUT OF REFERENCE UNITS RANGE LAB WBC 3.70-11.00 k/uL WBC High 15.23 LAB RBC 3.90-5.20 m/uL Low RBC 3.39 LAB HGB 11.5-15.5 g/dL Low Hemoglobin 9.8 LAB HCT 36.0-46.0 % Low Hematocrit 30.8 LAB MCV 80.0-100.0 fL MCV 90.9 LAB MCH 26.0-34.0 pG MCH 28.9 LAB MCHC 30.5-36.0 g/dL MCHC 31.8 LAB RDWCV 11.5-15.0 % RDW-CV 13.8 LAB PLTCT 150-400 k/uL Platelet Count 229 LAB MPV 9.0-12.7 fL MPV 9.9 LAB ANEUT % Neut% 80.4 LAB AANEUT 1.45-7.50 k/uL Abs Neut High 12.24 LAB ALYMP % Lymph% 12.9 LAB AALYMP 1.00-4.00 k/uL Abs Lymph 1.97 LAB AMONO % [place]% 6.6 LAB AAMONO <0.87 k/uL Abs [place] High 1.00 LAB AEOS % Eosin% 0.0 LAB AAEOS <0.46 k/uL Abs Eosin <0.03 LAB ABASO % Baso% 0.1 LAB AABASO <0.11 k/uL Abs Baso <0.03 LAB AUNRBC 0 /100 WBC NRBCs 0.0 LAB ABNRBC <0.01 k/uL Absolute nRBC <0.01 LAB DTYP DTYPE Auto Diff Performed By: #### CBCDIF, BMP #### [facility] [address], [place] [address] BASIC METABOLIC PANL Collected: 10/07/2017 Status: F Source: [place] 5:52 PM [facility] REPOSITORY TYPE CODE TESTS RESULT OUT OF REFERENCE UNITS RANGE LAB GLU 74-99 mg/dL High Glucose 183 Result Comment: The [place] Diabetes Association (ADA) provides guidance for cutoff values for fasting glucose and random glucose. The ADA defines fasting as no caloric intake for at least 8 hours. Fas ting plasma glucose results between 100 to 125 mg/dL indicate increased risk for diabetes (prediabetes). Fasting plasma glucose results greater than or equal to 126 mg/dL meet the criteria for diagnosis of diabetes. In the absence of unequivocal hyperglycemia, results should be confirmed by repeat testing. In a patient with classic symptoms of hyperglycemia or hyperglycemic crisis, random plasma glucose results greater than or equal to 200 mg/dL meet the criteria for diagnosis of diabetes. Reference: Standards of Medical Care in Diabetes 2016, [place] Diabetes Association. Diabetes Care. 2016.39(Suppl 1). LAB BUN 7-21 mg/dL BUN 8 LAB CRET 0.58-0.96 mg/dL Creatinine 0.69 LAB NA 136-144 mmol/L Sodium High 147 LAB K 3.7-5.1 mmol/L Potassium 4.1 LAB CL 97-105 mmol/L Chloride High 110 LAB CO2 22-30 mmol/L Low CO2 21 LAB AGAP 9-18 mmol/L Anion Gap 16 LAB CA 8.5-10.2 mg/dL Low Calcium, Total 8.4 LAB GFRAA eGFR- Amer. >60 LAB GFRNAA . eGFR-All Other Races >60 Result Comment: eGFR (Estimated GFR) Units of measure: mL/min/1.73 meters squared eGFR is derived from the reexpressed MDRD Study equation using the following parameters: serum creatinine, age, gender and race. The creatinine assay has been calibrated to be traceable to IDMS. An eGFR <60 mL/min/1.73m2 for >3 months is consistent with chronic kidney disease. Refer to KDOQI guidelines for clinical interpretation. In patients with unstable renal function, e.g. those with acute kidney injury, the eGFR may not accurately reflect actual GFR. Performed By: #### CBCDIF, BMP #### [facility] [address] [employer] [address] [place], [place] [address] BRIEF OP NOT Observed: 10/07/2017 Status: COMPLETED Source: [place] 5:24 PM [facility] REPOSITORY HNO ID: [id number] Author: Jamil Torres Service: Neurosurgery Author Type: Resident Type: Brief Op Note Filed: 10/07/2017 5:26 PM Note Text: BRIEF OP NOTE LOG ID: [id number] Surgery/Procedure Date: 10/07/2017 Incision/Procedure Start Time: 11:34 AM Incision Close/Procedure End Time: 17:25 PM Surgeon(s)/Proceduralist(s) and Review Analyst(s): Surgeon(s) and Role: * Eliazar March - Primary * Jamil Torres - Resident - Assisting Procedure(s): RIGHT sided craniotomy for resection of tumor Anesthesia: General Findings: soft, friable tumor, very vascular. Prelim path: Meningioma Estimated Blood Loss: 500 mls Specimens: Specimen ID Type Site Comments Sent To path #1 Tissue Brain Bx right frontal tumor Pathology Frozen path #2 Tissue Brain Resection right frontal tumor Pathology Routine path #3 Tissue subdural tissue Pathology Routine Complications: None Pre-Op/Pre-Procedure Diagnosis: Brain Tumor Post-Op/Post-Procedure Diagnosis: Brain Tumor SIGNATURE: Jamil Torres MD PATIENT NAME: Rose Roland DATE: October 07, 2017 TIME: 5:24 PM PAGER/CONTACT #: ANURADHA LAZCANO MG Collected: 10/07/2017 Status: F Source: [place] [facility] 4:15 PM [facility] RADIANCE USE ONLY REPOSITORY TYPE CODE TESTS RESULT OUT OF REFERENCE UNITS RANGE LAB PH 7.35-7.45 pH 7.35 LAB PCO2 34-46 mm Hg pCO2 36 LAB PO2 85-95 mm Hg pO2 High 204 LAB BE mmol/L Base Excess NEG 5 LAB HCO3 22-26 mmol/L Bicarbonate Low 19 LAB CO2CT 22.0-28.0 mmol/L CO2 Content Low 20 LAB O2HB 95-98 % Oxyhemoglobin, Art. 97 LAB COHB 0-5.0 % Carboxyhemoglobin,A 0.7 rt LAB MHGB 0.4-1.5 % Methemoglobin 1.3 LAB TEMP C Temperature, Body 37.0 LAB PHTC 7.35-7.45 pH, Temp Corrected 7.35 LAB PCO2T 34-46 mm Hg pCO2, Temp Correct 36 LAB PO2T mm Hg pO2, Temp Corrected 204 LAB NAB 132-148 mmol/L Sodium,Whole Bld 148 LAB KWB 3.5-5.0 mmol/L Potassium, Whole Bld 4.0 LAB HGBB 11.5-15.5 g/dL Low Hemoglobin,Total,AC 9.8 L LAB HCTB 36.0-46.0 % Hematocrit, ACL Low 30 LAB IC 1.08-1.30 mmol/L Calcium, Ion, WB 1.16 LAB GLB 60-105 mg/dL Glucose,Whole Bld High 146 LAB LACT 0.5-2.2 mmol/L Lactate High 5.1 LAB MGI 0.43-0.66 mmol/L Magnesium, Ion, Low WB 0.40 Performed By: #### ALLMG #### [facility] [address] [place], [place] [address] GASA + ALL Collected: 10/07/2017 Status: F Source: [place] [facility] 3:30 PM [facility] RADIANCE USE ONLY REPOSITORY TYPE CODE TESTS RESULT OUT OF REFERENCE UNITS RANGE LAB PH 7.35-7.45 pH 7.39 LAB PCO2 34-46 mm Hg pCO2 Low 31 LAB PO2 85-95 mm Hg pO2 High 199 LAB BE mmol/L Base Excess NEG 5 LAB HCO3 22-26 mmol/L Bicarbonate Low 18 LAB CO2CT 22.0-28.0 mmol/L CO2 Content Low 19 LAB O2HB 95-98 % Oxyhemoglobin, Art. 97 LAB COHB 0-5.0 % Carboxyhemoglobin, 1.1 Art LAB MHGB 0.4-1.5 % Methemoglobin 1.1 LAB TEMP C Temperature, Body 37.0 LAB PHTC 7.35-7.45 pH, Temp Corrected 7.39 LAB PCO2T 34-46 mm Hg pCO2, Temp Low Correct 31 LAB PO2T mm Hg pO2, Temp Corrected 199 LAB NAB 132-148 mmol/L Sodium,Whole Bld 147 LAB KWB 3.5-5.0 mmol/L Potassium, Whole Bld 3.7 LAB HGBB 11.5-15.5 g/dL Low Hemoglobin,Total,A 8.8 CL LAB HCTB 36.0-46.0 % Hematocrit, Low ACL 27 LAB IC 1.08-1.30 mmol/L Calcium, Ion, WB 1.11 LAB GLB 60-105 mg/dL Glucose,Whole High Bld 133 LAB LACT 0.5-2.2 mmol/L Lactate High 4.5 LAB ACBDTE Notify Date, Art 20171007 LAB ACBTME Notify Time, Art 388216 Performed By: #### ALLBG #### [facility] [address] [place], [place] [address] GASA, ALL, MG Collected: 10/07/2017 Status: F Source: [place] [facility] 2:34 PM [facility] RADIANCE USE ONLY REPOSITORY TYPE CODE TESTS RESULT OUT OF REFERENCE UNITS RANGE LAB PH 7.35-7.45 pH 7.41 LAB PCO2 34-46 mm Hg pCO2 Low 30 LAB PO2 85-95 mm Hg pO2 High 205 LAB BE mmol/L Base Excess NEG 5 LAB HCO3 22-26 mmol/L Bicarbonate Low 19 LAB CO2CT 22.0-28.0 mmol/L CO2 Content Low 20 LAB O2HB 95-98 % Oxyhemoglobin, Art. 98 LAB COHB 0-5.0 % Carboxyhemoglobin, 1.1 Art LAB MHGB 0.4-1.5 % Methemoglobin 1.2 LAB TEMP C Temperature, Body 37.0 LAB PHTC 7.35-7.45 pH, Temp Corrected 7.41 LAB PCO2T 34-46 mm Hg pCO2, Temp Low Correct 30 LAB PO2T mm Hg pO2, Temp Corrected 205 LAB NAB 132-148 mmol/L Sodium,Whole Bld 146 LAB KWB 3.5-5.0 mmol/L Potassium, Whole Bld 4.3 LAB HGBB 11.5-15.5 g/dL Low Hemoglobin,Total,A 9.8 CL LAB HCTB 36.0-46.0 % Hematocrit, Low ACL 30 LAB IC 1.08-1.30 mmol/L Calcium, Ion, WB 1.18 LAB GLB 60-105 mg/dL Glucose,Whole High Bld 143 LAB LACT 0.5-2.2 mmol/L Lactate High 5.3 LAB MGI 0.43-0.66 mmol/L Magnesium, Ion, WB 0.48 LAB ACBDTE Notify Date, Art 20171007 LAB ACBTME Notify Time, Art [id number] Performed By: #### ALLMG #### [facility] [address] [place], [place] [address] GASA + ALL Collected: 10/07/2017 Status: F Source: [place] [facility] 1:15 PM [facility] RADIANCE USE ONLY REPOSITORY TYPE CODE TESTS RESULT OUT OF REFERENCE UNITS RANGE LAB PH 7.35-7.45 pH 7.39 LAB PCO2 34-46 mm Hg pCO2 Low 32 LAB PO2 85-95 mm Hg pO2 High 217 LAB BE mmol/L Base Excess NEG 5 LAB HCO3 22-26 mmol/L Bicarbonate Low 19 LAB CO2CT 22.0-28.0 mmol/L CO2 Content Low 20 LAB O2HB 95-98 % Oxyhemoglobin, Art. 97 LAB COHB 0-5.0 % Carboxyhemoglobin,A 0.8 rt LAB MHGB 0.4-1.5 % Methemoglobin 1.2 LAB TEMP C Temperature, Body 37.0 LAB PHTC 7.35-7.45 pH, Temp Corrected 7.39 LAB PCO2T 34-46 mm Hg pCO2, Temp Low Correct 32 LAB PO2T mm Hg pO2, Temp Corrected 217 LAB NAB 132-148 mmol/L Sodium,Whole Bld 141 LAB KWB 3.5-5.0 mmol/L Potassium, Whole Bld 4.4 LAB HGBB 11.5-15.5 g/dL Low Hemoglobin,Total,AC 10.9 L LAB HCTB 36.0-46.0 % Hematocrit, ACL Low 34 LAB IC 1.08-1.30 mmol/L Calcium, Ion, WB 1.14 LAB GLB 60-105 mg/dL Glucose,Whole Bld High 136 LAB LACT 0.5-2.2 mmol/L Lactate High 4.2 Performed By: #### ALLBG #### [facility] [address] [place], [place] [address] GASA + ALL Collected: 10/07/2017 Status: F Source: [place] [facility] 12:04 PM [facility] RADIANCE USE ONLY REPOSITORY TYPE CODE TESTS RESULT OUT OF REFERENCE UNITS RANGE LAB PH 7.35-7.45 pH Low 7.34 LAB PCO2 34-46 mm Hg pCO2 35 LAB PO2 85-95 mm Hg pO2 High 184 LAB BE mmol/L Base Excess NEG 6 LAB HCO3 22-26 mmol/L Bicarbonate Low 18 LAB CO2CT 22.0-28.0 mmol/L CO2 Content Low 20 LAB O2HB 95-98 % Oxyhemoglobin, Art. 98 LAB COHB 0-5.0 % Carboxyhemoglobin, 1.0 Art LAB MHGB 0.4-1.5 % Methemoglobin 0.9 LAB TEMP C Temperature, Body 37.0 LAB PHTC 7.35-7.45 pH, Temp Low Corrected 7.34 LAB PCO2T 34-46 mm Hg pCO2, Temp Correct 35 LAB PO2T mm Hg pO2, Temp Corrected 184 LAB NAB 132-148 mmol/L Sodium,Whole Bld 139 LAB KWB 3.5-5.0 mmol/L Potassium, Whole Bld 3.5 LAB HGBB 11.5-15.5 g/dL Low Hemoglobin,Total,A 11.2 CL LAB HCTB 36.0-46.0 % Hematocrit, Low ACL 35 LAB IC 1.08-1.30 mmol/L Calcium, Ion, WB 1.16 LAB GLB 60-105 mg/dL Glucose,Whole High Bld 143 LAB LACT 0.5-2.2 mmol/L Lactate High 3.6 LAB ACBDTE Notify Date, Art 20171007 LAB ACBTME Notify Time, Art Performed By: #### ALLBG #### [facility] [address] [place], [place] [address] CASE MANAGEM Observed: 10/07/2017 Status: COMPLETED Source: [place] 11:22 AM [facility] REPOSITORY HNO ID: [id number] Author: Rose Gaytan (Sw) Service: Care Management Author Type: Physician Compensation Analyst Type: Care Mgt Progress Note Filed: 10/07/2017 11:24 AM Note Text: CARE MANAGEMENT PROGRESS NOTE SERVICE DATE: 10/07/2017 SERVICE TIME: 11:22 AM LOS: 3 days Needs Prior to Discharge: To Be Determined Per morning rounds, pt to remain admitted through the weekend. Current plan is for pt to go to the OR today. PT/OT to see pt post op for dc recommendations. Please page PAULA with any questions or should any further needs arise. 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 PATIENT NAME: Rose Roland DATE: October 07, 2017 TIME: 11:22 AM PAGER/CONTACT #: [phone] NURSING PROG Observed: 10/07/2017 Status: COMPLETED Source: [place] 8:39 AM [facility] REPOSITORY HNO ID: [id number] Author: Yelena (Rn) [place] Queen Service: Nursing Author Type: Registered Nurse Type: Nursing Progress Note Filed: 10/07/2017 8:39 AM Note Text: Report from [place] on H60 SURGICAL PATHOLOGY Observed: 10/07/2017 Status: C Source: [place] 12:00 AM [facility] REPOSITORY ADDENDUM PRESENT Specimen originated from [facility] Specimen #: [id number] Submitting Physician: ELIAZAR MARCH MD FINAL DIAGNOSIS 1. Brain, right frontal tumor, biopsy and resection (A, B) - Meningioma, WHO grade I, with associated recent hemorrhage; see comment. 2. Brain, subdural membrane, biopsy (C) - Fibrotic tissue with old hemorrhage. COMMENT The neoplasm shows microcystic pattern and extensive hemorrhage. Mitotic activity is present at 2 mitotic figures per 10 high power zuniga. Ki-67 is pending and will be issued in an addendum. SYNOPTIC REPORT OF [place] PATHOLOGIC FINDINGS RIGHT FRONTAL TUMOR: Specimen Type/Procedure: Resection Specimen Handling: Frozen section Unfrozen for routine permanent paraffin sections Primary Tumor Site: Dura:frontal Laterality: Right Histologic Type: Meningioma Histologic Grade: I Ancillary Studies: Ki67 Clary Manzo MD (Electronic Signature) SPECIMEN SUBMITTED A: RIGHT FRONTAL TUMOR B: RIGHT FRONTAL TUMOR C: SUBDURAL MEMBRANE ADDENDUM Date Ordered: 10/12/2017 Date Reported: 10/12/2017 Immunohistochemistry performed to evaluate to aid in classification/prognosis (block A2) shows Ki-67 proliferation index of 13%. GY/kr 10/12/2017 Addendum Comment Laboratory Developed Test (LDT) Disclaimer: Positive and negative controls stain appropriately. Performance characteristics of immunohistochemical, immunofluorescent and chromogenic in-situ hybridization tests have been determined by [facility] Pathology and Laboratory Medicine [place] ([facility]) in a manner consistent with CLIA requirements. One or more of these tests have not been cleared or approved by the FDA. [facility] is regulated under CLIA as qualified to perform high-complexity testing. These tests are used for clinical purposes. They should not be regarded as investigational or for research. Addendum Pathologist: Clary Manzo MD Electronic Signature CLINICAL DATA RIGHT BRAIN MASS INTRAOPERATIVE CONSULT DIAGNOSIS FSA1: Meningioma. (Dr. Manzo) Intraoperative diagnosis performed at [facility], [address] [place] [id number] GROSS DESCRIPTION A. Received fresh at the frozen bench is a specimen labeled as right frontal tumor. It consists of multiple fragments of red-beaver tissue that aggregate a measurement of 2 x 2 x 0.5 cm. Half of the specimen is submitted for frozen and labeled as FSA1 and the remainder of the tissue is submitted for permanent in one cassette labeled as A2. LSP/glw 10/07/2017 B. Received in formalin designated right frontal tumor are multiple pink-beaver fragments of soft tissue intertwined with red-brown blood clot that weighs 4.7 grams and aggregates to 3.5 x 3 x 1 cm. The specimen is entirely submitted in three cassettes. C. Received fresh designated subdural membrane is a beaver- white rubbery fragment of tissue measuring 1 x 0.8 x 0.2 cm. The specimen is entirely submitted in one cassette. /kristofer Gross examination performed at [facility], [address] [place] [address] Date of Report: 10/11/2017 Date of Procedure: 10/07/2017 Date of Receipt: 10/07/2017 Submitted by: ELIAZAR MARCH MD Location: 0 Diagnostic interpretation performed at [facility], [address] [place] [address]. [facility] Observed: 10/06/2017 Status: COMPLETED Source: [place] 10:30 PM [facility] REPOSITORY HNO ID: [id number] Author: Ricardo Jean (Rt) Service: Radiology Author Type: Improvement Leader Type: Allied Health Filed: 10/06/2017 10:30 PM Note Text: Radiology Service Progress Note PATIENT NAME: Rose Roland DATE OF SERVICE: October 06, 2017 TIME: 10:30 PM PATIENT IDENTITY VERIFICATION COMPLETED USING TWO (2) METHODS: Patient confirmed name verbally and ID band matches.. PATIENT GENDER DATA: Female. status: : No status: NO. PATIENT RELEVANT IMPLANT DATA REVIEWED: Yes RADIOLOGY DEPARTMENT: MR; Exam(s) Completed: Head: Localization PERIPHERAL IV DATA: Inpatient: see LDA documentation SIGNED BY: RT Jossue October 06, 2017 10:30 PM MRI BRAIN LOCAL W Observed: 10/06/2017 Status: F Source: [place] IVCON 10:27 PM [facility] REPOSITORY * * *Final Report* * * DATE OF EXAM: Oct 06 2017 10:27PM QBM 0289 - MRI BRAIN LOCAL W IVCON / PROCEDURE REASON: Brain tumor (HCC) * * * * Physician Interpretation * * * * EXAMINATION: MRI BRAIN LOCAL W IVCON HISTORY: Brain tumor (HCC) TECHNIQUE: Stereotactic brain MRI protocolwith contrast at 1 mm.. MQ: [id number] Contrast: 19 mL IV COMPARISON: Outside MRI of the brain dated 10/04/2017 RESULT: Acute Change: There is no evidence of restricted diffusion to suggest an acute infarct. Hemorrhage: No evidence of prior parenchymal hemorrhage on the gradient echo images. Mass Lesion/ Mass Effect: There is a dural based enhancing lesion occupying most of the right anterior cranial fossa measuring approximately 6.9 x 5.1 x 4.9 cm. There is localized mass effect with displacement of the right frontal pole posteriorly and medially. There is marked right to left subfalcine herniation. Midline shift at the level the foramen Zavaleta measures 9 mm. No significant mass effect. Chronic Change: The white matter is within normal limits of signal intensity for age. Parenchyma: No significant volume loss for age. The brain parenchyma is otherwise within normal limits of signal intensity and morphology. Ventricles: Frontal horns are distorted due to the large right frontal meningioma but no evidence of ventricular trapping or hydrocephalus. Skull Base: Hypothalamic and pituitary region are grossly normal. Craniocervical junction is normal. No significant marrow replacement process. Vasculature: Major intracranial arterial structures, and dural venous sinuses show typical flow void, suggesting patency by spin echo criteria. Other: The visualized paranasal sinuses and mastoid air cells are clear. The orbits and extracranial soft tissues are unremarkable. IMPRESSION: Factory satisfactory stereotactic study in a patient with large right frontal meningioma. Marketing Research Coordinator: PSCB Transcribe Date/Time: Oct 06 2017 10:33P Dictated by : BENSON HORTON MD This examination was interpreted and the report reviewed and electronically signed by: BENSON HORTON MD on Oct 06 2017 10:35PM EST [id number] Observed: 10/06/2017 Status: COMPLETED Source: [place] 10:23 PM [facility] REPOSITORY [facility] ID: [id number] Author: Idania Arcos (Rn) [place] Sahni Service: Radiology Author Type: Registered Nurse Type: Progress Notes Filed: 10/06/2017 10:24 PM Note Text: Radiology Service Progress Note PATIENT NAME: Rose Roland DATE OF SERVICE: October 06, 2017 TIME: 10:23 PM PATIENT WEIGHT: 210 LBS PATIENT IDENTITY VERIFICATION COMPLETED USING TWO (2) METHODS: Patient confirmed name verbally and ID band matches.. PATIENT GENDER DATA: Female. status: : No status: NO. CONTRAST INDUCED NEPHROPATHY RISK FACTORS: Not applicable CREATININE: Creatinine Date Value Ref Range Status 10/05/2017 0.69 0.58 - 0.96 mg/dL Final 09/19/2014 0.78 0.70 - 1.40 mg/dL Final 01/09/2007 0.6 (L) 0.7 - 1.4 mg/dL Final eGFR-All Other Races Date Value Ref Range Status 10/05/2017 >60 . Final Comment: eGFR (Estimated GFR) Units of measure: mL/min/1.73 meters squared eGFR is derived from the reexpressed MDRD Study equation using the following parameters: serum creatinine, age, gender and race. The creatinine assay has been calibrated to be traceable to IDMS. An eGFR <60 mL/min/1.73m2 for >3 months is consistent with chronic kidney disease. Refer to KDOQI guidelines for clinical interpretation. In patients with unstable renal function, e.g. those with acute kidney injury, the eGFR may not accurately reflect actual GFR. eGFR- Date Value Ref Range Status 10/05/2017 >60 Final P.O.C.T. RESULTS: gfr>60 October 06, 2017 TREATMENT: No Hydration needed. ALLERGIES: Reviewed and unchanged CONTRAST ALLERGY: NO. IV SITE: Inpatient - refer to LDA documentation 20g RAC IV SITE APPEARANCE: Clean,Dry and Intact SIGNED BY: Idania Sahni RN October 06, 2017 10:23 PM HCG QUAL, URINE Collected: 10/06/2017 Status: F Source: [place] 7:08 PM [facility] REPOSITORY TYPE CODE TESTS RESULT OUT OF REFERENCE UNITS RANGE LAB [facility] Negative HCG Qual, Negative Urine Result Comment: This test is intended to aid in the early detection of . Very dilute urine samples, as indicated by a low specific gravity, may not contain pest control service representative levels of hCG. This te st detects intact hCG only. This test does not reliably detect hCG degradation products, including free-beta subunit and beta-core fragment. Therefore, this test may show reduced reactivity in urine after 8 weeks gestation. A number of conditions other than , including trophoblastic disease and certain non-trophoblastic neoplasms ca use elevated levels of hCG. As with any assay employing mouse antibodies, the possibility exists for interference by human anti-mouse antibodies (HAMA) in the specimen. The test provides a presumptive diagnosis for . Performed By: #### [facility] #### [facility] [address] [place], [place] [address] 12 LEAD ELECTROCARDIOGRAM Observed: 10/06/2017 Status: F Source: [place] 3:10 PM [facility] REPOSITORY [facility] Cardiovascular Services [address] [place] [address] 12 Lead EKG 10/04/172010 MR#: [id number] Acct: [id number] Name: ROSE ROLAND Rep #: [id number] : 1970 47 From: Ravinder Mendoza MD Attending Dr: Status: DEP ER Ordering Dr: Raven Mari MD Date: 10/04/17 Location: ED Sex: F C Admitted: Test Reason : HEADACHE Blood Pressure : / mmHG Vent. Rate : 078 BPM Atrial Rate : 078 BPM P-R Int : 144 ms QRS Dur : 086 ms QT Int : 378 ms P-R-T Axes : 023 009 013 degrees QTc Int : 430 ms Normal sinus rhythm Normal ECG Confirmed by MELANY DUGGAN, RAVINDER ([id number]), fuel testing technician HELEN CANO ([id number]) on 10/06/2017 3:10:13 PM Referred By: ROSE RODRIGUEZ Confirmed By:RAVINDER MENDOZA MD 10/06/17 151 Date Ravinder Mendoza MD CC: Justin Matthew; Raven Mari MD Signed CONSULT Observed: 10/06/2017 Status: COMPLETED Source: [place] 1:24 PM [facility] [place] REPOSITORY HNO ID: [id number] Author: Gustavo Sotomayor Service: Ophthalmology Author Type: OFFICE PROFESSIONAL Type: Consults Filed: 10/06/2017 1:28 PM Note Text: SDA inpatient ophtho consult 47y F with hx significant for 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 Scheduled for surgery tomorrow Here for baseline ophthalmic exam Vision pinholes to 20/20 OD, 20/25 OS No APD noted by tech OD, OS + symmetrical dyschromatopsia (missed 4 out of 12 ishihara plates OD, OS) HVF 30-2 and optic disc photos ordered Florid disc edema OU (see photos) HVF 30-2: high false positives OU Right eye: Scattered points missed. 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 Establish care with neuro-ophthalmology once stabilized. Full exam available in [facility]. Thank you I have confirmed and edited as necessary the relevant ophthalmic history, ROS, and the neuro exam findings as obtained by others. I have seen and examined this patient. I have discussed the case and the management of this patient's care with the Resident/Fellow, if applicable. I also have reviewed and agree with the assessment and plan as stated above and agree with all of its relevant components. 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 Scheduled for surgery tomorrow Here for baseline ophthalmic exam Vision pinholes to 20/20 OD, 20/25 OS No APD noted by tech OD, OS + symmetrical dyschromatopsia (missed 4 out of 12 ishihara plates OD, OS) HVF 30-2 and optic disc photos ordered Florid disc edema OU (see photos) HVF 30-2: high false positives OU Right eye: decreased mean deviation and scattered points missed. 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 Establish care with neuro-ophthalmology once stabilized. I have confirmed and edited as necessary the relevant ophthalmic history, ROS, and the neuro exam findings as obtained by others. I have seen and examined this patient. I have discussed the case and the management of this patient's care with the Resident/Fellow, if applicable. I also have reviewed and agree with the assessment and plan as stated above and agree with all of its relevant components. Gustavo Светлана, OD October 06, 2017 1:24 PM CASE MANAGEM Observed: 10/06/2017 Status: COMPLETED Source: [place] 9:40 AM [facility] REPOSITORY HNO ID: [id number] Author: Brenda Herndon (Sw) Service: Case Management Author Type: Physician Compensation Analyst Type: Care Mgt Progress Note Filed: 10/06/2017 9:41 AM Note Text: CARE MANAGEMENT PROGRESS NOTE SERVICE DATE: 10/06/2017 SERVICE TIME: 9:40 AM LOS: 2 days Needs Prior to Discharge: To Be Determined Plan is for patient to go to OR Tuesday for brain mass. Pt will not be discharging over the weekend prior to surgery. Pt will need PT/OT evals after OR. Floor CM will follow up with patient and team regarding DC plans after OR. SIGNATURE: BELA Burrows PATIENT NAME: Rose Roland DATE: October 06, 2017 TIME: 9:40 AM PAGER/CONTACT #: [phone] PROGRESS Observed: 10/06/2017 Status: COMPLETED Source: [place] 8:24 AM [facility] REPOSITORY HNO ID: [id number] Author: Sheryl Dimas Service: Neurosurgery Author Type: Resident Type: Progress Notes Filed: 10/06/2017 8:25 AM Note Text: Neurosurgery Update Note -Patient to be transported today to [facility] at 1000 today for formal ophtho evaluation Signature: Sheryl Dimas M.D. Neurosurgery, PGY-2 Pager #[phone] 10/06/2017 8:25 AM PROGRESS Observed: 10/06/2017 Status: COMPLETED Source: [place] 7:10 AM [facility] REPOSITORY HNO ID: [id number] Author: Eliazar March Service: Neurosurgery Author Type: Physician Type: Progress Notes Filed: 10/06/2017 9:41 PM Note Text: After 4 PM (1600) please page Tatiana Mcwilliams. After 1900, and weekends please page [phone]. Cerebrovascular Team A Inpatient Progress Note Attending: Dr. Eliazar March [address] HPI (Subjective): is a 47 year old female who denies blurry vision or headache. MEDICATIONS: Current hospital medications: dexamethasone 4 mg tab(s) (DECADRON) 4 mg ORAL BID w MEALS dextrose 40 % 15 g 15 g ORAL PRN glucagon 1 mg injection (GLUCAGEN) 1 mg INTRAMUSCULAR PRN dextrose 50% in water 25 mL syringe 12.5 g INTRAVENOUS PRN insulin lispro injection (rapid acting) (HumaLOG) SUBCUTANEOUS w MEALS ciprofloxacin HCl 500 mg tab(s) (CIPRO) 500 mg ORAL q 12 H mupirocin 2% 0.5 g nasal ointment (BACTROBAN) 0.5 g NASAL BID levETIRAcetam 500 mg tab(s) (KEPPRA) 500 mg ORAL BID heparin 5,000 Units injection 5,000 Units SUBCUTANEOUS q 12 H gabapentin 100 mg cap(s) (NEURONTIN) 100 mg ORAL TID metoprolol tartrate (short acting) 25 mg tab(s) (LOPRESSOR) 25 mg ORAL BID sertraline 50 mg tab(s) (ZOLOFT) 50 mg ORAL DAILY acetaminophen 650 mg tab(s) (TYLENOL) 650 mg ORAL q 4 H PRN oxyCODONE-acetaminophen 5-325 mg 1-2 tablet (PERCOCET) 1-2 tablet ORAL q 4 H PRN ondansetron (PF) 4 mg injection (ZOFRAN) 4 mg INTRAVENOUS q 6 H PRN docusate sodium 100 mg cap(s) (COLACE) 100 mg ORAL BID pantoprazole DR 40 mg tab(s) (PROTONIX) 40 mg ORAL DAILY (6 AM) OBJECTIVE: LABS: CBC: Recent Labs 10/05/17 0147 WBC 10.52 HB 12.9 HCT 40.0 PLT 289 MCV 89.7 RDWCV 12.9 NEUTP 89.7 ABSNEUT 9.44* LYMPHP 9.1 MONOP 0.8 EODINP 0.1 COAG: Recent Labs 10/05/17 0147 APTT 26.3 INR 1.0 BMP: Recent Labs 10/05/17 0147 GLUC 178* NA 140 K 4.2 CHLOR 103 CO2 21* ANION 16 BUN 13 CREAT 0.69 CHEM: Recent Labs 10/05/17 014 ALB 4.3 TPROT 8.3* CA 9.9 MG 2.2 HEPATIC: Recent Labs 10/05/17 0147 ALKPHOS 73 ALT 13 AST 14 TBILI 0.3 URINALYSIS: Recent Labs 10/05/17 0454 SPGR 1.027 UGLUC Negative UBILI Negative UKET Negative UHB Negative UPROT Negative UWBC 11-25* LEUKEST 1+* CARDIAC: No results for input(s): CKTEST, CKMB, CKMBP, TROPT, PBNP in the last 168 hours. Estimated Creatinine Clearance: 115.5 mL/min (based on Cr of 0.69). VITAL SIGNS 24 HOUR REVIEW: 10/05/17 1448 10/05/17 1828 10/05/17 2139 10/06/17 0600 BP: 115/67 120/61 123/70 122/66 Pulse: 71 91 71 67 Resp: 18 16 18 16 Temp: 37.1 ?C (98.8 ?F) 37.1 ?C (98.8 ?F) 36.7 ?C (98.1 ?F) TempSrc: Oral Oral Oral Oral SpO2: 98% 98% 98% 98% Weight: Height: Intake/Output Summary (Last 24 hours) at 10/06/17 0710 Last data filed at 10/06/17 0700 Gross per 24 hour Intake 2130 ml Output 302 ml Net 1828 ml ALLERGIES: ALLERGIES No Known Allergies PATIENT CHECK LIST: 1. Out of bed and ambulating: Yes Needs PT or OT Evaluation: no 2. Vascular access necessary: PIV Yes Central line present? No 3. Sotomayor/drains: No Continued need for urinary catheter? D/C Urinary Catheter 4. Nutrition: PO- Yes. 5. Pain - Is the patient currently reporting any pain? No. What is the patient's current pain level on a 0 to 10 rating scale? Pain Score: 0/10 - What is the plan for pain management today 10/06/2017? Gabapentin, 6. Current DVT prophylaxis: Continous sequential compression devices . 7. Seizure prophylaxis:Keppra 500 BID 8. Restraints No. 9. Gait difficulty: No 10. Bowel / Bladder dysfunction: No 11. Urinating:yes 12. 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 General: A AND O x 3. Appears stated age, well built, in no apparent distress. Psychiatric: Mood and affect: Appropriate. CV: Normal heart sounds, rate, rhythm Respiratory: lungs CTA bilat Musculoskeletal: Sensory: Normal sensory exam Gait: Normal Muscle strength: UE BICEPS TRICEPS DELTS Program Manager Environmental Planning R 5/5 5/5 5/5 5/5 L 5/5 5/5 5/5 5/5 LE Hip Flex Knee Flex Knee Extend Plantarflex Dorsiflex EHL R 5/5 5/5 5/5 5/5 5/5 5/5 L 5/5 5/5 5/5 5/5 5/5 5/5 CRANIAL NERVES: Pupils: OD Right: 2 mm Reactive OS Left: 2 mm Reactive II Visual zuniga: are full to confrontation, Denies blurry vision III, IV, EOM full V Facial sensation normal VII Normal strength VIII Normal bilaterally IX, X Normal, midline palatal rise XI Symmetric shrug XII Tongue midline, mobile Drift: negative Speech: fluent Hemineglect: negative Hospital Day: 3 10/07/2017 CC: Blurry vision ASSESSMENT: The patient denies headache or blurry vision this morning. PLAN: Patient seen, examined, and plan discussed with staff during rounds. Possible OR for tumor resection Tuesday Decadron 4BID for cerebral edema secondary to brain tumor (ISS and Protonix) Planned Date of Discharge: Approximately 4 - 6 days Discharge Disposition: pending Active Hospital Problems Diagnosis - Meningioma (HCC) POA Assessment; MRI Plan: possible OR tomorrow - Vasogenic cerebral edema (HCC) POA Assessment: MRI Plan:Decadron 4BID for cerebral edema secondary to brain tumor (ISS and Protonix) - At risk of seizures POA Plan: keppra 500 BID - Brain mass SIGNATURE: America Malloy PA-C PATIENT NAME: Rose Roland DATE: 10/06/2017 TIME: 7:10 AM PAGER: [phone] After 4 PM (1600) please page Tatiana Mcwilliams. After 1900, and weekends please page [phone]. [facility] STAFF: TEACHING PHYSICIAN NOTE OF PERSONAL INVOLVEMENT IN CARE I have reviewed the progress note obtained and documented by the Resident and I personally participated in the villalba components. I have discussed the case and management of the patient's care with the PA-C. The following comments revise or confirm relevant villalba components of the PA-C's note. Papilledema noted, vision ok. OR tomorrow. Stereo MRI without fiducials. Eliazar March MD Staff, Skull Base AND Cerebrovascular Surgery Department of Neurological Surgery [facility] NURSING PROG Observed: 10/05/2017 Status: COMPLETED Source: [place] 5:25 PM [facility] REPOSITORY HNO ID: [id number] Author: Rukhsana (Rn) ALMA Bridges Service: Nursing Author Type: Registered Nurse Type: Nursing Progress Note Filed: 10/05/2017 5:26 PM Note Text: Nursing Progress Note Topic of Note: Daily Note Rose Roland [id number] Pt. Discharge cancelled, high out from drain and uncontrolled pain. WATCH BAND ASSEMBLER dc'd today, transitioned to p.o. This note was completed by: Rukhsana Bridges RN Observed: 10/05/2017 Status: F Source: [facility] URINE [facility]ULTURE 11:30 AM [facility] REPOSITORY Sp. Request/Comment: - Specimen received in preservative Culture Result - >=100,000 CFU/ml Escherichia coli --> ABNORMAL ALERT ORGANISM: Escherichia coli METHOD: Minimum inhibitory concentration(Vitek) Antibiotic Interp ALAYNA Status Ampicillin SUSCEPTIBLE <=2 F Gentamicin SUSCEPTIBLE <=1 F Trimeth sulfameth SUSCEPTIBLE <=20 F Cefazolin SUSCEPTIBLE <=4 F CLSI breakpoints for therapy of uncomplicated UTI's due to E.coli, K.pneumoniae, and P.mirabilis were applied and may be used to predict the activity of oral agents(cefaclor, cefdinir, cefpodoxime, cefp rozil, cefuroxime, cephalexin, loracarbef). Ciprofloxacin SUSCEPTIBLE <=0.25 F Nitrofurantoin SUSCEPTIBLE <=16 F Cefepime SUSCEPTIBLE <=1 F Piperacillin/Tazobac SUSCEPTIBLE <=4 F Ampicillin Sulbact SUSCEPTIBLE <=2 F Ceftriaxone SUSCEPTIBLE <=1 F Meropenem SUSCEPTIBLE <=0.25 F Ertapenem SUSCEPTIBLE <=0.5 F Performed By: #### URCUL #### [facility] [address] [place], [place] [address] CASE MGT INIT Observed: 10/05/2017 Status: COMPLETED Source: [place] 9:50 AM [facility] REPOSITORY HNO ID: [id number] Author: Ayde Cm (Sw) Service: Care Management Author Type: Physician Compensation Analyst Type: Care Mgt Initial Assessment Filed: 10/05/2017 3:39 PM Note Text: CARE MANAGEMENT: ASSESSMENT AND DISCHARGE PLAN SERVICE DATE: 10/05/2017 SERVICE TIME: 9:58 AM PRIMARY CARE PHYSICIAN: Justin Matthew DO - confirmed- seen last month ADMISSION STATUS: Inpatient Needs Prior to Discharge: To Be Determined 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 No Advance Directive: Health Literacy: 1. How often do you need to have someone help you when you read instructions, pamphlets, or other written material from your doctor or pharmacy? Never - 1 2. How confident are you filling out medical forms by yourself? Extremely - 1 If Patient scores > 3 on either question, the following interventions were put into place: Patient did not score > 3 FUNCTIONAL AND COGNITIVE/BEHAVIORAL PRIOR TO ADMISSION: Baseline Mental Status: Alert AND Oriented, Person, Place , Time and Situation Functional Status: Independent Does Patient Currently Receive Any Community Services or Home Care? None Equipment Prior to Admission: None Has the Patient Been in a Custodial Facility in the Past 30 days? 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 Yes Patient's transition needs and plan for meeting these needs: tbd Does the patient have an acute stroke diagnosis, or has the patient had a stroke during this admission? No Medication Adherence: I am convinced of the importance of my prescription medication: Agree mostly - 0 I worry that my prescription medication will do more harm than good to me Disagree mostly - 0 I feel financially burdened by my [id number] expenses for my prescription medication: Disagree completely - 0 Patient is categorized as low risk < 2 Are you interested in bedside delivery of your medications? Yes Food Concerns: In the Last Month, Have You had Trouble Getting Food? No trouble getting food During the Last Month, Have You Worried Whether Your Food Would Run Out Before You Had Enough Money to Buy More? No Is the Patient Psychosocially Complex? No ASSESSMENT AND PLAN: Medical Needs: None Psychosocial Needs: None FREEDOM OF CHOICE EXPLAINED: N/A POTENTIAL TRANSITION PLANS To Be Determined Pt admitted for headache and blurry vision. Pt lives at home independently but has assist from her daughter and her mother and father live next door. Needs tbd. RNCC/SWCM will continue to follow pt for needs. SIGNATURE: BELA Haley PATIENT NAME: Rose Roland DATE: October 05, 2017 TIME: 9:50 AM PAGER/CONTACT #: [phone] XR CHEST 1V FRONTAL Observed: 10/05/2017 Status: F Source: [facility] 7:47 AM [facility] REPOSITORY * * *Final Report* * * DATE OF EXAM: Oct 05 2017 7:47AM [facility] [id number] - XR CHEST 1V FRONTAL PORT / PROCEDURE REASON: Pre-op evaluation * * * * Physician Interpretation * * * * EXAMINATION: CHEST RADIOGRAPH (PORTABLE SINGLE VIEW AP) Exam Date/Time: 10/05/2017 7:47 AM Indication: Pre-op evaluation MQ: XCP_[id number] Comparison: None available RESULT: See impression. IMPRESSION: Lines, tubes, and devices: None. Lungs and pleura: Lungs are well inflated without any airspace consolidations or pleural effusions. No pneumothorax. Cardiomediastinal silhouette: Stable cardiomediastinal silhouette. Other: Multiple surgical clips are noted in the left axilla. Marketing Research Coordinator: MACY Transcribe Date/Time: Oct 05 2017 10:03A Dictated by : THUY PICKARD MD This examination was interpreted and the report reviewed and electronically signed by: THUY PICKARD MD on Oct 05 2017 10:03AM EST [id number] URINALYSIS WITH Collected: 10/05/2017 Status: F Source: [facility] 4:54 AM [facility] REPOSITORY TYPE CODE TESTS RESULT OUT OF RANGE REFERENCE UNITS LAB UCOL Yellow Color Yellow LAB [facility] Clear Clarity Abnormal Cloudy Alert LAB UGLUC Negative mg/dL Glucose, Urine Negative LAB UBIL Negative Bilirubin, Urine Negative LAB UKET Negative Ketones, Urine Negative LAB USPG 1.005-1.030 Specific Drew, Ur 1.027 LAB UHGB Negative Hemoglobin/Blood, Negative Ur LAB UPH 4.5-8.0 pH 7.0 LAB UPROT Negative mg/dL Protein, Urine Negative LAB UUROB Normal Urobilinogen Normal LAB UNITR Negative Nitrites Abnormal Positive Alert LAB ULKEST Negative Leukest Abnormal 1+ Alert LAB UCOM Comments SEE COMMENT Result Comment: N/A LAB UMCOM Urine SEE Alayna Comment COMMENT Result Comment: N/A LAB UWBC 0-5 /HPF Abnormal WBC Alert 11-25 LAB URBC 0-3 /HPF RBC 0-3 LAB UEPI /HPF Epithelial Cells SEE COMMENT Result Comment: Few Squamous Epithelial Cells Few Non-Squamous Epithelial Cells Performed By: #### UAWMIC #### [facility] [address] [place], [place] [address] STAPH AUREUS PCR Collected: 10/05/2017 Status: F Source: [place] 4:54 AM [facility] REPOSITORY TYPE CODE TESTS RESULT OUT OF RANGE REFERENCE UNITS LAB SASRC Nasal S aureus Spec Source LAB MRSRES Negative for MRSA MRSA by PCR. PCR LAB SARES Positive for Abnormal Staph Staphylococcus Alert aureus PCR aureus by PCR. Performed By: #### SAPCR #### [facility] [address] [id number] PROTIME Collected: 10/05/2017 Status: F Source: [place] 1:47 [facility] REPOSITORY TYPE CODE TESTS RESULT OUT OF RANGE REFERENCE UNITS LAB PSEC 9.7-13.0 sec PT Sec 10.8 LAB INR 0.9-1.3 PT INR 1.0 Result Comment: Vitamin K Antagonist (VKA) Therapeutic Range: INR 2 to 3 (Target INR of 2.5) Note: For patients treated with VKA drugs, such as warfarin, the [place] [employer] 2012 Guideline recommends a therapeutic INR range of 2 to 3 (target INR of 2.5). This recommendation includes high-risk patients with antiphospholipid syndrome with previous arterial or venous thromboembolism, current-generation mechanical or bioprosthetic aortic heart valve replacement. Note: Patients with mechanical aortic valve replacement and additional risk factors for thromboembolic events (atrial fibrillation, previous thromboembolism, LV dysfunction, hypercoagulable conditions) or an older generation mechanical AVR (i.e., ball in-Cage) or any mechanical MVR should have a INR therapeutic range of 2.5 to 3.5 (target INR of 3). Malorie GH, et al. Chest 2012, 141:7S-47S Jocelyn RA, et al. [facility] 2017, 70: 252-289 Performed By: #### PT, PTT, CBCDIF, BMP, HFP, MG1, PHOS #### [facility] [address] [place] [address] APTT Collected: 10/05/2017 Status: F Source: [place] 1:[address] [place] [address] REPOSITORY TYPE CODE TESTS RESULT OUT OF RANGE REFERENCE UNITS LAB APTT 23.0-32.4 sec APTT 26.3 Result Comment: Unfractionated Heparin Therapeutic Ranges: Standard Heparin Nomogram: 53 to 78 seconds (anti-Xa level of 0.3 to 0.7 U/ml) Low Dose/ACS Nomogram: 49 to 67 seconds (anti-Xa level of 0.2 to 0.5 U/ml) Stroke Treatment Nomogram: 49 to 67 seconds (anti-Xa level of 0.2 to 0.5 U/ml) Note: The APTT therapeutic range has been determined for the current lot of laboratory APTT reagent in use throughout the [facility]. Performed By: #### PT, PTT, CBCDIF, BMP, HFP, MG1, PHOS #### [facility] [address] [place], [place] [address] CBC AND DIFFERENTIAL Collected: 10/05/2017 Status: F Source: [place] 1:47 [facility] REPOSITORY TYPE CODE TESTS RESULT OUT OF REFERENCE UNITS RANGE LAB WBC 3.70-11.00 k/uL WBC 10.52 LAB RBC 3.90-5.20 m/uL RBC 4.46 LAB HGB 11.5-15.5 g/dL Hemoglobin 12.9 LAB HCT 36.0-46.0 % Hematocrit 40.0 LAB MCV 80.0-100.0 fL MCV 89.7 LAB MCH 26.0-34.0 pG MCH 28.9 LAB MCHC 30.5-36.0 g/dL MCHC 32.3 LAB RDWCV 11.5-15.0 % RDW-CV 12.9 LAB PLTCT 150-400 k/uL Platelet Count 289 LAB MPV 9.0-12.7 fL MPV 10.0 LAB ANEUT % Neut% 89.7 LAB AANEUT 1.45-7.50 k/uL Abs Neut High 9.44 LAB ALYMP % Lymph% 9.1 LAB AALYMP 1.00-4.00 k/uL Low Abs Lymph 0.96 LAB AMONO % [place]% 0.8 LAB AAMONO <0.87 k/uL Abs [place] 0.08 LAB AEOS % Eosin% 0.1 LAB AAEOS <0.46 k/uL Abs Eosin <0.03 LAB ABASO % Baso% 0.3 LAB AABASO <0.11 k/uL Abs Baso 0.03 LAB AUNRBC 0 /100 WBC NRBCs 0.0 LAB ABNRBC <0.01 k/uL Absolute nRBC <0.01 LAB DTYP DTYPE Auto Diff Performed By: #### PT, PTT, CBCDIF, BMP, HFP, MG1, PHOS #### [facility] [address] [place], [place] [address] BASIC METABOLIC PANL Collected: 10/05/2017 Status: F Source: [place] 1:47 [facility] REPOSITORY TYPE CODE TESTS RESULT OUT OF REFERENCE UNITS RANGE LAB GLU 74-99 mg/dL High Glucose 178 Result Comment: The [place] Diabetes Association (ADA) provides guidance for cutoff values for fasting glucose and random glucose. The ADA defines fasting as no caloric intake for at least 8 hours. Fas ting plasma glucose results between 100 to 125 mg/dL indicate increased risk for diabetes (prediabetes). Fasting plasma glucose results greater than or equal to 126 mg/dL meet the criteria for diagnosis of diabetes. In the absence of unequivocal hyperglycemia, results should be confirmed by repeat testing. In a patient with classic symptoms of hyperglycemia or hyperglycemic crisis, random plasma glucose results greater than or equal to 200 mg/dL meet the criteria for diagnosis of diabetes. Reference: Standards of Medical Care in Diabetes 2016, [place] Diabetes Association. Diabetes Care. 2016.39(Suppl 1). LAB BUN 7-21 mg/dL BUN 13 LAB CRET 0.58-0.96 mg/dL Creatinine 0.69 LAB NA 136-144 mmol/L Sodium 140 LAB K 3.7-5.1 mmol/L Potassium 4.2 LAB CL 97-105 mmol/L Chloride 103 LAB CO2 22-30 mmol/L CO2 Low 21 LAB AGAP 9-18 mmol/L Anion Gap 16 LAB CA 8.5-10.2 mg/dL Calcium, Total 9.9 LAB GFRAA eGFR- Amer. >60 LAB GFRNAA . eGFR-All Other Races >60 Result Comment: eGFR (Estimated GFR) Units of measure: mL/min/1.73 meters squared eGFR is derived from the reexpressed MDRD Study equation using the following parameters: serum creatinine, age, gender and race. The creatinine assay has been calibrated to be traceable to IDMS. An eGFR <60 mL/min/1.73m2 for >3 months is consistent with chronic kidney disease. Refer to KDOQI guidelines for clinical interpretation. In patients with unstable renal function, e.g. those with acute kidney injury, the eGFR may not accurately reflect actual GFR. Performed By: #### PT, PTT, CBCDIF, BMP, HFP, MG1, PHOS #### [facility] [address] [place], [place] [address] HEPATIC FUNCTN PANEL Collected: 10/05/2017 Status: F Source: [place] 1:47 AM [facility] REPOSITORY TYPE CODE TESTS RESULT OUT OF REFERENCE UNITS RANGE LAB ALB 3.9-4.9 g/dL Albumin 4.3 LAB TBIL 0.2-1.3 mg/dL Bilirubin, Total 0.3 LAB CBIL <0.2 mg/dL Bilirubin,Conjuga <0.2 sarthak LAB ALKP 32-117 U/L Alkaline Phosphatase 73 LAB AST 13-35 U/L AST 14 LAB ALT 7-38 U/L ALT 13 LAB TP 6.3-8.0 g/dL Protein, High Total 8.3 Performed By: #### PT, PTT, CBCDIF, BMP, HFP, MG1, PHOS #### [facility] [address] [place] [address] MAGNESIUM Collected: 10/05/2017 Status: F Source: [place] 1:47 AM [facility] REPOSITORY TYPE CODE TESTS RESULT OUT OF REFERENCE UNITS RANGE LAB MG 1.7-2.3 mg/dL Magnesium 2.2 Performed By: #### PT, PTT, CBCDIF, BMP, HFP, MG1, PHOS #### [facility] [address] [place] [address] PHOSPHORUS Collected: 10/05/2017 Status: F Source: [place] 1:47 AM [facility] REPOSITORY TYPE CODE TESTS RESULT OUT OF REFERENCE UNITS RANGE LAB PHOS 2.7-4.8 mg/dL Low Phosphorus 2.1 Performed By: #### PT, PTT, CBCDIF, BMP, HFP, MG1, PHOS #### [facility] [address] [place] [address] TYPE AND SCREEN Collected: 10/05/2017 Status: F Source: [place] 1:47 AM [facility] REPOSITORY TYPE CODE TESTS RESULT OUT OF REFERENCE UNITS RANGE LAB %ABR O ABO/RH(D) POSITIVE LAB % Antibody NEG Screen Performed By: #### TSCR #### [place] [address] [place] [address] NURSING PROG Observed: 10/05/2017 Status: COMPLETED Source: [place] 1:17 AM [facility] REPOSITORY HNO ID: [id number] Author: Rose GongoraRn) ALMA Hoffman Service: Nursing Author Type: Registered Nurse Type: Nursing Progress Note Filed: 10/05/2017 1:17 AM Note Text: Nursing Progress Note Patient Name: Rose Roland Patient Location: [facility]060 011/H060-12 Transfer Note: Patient transferred into H60:12 in stable condition. Actions taken: No futher actions taken at this time. Will continue to monitor and check with patient. 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 Reports increased irritability and decreased appetite in past few months as well. Denies vomiting, seizures, weakness (other than baseline L power lineworker weakness), falls, speech changes, or fevers/chills. Anti-platelets/anti-coagulants: aspirin 81 daily PAST MEDICAL HISTORY: PAST MEDICAL HISTORY Diagnosis Date - Abdominal pain - Abdominal pain, epigastric - Acute gastritis without mention of hemorrhage - Asthma - DM (diabetes mellitus) (HCC) - Esophagitis, unspecified - Hypertension - Melanoma (HCC) NO BP LEFT ARM - Menorrhagia - Neuropathy (HCC) PAST SURGICAL HISTORY: PAST SURGICAL HISTORY Procedure Laterality Date - DANDC, DIAG AND/OR THERAPEUTIC Dilation AND curettage - EGD W/O BRSH SPECIMEN W/BX 05/15/09 - L'SCOPE DX W/WO BRUSHINGS/WASHINGS Laparoscopy - LIGATE FALLOPIAN TUBE 09/24/14 - PAST SURGICAL HISTORY OF 02/02/2011 excision of melanoma Lt arm with nodes - REMOVAL GALLBLADDER Cholecystectomy - complex A. our procedure with biliary enteric anastomosis. 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 gabapentin (NEURONTIN) 100 mg capsule Take 100 mg by mouth three times daily. aspirin, enteric coated (ASPIRIN, ENTERIC COATED) 81 mg EC tablet Take 81 mg by mouth once daily. medroxyPROGESTERone (DEPO-PROVERA) 150 mg/mL syrg Inject 1 mL intramuscularly every 12 weeks. TRAMADOL HCL (TRAMADOL ORAL) Take by mouth as needed. metoprolol tartrate, short acting, (LOPRESSOR) 25 mg tablet Take 25 mg by mouth twice daily. sertraline 50 mg tablet Take 50 mg by mouth once daily. metFORMIN 1,000 mg ORAL 24 hr tablet Take one(1) tablet daily. cyclobenzaprine (FLEXERIL) 10 mg tablet Take 10 mg by mouth as needed. sulindac (CLINORIL) 200 mg tablet Take 200 mg by mouth as needed. IPRATROPRIUM-ALBUTEROL 0.5 mg-3 mg(2.5 mg base)/3 mL INHALATION Nebu LORAZEPAM 1 mg ORAL tablet ALBUTEROL 90 MCG/ACTUATION AEROSOL INHALER Use as directed four(4) times daily. as needed Current hospital medications: gabapentin 100 mg cap(s) (NEURONTIN) 100 mg ORAL TID metoprolol tartrate (short acting) 25 mg tab(s) (LOPRESSOR) 25 mg ORAL BID sertraline 50 mg tab(s) (ZOLOFT) 50 mg ORAL DAILY NaCl 0.9% iv infusion 75 mL/hr INTRAVENOUS CONTINUOUS acetaminophen 650 mg tab(s) (TYLENOL) 650 mg ORAL q 4 H PRN oxyCODONE-acetaminophen 5-325 mg 1-2 tablet (PERCOCET) 1-2 tablet ORAL q 4 H PRN ondansetron (PF) 4 mg injection (ZOFRAN) 4 mg INTRAVENOUS q 6 H PRN docusate sodium 100 mg cap(s) (COLACE) 100 mg OR[address] BID pantoprazole [address] 40 mg tab(s) (PROTONIX) 40 mg ORAL DAILY (6 AM) ALLERGIES: ALLERGIES No Known Allergies COMPLETE REVIEW OF SYSTEMS: See HPI PHYSICAL EXAM: Awake, alert, NAD Oriented x 3 Speech fluent Repetition intact, naming 3/3 PERRL, EOMI OU 20/30 acuity VF intact FS, TM, FSILT Palate rise symmetric RUE 5/5, no drift LUE 4/5 power lineworker, otherwise 5/5, no drift BLE 5/5 SILT CV: RRR, no r/m/g Chest: CTAB Abdomen: Soft, NT/ND ASSESSMENT AND PLAN: 47y F with hx significant for LUE melanoma s/p local excision and lymph node removla in 2010, with 4 months headaches and nausea, 1 month blurry vision (R>L) and L hand paresthesias, increased irritability, and decreased appetite, with MRI demonstrating 7.7x5.2cm R frontal extra-axial enhancing mass causing 2cm midline shift, displacement of ACAs, and subfalcine herniation, suspicious for meningioma. H60 with q4h neuro checks SBP <160 Pain control Keep NPO Dex 4 BID, SSI No AEDs at this time OR for resection, timing pending staff review of imaging Admit labs, DVT scan Hold antiplatelets/anticoagulation/chemoprophylaxis Discussed with chief and staff, Dr. Miller Signature: Luz Maria Mesa MD Neurosurgery PGY2 Pager [phone] Please page [phone] after 6 PM and on weekends [facility] STAFF: TEACHING PHYSICIAN NOTE OF PERSONAL INVOLVEMENT IN CARE I have reviewed the progress note obtained and documented by the Resident and I personally participated in the villalba components. I have discussed the case and management of the patient's care with the Resident. The following comments revise or confirm relevant villalba components of the Resident's note. History and exam as above. Asked by Dr. Miller to evaluate and manage patient. 3 months of headaches and blurry vision, eye doctor saw papilledema prompting imaging. Notes 6-12 months or irritable mood, mild memory and concentration difficulties, mild imbalance. No seizure history, no prior XRT hx. Localized melanoma excision. MRI shows 7cm right frontal extra-axial mass with major mass effect. I believe this is most likely represents a meningioma although the possibility that this could represent another type of tumor was also discussed. The natural history of meningiomas was discussed in detail. Treatment options were discussed in detail including observation, radiation treatment/radiosurgery, or surgery. I recommend surgery due to large size, mass effect, atypical features, papilledema. We discussed the craniotomy for resection of brain tumor in detail including the risks, benefits, alternatives, and expected course and outcomes. Risks discussed included but were not limited to bleeding, infection, cerebrospinal fluid leak, numbness, weakness/paralysis, speech difficulty, stroke, seizures, medical complications, and . Patient and family understand these risks and wish to proceed. They also understand that this may be one of several staged procedures needed to treat this condition. Diet, OK to shower, SC hep. Last aspirin Tuesday. May be ok for Tuesday, but discussed with patient may need platelet transfusion prn. Had stress test 3 yr ago for palpitations was normal, MET>4. Diabetes, dex 4 bid, watch sugars. Start keppra 500 bid. Surgery Tuesday vs Tuesday. Eliazar March MD Staff, Skull Base AND Cerebrovascular Surgery Department of Neurological Surgery [facility] PT ED Observed: 10/04/2017 Status: COMPLETED Source: [place] 11:43 PM [facility] REPOSITORY HNO ID: [id number] Author: [facility] Provider Service: (none) Author Type: Physician Type: Patient Education Filed: 10/04/2017 11:43 PM Note Text: [facility] Patient Education Report --------- Name: ROSE ROLAND Date: 10/04/2017 Time: 11:42 PM Patient Ordered Video: Inpatient Falls from [id number] via phone number [phone] at 11:42 PM EMERGENCY DEPARTMENT Observed: 10/04/2017 Status: F Source: [place] SUMMARY 9:25 PM [facility] REPOSITORY [facility] Medical Records Department [address] [place] [address] Emergency Department Summary 10/04/17 2100 MR#: [id number] Acct: [id number] Name: ROSE ROLAND Rep #: [id number] : 1970 47 From: Raven Mari MD PCP: Justin Matthew Status: REG ER - ER Visit Summary Date of Service: 10/04/17 Chief Complaint: Headache, abnormal MRI History of Present Illness: The patient is a 47 F to the emergency department with an abnormal MRI. The patient has had a gradual progressive headache for the past 3 months. She states that it has begun to wake him from sleep. She has had nausea and vomiting. Over the past month, she said double vision and trouble focusing especially with the right eye. Over the past 2 weeks, she has begun to have clumsiness of her left hand. She went to her overcaster. She had a dilated exam which demonstrated papilledema. With this, she was ordered an outpatient MRI. MRI was done today. It did show a large mass with hemorrhagic transformation and midline shift. 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 She had negative lymph nodes. She has no other history of cancer. She does not take anticoagulants. Physical Examination: Vital signs reviewed General: Well-nourished, well-developed Head: Normocephalic, atraumatic Eyes: Pupils equal and reactive, extraocular muscles intact Neck, supple, no lymphadenopathy Heart: Regular rate and rhythm Respiratory: No distress, clear bilaterally Abdomen: Soft, nontender, nondistended, no peritoneal signs Back: Nontender Extremities: Nontender, no edema, no cords Skin: Normal color no rash Neuro: Alert and oriented, positive papilledema, mild clumsiness of the left arm, GCS of 15 Test Results: [] Emergency Department Course and Treatment: The patient has a GCS of 15. However, in reviewing her MRI this is a very large mass. There is both acute and subacute hemorrhage. She has about a centimeter midline shift. Although the patient looks well, I do feel that she is going to require emergent neurosurgery evaluation. The patient was given IV Decadron. She was started on IV Keppra. Patient was discussed with Dr. Miller, neurosurgeon at [facility]. He did accept the patient in transfer. She will be transferred to [facility] for further evaluation and treatment of her brain mass. Treatment Plan: [] Disposition: Transfer Impression: 1. Brain mass with midline shift This note was generated with [employer] dictation software. It may contain incorrect words, spelling, and punctuation that were not noted in review of the chart prior to signing ED Disposition - Plan for ED Patient: Chief Complaint: Abn Labs Referrals: Justin Matthew [Primary Care Provider] - What to do if you have Problems For any increased pain, shortness of breath, bleeding, nausea or vomiting, chest pain, or any unexpected problems, contact your Primary Care Provider. Call [facility] ([phone]) or report to the closest Emergency Room. Call 911 if necessary. 10/04/178 <Electronically signed by Raven Mari MD> Date Raven Mari MD Cosigner Signature (If Indicated): Date CC: Justin Matthew CBC W/DIFF, AUTOMATED Collected: 10/04/2017 Status: F Source: [place] 8:20 PM [facility] REPOSITORY TYPE CODE TESTS RESULT OUT OF RANGE REFERENCE UNITS LAB L100.1000 4.4-11.0 K/mm3 Normal WBC 10.0 LAB L100.1200 4.2-5.4 M/mm3 Normal RBC 4.39 LAB L100.1300 12.0-15.0 g/dl Normal HGB 13.0 LAB L100.1400 37-47 % Normal HCT 40.4 LAB L100.1500 81-99 fL Normal MCV 92.0 LAB L100.1600 27.0-32.0 pg Normal MCH 29.6 LAB L100.1700 32-36 g/gl Normal MCHC 32.2 LAB L100.1810 11.6-14.6 % Normal RDW CV 13.2 LAB L100.1820 35.1-43.9 fl High RDW SD 44.2 LAB L100.1900 150-450 K/mm3 Normal PLT 276 LAB L100.2000 6.2-12.0 fl Normal MPV 9.7 LAB L100.2100 47-70 % Normal NEUT% 61.2 LAB L100.2200 19-41 % Normal LY% 27.8 LAB L100.2300 0-10 % Normal MONO% 6.8 LAB L100.2400 0-5 % Normal EO% 3.8 LAB L100.2500 0-1 % Normal BASO% 0.3 LAB L100.2550 0.0-0.9 % Normal IM GRAN % 0.100 Result Comment: IG% - Immature Granulocytes (promyelocytes, myelocytes and metamyelocytes) > 1% indicates that a LEFT SHIFT is Present. LAB L100.2620 2.0-7.7 X10 3/uL Normal Absolute Neut 6.1 LAB L100.2720 0.83-4.51 X10 3/ul Normal Absolute Lymph 2.78 Performed By: #### L100.0100 #### [facility] [address] [place], [address] COMPREHENSIVE METABOLIC Collected: 10/04/2017 Status: F Source: [facility] 8:20 PM [facility] REPOSITORY TYPE CODE TESTS RESULT OUT OF RANGE REFERENCE UNITS LAB L501.0100 74-106 mg/dL Normal GLU 105 Result Comment: Fasting Glucose result from 100 to 125 mg/dL suggests IMPAIRED HOMEOSTASIS per A.D.A. criteria. Please note revised GLUCOSE reference range effective 2017. LAB L501.1000 7-18 mg/dL Normal BUN 15 LAB L501.1100 0.55-1.02 mg/dL Normal CREAT,SERUM 0.74 Result Comment: The validity of the calculated GFR AND GFRAA in patients over 70 years has not been determined. Clinical correlation is essential. LAB L501.1110 >60 mL/min Normal EST GFR 90 Result Comment: Non- GFR Calc LAB L501.1115 >60 mL/min Normal EST GFR - AA 108 Result Comment: GFR Calc LAB L501.1255 ml/min Normal Estimated CRCL 88.93 LAB L501.1300 10-20 RATIO High BUN/CRE 20.2 LAB L501.1500 6.4-8. g/dL Normal 2 T PROT 8.1 LAB L501.1800 3.2-5. g/dL Normal 0 ALB 3.7 LAB L501.1950 2.2-4. g/dL High 2 GLOB 4.4 LAB L501.2000 0.9-2. RATIO Low 4 A/G 0.8 LAB L501.2200 8.5-10 mg/dL Normal .1 CA 9.3 LAB L501.4100 15-37 U/L Low AST 11 LAB L501.4305 45-117 U/L Normal ALK P 77 LAB L501.4405 13-56 U/L Normal ALT 18 Result Comment: Please note revised ALT reference range effective 2017. LAB L501.4600 0.20-1.00 mg/dL Normal T BILI 0.30 LAB L501.5300 136-145 mmol/L Normal NA 141 LAB L501.5600 3.5-5.1 mmol/L Normal K 3.5 LAB L501.5900 98-107 mmol/L High CL 108 LAB L501.6100 21.0-32.0 mmol/L Normal CO2 26.0 LAB L501.6200 5-15 Normal GAP 7 Performed By: #### L500.4050 #### [facility] [address] [place], [place], [address] PROTHROMBIN TIME W/INR Collected: 10/04/2017 Status: F Source: [place] 8:20 PM [facility] REPOSITORY TYPE CODE TESTS RESULT OUT OF RANGE REFERENCE UNITS LAB L300.4150 11.7-14.9 SECONDS Normal PROTIME 13.4 LAB L300.4200 Normal INR 1.0 Performed By: #### L300.3900, L300.4310 #### [facility] [address] [place], [address] PARTIAL THROMBOPLAST Collected: 10/04/2017 Status: F Source: [place] TIME 8:20 PM [facility] REPOSITORY TYPE CODE TESTS RESULT OUT OF RANGE REFERENCE UNITS LAB L300.4310 24.1-36.2 Seconds Normal PTT 28.1 Performed By: #### L300.3900, L300.4310 #### [facility] [address] [place], [address] BRAIN W/WO CONTRAST Observed: 10/04/2017 Status: F Source: [place] 5:12 PM [facility] REPOSITORY [facility] Imaging Services [address] [place] [address] Brain W/WO Contrast MR#: [id number] Acct: [id number] Name: ROSE ROLAND Rep #: [id number] : 1970 F 47 From: Sudhir Corea MD PCP: Justin Matthew Status: REG CLI Study: Brain W/WO Contrast Date of Exam: 10/04/17 Exam# [id number] Ordering Dr: Rose Rodriguez DO STUDY: MRI BRAIN WITH AND WITHOUT CONTRAST REASON FOR EXAM: Female, 47 years old. Papilledema with headaches TECHNIQUE: Standardized multiplanar fat and water weighted pulse sequences were obtained. 10 ml of Gadavist contrast material was administered intravenously for the contrast portion of the examination. COMPARISON: None. FINDINGS: There is a very large heterogeneously enhancing mass lesion in the right frontal lobe demonstrating foci of subacute and acute hemorrhage producing extrinsic compression upon the frontal horn of the right lateral ventricle which is displaced posteriorly and across the midline.. There is also mass effect upon the frontal horn of the left lateral ventricle. Normal white matter tracts of the supratentorial brain. Normal bilateral basal ganglia. Normal thalami. There is no extra-axial fluid accumulation. Normal flow voids within the major intracranial circulation suggesting patency by spin echo criteria. Normal venous enhancement. There is no enhancing intra-axial or extra-axial abnormality. Partial empty sella deformity. Normal, infundibular stalk, optic chiasm and hypothalamus. Normal tectal plate and pineal gland. Normal midbrain, moise and medulla. Normal cerebellum. Normal basal cisterns. Normal bilateral temporal bones. Normal bilateral internal auditory canals. There is fluid distended optic nerve root sheaths which may be consistent with clinical history of palpable edema There is minor mucosal thickening of the maxillary and ethmoid sinuses. Normal calvarium and skull base. Normal visualized soft tissue structures. Normal visualized upper cervical spine. MRI/Brain W/WO Contrast IMPRESSION: Large heterogeneously enhancing mass in the right frontal lobe with foci of acute and subacute hemorrhage displacing the lateral ventricles and producing midline shift. This may represent a primary glioblastoma although large metastatic lesion is not excluded and clinical correlation is recommended Electronically Signed: Sudhir Corea MD at 19:03 EDT , Service support , CC: Justin Matthew; Rose Rodriguez DO Marketing Research Coordinator: Signed MR-BRAIN W/WO Observed: 10/04/2017 Status: F Source: [place] CONTRAST IMPORT 12:00 AM [facility] REPOSITORY Images were obtained outside of [facility] [id number] Observed: 10/04/2017 Status: COMPLETED Source: [place] 12:00 AM [facility] REPOSITORY Patient:Rose Roland MRN: <[id number]> Height:5' 4.567(1.64 m) Weight:215 lb 2.7 oz (97.6 kg) Outpatient Medications as of 10/07/17: ATORVASTATIN CALCIUM (LIPITOR ORAL) gabapentin (NEURONTIN) 100 mg capsule aspirin, enteric coated (ASPIRIN, ENTERIC COATED) 81 mg EC tablet medroxyPROGESTERone (DEPO-PROVERA) 150 mg/mL syrg TRAMADOL HCL (TRAMADOL ORAL) metoprolol tartrate, short acting, (LOPRESSOR) 25 mg tablet sertraline 50 mg tablet metFORMIN 1,000 mg ORAL 24 hr tablet cyclobenzaprine (FLEXERIL) 10 mg tablet sulindac (CLINORIL) 200 mg tablet IPRATROPRIUM-ALBUTEROL 0.5 mg-3 mg(2.5 mg base)/3 mL INHALATION Nebu LORAZEPAM 1 mg ORAL tablet ALBUTEROL 90 MCG/ACTUATION AEROSOL INHALER Admission/Clinic Administered Medications as of 10/07/17: NaCl 0.9% iv infusion iv contrast (radiology procedure) dexamethasone 4 mg tab(s) (DECADRON) dextrose 40 % 15 g glucagon 1 mg injection (GLUCAGEN) dextrose 50% in water 25 mL syringe insulin lispro injection (rapid acting) (HumaLOG) ciprofloxacin HCl 500 mg tab(s) (CIPRO) mupirocin 2% 0.5 g nasal ointment (BACTROBAN) levETIRAcetam 500 mg tab(s) (KEPPRA) gabapentin 100 mg cap(s) (NEURONTIN) metoprolol tartrate (short acting) 25 mg tab(s) (LOPRESSOR) sertraline 50 mg tab(s) (ZOLOFT) acetaminophen 650 mg tab(s) (TYLENOL) oxyCODONE-acetaminophen 5-325 mg 1-2 tablet (PERCOCET) ondansetron (PF) 4 mg injection (ZOFRAN) docusate sodium 100 mg cap(s) (COLACE) pantoprazole DR 40 mg tab(s) (PROTONIX) Problem List: Acute pancreatitis [K85.90] Calculus of gallbladder without mention of cholecystitis or obstruction [K80.20] Abdominal pain, unspecified site [R10.9] Abdominal pain, generalized [R10.84] ASA CLASS II [1001] Portal vein thrombosis [I81] Abdominal pain, epigastric [R10.13] Esophagitis, unspecified [K20.9] Acute gastritis without mention of hemorrhage [K29.00] Incisional hernia [K43.2] Incisional hernia with obstruction [K43.0] Melanoma (HCC) [C43.9] Brain mass [G93.9] Meningioma (HCC) [D32.9] Vasogenic cerebral edema (HCC) [G93.6] At risk of seizures [Z91.89] Allergies: No Known Allergies Date Verified:10/07/17 Lab Values Lab Value Units Date High Low POTA* 4.2 mmol/L 10/05/2017 5.1 3.7 CHAGO* 40.0 % 10/05/2017 46.0 36.0 Progress Notes (OPHT MAIN): Gustavo Светлана, OD 10/06/2017 1:28 PM Signed SDA inpatient ophtho consult 47y F with hx significant for 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 Scheduled for surgery tomorrow Here for baseline ophthalmic exam Vision pinholes to 20/20 OD, 20/25 OS No APD noted by tech OD, OS + symmetrical dyschromatopsia (missed 4 out of 12 ishihara plates OD, OS) HVF 30-2 and optic disc photos ordered Florid disc edema OU (see photos) HVF 30-2: high false positives OU Right eye: decreased mean deviation and scattered points missed. 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 Establish care with neuro-ophthalmology once stabilized. I have confirmed and edited as necessary the relevant ophthalmic history, ROS, and the neuro exam findings as obtained by others. I have seen and examined this patient. I have discussed the case and the management of this patient's care with the Resident/Fellow, if applicable. I also have reviewed and agree with the assessment and plan as stated above and agree with all of its relevant components. Gustavolandy Sotomayor, OD October 06, 2017 1:24 PM Progress Notes (): [facility] Provider 10/04/2017 11:43 PM Signed [facility] Patient Education Report ---- Name: ROSE ROLAND Date: 10/04/2017 Time: 11:42 PM Patient Ordered Video: Inpatient Falls from [id number] via phone number [phone] at 11:42 PM Eliazar March MD 10/05/2017 6:32 PM Addendum NEUROSURGERY ADMISSION HISTORY AND PHYSICAL EXAMINATION Patient Name: Rose Roland CHIEF COMPLAINT: headache, blurry vision HPI: 47 year old R handed female with history of HTN, HLD, DM c/b neuropathy (on gabapentin), asthma, melanoma of L arm s/p local excision and lymph node removal in 2010, with 4 months of headache and intermittent nausea and 1 month of blurry vision (R worse than L) and L hand paresthesias (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 Reports increased irritability and decreased appetite in past few months as well. Deniesvomiting, seizures, weakness (other than baseline L power lineworker weakness), falls,speech changes, or fevers/chills. Anti-platelets/anti-coagulants: aspirin 81 daily PAST MEDICAL HISTORY: PAST MEDICAL HISTORY Diagnosis Date - Abdominal pain - Abdominal pain, epigastric - Acute gastritis without mention of hemorrhage - Asthma - DM (diabetes mellitus) (HCC) - Esophagitis, unspecified - Hypertension - Melanoma (HCC) NO BP LEFT ARM - Menorrhagia - Neuropathy (HCC) PAST SURGICAL HISTORY: PAST SURGICAL HISTORY Procedure Laterality Date - DANDC, DIAG AND/OR THERAPEUTIC Dilation AND curettage - EGD W/O BRSH SPECIMEN W/BX 05/15/09 - L'SCOPE DX W/WO BRUSHINGS/WASHINGS Laparoscopy - LIGATE FALLOPIAN TUBE 09/24/14 - PAST SURGICAL HISTORY OF 02/02/2011 excision of melanoma Lt arm with nodes - REMOVAL GALLBLADDER Cholecystectomy - complex A. our procedure with biliary enteric anastomosis. 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 gabapentin (NEURONTIN) 100 mg capsule Take 100 mg by mouth three times daily. aspirin, enteric coated (ASPIRIN, ENTERIC COATED) 81 mg EC tablet Take 81 mg by mouth once daily. medroxyPROGESTERone (DEPO-PROVERA) 150 mg/mL syrg Inject 1 mL intramuscularly every 12 weeks. TRAMADOL HCL (TRAMADOL ORAL) Take by mouth as needed. metoprolol tartrate, short acting, (LOPRESSOR) 25 mg tablet Take 25 mg by mouth twice daily. sertraline 50 mg tablet Take 50 mg by mouth once daily. metFORMIN 1,000 mg ORAL 24 hr tablet Take one(1) tablet daily. cyclobenzaprine (FLEXERIL) 10 mg tablet Take 10 mg by mouth as needed. sulindac (CLINORIL) 200 mg tablet Take 200 mg by mouth as needed. IPRATROPRIUM-ALBUTEROL 0.5 mg-3 mg(2.5 mg base)/3 mL INHALATION Nebu LORAZEPAM 1 mg ORAL tablet ALBUTEROL 90 MCG/ACTUATION AEROSOL INHALER Use as directed four(4) times daily. as needed Current hospital medications: gabapentin 100 mg cap(s) (NEURONTIN) 100 mg ORAL TID metoprolol tartrate (short acting) 25 mg tab(s) (LOPRESSOR) 25 mg ORAL BID sertraline 50 mg tab(s) (ZOLOFT) 50 mg ORAL DAILY NaCl 0.9% iv infusion 75 mL/hr INTRAVENOUS CONTINUOUS acetaminophen 650 mg tab(s) (TYLENOL) 650 mg ORAL q 4 H PRN oxyCODONE-acetaminophen 5-325 mg 1-2 tablet (PERCOCET) 1-2 tablet ORAL q 4 H PRN ondansetron (PF) 4 mg injection (ZOFRAN) 4 mg INTRAVENOUS q 6 H PRN docusate sodium 100 mg cap(s) (COLACE) 100 mg ORAL BID pantoprazole DR 40 mg tab(s) (PROTONIX) 40 mg ORAL DAILY (6 AM) ALLERGIES: ALLERGIES No Known Allergies COMPLETE REVIEW OF SYSTEMS: See HPI PHYSICAL EXAM: Awake, alert, NAD Oriented x 3 Speech fluent Repetition intact, naming 3/3 PERRL, EOMI OU 20/30 acuity VF intact FS, TM, FSILT Palate rise symmetric RUE 5/5, no drift LUE 4/5 power lineworker, otherwise 5/5, no drift BLE 5/5 SILT CV: RRR, no r/m/g Chest: CTAB Abdomen: Soft, NT/ND ASSESSMENT AND PLAN: 47y F with hx significant for LUE melanoma s/p local excision and lymph node removla in 2010, with 4 months headaches and nausea, 1 month blurry vision (R>L) and L hand paresthesias, increased irritability, and decreased appetite, with MRI demonstrating 7.7x5.2cm R frontal extra-axial enhancing mass causing 2cm midline shift, displacement of ACAs, and subfalcine herniation, suspicious for meningioma. H60 with q4h neuro checks SBP <160 Pain control Keep NPO Dex 4 BID, SSI No AEDs at this time OR for resection, timing pending staff review of imaging Admit labs, DVT scan Hold antiplatelets/anticoagulation/chemoprophylaxis Discussed with chief and staff, Dr. Miller Signature: Luz Maria Mesa MD Neurosurgery PGY2 Pager [phone] Please page [phone] after 6 PM and on weekends [facility] STAFF: TEACHING PHYSICIAN NOTE OF PERSONAL INVOLVEMENT IN CARE I have reviewed the progress note obtained and documented by the Resident and I personally participated in the villalba components. I have discussed the case and management of the patient's care with the Resident. The following comments revise or confirm relevant villalba components of the Resident's note. History and exam as above. Asked by Dr. Miller to evaluate and manage patient. 3 months of headaches and blurry vision, eye doctor saw papilledema prompting imaging. Notes 6-12 months or irritable mood, mild memory and concentration difficulties, mild imbalance. No seizure history, no prior XRT hx. Localized melanoma excision. MRI shows 7cm right frontal extra-axial mass with major mass effect. I believe this is most likely represents a meningioma although the possibility that this could represent another type of tumor was also discussed. The natural history of meningiomas was discussed in detail. Treatment options were discussed in detail including observation, radiation treatment/radiosurgery, or surgery. I recommend surgery due to large size, mass effect, atypical features, papilledema. We discussed the craniotomy for resection of brain tumor in detail including the risks, benefits, alternatives, and expected course and outcomes. Risks discussed included but were not limited to bleeding, infection, cerebrospinal fluid leak, numbness, weakness/paralysis, speech difficulty, stroke, seizures, medical complications, and . Patient and family understand these risks and wish to proceed. They also understand that this may be one of several staged procedures needed to treat this condition. Diet, OK to shower, SC hep. Last aspirin Tuesday. May be ok for Tuesday, but discussed with patient may need platelet transfusion prn. Had stress test 3 yr ago for palpitations was normal, MET>4. Diabetes, dex 4 bid, watch sugars. Start keppra 500 bid. Surgery Tuesday vs Tuesday. lEiazar March MD Staff, Skull Base AND Cerebrovascular Surgery Department of Neurological Surgery [facility] Previous Version Rose Hoffman RN, RN 10/05/2017 1:17 AM Signed Nursing Progress Note Patient Name: Rose Roland Patient Location: [place] [address] Transfer Note: Patient transferred into H60:12 in stable condition. Actions taken: No futher actions taken at this time. Will continue to monitor and check with patient. 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 No Advance Directive: Health Literacy: 1. How often do you need to have someone help you when you read instructions, pamphlets, or other written material from your doctor or pharmacy? Never - 1 2. How confident are you filling out medical forms by yourself? Extremely - 1 If Patient scores > 3 on either question, the following interventions were put into place: Patient did not score > 3 FUNCTIONAL AND COGNITIVE/BEHAVIORAL PRIOR TO ADMISSION: Baseline Mental Status: Alert AND Oriented, Person, Place , Time and Situation Functional Status: Independent Does Patient Currently Receive Any Community Services or Home Care? None Equipment Prior to Admission: None Has the Patient Been in a Custodial Facility in the Past 30 days? 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 Yes Patient's transition needs and plan for meeting these needs: tbd Does the patient have an acute stroke diagnosis, or has the patient had a stroke during this admission? No Medication Adherence: I am convinced of the importance of my prescription medication: Agree mostly - 0 I worry that my prescription medication will do more harm than good to me Disagree mostly - 0 I feel financially burdened by my faf-uv-kxluur expenses for my prescription medication: Disagree completely - 0 Patient is categorized as low risk < 2 Are you interested in bedside delivery of your medications? Yes Food Concerns: In the Last Month, Have You had Trouble Getting Food? No trouble getting food During the Last Month, Have You Worried Whether Your Food Would Run Out Before You Had Enough Money to Buy More? No Is the Patient Psychosocially Complex? No ASSESSMENT AND PLAN: Medical Needs: None Psychosocial Needs: None FREEDOM OF CHOICE EXPLAINED: N/A POTENTIAL TRANSITION PLANS To Be Determined Pt admitted for headache and blurry vision. Pt lives at home independently but has assist from her daughter and her mother and father live next door. Needs tbd. RNCC/SWCM will continue to follow pt for needs. SIGNATURE: BELA Haley PATIENT NAME: Rose Roland DATE: October 05, 2017 TIME: 9:50 AM PAGER/CONTACT #: [phone] Previous Version Rukhsana Bridges RN, RN 10/05/2017 5:26 PM Signed Nursing Progress Note Topic of Note: Daily Note Rose Roland [id number] Pt. Discharge cancelled, high out from drain and uncontrolled pain. WATCH BAND ASSEMBLER dc'd today, transitioned to p.o. This note was completed by: ALMA Huertas MD 10/06/2017 9:41 PM Addendum After 4 PM (1600) please page Tatiana Mcwilliams. After 1900, and weekends please page [phone]. Cerebrovascular Team A Inpatient Progress Note Attending: Dr. Eliazar March Location: H060 011/H060-12 INTERVAL HPI (Subjective): is a 47 year old female who denies blurry vision or headache. MEDICATIONS: Current hospital medications: dexamethasone 4 mg tab(s) (DECADRON) 4 mg ORAL BID w MEALS dextrose 40 % 15 g 15 g ORAL PRN glucagon 1 mg injection (GLUCAGEN) 1 mg INTRAMUSCULAR PRN dextrose 50% in water 25 mL syringe 12.5 g INTRAVENOUS PRN insulin lispro injection (rapid acting) (HumaLOG) SUBCUTANEOUS w MEALS ciprofloxacin HCl 500 mg tab(s) (CIPRO) 500 mg ORAL q 12 H mupirocin 2% 0.5 g nasal ointment (BACTROBAN) 0.5 g NASAL BID levETIRAcetam 500 mg tab(s) (KEPPRA) 500 mg ORAL BID heparin 5,000 Units injection 5,000 Units SUBCUTANEOUS q 12 H gabapentin 100 mg cap(s) (NEURONTIN) 100 mg ORAL TID metoprolol tartrate (short acting) 25 mg tab(s) (LOPRESSOR) 25 mg ORAL BID sertraline 50 mg tab(s) (ZOLOFT) 50 mg ORAL DAILY acetaminophen 650 mg tab(s) (TYLENOL) 650 mg ORAL q 4 H PRN oxyCODONE-acetaminophen 5-325 mg 1-2 tablet (PERCOCET) 1-2 tablet ORAL q 4 H PRN ondansetron (PF) 4 mg injection (ZOFRAN) 4 mg INTRAVENOUS q 6 H PRN docusate sodium 100 mg cap(s) (COLACE) 100 mg ORAL BID pantoprazole DR 40 mg tab(s) (PROTONIX) 40 mg ORAL DAILY (6 AM) OBJECTIVE: LABS: CBC: Recent Labs 10/05/17 014 WBC 10.52 HB 12.9 HCT 40.0 PLT 289 MCV 89.7 RDWCV 12.9 NEUTP 89.7 ABSNEUT 9.44* LYMPHP 9.1 MONOP 0.8 EODINP 0.1 COAG: Recent Labs 10/05/17146 APTT 26.3 INR 1.0 BMP: Recent Labs 10/05/17146 GLUC 178* NA 140 K 4.2 CHLOR 103 CO2 21* ANION 16 BUN 13 CREAT 0.69 CHEM: Recent Labs 10/05/17146 ALB 4.3 TPROT 8.3* CA 9.9 MG 2.2 HEPATIC: Recent Labs 10/05/17 014 ALKPHOS 73 ALT 13 AST 14 TBILI 0.3 URINALYSIS: Recent Labs 10/05/17 0454 SPGR 1.027 UGLUC Negative UBILI Negative UKET Negative UHB Negative UPROT Negative UWBC 11-25* LEUKEST 1+* CARDIAC: No results for input(s): CKTEST, CKMB, CKMBP, TROPT, PBNP in the last 168 hours. Estimated Creatinine Clearance: 115.5 mL/min (based on Cr of 0.69). VITAL SIGNS 24 HOUR REVIEW: 10/05/17 1448 10/05/17 1828 10/05/17 2139 10/06/17 0600 BP: 115/67 120/61 123/70 122/66 Pulse: 71 91 71 67 Resp: 16 Temp: 37.1 ?C (98.8 ?F) 37.1 ?C (98.8 ?F) 36.7 ?C (98.1 ?F) TempSrc: Oral Oral Oral Oral SpO2: 98% 98% 98% 98% Weight: Height: Intake/Output Summary (Last 24 hours) at 10/06/17 0710 Last data filed at 10/06/17 0700 Gross per 24 hour Intake 2130 ml Output 302 ml Net 1828 ml ALLERGIES: ALLERGIES No Known Allergies PATIENT CHECK LIST: 1. Out of bed and ambulating: Yes Needs PT or OT Evaluation: no 2. Vascular access necessary: PIV Yes Central line present? No 3. Sotomayor/drains: No Continued need for urinary catheter? D/C Urinary Catheter 4. Nutrition: PO- Yes. 5. Pain - Is the patient currently reporting any pain? No. What is the patient's current pain level on a 0 to 10 rating scale? Pain Score: 0/10 - What is the plan for pain management today 10/06/2017? Gabapentin, 6. Current DVT prophylaxis: Continous sequential compression devices . 7. Seizure prophylaxis:Keppra 500 BID 8. Restraints No. 9. Gait difficulty: No 10. Bowel / Bladder dysfunction: No 11. Urinating:yes 12. 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 General: A AND O x 3. Appears stated age, well built, in no apparent distress. Psychiatric: Mood and affect: Appropriate. CV: Normal heart sounds, rate, rhythm Respiratory: lungs CTA bilat Musculoskeletal: Sensory: Normal sensory exam Gait: Normal Muscle strength: UE BICEPS TRICEPS DELTS Program Manager Environmental Planning R 5/5 5/5 5/5 5/5 L 5/5 5/5 5/5 5/5 LE Hip Flex Knee Flex Knee Extend Plantarflex Dorsiflex EHL R 5/5 5/5 5/5 5/5 5/5 5/5 L 5/5 5/5 5/5 5/5 5/5 5/5 CRANIAL NERVES: Pupils: OD Right: 2 mm Reactive OS Left: 2 mm Reactive II Visual zuniga: are full to confrontation, Denies blurry vision III, IV, EOM full V Facial sensation normal VII Normal strength VIII Normal bilaterally IX, X Normal, midline palatal rise XI Symmetric shrug XII Tongue midline, mobile Drift: negative Speech: fluent Hemineglect: negative Hospital Day: 3 10/07/2017 CC: Blurry vision ASSESSMENT: The patient denies headache or blurry vision this morning. PLAN: Patient seen, examined, and plan discussed with staff during rounds. Possible OR for tumor resection Tuesdayad 4BID for cerebral edema secondary to brain tumor (ISS and Protonix) Planned Date of Discharge: Approximately 4 - 6 days Discharge Disposition: pending Active Hospital Problems Diagnosis - Meningioma (HCC) POA Assessment; MRI Plan: possible OR tomorrow - Vasogenic cerebral edema (HCC) POA Assessment: MRI Plan:Decadron 4BID for cerebral edema secondary to brain tumor (ISS and Protonix) - At risk of seizures POA Plan: keppra 500 BID - Brain mass SIGNATURE: America Malloy PA-C PATIENT NAME: Rose Roland DATE: 10/06/2017 TIME: 7:10 AM PAGER: [phone] After 4 PM (1600) please page Tatiana Mcwilliams. After 1900, and weekends please page [phone]. [facility] STAFF: TEACHING PHYSICIAN NOTE OF PERSONAL INVOLVEMENT IN CARE I have reviewed the progress note obtained and documented by the Resident and I personally participated in the villalba components. I have discussed the case and management of the patient's care with the DEVON. The following comments revise or confirm relevant villalba components of the DEVON's note. Papilledema noted, vision ok. OR tomorrow. Stereo MRI without fiducials. Eliazar March MD Staff, Skull Base AND Cerebrovascular Surgery Department of Neurological Surgery [facility] Previous Version Sheryl Dimas MD 10/06/2017 8:25 AM Signed Neurosurgery Update Note -Patient to be transported today to [facility] at 1000 today for formal ophtho evaluation Signature: Sheryl Dimas M.D. Neurosurgery, PGY-2 Pager #[phone] 10/06/2017 8:25 AM BELA Burrows 10/06/2017 9:41 AM Signed CARE MANAGEMENT PROGRESS NOTE SERVICE DATE: 10/06/2017 SERVICE TIME: 9:40 AM LOS: 2 days Needs Prior to Discharge: To Be Determined Plan is for patient to go to OR Tuesday for brain mass. Pt will not be discharging over the weekend prior to surgery. Pt will need PT/OT evals after OR. Floor CM will follow up with patient and team regarding DC plans after OR. SIGNATURE: BELA Burrows PATIENT NAME: Rose Roland DATE: October 06, 2017 TIME: 9:40 AM PAGER/CONTACT #: [phone] Gustavo Sotomayor, OD 10/06/2017 1:28 PM Addendum SDA inpatient ophtho consult 47y F with hx significant for left upper extremity melanoma s/p local excision and lymph node removal in 2010 Presented to [facility] with 4 months headaches and nausea, 1 month blurry vision (R>L) and L hand paresthesias, increased irritability, and decreased appetite, MRI showed 7.7x5.2cm R frontal extra-axial enhancing mass causing 2cm midline shift, displacement of ACAs, and subfalcine herniation, suspicious for meningioma. Scheduled for surgery tomorrow Here for baseline ophthalmic exam Vision pinholes to 20/20 OD, 20/25 OS No APD noted by tech OD, OS + symmetrical dyschromatopsia (missed 4 out of 12 ishihara plates OD, OS) HVF 30-2 and optic disc photos ordered Florid disc edema OU (see photos) HVF 30-2: high false positives OU Right eye: Scattered points missed. 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 Establish care with neuro-ophthalmology once stabilized. Full exam available in [facility]. Thank you I have confirmed and edited as necessary the relevant ophthalmic history, ROS, and the neuro exam findings as obtained by others. I have seen and examined this patient. I have discussed the case and the management of this patient's care with the Resident/Fellow, if applicable. I also have reviewed and agree with the assessment and plan as stated above and agree with all of its relevant components. Gustavo Sotomayor, OD October 06, 2017 1:24 PM Previous Version Idania aShni, RN, RN 10/06/2017 10:24 PM Signed Radiology Service Progress Note PATIENT NAME: Rose Roland DATE OF SERVICE: October 06, 2017 TIME: 10:23 PM PATIENT WEIGHT: 210 LBS PATIENT IDENTITY VERIFICATION COMPLETED USING TWO (2) METHODS: Patient confirmed name verbally and ID band matches.. PATIENT GENDER DATA: Female. status: : No status: NO. CONTRAST INDUCED NEPHROPATHY RISK FACTORS: Not applicable CREATININE: Creatinine Date Value Ref Range Status 10/05/2017 0.69 0.58 - 0.96 mg/dL Final 09/19/2014 0.78 0.70 - 1.40 mg/dL Final 01/09/2007 0.6 (L) 0.7 - 1.4 mg/dL Final eGFR-All Other Races Date Value Ref Range Status 10/05/2017 >60 . Final Comment: eGFR (Estimated GFR) Units of measure: mL/min/1.73 meters squared eGFR is derived from the reexpressed MDRD Study equation using the following parameters: serum creatinine, age, gender and race. The creatinine assay has been calibrated to be traceable to IDMS. An eGFR <60 mL/min/1.73m2 for >3 months is consistent with chronic kidney disease. Refer to KDOQI guidelines for clinical interpretation. In patients with unstable renal function, e.g. those with acute kidney injury, the eGFR may not accurately reflect actual GFR. eGFR- Date Value Ref Range Status 10/05/2017 >60 Final P.O.C.T. RESULTS: gfr>60 October 06, 2017 TREATMENT: No Hydration needed. ALLERGIES: Reviewed and unchanged CONTRAST ALLERGY: NO. IV SITE: Inpatient - refer to LDA documentation 20g RAC IV SITE APPEARANCE: Clean,Dry and Intact SIGNED BY: Idania Sahni RN October 06, 2017 10:23 PM RT Jossue 10/06/2017 10:30 PM Signed Radiology Service Progress Note PATIENT NAME: Rose Roland DATE OF SERVICE: October 06, 2017 TIME: 10:30 PM PATIENT IDENTITY VERIFICATION COMPLETED USING TWO (2) METHODS: Patient confirmed name verbally and ID band matches.. PATIENT GENDER DATA: Female. status: : No status: NO. PATIENT RELEVANT IMPLANT DATA REVIEWED: Yes RADIOLOGY DEPARTMENT: MR; Exam(s) Completed: Head: Localization PERIPHERAL IV DATA: Inpatient: see LDA documentation SIGNED BY: RT Jossue October 06, 2017 10:30 PM Yelena Queen RN, RN 10/07/2017 8:39 AM Signed Report from [place] on H60 XR HAND LEFT 3+ VIEWS Observed: 09/14/2017 Status: F Source: [facility] (STANDARD) 12:00 AM THREE REPOSITORY 3 views left hand reveals no fracture dislocation soft tissue calcifications arthritis or other abnormalities this did include the ring and long fingers Dictated by: YON WONG on TueSep 14, 2017 5:25:29 PM EST Transcribed by: YON WONG on TueSep 14, 2017 5:25:29 PM EST Finalized by: YON WONG on TueSep 14, 2017 5:25:29 PM EST PROGRESS Observed: 08/24/2017 Status: COMPLETED Source: [facility] 1:49 PM [facility] REPOSITORY HNO ID: [id number] Author: Sary Disla) Dorcas Service: (none) Author Type: Nurse Practitioner Type: Progress Notes Filed: 08/24/2017 2:30 PM Note Text: Rn Urgent Care offered: Patient declines. Rose Roland is a 47 year old who presents for her annual gynecologic exam without complaints. Menses: no menses - on Depo Provera, occasional spotting. Has been on for years, goes off occasionally due to risk of decrease in BMD. Contraception: tubal ligation HPV vaccine: No Last Pap: 2013 normal HPV: negative History of abnormal pap: No Last mammogram: 2017normal Abnormal mammogram: Had abnormality followed in left breast near nipple - determined to be past trauma to area. Sexually active: No Hot flashes: Yes, twice daily Night sweats: Yes, occasional Exercise: 3 times a week for 10 minutes. Type: walking Diet: balanced Seatbelt use: Yes Obstetric History T1 L1 SAB0 TAB0 Ectopic0 Multiple0 Live Births0 PAST MEDICAL HISTORY Diagnosis Date - Abdominal pain - Abdominal pain, epigastric - Acute gastritis without mention of hemorrhage - Asthma - DM (diabetes mellitus) (HCC) - Esophagitis, unspecified - Hypertension - Melanoma (HCC) NO BP LEFT ARM - Menorrhagia - Neuropathy (HCC) PAST SURGICAL HISTORY Procedure Laterality Date - DANDC, DIAG AND/OR THERAPEUTIC Dilation AND curettage - EGD W/O BRSH SPECIMEN W/BX 05/15/09 - L'SCOPE DX W/WO BRUSHINGS/WASHINGS Laparoscopy - LIGATE FALLOPIAN TUBE 09/24/14 - PAST SURGICAL HISTORY OF 02/02/2011 excision of melanoma Lt arm with nodes - REMOVAL GALLBLADDER Cholecystectomy - complex A. our procedure with biliary enteric anastomosis. Prolonged postoperative course - REPAIR INCISIONAL HERNIA,DARI 02/26/11 RUQ FAMILY HISTORY Problem Relation Age of Onset - Hypertension Mother breast cancer - Breast Cancer Mother - Cancer Sister - Hypertension Maternal Grandmother - Coronary Artery Disease Maternal Grandfather - Diabetes Maternal Uncle - Diabetes Maternal Uncle - Diabetes Maternal Uncle - Diabetes Maternal Uncle - Cancer Maternal Uncle lung SOCIAL HISTORY Social History Substance Use Topics - Smoking status: Never Smoker - Smokeless tobacco: Never Used - Alcohol use No REVIEW OF SYSTEMS Abdomen: No abdominal pain, nausea, vomiting, diarrhea, or constipation. No bloating, early satiety, indigestion, or increased flatulence. Bladder: No dysuria, gross hematuria, urinary frequency, urinary urgency, or incontinence. Nocturia x 3 when drinking iced tea. Breast: No breast lumps, nipple d/c, overlying skin changes, redness or skin retraction. Allergies and current medication updated:Yes EXAM: BP 120/64 Ht 5' 5 (1.65m) Wt 212 lb 12.8 oz (96.5kg) BMI 35.41 kg/(m2). GENERAL: pleasant, female in no apparent distress HEENT: Normocephalic, atraumatic, mucus membranes moist and no lesions NECK: Supple, full range of motion, no adenopathy and thyroid normal DERMATOLOGY: Normal, without lesions, non-icteric and non-hirsute BREAST: soft, non-tender, symmetric, no dominant mass, normal nipple-areolar complex, no lymphadenopathy and no nipple discharge CHEST: Normal inspiratory effort ABDOMEN: soft, non-tender and no masses PELVIC: external genitalia normal, normal Bartholin's glands, urethra, [place]'s glands, no vulvar lesions, no cervical lesions, good vaginal support, physiologic discharge present, normal appearing perineal body and perianal region BIMANUAL: uterus normal size, shape and consistency, no adnexal masses and non-tender RECTOVAGINAL: deferred. NEURO: alert and oriented x3,exam grossly non-focal EXTREMITIES: normal ASSESSMENT/PLAN: 1) Health maintenance: Pap/HPV up to date. Mammogram ordered. Nutrition, exercise and routine health maintenance exams reviewed. Calcium/Vitamin D supplementation information provided. 2) Contraception: tubal ligation. Contraceptive options reviewed and information provided. 3) STD screening: Declined STD check. 4) Follow up one year or sooner as needed SARY XIONG CNP ALLERGIES ALLERGIES DATE TYPE / CODE NAME / CODE REACTION SEVERITY SOURCE 10/04/2017 Drug No Known Unknown [facility] Allergy/416 Allergies/D19704 Hospital 635432(SNOM 0388(RXNORM) Repository ED CT) Drug NO KNOWN [facility] Class/53530 ALLERGIES Repository 1003(SNOMED CT) Drug NO KNOWN [facility] Class/69536 ALLERGIES [place] 1003(SNOMED Repository CT) ENCOUNTERS ENCOUNTERS ADMIT/DISCHARGE ACCOUNT NUMBER ADMITTING ENCOUNTER LOCATION SOURCE CLASS 06/23/2018 [id number] Ambulatory [facility] ding:MTLAB Repository 06/08/2018/06/08/20 [id number] Ambulatory BMSBuilding: [address] Repository 06/06/2018 [id number] Ambulatory Building:[facility] Repository 04/07/2018/04/11/20 [id number] Ambulatory [address] [place] Repository 04/07/2018/04/07/20 [id number] Ambulatory [address] [place] Repository 02/17/2018/02/18/20 [id number] Ambulatory [address] [place] Repository 02/15/2018/02/18/20 [id number] Ambulatory [address] [place] Repository 01/20/2018/01/21/20 [id number] Ambulatory [address] [place] Repository 01/17/2018/01/18/20 [id number] Ambulatory [address] [place] Repository 12/28/2017/01/03/20 [id number] Ambulatory [address] [place] Repository 12/28/2017/12/29/19 [id number] Ambulatory [address] [place] Repository 11/25/2017/11/29/19 [id number] Ambulatory [address] [place] Repository 11/25/2017/11/29/19 [id number] Ambulatory [address] [place] Repository 11/11/2017/11/12/19 [id number] Ambulatory [address] [place] Repository 10/25/2017/11/01/[id number] [place] [facility] 10/25/2017/10/27/19 [id number] Ambulatory [address] Repository 10/06/2017/10/08/19 [id number] Ambulatory [address] Repository 10/05/2017/10/06/19 [id number] Ambulatory [address] Repository 10/04/2017/10/10/19 [id number] MILLER, Inpatient [place] [address] NATASHA G Encounter [facility] Repository 10/04/2017/10/05/19 [id number] Emergency [address] ding:ED Repository 10/04/2017 [id number] Ambulatory [facility] ding:MRI Repository 09/22/2017 [id number] Ambulatory Building:[facility] Three ER Repository 09/14/2017/09/15/19 [id number] Ambulatory Building:[facility] [address] Three ER Repository 08/24/2017/08/25/19 [id number] Ambulatory [address] Repository PAYERS PAYERS ENCOUNTER GUARANTOR PAYER SUBSCRIBER SOURCE 06/23/2018 ROSE L Primary ROSE L Rahel [id number] Insurance:ANTHEMPolic CHANDLERDOB: Community DRE [place]: [id number] [id number] Repository [address]Zaj: (330) Date:[id number] BOX () [address] [place] [address] 00117XY: 06/23/2018 Secondary NOT GIVENUNK Rahel Insurance:SELF PAY [facility] Number: Effective Repository Date:2018-06-20 06/08/2018 ROSE L Primary NOT GIVENUNK [place] [id number] Insurance:SELF PAY [place] Number: Effective Repository [id number]: (330) Date:2018-06-08 () 06/06/2018 ROSE [facility] CHANDLERDOB: Insurance:WORKER'S CHANDLERDOB: Three Repository [id number] COMPPolicy Number: [id number] [id number] [address] [place] [address] [place] Date: [place], [place] [address]Dng: (330) [place], [place] [address]Tuq: (HP) [phone]: (HP) [phone] 10/04/2017 ROSE L Primary ROSE L [place] [id number] Insurance:ANTHEMPolic CHANDLERDOB: Community DRE y [place]: [id number] [id number] Repository [address]Yzt: (330) Date:2921-44-27UQ [id number] () [address] [place] [address]RJ: 10/04/2017 Secondary NOT GIVENUNK [place] Insurance:SELF PAY [facility] Number: Effective Repository Date:2017-10-04 10/04/2017 ROSE L Primary ROSE L Rahel [id number] Insurance:ANTHEM CHANDLERDOB: Community DRE EXCHANGE PLANPolicy [id number] Number: Repository [id number]: (330) [id number] [phone] (HP) Date:2696-88-28IY [address] [place] [address] 486[address]OF: 10/04/2017 Secondary NOT GIVENUNK Rahel Insurance:SELF PAY [facility] Number: Effective Repository Date:2017-09-29 09/22/2017 [id number]- [facility] : Insurance:WORKER'S CHANDLERDOB: Three Repository COMPPolicy Number: [id number] DRE [id number] 9 [address] [place], [place] Date: [place], [place] [address]Hld: (330) [place], [place] [address]Fbb: (HP) [phone]: (HP) [id number] 09/14/2017 [id number]- [facility] : Insurance:WORKER'S LOVEB: Three Repository [id number] COMPPolicy Number: [id number] [id number] [address] [place], [place] Date: [place], [place] [address]Mhd: (702) [place], [place] [address]Jxy: () [phone]: () [phone]
== END ==
DX: E11.9 Type 2 diabetes mellitus without complications (principal); R53.83 Other fatigue; Z13.220 Encounter for screening for lipoid disorders
CPT/HCPCS: 36415; 80053; 80061; 83036; 85025

== ENCOUNTER → 2022-10-02 | Outpatient (CLI) | payer MEDICAID, SELFPAY ==
[2022-10-02 10:35] LABS: Absolute Lymphocyte Count 2.67 X10^3/uL (0.83-4.51); Absolute Neutrophil Count 5.5 X10^3/uL (2.0-7.7); Basophil# 0.07 X10^3/uL; Basophil% 0.7 % (0-1); Eosinophil# 0.73 X10^3/uL; Eosinophils% 7.6 % (0-5); Hematocrit 41.5 % (37-47); Lymphocyte # 2.67 X10^3/ul (0.83-4.51); Lymphocyte % 27.9 % (19-41); Mean Corp Hgb Conc 31.3 g/dL (32-36); Mean Corpuscular Volume 92.4 fL (81-99); Mean Platelet Vol. 9.7 fl (6.2-12.0); Monocyte# 0.58 X10^3/uL; Monocyte% 6.1 % (0-10); NRBC Flagged by Analyzer 0 % (0-5); Neutrophil # 5.48 X10^3/uL (2.7-7.7); Neutrophil % 57.4 % (47-70); Platelet Count 289 K/mm3 (150-450); RBC Distribution Width CV 13.3 % (11.6-14.6); RBC Distribution Width SD 45.4 fl (35.1-43.9); Red Blood Count 4.49 M/mm3 (4.2-5.4); White Blood Count 9.6 K/mm3 (4.4-11.0)
[2022-10-02 10:52] LABS: ALB/GLOB Ratio 0.9 RATIO (0.9-2.4); AST(SGOT) 11 U/L (15-37); Alanine Aminotransfer ALT/SGPT 20 U/L (13-56); Albumin, Serum 3.4 g/dL (3.2-5.0); Alkaline Phosphatase 86 U/L (45-117); Anion Gap 3 (5-15); BUN 13 mg/dL (7-18); Calcium,Total 9.3 mg/dL (8.5-10.1); Chloride 107 mmol/L (98-107); Cholesterol 154 mg/dL (200); Creatinine, Serum 0.81 mg/dL (0.55-1.02); EST Glomerular Filtration Rate 79 mL/min (>60); Est Glom Filt Rate - Afr Amer 96 mL/min (>60); Globulin 3.9 g/dL (2.2-4.2); Glucose 144 mg/dL (74-106); High Density Lipoprotein 42 mg/dL; Potassium 3.6 mmol/L (3.5-5.1); Protein, Total 7.3 g/dL (6.4-8.2); Sodium Level 138 mmol/L (136-145); Triglycerides 81 mg/dL; Very Low Density Lipoprotein 16 mg/dL (5-40)
[2022-10-02 10:57] LABS: Microalbumin,Random Urine 15.8 mg/L (NO RANGE EST.); Microalbumin:Creatinine Ratio 8.7 mg/g CRE (<30 mg/g CRE)
[2022-10-03 18:44] LABS: Hemoglobin A1c 6.5 % (3.8-5.6)
== END | disposition home or self-care (01) ==
LOC: LAB 10:12
PROVIDERS: PCP Family Medicine; Visit Provider Nurse Practitioner Family
DX: E11.9 Type 2 diabetes mellitus without complications (principal); I10 Essential (primary) hypertension; E78.00 Pure hypercholesterolemia, unspecified
CPT/HCPCS: 36415; 80053; 80061; 82043; 82570; 83036; 85025

== ENCOUNTER → 2024-07-18 | Outpatient (CLI) | payer BC, SELFPAY ==
[2024-07-18 12:27] LABS: ALB/GLOB Ratio 0.9 RATIO (0.9-2.4); AST(SGOT) 15 U/L (15-37); Alanine Aminotransfer ALT/SGPT 19 U/L (13-56); Albumin, Serum 3.6 g/dL (3.2-5.0); Alkaline Phosphatase 88 U/L (45-117); Anion Gap 5 (5-15); BUN 15 mg/dL (7-18); BUN/Creat Ratio 19.9 RATIO (10-20); Calcium,Total 9.9 mg/dL (8.5-10.1); Chloride 107 mmol/L (98-107); Cholesterol 189 mg/dL (200); Creatinine, Serum 0.75 mg/dL (0.55-1.02); EST Glomerular Filtration Rate 85 mL/min (>60); Est Glom Filt Rate - Afr Amer 103 mL/min (>60); Globulin 3.9 g/dL (2.2-4.2); Glucose 108 mg/dL (74-106); High Density Lipoprotein 51 mg/dL; Potassium 3.7 mmol/L (3.5-5.1); Protein, Total 7.5 g/dL (6.4-8.2); Sodium Level 138 mmol/L (136-145); Triglycerides 100 mg/dL; Very Low Density Lipoprotein 20 mg/dL (5-40)
[2024-07-18 13:08] LABS: Absolute Lymphocyte Count 2.22 X10^3/uL (0.83-4.51); Absolute Neutrophil Count 5.4 X10^3/uL (2.0-7.7); Basophil# 0.07 X10^3/uL; Basophil% 0.7 % (0-1); Eosinophil# 1.12 X10^3/uL; Eosinophils% 11.9 % (0-5); Hematocrit 41.4 % (37-47); Lymphocyte # 2.22 X10^3/ul (0.83-4.51); Lymphocyte % 23.6 % (19-41); Mean Corp Hgb Conc 31.4 g/dL (32-36); Mean Corpuscular Hgb 27.8 pg (27.0-32.0); Mean Corpuscular Volume 88.7 fL (81-99); Mean Platelet Vol. 10.5 fl (6.2-12.0); Monocyte# 0.53 X10^3/uL; Monocyte% 5.6 % (0-10); NRBC Flagged by Analyzer 0 % (0-5); Neutrophil # 5.44 X10^3/uL (2.7-7.7); Neutrophil % 57.8 % (47-70); Platelet Count 295 K/mm3 (150-450); RBC Distribution Width CV 13.6 % (11.6-14.6); RBC Distribution Width SD 44.2 fl (35.1-43.9); Red Blood Count 4.67 M/mm3 (4.2-5.4); White Blood Count 9.4 K/mm3 (4.4-11.0)
== END | disposition home or self-care (01) ==
PROVIDERS: PCP Nurse Practitioner Family; Referring Provider Nurse Practitioner Family; Visit Provider Nurse Practitioner Family
DX: Z00.01 Encounter for general adult medical examination with abnormal findings (principal)
CPT/HCPCS: 36415; 80053; 80061; 85025